=== PATIENT | female | born 1975 | race Caucasian/White ===

== ENCOUNTER 2016-05-02 14:44 | Emergency (ER) | payer MEDICAID ==
[~2016-05-02] VITALS: Ht 180.3 cm; Wt 108.9 kg
[~2016-05-02 14:44] MED LIST: AUGMENTIN 875-1 EACH PO; BUPRENORPHINE H1 TA2 SL; CITALOPRAM HYDR40 MG PO; CLONAZEPAM0.5 M1 PO; DIFLUCAN100 M1 PO; FLEXERIL10 MG PO; GABAPENTIN800 MG PO; GRALISE300 MG PO; HYDROCODONE1 TABLET PO; LORTAB 10/3251 TAB PO; LORTAB 5/500 501 TAB PO; MONISTAT 744 GM VG; NAPROSYN500 M1 PO; NEURONTIN600 MG PO; NEURONTIN800 MG PO; NIFEDIPINE ER30 M1 PO; NIFEDIPINE ER30 MG PO; NIFEDIPINE XL 330 MG PO; NOMEDS; PHENERGAN 25MG.25 M1 PO; PHENERGAN12.5 M3 PO; PRILOSEC40 MG PO; SUBOXONE 8 MG-21 FIL SL; TESSALON PERLE100 M1 PO; ZITHROMAX Z PA250 MG PO; ZOFRAN ODT4 MG PO
--- NOTE | 2016-05-02 15:12 | Emergency Room Report ---
History of Present Illness Time Seen by 151Armando Presenting Problem in Triage Pt arrived:Walked Presenting Problem:PT ADVISES THAT SHE HAS BEEN WITHOUT HER SEIZURE MEDS FOR 1.5 WEEKS D/T BEING WITHOUT A FAMILY DOCTOR AT THIS TIME. PT REPORTS HAVING A SEIZURE YESTERDAY AND TODAY. PT NOW C/O LANGLEY AND NAUSEA FOLLOWING HER SEIZURE TODAY, WHICH SHE STATES IS NOT UNCOMMON FOR HER TO HAVE. 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 N Clinical Suspician of Infection? N Mental Status: 1 - Regular (Normal Baseline) Sepsis Risk:Low Sepsis Risk Have you (or family members/close friends) recently traveled outside the [place]? N If Yes, where/when: Have you had exposure to infectious disease within the past month? N TB? Other? Specify: Comment The patient says that she has a seizure disorder. She has been out of her seizure medication, Neurontin, for 1-1/2 weeks. She had a seizure yesterday and today. She says today when she had her seizure her boyfriend told her that she fell back and hit the back of her head. She complains of a headache on the top of her head. She denies neck pain or injury. She says she is between doctors. She needs a new prescription for Neurontin. She will be seeing neurology at [facility] June 02. ALLERGIES Coded Allergies: sulfamethoxazole (From BACTRIM) (01/30/16) trimethoprim (From BACTRIM) (01/30/16) Home Medications Active Scripts Benzonatate (Tessalon Perle) 100 MG PO TID #15 SGL Prov: 02/10/16 Ondansetron (Zofran 4MG Odt) 4 MG PO Q8HP PRN NAUSEA AND VOMITING #10 ODT Prov: 02/10/16 Gabapentin (Neurontin) 600 MG PO TID #60 TAB Prov: 04/08/16 Reported Medications BUPRENORPHINE HCL/NALOXONE HCL (Suboxone 8 MG-2 MG Sl Film) 1 SL DAILY History Medical History General CAD? No Angina: Yes [place]: No Hypertension? No Hyperlipidemia? No CHF? No DVT? No PE? No COPD? No Asthma? No Anemia? No GERD? No Gastric ulcers? No GI Bleed? No Hernia? No Thyroid Problems? No Hypothyroidism? No CVA? No Seizures? Yes Diabetes? No Insulin Dependent: No Insulin Pump: No Home FSBS? No Renal Insuffiency? No End Stage Renal Disease? No UTI? No Stones? No BPH? No GB Disease: Yes Nephritic Syndrome? No Asplenia? No Hepatitis? No Sickle Cell Disease? No Arthritis? No Migraines? No Cataracts? No Glaucoma? No MRSA? Yes HIV? No TB? No Anxiety? Yes Depression? Yes Cancer? No More? 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/A Social History Smoking Hx Smoker: Current Every Day Smoker Tobacco: Yes Type Cigarettes Packs/day < 1 Pack Alcohol Alcohol: No Review of Systems All Other Systems Reviewed and Negative Constitutional denies fever Psychiatric/Neurological headache, seizure Comment No incontinence of bowel or bladder Physical Exam Vital Signs Vital Signs Date Time Temp Pulse Resp B/P Pulse O2 O2 Flow FiO2 Ox Delivery Rate 05/02 1506 97.9 89 16 141/96 98 05/02 1447 97.9 89 16 141/96 98 General Appearance normal appearance, WD/WN Eye Exam - bilateral eye normal exam, bilateral eye PERRL, bilateral eye EOMI Ear, Nose, Throat hearing grossly normal, normal ENT inspection, No tongue bites , no signs of cranial trauma except for tenderness on top of head Neck normal inspection, non-tender, supple, full range of motion Respiratory Status Yes: trachea midline, chest symmetrical, non tender chest. No: respiratory distress. Lung Sounds bilateral: normal breath sounds, lungs clear. 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 No Michael was queried for this patient? Yes Reference #: [id number] Comment pending - "manual process" Results/Orders Current Medication Orders Sig/Zara Start time Last Medication Dose Route Stop Time Status Admin Gabapentin 0 .STK-MED ONE 05/02 1549 DC .ROUTE Ibuprofen 0 .STK-MED ONE 05/02 1549 DC PO Gabapentin 800 MG ONCE ONE 05/02 1545 DC 05/02 PO 05/02 1546 1552 Ibuprofen 800 MG ONCE ONE 05/02 1545 DC 05/02 PO 05/02 1546 1552 Orders Procedure Date/time Status DIET-NOTHING BY MOUTH 05/[address] HEAD W/O CONTRAST 05/[address] SCAN REQ 05/[address] HEAD REQ 05/02 1504 Complete XRAY/CT/US XRAY/CT/US CT head, C-spine Comment CT scan interpreted by radiologist: Head: Negative Cervical spine: Muscle spasm, no fracture Departure Departure Disposition DC Home or Self Care(routine) Clinical Impression Primary Impression: Seizure disorder Secondary Impressions: Scalp contusion Qualifiers: Encounter type: initial encounter Qualified Code: S00.03XA - Contusion of scalp, initial encounter Condition STABLE Patient Instructions DI for Seizure Disorder -- Adult Additional Instructions Additional instructions for SEIZURE: NO DRIVING, BIKE RIDING, SWIMMING, TUB BATHING, LADDERS UNTIL CLEARED BY DOCTOR. RETURN IF SEIZURE RECURS. NO ALCOHOL OR STREET DRUGS. See your physician as soon as possible for follow-up. Return to the emergency department if seizure recurs. Prescriptions Current Visit Scripts Gabapentin (Neurontin) 800 MG PO TID #90 TAB ED Critical Care Critical Care No at 1601
--- NOTE | 2016-05-02 15:12 | Emergency Room Report ---
History of Present Illness Time Seen by 151Armando Presenting Problem in Triage Pt arrived:Walked Presenting Problem:PT ADVISES THAT SHE HAS BEEN WITHOUT HER SEIZURE MEDS FOR 1.5 WEEKS D/T BEING WITHOUT A FAMILY DOCTOR AT THIS TIME. PT REPORTS HAVING A SEIZURE YESTERDAY AND TODAY. PT NOW C/O LANGLEY AND NAUSEA FOLLOWING HER SEIZURE TODAY, WHICH SHE STATES IS NOT UNCOMMON FOR HER TO HAVE. 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 N Clinical Suspician of Infection? N Mental Status: 1 - Regular (Normal Baseline) Sepsis Risk:Low Sepsis Risk Have you (or family members/close friends) recently traveled outside the [place]? N If Yes, where/when: Have you had exposure to infectious disease within the past month? N TB? Other? Specify: Comment The patient says that she has a seizure disorder. She has been out of her seizure medication, Neurontin, for 1-1/2 weeks. She had a seizure yesterday and today. She says today when she had her seizure her boyfriend told her that she fell back and hit the back of her head. She complains of a headache on the top of her head. She denies neck pain or injury. She says she is between doctors. She needs a new prescription for Neurontin. She will be seeing neurology at [facility] June 02. ALLERGIES Coded Allergies: sulfamethoxazole (From BACTRIM) (01/30/16) trimethoprim (From BACTRIM) (01/30/16) Home Medications Active Scripts Benzonatate (Tessalon Perle) 100 MG PO TID #15 SGL Prov: 02/10/16 Ondansetron (Zofran 4MG Odt) 4 MG PO Q8HP PRN NAUSEA AND VOMITING #10 ODT Prov: 02/10/16 Gabapentin (Neurontin) 600 MG PO TID #60 TAB Prov: 04/08/16 Reported Medications BUPRENORPHINE HCL/NALOXONE HCL (Suboxone 8 MG-2 MG Sl Film) 1 SL DAILY History Medical History General CAD? No Angina: Yes [place]: No Hypertension? No Hyperlipidemia? No CHF? No DVT? No PE? No COPD? No Asthma? No Anemia? No GERD? No Gastric ulcers? No GI Bleed? No Hernia? No Thyroid Problems? No Hypothyroidism? No CVA? No Seizures? Yes Diabetes? No Insulin Dependent: No Insulin Pump: No Home FSBS? No Renal Insuffiency? No End Stage Renal Disease? No UTI? No Stones? No BPH? No GB Disease: Yes Nephritic Syndrome? No Asplenia? No Hepatitis? No Sickle Cell Disease? No Arthritis? No Migraines? No Cataracts? No Glaucoma? No MRSA? Yes HIV? No TB? No Anxiety? Yes Depression? Yes Cancer? No More? 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 Social History Smoking Hx Smoker: Current Every Day Smoker Tobacco: Yes Type Cigarettes Packs/day < 1 Pack Alcohol Alcohol: No Review of Systems All Other Systems Reviewed and Negative Constitutional denies fever Psychiatric/Neurological headache, seizure Comment No incontinence of bowel or bladder Physical Exam Vital Signs Vital Signs Date Time Temp Pulse Resp B/P Pulse O2 O2 Flow FiO2 Ox Delivery Rate 05/02 1506 97.9 89 16 141/96 98 05/02 1447 97.9 89 16 141/96 98 General Appearance normal appearance, WD/WN Eye Exam - bilateral eye normal exam, bilateral eye PERRL, bilateral eye EOMI Ear, Nose, Throat hearing grossly normal, normal ENT inspection, No tongue bites , no signs of cranial trauma except for tenderness on top of head Neck normal inspection, non-tender, supple, full range of motion Respiratory Status Yes: trachea midline, chest symmetrical, non tender chest. No: respiratory distress. Lung Sounds bilateral: normal breath sounds, lungs clear. 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 No Michael was queried for this patient? Yes Reference #: [id number] Comment pending - "manual process" Results/Orders Current Medication Orders Sig/Zara Start time Last Medication Dose Route Stop Time Status Admin Gabapentin 0 .STK-MED ONE 05/02 1549 DC .ROUTE Ibuprofen 0 .STK-MED ONE 05/02 1549 DC PO Gabapentin 800 MG ONCE ONE 05/02 1545 DC 05/02 PO 05/02 1546 1552 Ibuprofen 800 MG ONCE ONE 05/02 1545 DC 05/02 PO 05/02 1546 1552 Orders Procedure Date/time Status DIET-NOTHING BY MOUTH 05/[address] HEAD W/O CONTRAST 05/[address] SCAN REQ 05/[address] HEAD REQ 05/02 1504 Complete XRAY/CT/US XRAY/CT/US CT head, C-spine Comment CT scan interpreted by radiologist: Head: Negative Cervical spine: Muscle spasm, no fracture Departure Departure Disposition DC Home or Self Care(routine) Clinical Impression Primary Impression: Seizure disorder Secondary Impressions: Scalp contusion Qualifiers: Encounter type: initial encounter Qualified Code: S00.03XA - Contusion of scalp, initial encounter Condition STABLE Patient Instructions DI for Seizure Disorder -- Adult Additional Instructions Additional instructions for SEIZURE: NO DRIVING, BIKE RIDING, SWIMMING, TUB BATHING, LADDERS UNTIL CLEARED BY DOCTOR. RETURN IF SEIZURE RECURS. NO ALCOHOL OR STREET DRUGS. See your physician as soon as possible for follow-up. Return to the emergency department if seizure recurs. Prescriptions Current Visit Scripts Gabapentin (Neurontin) 800 MG PO TID #90 TAB ED Critical Care Critical Care No at 1601
[2016-05-02] MEDS ORDERED: NEURONTIN800 MG PO (15:41)
--- NOTE | 2016-05-02 15:44 | RADIOLOGY REPORT PS360 ---
CT CERVICAL SPINE W/O CONT COMPARISON: None HISTORY: Neck pain after a fall during seizure TECHNIQUE: Multiple axial scans of cervical spine were obtained. Sagittal coronal reformatted images were evaluated as well. FINDINGS: There is straightening of the normal curvature of the cervical spine. All cervical vertebrae appear intact. There is minor disc space narrowing at the C5-6 level with minimal anterior osteophytic spurring noted. The prevertebral soft tissues are normal and the odontoid is normal. IMPRESSION: Is a mild muscle spasm along with minor degenerative disc disease C5-6, no fracture seen.
[2016-05-02 16:10] VITALS: BP 137/95
--- NOTE | 2016-05-04 14:43 | RADIOLOGY REPORT PS360 ---
CT HEAD W/O CONTRAST ORDERING PHYSICIAN : Francois Judge MD PATIENT AGE: 41 years GENDER: Female HISTORY: FELL AND HIT HEAD DURING SEIZURE PROCEDURE: Routine axial images head with brain & bone windows COMPARISON: FINDINGS: . No acute intracranial findings. No hemorrhage. No mass. No subdural nor extra-axial collection. The ventricles and basal cisterns appear satisfactory. Richter and white matter patterns satisfactory. The posterior fossa appear satisfactory and unremarkable. CT Bone Windows: The skull is intact. The visualized portions of the paranasal sinuses are clear. Mastoid air cells and middle ear & IACs are unremarkable. IMPRESSION: No acute intracranial findings.
== END 2016-05-02 16:10 | disposition home or self-care (01) ==
LOC: ER 14:44 → UTC 14:55 → ER 14:55
DX: R56.9 Unspecified convulsions (principal); S00.03XA Contusion of scalp, initial encounter; W18.39XA Other fall on same level, initial encounter; Y92.009 Unspecified place in unspecified non-institutional (private) residence as the place of occurrence of the external cause

== ENCOUNTER 2016-06-02 16:10 | Emergency (ER) | payer MEDICAID ==
[~2016-06-02] VITALS: Ht 180.3 cm; Wt 111.1 kg
[2016-06-02] MEDS ORDERED: NEURONTIN800 MG PO (16:46)
--- NOTE | 2016-06-02 16:47 | Emergency Room Report ---
History of Present Illness Time Seen by MD Rojo Presenting Problem in Triage Pt arrived:Walked Presenting Problem:PT ADVISES SHE HAD A SEIZURE APPROX. 30 MINS AGO. 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 N Clinical Suspician of Infection? N Mental Status: 1 - Regular (Normal Baseline) Sepsis Risk:Low Sepsis Risk Have you (or family members/close friends) recently traveled outside the [place]? N If Yes, where/when: Have you had exposure to infectious disease within the past month? N TB? Other? Specify: Comment The patient has a known seizure disorder and complains of seizures. She is on Neurontin 800 mg 3 times a day for her seizures but does not have a physician in this area. She says that she had a seizure yesterday and one today and now has a headache on the top of her head, which is typical after her seizures. She took ibuprofen for that. I saw her in the use of emergency Department on May 02 for this same complaint and prescribed her on a one-month supply of Neurontin. She says she finished it on Tuesday 3 days ago. She has not yet found a primary care physician. She had been given a list of primary care physicians on her last visit, but says that she lost it. She says that she tried calling the other physicians, however, and none of the one she called took her insurance, which is [employer]. She denies alcohol or drug use. She is not on any other medications. She does not drive or work. ALLERGIES Coded Allergies: sulfamethoxazole (From BACTRIM) (01/30/16) trimethoprim (From BACTRIM) (01/30/16) History Medical History General CAD? No Angina: Yes [place]: No Hypertension? No Hyperlipidemia? No CHF? No DVT? No PE? No COPD? No Asthma? No Anemia? No GERD? No Gastric ulcers? No GI Bleed? No Hernia? No Thyroid Problems? No Hypothyroidism? No CVA? No Seizures? Yes Diabetes? No Insulin Dependent: No Insulin Pump: No Home FSBS? No Renal Insuffiency? No End Stage Renal Disease? No UTI? No Stones? No BPH? No GB Disease: Yes Nephritic Syndrome? No Asplenia? No Hepatitis? No Sickle Cell Disease? No Arthritis? No Migraines? No Cataracts? No Glaucoma? No MRSA? Yes HIV? No TB? No Anxiety? Yes Depression? Yes Cancer? No More? 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 Social History Smoking Hx Smoker: Current Every Day Smoker Tobacco: Yes Type Cigarettes Packs/day < 1 Pack Alcohol Alcohol: No Review of Systems All Other Systems Reviewed and Negative Constitutional denies fever Eyes denies blindness, denies blurred vision Psychiatric/Neurological headache, denies numbness, seizure, denies weakness Physical Exam Vital Signs Vital Signs Date Time Temp Pulse Resp B/P Pulse O2 O2 Flow FiO2 Ox Delivery Rate 06/02 1640 92 16 148/91 100 06/02 1626 98.6 71 16 148/81 98 General Appearance normal appearance, WD/WN Eye Exam - bilateral eye normal exam, bilateral eye PERRL, bilateral eye EOMI Ear, Nose, Throat hearing grossly normal, normal ENT inspection Neck normal inspection, non-tender, supple, full range of motion Respiratory Status Yes: trachea midline, chest symmetrical, non tender chest. No: respiratory distress. Lung Sounds bilateral: normal breath sounds, lungs clear. 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 No Results/Orders Current Medication Orders Sig/Zara Start time Last Medication Dose Route Stop Time Status Admin Acetaminophen 650 MG ONCE ONE 06/02 1645 DC PO 06/02 164 Gabapentin 800 MG ONCE ONE 06/02 1645 DC PO 06/02 164 Departure Departure Disposition DC Home or Self Care(routine) Clinical Impression Primary Impression: Seizure disorder Condition STABLE Patient Instructions DI for Seizure Disorder -- Adult Additional Instructions You are being provided with a list of physicians available for follow-up of your condition. Please call a physician on this list to arrange a follow-up appointment as soon as possible. Additional instructions for SEIZURE: NO DRIVING, BIKE RIDING, SWIMMING, TUB BATHING, LADDERS UNTIL CLEARED BY DOCTOR. RETURN IF SEIZURE RECURS. NO ALCOHOL OR STREET DRUGS. See your physician as soon as possible for follow-up. Return to the emergency department if seizure recurs. Prescriptions Current Visit Scripts Gabapentin (Neurontin) 800 MG PO TID #90 TAB ED Critical Care Critical Care No at 6128
[2016-06-02 16:55] VITALS: BP 148/91
== END 2016-06-02 16:55 | disposition home or self-care (01) ==
LOC: ER 16:10
DX: G40.909 Epilepsy, unspecified, not intractable, without status epilepticus (principal)

== ENCOUNTER 2016-12-09 11:49 | Emergency (ER) | payer MEDICAID ==
[~2016-12-09] VITALS: Ht 180.3 cm; Wt 113.4 kg
[~2016-12-09 11:49] MED LIST changes: +HYDROXYZINE 25M25 MG PO; +IMODIUM A-D2 M3 PO; +PAROXETINE HCL10 MG PO; +PHENERGAN25 M3 PO; +ZANTAC 150150 MG PO
--- NOTE | 2016-12-09 11:55 | Emergency Room Report ---
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 N Clinical Suspician of Infection? N Mental Status: 1 - Regular (Normal Baseline) Sepsis Risk:Low Sepsis Risk Have you (or family members/close friends) recently traveled outside the [place]? N If Yes, where/when: Have you had exposure to infectious disease within the past month? N TB? Other? Specify: Patient reports feeling hot, has a cough with productive sputum for two days, feels like she has pneumonia. Hurts when she coughs. Chest and neck and abdomen hurt with cough. She has nausea but no chest pain; has no diarrhea. Recently seen by a rural carrier associate in [place] for lymph nodes and mass in left upper lungs, and was then referred to another rural carrier associate for further evaluation. She has no hemoptysis. Most recent CXR was in August of 2016 and had stable CXR at that time and was having chest pain. No acute SOB, no calf pain or edema. ALLERGIES Coded Allergies: sulfamethoxazole (From BACTRIM) (08/30/16) trimethoprim (From BACTRIM) (08/30/16) Home Medications Active Scripts PROMETHAZINE HCL (Phenergan 25MG Tab (Geq)) 25 MG PO Q6HP PRN N/V #14 TAB Ref 1 Prov: 09/06/16 Amoxicillin/Potassium Clav (Augmentin 875-125 Tablet) 1 EACH PO BID #20 TAB Prov: 09/13/16 Ondansetron (Zofran 4MG Odt) 4 MG PO Q6HP PRN NAUSEA AND VOMITING #20 ODT Prov: 09/13/16 PROMETHAZINE HCL (Phenergan 25MG Tab (Geq)) 25 MG PO Q6HP PRN N/V #28 TAB Prov: 09/13/16 Reported Medications PAROXETINE HCL (Paroxetine Hcl) 10 MG PO BID #30 BUPRENORPHINE HCL/NALOXONE HCL (Buprenorphin-Naloxon 8-2 MG Sl) 1 TAB SL BID #14 Hydroxyzine Pamoate (Hydroxyzine) 25 MG PO BID Ranitidine Hcl (Zantac) 150 MG PO DAILY History Medical History General CAD? No Angina: Yes MD: No Hypertension? No Hyperlipidemia? No CHF? No DVT? No PE? No COPD? No Asthma? No Anemia? No GERD? No Gastric ulcers? No GI Bleed? No Hernia? No Thyroid Problems? No Hypothyroidism? No CVA? No Seizures? Yes Diabetes? No Insulin Dependent: No Insulin Pump: No Home FSBS? No Renal Insuffiency? No End Stage Renal Disease? No UTI? No Stones? No BPH? No GB Disease: Yes Nephritic Syndrome? No Asplenia? No Hepatitis? No Sickle Cell Disease? No Arthritis? No Migraines? No Cataracts? No Glaucoma? No MRSA? Yes HIV? No TB? No Anxiety? Yes Depression? Yes Cancer? No More? 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 Social History Smoking Hx Smoker: Current Every Day Smoker Tobacco: Yes Type Cigarettes Packs/day < 1 Pack Alcohol Alcohol: No Review of Systems All Other Systems Reviewed and Negative Respiratory see HPI, cough Gastrointestinal see HPI Musculoskeletal see HPI Physical Exam Vital Signs Vital Signs Date Time Temp Pulse Resp B/P Pulse O2 O2 Flow FiO2 Ox Delivery Rate 12/09 1150 98.4 89 18 152/94 99 General Appearance normal appearance, WD/WN, no apparent distress Eye Exam - bilateral eye normal exam, bilateral eye PERRL, bilateral eye EOMI Ear, Nose, Throat hearing grossly normal, normal ENT inspection, normal pharynx Neck normal inspection, non-tender, supple, full range of motion (no meningismus ) Respiratory Status Yes: trachea midline, chest symmetrical, non tender chest, productive cough. No : respiratory distress, tender on palpation, use of accessory muscles, pain on inspiration, pain on expiration, non productive cough. Lung Sounds bilateral: normal breath sounds, lungs clear. Cardiovascular normal exam, regular rate/rhythm, no peripheral edema, no gallop, no JVD, no murmur, no rub, normal peripheral pulses Gastrointestinal normal bowel sounds, normal exam, non tender, soft, no organomegaly, no pulsatile mass, no guarding, no rebound Extremities non-tender, normal range of motion, normal inspection, normal capillary refill, no calf tenderness, no pedal edema Strength 5 Upper Ext (L), 5 Upper Ext (R), 5 Lower Ext (L), 5 Lower Ext (R) Neurologic alert, normal exam, no motor/sensory deficits, oriented x 3 Glascow Coma Scale Glascow Coma Scale Response Value EYE response: 4 Spontaneously 4 MOTOR response: 6 OBEYS 6 VERBAL response: 5 Oriented & Converses 5 Total 15 Skin intact, normal color, warm/dry Lymphatic no adenopathy Medical Decision Making LABS/Meds/Orders Pt receiving controlled substance in ED? No Results/Orders Laboratory Tests 12/09/16 1300: Urine Color YELLOW, Urine Appearance SL CLOUDY, Urine pH 6.0, Ur Specific [place] 1.010, Urine Protein NEGATIVE, Urine Ketones NEGATIVE, Urine Blood NEGATIVE, Urine Nitrate NEGATIVE, Urine Bilirubin NEGATIVE, Urine Urobilinogen 0.2, Ur Leukocyte Esterase NEGATIVE, Urine RBC 3-5, Urine WBC 3-5, Ur Squamous Epith Cells 10-20, Urine Bacteria 3+, Urine Glucose NEGATIVE 12/09/16 1241: Lactic Acid 0.7 12/09/16 1155: Sodium 136, Potassium 3.8, Chloride 103, Carbon Dioxide 28, BUN 9, Creatinine 0.8, Estimated Creat Clear 168, Estimated GFR (MDRD) 80, Glucose 123 H, Calcium 9.9, Total Bilirubin 0.4, AST 30, ALT 34, Alkaline Phosphatase 177 H, Creatine Kinase 60, CK-MB (CK-2) Rel Index 0.8, CK and CKMB Interp < 0.5, Troponin I < 0.02, Total Protein 8.1, Albumin 3.8, Globulin 4.3 H, Albumin/Globulin Ratio 0.9 L, WBC 8.8, RBC 5.28, Hgb 15.3, Hct 47.1 H, MCV 89.2, RDW 13.2, Plt Count 287, MPV 6.8 L, Gran % 60.6, Gran # 5.3, Lymphocytes % 31.7, Monocytes % 4.2, Eosinophils % 3.0, Basophils % 0.5, Lymphocytes # 2.8, Monocytes # 0.4, Eosinophils # 0.3, Basophils # 0.0, PUBS MCHC 32.5, MCH 29.0 Current Medication Orders Sig/Zara Start time Last Medication Dose Route Stop Time Status Admin Acetaminophen 650 MG ONCE ONE 12/09 1230 DC 12/09 PO 12/09 1231 1228 Ondansetron HCl 4 MG ONCE ONE 12/09 1230 DC 12/09 PO 12/09 1231 1228 Ondansetron HCl 0 .STK-MED ONE 12/09 1227 DC .ROUTE Acetaminophen 0 .STK-MED ONE 12/09 1226 DC PO Sodium Chloride 10 ML PRN PRN 12/09 1200 AC IV 12/10 1153 Orders Procedure Date/time Status CULTURE, URINE 12/09 1300 Active CULTURE, BLOOD 12/09 1202 Active URINALYSIS/COMPLETE 12/09 1202 Complete LACTIC ACID 12/09 1202 Complete 12 LEAD EKG-BESSON (INITIAL) 12/09 1155 Active ELECTROCARDIOGRAM REQUEST 12/09 1154 Active IV SALINE LOCK 12/09 1154 Active NETWORK TECHNOLOGY INSTRUCTOR 12/09 1154 Active CBC WITH AUTO DIFF 12/09 1154 Complete CARDIAC ENZYMES 12/09 1154 Complete CHEM 12 PROFILE 12/09 1154 Complete CM/EKG CM/EKG EKG rate, NSR, rhythm, no evid. of ischemic chgs, no ectopy, normal QRS, normal [place], normal EKG XRAY/CT/US XRAY/CT/US XRAY chest XR interpretation by reviewed by me (report reviewed) Xray Results abnormal, prominent right hilum Departure Departure Time of Disposition 1326 Disposition DC Home or Self Care(routine) Clinical Impression Primary Impression: Productive cough Condition STABLE Referrals NO REFERRAL (PCP) Patient Instructions Cough Additional Instructions See family doctor of choice next week, see list; see your rural carrier associate as already referred by your other rural carrier associate. Rx Zithromax and Zofran Discharge Counseling Counseled pt/family regarding diagnosis, test results, medications/RX, home care, follow up needs Prescriptions Current Visit Scripts Ondansetron (Zofran 4MG Odt) 4 MG PO Q6HP PRN NAUSEA AND VOMITING #10 ODT Azithromycin (Avpak Azithromycin) 250 MG PO DAILY #6 TAB one Zpack over five days as directed ED Critical Care Critical Care No at 1330
--- NOTE | 2016-12-09 11:55 | Emergency Room Report ---
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 N Clinical Suspician of Infection? N Mental Status: 1 - Regular (Normal Baseline) Sepsis Risk:Low Sepsis Risk Have you (or family members/close friends) recently traveled outside the [place]? N If Yes, where/when: Have you had exposure to infectious disease within the past month? N TB? Other? Specify: Patient reports feeling hot, has a cough with productive sputum for two days, feels like she has pneumonia. Hurts when she coughs. Chest and neck and abdomen hurt with cough. She has nausea but no chest pain; has no diarrhea. Recently seen by a associate product integrity engineer in [place] for lymph nodes and mass in left upper lungs, and was then referred to another associate product integrity engineer for further evaluation. She has no hemoptysis. Most recent CXR was in August of 2016 and had stable CXR at that time and was having chest pain. No acute SOB, no calf pain or edema. ALLERGIES Coded Allergies: sulfamethoxazole (From BACTRIM) (08/30/16) trimethoprim (From BACTRIM) (08/30/16) Home Medications Active Scripts PROMETHAZINE HCL (Phenergan 25MG Tab (Geq)) 25 MG PO Q6HP PRN N/V #14 TAB Ref 1 Prov: 09/06/16 Amoxicillin/Potassium Clav (Augmentin 875-125 Tablet) 1 EACH PO BID #20 TAB Prov: 09/13/16 Ondansetron (Zofran 4MG Odt) 4 MG PO Q6HP PRN NAUSEA AND VOMITING #20 ODT Prov: 09/13/16 PROMETHAZINE HCL (Phenergan 25MG Tab (Geq)) 25 MG PO Q6HP PRN N/V #28 TAB Prov: 09/13/16 Reported Medications PAROXETINE HCL (Paroxetine Hcl) 10 MG PO BID #30 BUPRENORPHINE HCL/NALOXONE HCL (Buprenorphin-Naloxon 8-2 MG Sl) 1 TAB SL BID #14 Hydroxyzine Pamoate (Hydroxyzine) 25 MG PO BID Ranitidine Hcl (Zantac) 150 MG PO DAILY History Medical History General CAD? No Angina: Yes [place]: No Hypertension? No Hyperlipidemia? No CHF? No DVT? No PE? No COPD? No Asthma? No Anemia? No GERD? No Gastric ulcers? No GI Bleed? No Hernia? No Thyroid Problems? No Hypothyroidism? No CVA? No Seizures? Yes Diabetes? No Insulin Dependent: No Insulin Pump: No Home FSBS? No Renal Insuffiency? No End Stage Renal Disease? No UTI? No Stones? No BPH? No GB Disease: Yes Nephritic Syndrome? No Asplenia? No Hepatitis? No Sickle Cell Disease? No Arthritis? No Migraines? No Cataracts? No Glaucoma? No MRSA? Yes HIV? No TB? No Anxiety? Yes Depression? Yes Cancer? No More? 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 Social History Smoking Hx Smoker: Current Every Day Smoker Tobacco: Yes Type Cigarettes Packs/day < 1 Pack Alcohol Alcohol: No Review of Systems All Other Systems Reviewed and Negative Respiratory see HPI, cough Gastrointestinal see HPI Musculoskeletal see HPI Physical Exam Vital Signs Vital Signs Date Time Temp Pulse Resp B/P Pulse O2 O2 Flow FiO2 Ox Delivery Rate 12/09 1150 98.4 89 18 152/94 99 General Appearance normal appearance, WD/WN, no apparent distress Eye Exam - bilateral eye normal exam, bilateral eye PERRL, bilateral eye EOMI Ear, Nose, Throat hearing grossly normal, normal ENT inspection, normal pharynx Neck normal inspection, non-tender, supple, full range of motion (no meningismus ) Respiratory Status Yes: trachea midline, chest symmetrical, non tender chest, productive cough. No : respiratory distress, tender on palpation, use of accessory muscles, pain on inspiration, pain on expiration, non productive cough. Lung Sounds bilateral: normal breath sounds, lungs clear. Cardiovascular normal exam, regular rate/rhythm, no peripheral edema, no gallop, no JVD, no murmur, no rub, normal peripheral pulses Gastrointestinal normal bowel sounds, normal exam, non tender, soft, no organomegaly, no pulsatile mass, no guarding, no rebound Extremities non-tender, normal range of motion, normal inspection, normal capillary refill, no calf tenderness, no pedal edema Strength 5 Upper Ext (L), 5 Upper Ext (R), 5 Lower Ext (L), 5 Lower Ext (R) Neurologic alert, normal exam, no motor/sensory deficits, oriented x 3 Glascow Coma Scale Glascow Coma Scale Response Value EYE response: 4 Spontaneously 4 MOTOR response: 6 OBEYS 6 VERBAL response: 5 Oriented & Converses 5 Total 15 Skin intact, normal color, warm/dry Lymphatic no adenopathy Medical Decision Making LABS/Meds/Orders Pt receiving controlled substance in ED? No Results/Orders Laboratory Tests 12/09/16 1300: Urine Color YELLOW, Urine Appearance SL CLOUDY, Urine pH 6.0, Ur Specific [place] 1.010, Urine Protein NEGATIVE, Urine Ketones NEGATIVE, Urine Blood NEGATIVE, Urine Nitrate NEGATIVE, Urine Bilirubin NEGATIVE, Urine Urobilinogen 0.2, Ur Leukocyte Esterase NEGATIVE, Urine RBC 3-5, Urine WBC 3-5, Ur Squamous Epith Cells 10-20, Urine Bacteria 3+, Urine Glucose NEGATIVE 12/09/16 1241: Lactic Acid 0.7 12/09/16 1155: Sodium 136, Potassium 3.8, Chloride 103, Carbon Dioxide 28, BUN 9, Creatinine 0.8, Estimated Creat Clear 168, Estimated GFR (MDRD) 80, Glucose 123 H, Calcium 9.9, Total Bilirubin 0.4, AST 30, ALT 34, Alkaline Phosphatase 177 H, Creatine Kinase 60, CK-MB (CK-2) Rel Index 0.8, CK and CKMB Interp < 0.5, Troponin I < 0.02, Total Protein 8.1, Albumin 3.8, Globulin 4.3 H, Albumin/Globulin Ratio 0.9 L, WBC 8.8, RBC 5.28, Hgb 15.3, Hct 47.1 H, MCV 89.2, RDW 13.2, Plt Count 287, MPV 6.8 L, Gran % 60.6, Gran # 5.3, Lymphocytes % 31.7, Monocytes % 4.2, Eosinophils % 3.0, Basophils % 0.5, Lymphocytes # 2.8, Monocytes # 0.4, Eosinophils # 0.3, Basophils # 0.0, PUBS MCHC 32.5, MCH 29.0 Current Medication Orders Sig/Zara Start time Last Medication Dose Route Stop Time Status Admin Acetaminophen 650 MG ONCE ONE 12/09 1230 DC 12/09 PO 12/09 1231 1228 Ondansetron HCl 4 MG ONCE ONE 12/09 1230 DC 12/09 PO 12/09 1231 1228 Ondansetron HCl 0 .STK-MED ONE 12/09 1227 DC .ROUTE Acetaminophen 0 .STK-MED ONE 12/09 1226 DC PO Sodium Chloride 10 ML PRN PRN 12/09 1200 AC IV 12/10 1153 Orders Procedure Date/time Status CULTURE, URINE 12/09 1300 Active CULTURE, BLOOD 12/09 1202 Active URINALYSIS/COMPLETE 12/09 1202 Complete LACTIC ACID 12/09 1202 Complete 12 LEAD EKG-BESSON (INITIAL) 12/09 1155 Active ELECTROCARDIOGRAM REQUEST 12/09 1154 Active IV SALINE LOCK 12/09 1154 Active PATTERN DUPLICATOR 12/09 1154 Active CBC WITH AUTO DIFF 12/09 1154 Complete CARDIAC ENZYMES 12/09 1154 Complete CHEM 12 PROFILE 12/09 1154 Complete CM/EKG CM/EKG EKG rate, NSR, rhythm, no evid. of ischemic chgs, no ectopy, normal QRS, normal [place], normal EKG XRAY/CT/US XRAY/CT/US XRAY chest XR interpretation by reviewed by me (report reviewed) Xray Results abnormal, prominent right hilum Departure Departure Time of Disposition 1326 Disposition DC Home or Self Care(routine) Clinical Impression Primary Impression: Productive cough Condition STABLE Referrals NO REFERRAL (PCP) Patient Instructions Cough Additional Instructions See family doctor of choice next week, see list; see your associate product integrity engineer as already referred by your other associate product integrity engineer. Rx Zithromax and Zofran Discharge Counseling Counseled pt/family regarding diagnosis, test results, medications/RX, home care, follow up needs Prescriptions Current Visit Scripts Ondansetron (Zofran 4MG Odt) 4 MG PO Q6HP PRN NAUSEA AND VOMITING #10 ODT Azithromycin (Avpak Azithromycin) 250 MG PO DAILY #6 TAB one Zpack over five days as directed ED Critical Care Critical Care No at 1330
[2016-12-09 12:02] LABS: HEMOGLOBIN 15.3 g/dL (12.2-16.2); LYMPH # 2.8 K/mm3 (0.7-4.5); LYMPH % 31.7 % (10-50.0)
--- OUTSIDE RECORDS SUMMARY | 2016-12-09 12:18 | External Medical Summary Rpt | CCD ---
Author Author , FABRIZIO DINH Address Unknown Phone Care Team Providers Care Paediatric Surgeon Name Role Phone Rosalino DIMAS, Unavailable Unavailable Rosalino DIMAS, JOSÉ MIGUEL Unavailable Unavailable LOBO LLANES, MARIO ALBERTO Unavailable Unavailable ALEX MELINDA, ALEX Unavailable Unavailable MELINDA LAWRENCE, ALEX Unavailable Unavailable MELINDA REYNOLDS, REYNOLDS Unavailable Unavailable REYNOLDS ALL, REYNOLDS ALL Unavailable Unavailable [facility] Unavailable Unavailable DEPARTMENT, [facility] Unavailable Unavailable HOSPITAL, [facility] PH[facility]IAN Unavailable Unavailable PRACTICE L, [facility] WILKINS, WILKINS Unavailable Unavailable WILKINS JAM, WILKINS JAM Unavailable Unavailable LIZAMA, LIZAMA Unavailable Unavailable HARIKA, SEAN, HARIKA, Unavailable Unavailable SEAN CELLAROSI - YORBA Unavailable Unavailable PAT, CELLAROSI - YORBA PAT CELLAROSI - YORBA Unavailable Unavailable PAT, CELLAROSI - YORBA PAT CHANDEL, CHANDEL Unavailable Unavailable CHESTNUT, CHESTNUT Unavailable Unavailable [facility] Un[facility] Un[facility] [place], Unavailable Unavailable [facility] GODINEZ SUKHDEEP, GODINEZ Unavailable Unavailable SUKHDEEP JOANNA, JOANNA Unavailable Unavailable FADIA, FADIA Unavailable Unavailable FADIA LAKISHA, Unavailable Unavailable FADIA LAKISHA FADIA LAKISHA, Unavailable Unavailable FADIA LAKISHA [id number], Unavailable Unavailable [id number], Unavailable Unavailable [id number] JOEY II THO, JOEY II Unavailable Unavailable THO JOEY II THO, JOEY II Unavailable Unavailable THO JOEY, T, JOEY, T Unavailable Unavailable DEPA, DEPA Unavailable [facility]available [facility] Unavailable [facility] Unavailable Unavailable EDDIE, EDDIE Unavailable Unavailable EDDIE SHADE, EDDIE Unavailable Unavailable SHADE FARZANEH, TOUFIC A, Unavailable Unavailable FARZANEH, TOUFIC A [facility] Unavailable Unavailable GROUP P, [facility] HERNÁNDEZ, HERNÁNDEZ Unavailable Unavailable HERNÁNDEZ, HERNÁNDEZ Unavailable Unavailable JR PRAVEEN VALDIVIA, Unavailable Unavailable JR PRAVEEN VALDIVIA ARTURO, ARTURO Unavailable Unavailable ARTURO ASHER, ARTURO Unavailable Unavailable ASHER ARTURO ASHER, ARTURO Unavailable Unavailable ASHER FERNANDO, GISELLE C, Unavailable Unavailable FERNANDO, GISELLE C GIANFERRARI, IMAN, Unavailable Unavailable GIANFERRARI, IMAN FRANCISCA DOMINGUEZ W, Unavailable Unavailable FRANCISCA DOMINGUEZ ANGELA, ANGELA Unavailable Unavailable ANGELA RHO, ANGELA Unavailable Unavailable RHO FARLEY, MAGDA F, Unavailable Unavailable FARLEY, MAGDA F JIMENEZ, JIMENEZ Unavailable Unavailable MARGO JIMENEZ, Unavailable Unavailable MARGO JIMENEZ [facility] Unavailable Unavailable [facility] Unavailable Unavailable [facility], [facility] Unavailable Unavailable HOSPITAL P, [facility] HARTKER III, Unavailable Unavailable ALHAJI W, HARTROXANE III, ALHAJI W JIM ANDREA, JUAN PABLO Unavailable Unavailable D, JIM ANDREA, JUAN PABLO D HIGH MASTER, MONIQUE, Unavailable Unavailable HIGH MASTER, MONIQUE IJEOMA STEPHENS, Unavailable Unavailable IJEOMA STEPHENS, JORI Unavailable Unavailable NAN [facility] Unavailable Unavailable GROUP PS, [facility] Unavailable Unavailable [facility], [facility] LINK TERRY, Unavailable Unavailable TERRYLINK SOLIS KOSTELIC, KOSTELIC Unavailable Unavailable KOSTELIC MO, Unavailable Unavailable KOSTELIC MO DONNY C S, DONNY, C S Unavailable Unavailable [facility] Un[facility] Unavailable [facility], [facility] Unavailable Unavailable [facility]INGS, [facility] Unavailable Unavailable [facility], [facility] Unavailable Unavailable [facility], [facility] DARIO HICKS, Unavailable Unavailable DARIO HICKS JR, ISIDRO JR Unavailable Unavailable SANJANA WATSON, Unavailable Unavailable SANJANA WATSON MIRIAM B, Unavailable Unavailable MEERA MYERS KENNETH T, Unavailable Unavailable DOMINIQUE JOHNSON JENNY COU, JENNY Unavailable Unavailable COU MATIAS LU MD, Unavailable Unavailable MATIAS LU MD [facility] Unavailable Unavailable URGENT TREAT, [facility] [place], N[facility] Unavailable Unavailable [facility], Unavailable Unavailable [facility], Unavailable Unavailable PLL[facility], [facility] EMILY, DOMINIQUE A, Unavailable Unavailable EMILY, DOMINIQUE [facility] Unavailable Unavailable [facility], [facility] FREDDY, FREDDY Unavailable Unavailable PUND, PUND Unavailable Unavailable [facility], Unavailable Unavailable [facility], Unavailable Unavailable [facility] ALVARADO, ALVARADO Unavailable Unavailable ALVARADO MUH, ALVARADO Unavailable Unavailable MUH RADMANESH, RADMANESH Unavailable Unavailable RADMANESH SHA, Unavailable Unavailable RADMANESH SHA RENUSCH, RENUSCH Unavailable Unavailable GAYLE, GAYLE Unavailable Unavailable [id number], Unavailable Unavailable [id number], Unavailable Unavailable [id number] ROSS BETO, ROSS BETO Unavailable Unavailable SCALF, SCALF Unavailable Unavailable SCALF SHARON, SCALF SHARON Unavailable Unavailable SOKAN BAB, SOKAN BAB Unavailable Unavailable SOTINGEANU, Unavailable Unavailable SOTINGEANU SOTINGEANU AMELIA, Unavailable Unavailable SOTINGEANU AMELIA [facility] Unavailable Un[facility], [facility], Unavailable Unavailable [facility], Unavailable Unavailable [facility] STAROMANA CRYSTAL, Unavailable Unavailable STAROMANA CRYSTAL W SWINEY, SWINEY Unavailable Unavailable SWINEY PAT, SWINEY Unavailable Unavailable PAT [facility], Unavailable Unavailable [facility], Unavailable Unavailable [facility] Unavailable Unavailable [place] [facility], [facility] Unavailable Unavailable WEHRMAN III HIREN, Unavailable Unavailable WEHRMAN III HIREN WEHRMAN III HIREN, Unavailable Unavailable WEHRMAN III HIREN NILDA, MUNGUIA Unavailable Unavailable AYALA ANGLIN WEST, Unavailable Unavailable AYALA Lutz Unavailable Unavailable III Andres GARCIA III Diamond العراقي MD, Unavailable Unavailable Diamond TAN MD, W E, Unavailable Unavailable Anna HEARD Purpose Continuity of Care Document - 10-03-2007 through 2016 Problems Code Diagnosis DOS Provider Status R0602 SHORTNESS 10-30-2016 [facility] [place] OF BREATH RADIOLOGY R079 CHEST PAIN 10-30-2016 [facility] [place] UNSPECIFIED RADIOLOGY R1310 DYSPHAGIA 10-30-2016 [facility] UNSPECIFIED N EMERGENCY PHYS E669 OBESITY 10-27-2016 [place] U[facility]PECIFIED ANESTHESIA GROUP PS K210 GASTRO-ESOP 10-27-2016 [facility] DISEASE W/ ESOPHAGITIS K259 GASTR ULCR 10-27-2016 [place] U[facility] AC ANESTHESIA OR CHRON GROUP PS W/O HEMORR OR PERF R109 UNSPECIFIED 10-27-2016 [facility] R112 NAUSEA WITH 10-27-2016 [facility] R51 HEADACHE 10-25-2016 [facility] N EMERGENCY PHYS R05 COUGH 10-22-2016 [facility] P R0789 OTHER CHEST 10-22-2016 [facility] PAIN [facility] GROUP P K140 GLOSSITIS 10-08-2016 [facility] N EMERGENC[facility] PHYS K146 GLOSSODYNIA 10-08-2016 [facility] R1011 RIGHT UPPER 10-08-2016 [facility] QUADRANT [facility] PAIN HOLDINGS R102 PELVIC AND 10-06-2016 [facility] PERINEAL N EMERGENCY PAIN PHYS R1033 PERIUMBILIC 10-06-2016 [facility] AL PAIN N EMERGENCY PHYS A86217 OTHER 10-01-2016 [facility] [place] [facility]IAN [facility] CYST LEFT SIDE K029 DENTAL 09-13-2016 [facility], UNSPECIFIED PLL R072 PRECORDIAL 09-13-2016 [facility]IN [facility] R222 LOCALIZED 09-13-2016 [facility] P LUMP TRUNK K5909 OTHER 09-08-2016 [facility] [place] CONSTIPATIO RADIOLOGY N R1031 RIGHT LOWER 09-08-2016 [facility] PAIN Z720 TOBACCO USE 09-06-2016 [facility] R197 DIARRHEA 08-30-2016 [facility] UNSPECIFIED PHYSICIANS, PLLC V656I7L ADVERSE 08-24-2016 [facility] EFFECT OTH N EMERGENCY ANTIPROTOZO PHYS AL RX INITIAL ENC G894 CHRONIC 08-20-2016 [facility] PAIN N EMERGENCY SYNDROME PHYS R0782 INTERCOSTAL 08-20-2016 [facility] PAIN N EMERGENCY PHYS K529 NONINFECTIV 08-15-2016 [facility] E N EMERGENCY GASTROENTER PHYS ITIS & COLITIS UNS E876 HYPOKALEMIA 08-09-2016 [facility] HOLD[facility] E0032RN OTHER SPEC 06-20-2016 [facility] [place] INJURIES LT RADIOLOGY LOWER LEG INITIAL ENC G4700 INSOMNIA 06-09-2016 [facility] UNSPECIFIED PHYSICIAN PRACTICE L R590 LOCALIZED 06-09-2016 [facility] ENLARGED PHYSICIAN LYMPH NODES PRACTICE L R61 GENERALIZED 06-09-2016 [facility] PHYSICIAN HYPERHIDROS PRACTICE L IS R938 ABNORMAL 06-09-2016 [facility] FIND ON DX PHYSICIAN IMAGING OTH PRACTICE L SPEC BODY STRCT M222X2 PATELLOFEMO 06-08-2016 [facility] LEFT KNEE R918 OTHER 06-08-2016 [facility] [place] NONSPECIFIC RADIOLOGY ABNORMAL FINDING OF LUNG FIELD X17584 PAIN IN 06-04-2016 [facility] [place] LEFT KNEE RADIOLOGY Z31135 EPILEPSY 06-02-2016 [facility] UNS NOT PHYSICIANS, INTRACT W/O PLLC STATUS EPILEPTICUS U47385 MIGRAINE 05-27-2016 [facility] UNS NOT N EMERGENCY INTRACT W/O PHYS STATUS MIGRAINOSUS M546 PAIN IN 05-27-2016 [facility] THORACIC N EMERGENCY SPINE PHYS R768 OTH SPEC 05-18-2016 [facility] ABNORMAL OLEGARIO IMMUNOLOGIC HOLDINGS AL FIND IN SERUM D81043 OTHER 05-02-2016 [place] [facility] IMAGING ASS DEGENERATIO N AT C5-C6 LEVEL M542 CERVICALGIA 05-02-2016 [facility] R569 UNSPECIFIED 05-02-2016 [place] [facility] CONVULSIONS IMAGING ASS S6736SX CONTUSION 05-02-2016 [facility] OF SCALP PHYSICIANS, INITIAL PLLC ENCOUNTER A4763MP UNSPECIFIED 05-02-2016 [place] INJURY OF MEDICAL HEAD IMAGING ASS INITIAL ENCOUNTER W339XWI UNSPECIFIED 05-02-2016 [place] INJURY OF MEDICAL NECK IMAGING ASS INITIAL ENCOUNTER G8929 OTHER 04-08-2016 [facility] CHRONIC [facility], PAIN PLLC J209 ACUTE 02-10-2016 [facility] BRONCHITIS PHYSICIANS, UNSPECIFIED PLLC B349 VIRAL 01-30-2016 [facility] INFECTION [facility], UNSPECIFIED PLLC B373 CANDIDIASIS 01-30-2016 [facility] J029 ACUTE 01-30-2016 [facility] PHARYNGITIS [facility]ICIANS, PLLC UNSPECIFIED A598 TRICHOMONIA 01-18-2016 [facility] SIS OF N EMERGENCY OTHER SITES PHYS M545 LOW BACK 01-18-2016 [facility] PAIN N EMERGENCY PHYS L239 ALLERGIC 12-14-2015 [facility] CONTACT N EMERGENCY DERMATITIS PHYS UNSPECIFIED CAUSE I7300 RAYNAUDS 11-28-2015 [facility] SYNDROME [facility]ITY WITHOUT [facility]PITAL GANGRENE R001 BRADYCARDIA 11-28-2015 [facility] N EMERGENCY UNSPECIFIED PHYS R1010 UPPER 11-28-2015 [facility] ABDOMINAL N EMERGENCY PAIN PHYS UNSPECIFIED R42 DIZZINESS 11-28-2015 [facility] AND N EMERGENCY GIDDINESS PHYS J01713 OTHER LONG 11-28-2015 [facility] CURRENT HOSP[facility] DRUG THERAPY Z881 ALLERGY 11-28-2015 [facility] STATUS TO COMMUNITY OTHER HOSPITAL ANTIBIOTIC AGENTS STATUS R000 TACHYCARDIA 11-25-2015 [facility] N EMERGENCY UNSPECIFIED PHYS K224 DYSKINESIA 11-07-2015 [facility] OF N EMERGENCY ESOPHAGUS PHYSI 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 10-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 [facility] C MITRAL PHYSICIANS, VALVE PLLC PROLAPSE R1084 GENERALIZED 09-29-2015 [facility] ABDOMINAL PHYSICIANS, PAIN PLLC N390 URINARY 09-01-2015 [facility] TRACT N EMERGENCY INFECTION PHYSI SITE NOT SPECIFIED R7989 OTHER SPEC 09-01-2015 [facility] ABNORMAL N EMERGENCY FINDINGS PHYSI BLOOD CHEMISTRY M5134 OT 08-18-2015 [facility] DEGEN THORACIC REGION M5136 OT 08-18-2015 [facility] DEGEN LUMBAR REGION K047 PERIAPICAL 04-08-2015 [facility] WITHOUT CARE BILL SINUS M549 DORSALGIA 04-08-2015 [facility] UNSPECIFIED EXPRESS CARE BILL N399 DISORDER OF 04-08-2015 [facility] UNSPECIFIED R05547 PAIN IN 02-24-2015 [place] LEFT ANKLE MEDICAL IMAGING ASS B60778P OTH FX 02-24-2015 [facility] UPPER & PHYSICIANS, LOWER LT PLLC FIBULA INIT ENC CLOS FX Q48943B UNSPECIFIED 02-24-2015 [place] INJURY MEDICAL LEFT ANKLE IMAGING ASS INITIAL ENCOUNTER A599 TRICHOMONIA 02-21-2015 [facility] SIS N EMERGENCY UNSPECIFIED PHYS M5137 OTH 12-10-2014 [facility] INTERVERTEB N EMERGENCY RAL DISC PHYS DEGEN LUMBOSACRAL REGION 7881 DYSURIA 10-22-2014 [facility] V642 SURG/OTH 10-22-2014 [facility] PROC NOT MEM HOS[facility] CARRIED OUT INC BECAUSE PTS DECN 95457 GENERALIZED 09-18-2014 [facility] DISORDER URGENT TREAT 67744 OTHER 09-18-2014 [facility] CONVULSIONS [facility] URGENT TREAT 460 ACUTE 07-02-2014 [facility] NASOPHARYNG N EMERGENCY ITIS PHYS 48945 FEVER 07-02-2014 [facility] U[facility] EMERGENCY PHYS 5990 URINARY 05-05-2014 [facility] TRACT N EMERGENCY INFECTION PHYS SITE NOT SPECIFIED 99255 OTHER 05-05-2014 [facility] MALAISE AND N EMERGENCY FATIGUE PHYS 4430 RAYNAUDS 03-11-2014 [facility] SYNDROME [facility] 51838 NAUSEA 03-03-2014 [facility] ALONE N EMERGENCY PHYS 18853 HEAD 03-03-2014 [facility] [place] INJURY, RADIOLOGY UNSPECIFIED 53009 INJURY OF 03-03-2014 [facility] [place] FACE AND RADIOLOGY NECK OTHER AND UNSPECIFIED 02276 ABDOMINAL 02-02-2014 [facility] PAIN, N EMERGENCY UNSPECIFIED PHYS SITE 5589 OTH&UNSPEC 01-30-2014 [facility] NONINFECTIO N EMERGENCY US PHYS GASTROENTER ITIS&COLITI S 5601 PARALYTIC 01-30-2014 [facility] ILEUS N EMERGENCY PHYS 82748 UNSPECIFIED 01-30-2014 [facility] N EMERGENCY CONSTIPATIO PHYS N 81028 ABDOMINAL 01-30-2014 [facility] PAIN RIGHT N EMERGENCY UPPER PHYS QUADRANT 81234 MIGRAINE 11-27-2013 [facility] UNSP W/O N EMERGENCY INTRACT W/O PHYS STATUS MIGRAINOSUS 55691 UNS 10-05-2013 [facility] GASTRITIS&G ASTRODUODIT IS W/O MENTION HEMORR 97095 VOMITING 10-05-2013 [facility] ALONE 278.02 OVERWEIGHT 09-08-2013 Resolved 59656 OVERWEIGHT 09-08-2013 [facility] 19396 OTHER 09-08-2013 [facility] PAIN 74120 GEN CONVUL 09-08-2013 [facility] W/O MENTION INTRACT EPILEPSY 787.01 NAUSEA WITH 09-08-2013 Resolved VOMITING V5869 LONG-TERM 09-08-2013 [facility] USE OF OTHER MEDICATIONS V77.91 SCREENING 09-08-2013 Resolved FOR LIPOID DISORDERS 42388 NAUSEA WITH 08-31-2013 ISAI LAWRENCE VOMITING 5362 PERSISTENT 08-16-2013 [facility] VOMITING N EMERGENCY PHYS 0340 STREPTOCOCC 08-09-2013 JOE[facility] II THO AL SORE THROAT 462 ACUTE 08-09-2013 [facility] PHARYNGITIS 56670 DIARRHEA 05-21-2013 CE[facility]OSI - YORBA PAT 7242 LUMBAGO 05-05-2013 ISAI LAWRENCE 305.1 305.1 04-12-2013 [facility] TOBACCO USE [facility] DISORDER Hospital 780.39 780.39 04-12-2013 [facility] OTHER [facility] CONVULSIONS Hospital 824.8 824.8 FX 04-12-2013 [facility] ANKLE [facility] NOS-CLOSED Hospital 8242 CLOSED 04-12-2013 [facility] FRACTURE OF [place] LATERAL MALLEOLUS 48048 UNSPECIFIED 04-12-2013 WEHRMAN III SITE OF HIREN ANKLE SPRAIN AND STRAIN E849.8 E849.8 04-12-2013 [facility] ACCIDENT IN [facility] Hospital E880.9 E880.9 FALL 04-12-2013 [facility] ON [facility] STAIR/STEP Hospital [facility] E8859 FALL FROM 04-12-2013 WEHRMAN III OTHER [facility] SLIPPING TRIPPING OR STUMBLING E8889 UNSPECIFIED 04-12-2013 F[facility]IA FALL L[place] 724.2 724.2 07-16-2012 [facility] 719.47 PAIN IN 06-28-2012 Resolved JOINT INVOLVING ANKLE AND FOOT 789.01 ABDOMINAL 04-12-2012 Resolved PAIN RIGHT UPPER QUADRANT 599.0 URINARY 08-20-2011 Resolved TRACT INFECTION SITE NOT SPECIFIED 110.5 DERMATOPHYT 06-21-2011 Resolved OSIS OF THE BODY V25.09 FAMILY 05-12-2011 Resolved PLANNING ADVICE V76.10 BREAST 05-12-2011 Resolved SCREENING UNSPECIFIED V76.2 SCREENING 05-12-2011 Resolved FOR MALIGNANT NEOPLASMS OF THE CERVIX 131.01 TRICHOMONAL 04-29-2011 Resolved VULVOVAGINI TIS V65.40 OTHER 04-29-2011 Resolved SPECIFIED COUNSELING 7245 UNSPECIFIED 01-05-2009 [facility] BACKACHE N EMERGENCY PHYS INC 7295 PAIN IN 01-05-2009 [facility] TISSUES OF LIMB 91020 CHILLS 01-03-2009 [facility] WITHOUT N EMERGENCY FEVER PHYS INC V154 PERS HX 11-21-2008 [facility] AL TRAUMA PRS [facility] 7213 LUMBOSACRAL 09-11-2008 [facility] SPONDYLOSIS PSC WITHOUT MYELOPATHY 68130 DEGEN 09-11-2008 [facility] LUMBAR/LUMB SERVICES OSACRAL PSC INTERVERTEB RAL DISC 7802 SYNCOPE AND 09-11-2008 [facility] COLLAPSE SERVICES PSC 7840 HEADACHE 09-11-2008 [facility] PSC 8472 LUMBAR 08-19-2008 [facility] SPRAIN AND SERVICES STRAIN PSC 7820 DISTURBANCE 08-06-2008 [facility] CENTER 01186 OTH FORM 07-30-2008 [facility] EPILEPSY & AMERIC RECUR HOLDING SEIZUR NO INTRACT EPIL 23960 INFECTIONS 07-09-2008 [facility] HOSPITAL COND/COMPL 73214 PAIN IN 07-09-2008 [facility] JOINT, N EMERGENCY SHOULDER PHYS INC REGION 7746 UNSPECIFIED 07-09-2008 [facility] PEDIA JAUNDICE 7795 DRUG 07-09-2008 [facility] WITHDRAWAL [facility] SYNDROME IN PEDIA 23576 CHEST PAIN 07-09-2008 [facility] [place] UNSPECIFIED RADIOLOGY 34929 ABDOMINAL 07-09-2008 [facility] [place] PAIN OTHER RADIOLOGY SPECIFIED SITE 7919 OTHER 07-09-2008 [facility] EXAMINATION OF URINE V3000 SINGLE 07-09-2008 [facility] PEDIA W/O 7706 TRANSITORY 07-07-2008 [facility] TACHYPNEA SERV OF FOUNDATIO 43082 THREATENED 07-05-2008 [facility] PREMATURE SERV LABOR [facility] ANTEPARTUM 07144 SHOULDER 07-05-2008 [facility] DYSTOCIA SERV DURING FOUNDATIO LABOR&DELIV ER DELIVERED V2389 SUPERVISION 07-05-2008 [facility] OF OTHER SERV HIGH-RISK FOUNDATIO V252 STERILIZATI 07-05-2008 [facility] ON SERV [facility]ATIO 65223 EDEMA OR 07-04-2008 [facility] EXCESSIVE [facility] ANTEPARTUM 18709 MATERNAL 07-04-2008 [facility] ANTEPARTUM V726 LABORATORY 06-25-2008 [facility] EXAMINATION [facility] 43183 OTHER 06-24-2008 [facility] VISUAL FIELD DEFECT 7910 PROTEINURIA 06-24-2008 [facility] V221 SUPERVISION 06-24-2008 [facility] OF OTHER [facility] 17267 MATERNAL 06-03-2008 [facility] DIABETES SERV MELLITUS F[facility] ANTEPARTUM 68333 OTH CURRENT 06-03-2008 [facility] CLASSIFIABL E ELSW ANTPRTM 25024 OBES COMP 06-03-2008 [facility] PG SERV /THE FOUNDATIO PP ANTEPARTUM COND/COMP 12701 POOR 06-03-2008 [facility] GROWTH MGMT SERV MOTH FOUNDATIO ANTPRTM COND/COMP 61981 SWELLING OF 06-03-2008 [facility] 79934 GEN CONVUL 05-29-2008 [facility] EPILEPSY SERV W/INTRACTAB FOUNDATIO LE EPILEPSY 65472 04-11-2008 [facility] COMP RECUR [facility] CLINIC ANTPRTM COND/COMP V237 INSUFFICIEN 04-11-2008 [facility] T [facility] V762 SCREENING 04-11-2008 [facility] MALIGNANT NEOPLASM OF THE CERVIX 9708 POISONING 04-04-2008 [facility] OTHER SPEC SERV CENTRAL FOUNDATIO NERV SYS STIMULANTS E9804 POISONING 04-04-2008 [facility] BY OTH DRUG SERV & FOUNDATIO MEDICINE-UN DETERM CAUSE 84060 MATERNAL 04-03-2008 [facility] DRUG SERV DEPENDENCE FOUNDATIO ANTEPARTUM 4019 UNSPECIFIED 04-01-2008 [facility] 5180 PULMONARY 04-01-2008 [facility] COLLAPSE SERV FOUNDAT[facility] 84417 OTH CURRENT 04-01-2008 [facility] MATERNAL SERV CCE-COMPL FOUNDATIO PG CB/PP-UNS EOC 74507 EPILEPSY 04-01-2008 [facility] /PP ANTEPARTUM COND/COMP 18961 ALTERED 04-01-2008 [facility] MENTAL SERV STATUS FOUNDATIO 7850 UNSPECIFIED 04-01-2008 [facility] SERV TACHYCARDIA FOUNDATIO 7867 ABNORMAL 04-01-2008 [facility] CHEST SERV SOUNDS FOUNDATIO 30829 POISONING 04-01-2008 [facility] BY OPIATES SERV AND RELATED FOUNDATIO NARCOTICS OTHER 9670 POISONING 04-01-2008 [facility] BARBITURATE S 9690 POISONING 04-01-2008 [facility] ANTIDEPRESS ANTS 9694 POISONING 04-01-2008 [facility] BENZODIAZEP INE-BASED TRANQUILIZE RS 9696 POISONING 04-01-2008 [facility] PSYCHODYSLE PTICS 9779 POISONING 04-01-2008 [facility] UNSPECIFIED N EMERGENCY PHYS INC DRUG/MEDICI NAL SUBSTANCE E8502 ACCIDENTAL 04-01-2008 [facility] POISN OTH SERV OPIATES&REL FOUNDATIO ATED NARCOTICS E9805 POISONING 04-01-2008 [facility] BY UNS DRUG N EMERGENCY OR PHYS INC MEDICINE-UN DETERM CAUSE V222 04-01-2008 [facility] STATE, N EMERGENCY INCIDENTAL PHYS INC 77372 UNSPECIFIED 03-23-2008 [facility] VOMITING N EMERGENCY OF PHYS INC ANTEPARTUM [id number] ENCOUNTER 02-21-2008 [facility]ATOMIC [facility]IO SURVEY 6235 LEUKORRHEA 01-16-2008 [facility] [place] NOT RADIOLOGY SPECIFIED INFECTIVE [id number] OTHER 01-16-2008 [facility] [place] SPECIFED RADIOLOGY COMPLICATIO N ANTEPARTUM 6826 CELLULITIS 12-13-2007 [facility] EXCEPT FOOT 2662 OTHER 12-12-2007 [facility] B-COMPLEX HEALTH DEFICIENCIE CENTRAL S BANK ACCT V7242 12-12-2007 [facility] EXAMINATION HEALTH OR TEST CENTRAL POSITIVE BANK ACCT RESULT 9190 ABRASION/FR 11-14-2007 [facility] BURN [facility] OTH MX&[facility] SITE W/O INF 9222 CONTUSION 11-14-2007 [facility] ABDOM[facility]AL HOSPITAL WALL [id number] CHRONIC 10-09-2007 [place] CHOLECYSTIT [facility] IS HOSPITAL 5758 OTHER 10-09-2007 [place] SPECIFIED [facility] DISORDER OF HOSPITAL GALLBLADDER 7226 DEGENERATIO 10-09-2007 [facility] RAL DISC SITE UNSPEC R07.9 Chest pain, unspecified R10.31 Right lower quadrant pain R51 Headache R53.1 Weakness Allergies, Adverse Reactions, Alerts Type Drug Allergy Adverse Reaction to Substance Substance Reaction Severity No Known Allergies - Unknown Intermediate Nka NO KNOWN DRUG Unknown Unknown ALLERGIES No Known Allergies Clinical Alert Notifications Alert Member has >/= 10 ED visits within the past 365 days Medications Na ND Rx Da Fi Fi Am Da Di Ph RX Ph St me C No te ll ll ou ys ag ar # ys at rm s nt no ma ic us Or Da si cy ia de te s n re d NM 65 09 10 10 2 00 KE Ac OM 16 -1 -1 .0 00 NT ti ET 20 1- 3- 00 01 UC ve VARELA 74 20 20 05 [place] ZI 51 17 17 79 NE 0 84 CV S 12 PH .5 AR MA MG CY TA LL BL C, ET DB A CV S PH AR MA CY #3 01 6 [place] 51 09 10 [address] 67 -1 -1 .0 00 NT ti AT 24 1- 3- 00 01 UC ve IN 11 20 20 05 [place] 70 17 17 80 10 9 28 CV 0, S 00 PH 0 AR UN MA IT CY /M L LL BLAKE C, SP DB A CV S PH AR MA CY #3 01 6 ON 65 09 10 12 3 00 KE Ac DA 86 -0 -0 .0 00 NT ti NS 20 5- 6- 00 01 UC ve ET 39 20 20 05 [place] RO 01 17 17 66 N 0 56 CV OD S T PH 4 AR MG MA CY TA BL LL ET C, DB A CV S PH AR MA CY #3 01 6 PO 51 09 10 52 30 00 KE Ac LY 99 -0 -0 7. 00 NT ti ET 10 6- 6- 00 01 UC ve HY 45 20 20 0 05 [place] LE 75 17 17 71 NE 7 68 CV S GL PH YC AR OL MA CY 33 50 LL C, PO WD DB A CV S PH AR MA CY #3 01 6 CV 50 09 10 30 15 00 KE Ac S 42 -0 -0 .0 00 NT ti BI 81 6- 6- 00 01 UC ve SA 66 20 20 05 [place] CO 36 17 17 71 DY 3 70 CV L S EC PH 5 AR MA MG CY TA LL BL C, ET DB A CV S PH AR MA CY #3 01 6 ON 08 09 12 3 00 KE Ac DA 46 -3 -2 .0 00 NT ti NS 20 0- 9- 00 01 UC ve ET 10 20 20 03 [place] RO 53 17 17 01 N 0 08 CV HC S L PH 4 AR MG MA CY TA BL LL ET C, DB A CV S PH AR MA CY #3 01 6 BU 00 08 09 30 15 00 KE Ac NM 05 -3 -2 .0 00 NT ti EN 40 0- 9- 00 01 UC ve OR 18 20 20 05 [place] PH 91 17 17 46 IN 3 67 CV -N S AL PH OX AR ON MA CY 8- 2 LL MG C, SL DB A CV S PH AR MA CY #3 01 6 TR 50 08 09 30 30 00 KE Ac AZ 11 -2 -2 .0 00 NT ti OD 10 0- 2- 00 01 UC ve ON 43 20 20 03 [place] E 30 17 17 01 50 1 09 CV S MG PH AR TA MA BL CY ET LL C, DB A CV S PH AR MA CY #3 01 6 LI 50 08 09 10 3 00 KE Ac DO 38 -1 -2 0. 00 NT ti CA 30 8- 2- 00 01 UC ve IN 77 20 20 0 05 [place] E 50 17 17 22 2% 4 84 CV S PH SC AR OU MA S CY SO LN LL C, DB A CV S PH AR MA CY #3 01 6 ON 68 08 09 20 5 00 KE Ac DA 46 -2 -2 .0 00 NT ti NS 20 0- 2- 00 01 UC ve ET 10 20 20 05 [place] RO 53 17 17 17 N 0 31 CV HC S L PH 4 AR MG MA CY TA BL LL ET C, DB A CV S PH AR MA CY #3 01 6 CI 65 08 09 20 10 00 KE Ac NM 86 -2 -2 .0 00 NT ti OF 20 2- 2- 00 01 UC ve LO 07 20 20 05 [place] XA 70 17 17 33 CI 1 03 CV N S HC PH L AR 50 MA 0 CY MG LL TA C, B DB A CV S PH AR MA CY #3 01 6 NM 65 08 09 20 10 00 KE Ac OM 16 -2 -2 .0 00 NT ti ET 20 2- 2- 00 01 UC ve VARELA 52 20 20 05 [place] ZI 11 17 17 33 NE 0 04 CV S 25 PH AR MG MA CY TA BL LL ET C, DB A CV S PH AR MA CY #3 01 6 HY 68 08 09 [address] 46 -1 -1 0. 00 NT ti OX 20 5- 5- 00 01 UC ve YZ 35 20 20 0 05 [place] IN 40 17 17 10 E 1 84 CV HC S L PH 50 AR MA MG CY TA LL BL C, ET DB A CV S PH AR MA CY #3 01 6 PA 13 08 09 30 30 00 KE Ac RO 10 -1 -1 .0 00 NT ti XE 70 5- 5- 00 01 UC ve TI 15 20 20 05 [place] NE 59 17 17 10 0 85 CV HC S L PH 20 AR MA MG CY TA LL BL C, ET DB A CV S PH AR MA CY #3 01 6 BU 00 08 09 28 14 00 KE Ac NM 05 -1 -1 .0 00 NT ti EN 40 6- 5- 00 01 UC ve OR 18 20 20 05 [place] PH 91 17 17 10 IN 3 83 CV -N S AL PH OX AR ON MA CY 8- 2 LL MG C, SL DB A CV S PH AR MA CY #3 01 6 BU 00 08 09 28 14 00 KE Ac NM 05 -0 -0 .0 00 NT ti EN 40 3- 8- 00 01 UC ve OR 18 20 20 04 [place] PH 91 17 17 79 IN 3 99 CV -N S AL PH OX AR ON MA CY 8- 2 LL MG C, SL DB A CV S PH AR MA CY #3 01 6 TR 50 07 08 30 30 00 KE Ac AZ 11 -2 -2 .0 00 NT ti OD 10 4- 5- 00 01 UC ve ON 43 20 20 03 [place] E 30 17 17 01 50 1 09 CV S MG PH AR TA MA BL CY ET LL C, DB A CV S PH AR MA CY #3 01 6 AM 00 07 08 20 10 00 KE Ac OX 78 -2 -2 .0 00 NT ti -C 11 5- 5- 01 UC ve LA 85 20 20 04 KY V 22 17 17 55 87 0 74 CV 5- S 12 PH 5 AR MG MA CY TA BL LL ET C, DB A CV S PH AR MA CY #3 01 6 NM 65 07 08 28 7 00 KE Ac OM 16 -2 -2 .0 00 NT ti ET 20 4- 5- 01 UC ve VARELA 52 20 20 04 KY ZI 11 17 17 55 NE 0 86 CV S 25 PH AR MG MA CY TA BL LL ET C, DB A CV S PH AR MA CY #3 01 6 BU 00 07 08 28 14 00 KE Ac NM 05 -1 -1 .0 00 NT ti EN 40 9- 8- 00 01 UC ve OR 18 20 20 04 [place] PH 91 17 17 43 IN 3 27 CV -N S AL PH OX AR ON MA CY 8- 2 LL MG C, SL DB A CV S PH AR MA CY #3 01 6 PA 13 07 08 30 30 00 KE Ac RO 10 -1 -1 .0 00 NT ti XE 70 9- 8- 00 01 UC ve TI 15 20 20 04 [place] NE 59 17 17 43 0 29 CV HC S L PH 20 AR MA MG CY TA LL BL C, ET DB A CV S PH AR MA CY #3 01 6 NM 65 07 08 60 30 00 KE Ac OM 16 -1 -1 .0 00 NT ti ET 20 9- 8- 00 01 UC ve VARELA 74 20 20 04 [place] ZI 51 17 17 43 NE 0 30 CV S 12 PH .5 AR MA MG CY TA LL BL C, ET DB A CV S PH AR MA CY #3 01 6 NM 65 07 08 28 7 00 KE Ac OM 16 -0 -1 .0 00 NT ti ET 20 7- 1- 00 01 UC ve VARELA 74 20 20 04 [place] ZI 51 17 17 18 NE 0 93 CV S 12 PH .5 AR MA MG CY TA LL BL C, ET DB A CV S PH AR MA CY #3 01 6 BU 00 07 08 28 14 00 KE Ac NM 05 -0 -1 .0 00 NT ti EN 40 6- 1- 00 01 UC ve OR 18 20 20 04 [place] PH 91 17 17 16 IN 3 77 CV -N S AL PH OX AR ON MA CY 8- 2 LL MG C, SL DB A CV S PH AR KAYLYNN CY #3 01 6 CL 63 07 08 21 7 00 KE Ac IN 30 -0 -0 .0 00 NT ti DA 40 5- 4- 00 01 UC ve MY 69 20 20 04 [place] CI 30 17 17 10 N 1 48 CV HC S L PH 30 AR 0 MA MG CY CA LL PS C, UL E DB A CV S PH AR KAYLYNN CY #3 01 6 NM 65 07 08 14 2 00 KE Ac OM 16 -0 -0 .0 00 NT ti ET 20 5- 4- 00 01 UC ve VARELA 74 20 20 04 [place] ZI 51 17 17 10 NE 0 47 CV S 12 PH .5 AR MA MG CY TA LL BL C, ET DB A CV S PH AR KAYLYNN CY #3 01 6 BU 00 06 08 14 7 00 KE Ac NM 05 -2 -0 .0 00 NT ti EN 40 9- 4- 00 01 UC ve OR 18 20 20 04 [place] PH 91 17 17 00 IN 3 86 CV -N S AL PH OX AR ON MA CY 8- 2 LL MG C, SL DB A CV S PH AR KAYLYNN CY #3 01 6 TR 50 06 07 30 30 00 KE Ac AZ 11 -2 -2 .0 00 NT ti OD 10 2- 8- 00 01 UC ve ON 43 20 20 03 [place] E 30 17 17 01 50 1 09 CV S MG PH AR TA MA BL CY ET LL C, DB A CV S PH AR KAYLYNN CY #3 01 6 ON 68 06 07 30 30 00 KE Ac DA 46 -2 -2 .0 00 NT ti NS 20 2- 8- 00 01 UC ve ET 10 20 20 03 [place] RO 53 17 17 01 N 0 08 CV HC S L PH 4 AR MG MA CY TA BL LL ET C, DB A CV S PH AR KAYLYNN CY #3 01 6 BU 00 06 07 14 7 00 KE Ac NM 05 -2 -2 .0 00 NT ti EN 40 2- 8- 00 01 UC ve OR 18 20 20 03 KY PH 91 17 17 83 IN 3 42 CV -N S AL PH OX AR ON MA CY 8- 2 LL MG C, SL DB A CV S PH AR MA CY #3 01 6 PA 13 06 07 30 30 00 KE Ac RO 10 -2 -2 .0 00 NT ti XE 70 2- 8- 01 UC ve TI 15 20 20 03 [place] NE 49 17 17 83 0 43 CV HC S L PH 10 AR MA MG CY TA LL BL C, ET DB A CV S PH AR MA CY #3 01 6 NM 45 06 07 12 3 00 KE Ac OM 80 -2 -2 .0 00 NT ti ET 20 8- 01 UC ve VARELA 75 20 20 03 [place] ZI 93 17 17 90 NE 0 56 CV S 25 PH AR MG MA CY BLAKE PP LL OS C, IT OR DB Y A CV S PH AR MA CY #3 01 6 CI 65 06 07 14 7 00 KE Ac NM 86 -2 -2 .0 00 NT ti OF 20 8 01 UC ve LO 07 20 20 03 [place] XA 70 17 17 90 CI 1 57 CV N S HC PH L AR 50 MA 0 CY MG LL TA C, B DB A CV S PH AR MA CY #3 01 6 RA 64 06 07 30 15 00 KE Ac NI 38 -2 -2 .0 00 NT ti TI 00 01 UC ve DI 80 20 20 03 [place] NE 30 17 17 90 7 59 CV 15 S 0 PH MG AR MA TA CY BL ET LL C, DB A CV S PH AR MA CY #3 01 6 GA 69 06 07 30 10 00 KE Ac BA 09 -2 -2 .0 00 NT ti PE 70 8- 01 UC ve NT 81 20 20 03 [place] IN 41 17 17 90 2 61 CV 30 S 0 PH MG AR MA CA CY PS UL LL E C, DB A CV S PH AR MA CY #3 01 6 BU 00 06 07 14 7 00 KE Ac NM 05 -1 -2 .0 00 NT ti EN 40 5- 1- 00 01 UC ve OR 18 20 20 03 KY PH 91 17 17 68 IN 3 11 CV -N S AL PH OX AR ON MA CY 8- 2 LL MG C, SL DB A CV S PH AR MA CY #3 01 6 HY 68 06 07 12 [address] 46 -1 -2 0. 00 NT ti OX 20 5- 1- 00 01 UC ve YZ 35 20 20 0 03 [place] IN 30 17 17 68 E 1 13 CV HC S L PH 25 AR MA MG CY TA LL BL C, ET DB A CV S PH AR MA CY #3 01 6 BU 00 06 07 14 7 00 KE Ac NM 05 -0 -1 .0 00 NT ti EN 40 8- 4- 00 01 UC ve OR 18 20 20 03 KY PH 91 17 17 52 IN 3 46 CV -N S AL PH OX AR ON MA CY 8- 2 LL MG C, SL DB A CV S PH AR MA CY #3 01 6 BU 00 06 07 10 5 00 KE Ac NM 05 -0 -0 .0 00 NT ti EN 40 2- 7- 00 01 UC ve OR 18 20 20 03 [place] PH 91 17 17 30 IN 3 46 CV -N S AL PH OX AR ON MA CY 8- 2 LL MG C, SL DB A CV S PH AR MA CY #3 01 6 DI 00 05 06 30 8 00 KE Ac CY 37 -2 -3 .0 00 NT ti CL 81 6- 0- 00 01 UC ve OM 62 20 20 03 [place] IN 00 17 17 19 E 1 56 CV 20 S PH MG AR MA TA CY BL ET LL C, DB A CV S PH AR KAYLYNN CY #3 01 6 NM 65 05 06 20 5 00 KE Ac OM 16 -2 -3 .0 00 NT ti ET 20 6- 0- 00 01 UC ve VARELA 52 20 20 03 [place] ZI 11 17 17 19 NE 0 55 CV S 25 PH AR MG MA CY TA BL LL ET C, DB A CV S PH AR MA CY #3 01 6 TR 50 05 06 30 30 00 KE Ac AZ 11 -1 -2 .0 00 NT ti OD 10 8- 3- 00 01 UC ve ON 43 20 20 03 [place] E 30 17 17 01 50 1 09 CV S MG PH AR TA MA BL CY ET LL C, DB A CV S PH AR MA CY #3 01 6 ON 68 05 06 30 30 00 KE Ac DA 46 -1 -2 .0 00 NT ti NS 20 8- 3- 00 01 UC ve ET 10 20 20 03 [place] RO 53 17 17 01 N 0 08 CV HC S L PH 4 AR MG MA CY TA BL LL ET C, DB A CV S PH AR MA CY #3 01 6 OM 55 05 06 30 30 00 KE Ac EP 11 -1 -0 .0 00 NT ti RA 10 0- 9- 00 01 UC ve ZO 15 20 20 02 KY LE 81 17 [address] S PH 20 AR MA MG CY CA LL PS C, UL E DB A CV S PH AR MA CY #3 01 6 ON 04 05 30 4 00 KE Ac DA 46 -2 -2 .0 00 NT ti NS 20 4- 6- 01 UC ve ET 10 20 20 02 [place] RO 53 17 17 37 N 0 77 CV HC S L PH 4 AR MG MA CY TA BL LL ET C, DB A CV S PH AR MA CY #3 01 6 ME 00 04 05 60 15 00 KE Ac TH 60 -2 -2 .0 00 NT ti OC 34 4- 6- 00 01 UC ve AR 48 20 20 02 [place] BA 52 17 17 37 MO 1 76 CV L S 50 PH 0 AR MG MA CY TA BL LL ET C, DB A CV S PH AR MA CY #3 01 6 NA 65 04 05 28 14 00 KE Ac NM 16 -1 -1 .0 00 NT ti OX 20 4 9- 01 UC ve EN 19 20 20 02 [place] 05 17 17 13 50 0 45 CV 0 S MG PH AR TA MA BL CY ET LL C, DB A CV S PH AR MA CY #3 01 6 TR 50 04 05 30 30 00 KE Ac AZ 11 -1 -1 .0 00 NT ti OD 10 9- 9- 00 01 UC ve ON 43 20 20 02 KY E 30 17 17 24 50 1 43 CV S MG PH AR TA MA BL CY ET LL C, DB A CV S PH AR MA CY #3 01 6 ON 04 05 20 10 00 KE Ac DA 46 -1 -1 .0 00 NT ti NS 20 9 9- 01 UC ve ET 10 20 20 02 [place] RO 63 17 17 24 N 0 44 CV HC S L PH 8 AR MG MA CY TA BL LL ET C, DB A CV S PH AR MA CY #3 01 6 HY 68 04 05 30 [address] 46 -1 -1 .0 00 NT ti OX 20 9- 9- 00 01 UC ve YZ 35 20 20 02 [place] IN 30 17 17 26 E 1 44 CV HC S L PH 25 AR MA MG CY TA LL BL C, ET DB A CV S PH AR MA CY #3 01 6 GA 65 04 05 90 30 00 KE Ac BA 86 -1 -1 .0 00 NT ti PE 20 2- 9- 00 01 UC ve NT 52 20 20 02 [place] IN 40 17 17 08 5 71 CV 80 S 0 PH MG AR MA TA CY BL ET LL C, DB A CV S PH AR MA CY #3 01 6 NM 65 04 05 60 30 00 KE Ac OM 16 -0 -1 .0 00 NT ti ET 20 6- 2- 00 01 UC ve VARELA 52 20 20 01 [place] ZI 11 17 17 92 NE 0 18 CV S 25 PH AR MG MA CY TA BL LL ET C, DB A CV S PH AR MA CY #3 01 6 GA 69 04 05 14 7 00 KE Ac BA 09 -1 -1 .0 00 NT ti PE 70 0- 2- 00 01 UC ve NT 81 20 20 01 [place] IN 41 17 17 67 2 82 CV 30 S 0 PH MG AR MA CA CY PS UL LL E C, DB A CV S PH AR MA CY #3 01 6 ON 68 03 05 30 10 00 KE Ac DA 46 -3 -0 .0 00 NT ti NS 20 1- 5- 00 01 UC ve ET 10 20 20 01 [place] RO 63 17 17 79 N 0 24 CV HC S L PH 8 AR MG MA CY TA BL LL ET C, DB A CV S PH AR MA CY #3 01 6 ME 00 03 04 21 6 00 KE Ac TH 60 -2 -2 .0 00 NT ti YL 34 3- 8- 00 01 UC ve NM 59 20 20 01 [place] ED 31 17 17 56 NI 5 44 CV SO S LO PH NE AR 4 MA CY MG LL DO C, SE PK DB A CV S PH AR MA CY #3 01 6 TI 00 03 04 20 7 00 KE Ac ZA 37 -2 -2 .0 00 NT ti NI 80 3- 8- 00 01 UC ve DI 72 20 20 01 [place] NE 41 17 17 56 9 46 CV HC S L PH 4 AR MG MA CY TA BL LL ET C, DB A CV S PH AR MA CY #3 01 6 HY 68 03 04 30 [address] 46 -2 -2 .0 00 NT ti OX 20 8- 8- 00 01 UC ve YZ 35 20 20 01 [place] IN 30 17 17 67 E 1 81 CV HC S L PH 25 AR MA MG CY TA LL BL C, ET DB A CV S PH AR MA CY #3 01 6 GA 65 03 04 90 30 00 KE Ac BA 86 -1 -1 .0 00 NT ti PE 20 2- 4- 00 01 UC ve NT 52 20 20 01 [place] IN 40 17 17 20 5 06 CV 80 S 0 PH MG AR MA TA CY BL ET LL C, DB A CV S PH AR MA CY #3 01 6 GA 65 08 04 90 30 00 KE Ac BA 86 -1 -0 .0 00 NT ti PE 20 4- 7- 00 00 UC ve NT 52 20 20 84 [place] IN 40 15 17 70 5 07 CV 80 S 0 PH MG AR MA TA CY BL ET LL C, DB A CV S PH AR MA CY #3 01 6 GA 65 02 03 60 20 00 KE Ac BA 86 -1 -2 .0 00 NT ti PE 20 7- 4- 00 01 UC ve NT 52 20 20 00 [place] IN 30 17 17 56 5 16 CV 60 S 0 PH MG AR MA TA CY BL ET LL C, DB A CV S PH AR MA CY #3 01 6 BU 00 02 03 42 28 00 KE Ac NM 05 -2 -2 .0 00 NT ti EN 40 2- 4- 00 01 UC ve OR 18 20 20 00 [place] PH 91 17 17 70 IN 3 45 CV -N S AL PH OX AR ON MA CY 8- 2 LL MG C, SL DB A CV S PH AR MA CY #3 01 6 GA 65 01 02 90 30 00 KE Ac BA 86 -1 -1 .0 00 NT ti PE 20 1- 0- 00 00 UC ve NT 52 20 20 99 [place] IN 30 17 17 39 5 12 CV 60 S 0 PH MG AR MA TA CY BL ET LL C, DB A CV S PH AR KAYLYNN CY #3 01 6 NA 65 12 01 14 7 00 KE Ac NM 16 -2 -2 .0 00 NT ti OX 20 0- 0- 00 00 UC ve EN 19 20 20 98 [place] 05 16 17 95 50 0 09 CV 0 S MG PH AR TA MA BL CY ET LL C, DB A CV S PH AR MA CY #3 01 6 AZ 59 12 01 6. 5 00 KE Ac IT 76 -2 -2 00 00 NT ti HR 23 0- 0- 0 00 UC ve OM 06 20 20 98 [place] YC 00 16 17 95 IN 1 10 CV S 25 PH 0 AR MG MA CY TA BL LL ET C, DB A CV S PH AR MA CY #3 01 6 BE 67 12 01 15 5 00 KE Ac NZ 87 -2 -2 .0 00 NT ti ON 70 0- 0- 00 00 UC ve AT 10 20 20 98 [place] AT 50 16 17 95 E 5 11 CV 10 S 0 PH MG AR MA CA CY PS UL LL E C, DB A CV S PH AR MA CY #3 01 6 ON 65 12 01 10 3 00 KE Ac DA 86 -2 -2 .0 00 NT ti NS 20 0- 0- 00 00 UC ve ET 39 20 20 98 [place] RO 01 16 17 95 N 0 15 CV OD S T PH 4 AR MG MA CY TA BL LL ET C, DB A CV S PH AR MA CY #3 01 6 FL 00 12 01 7. 7 00 KE Ac UC 17 -1 -2 00 00 NT ti ON 25 5- 0- 0 00 UC ve AZ 41 20 20 98 [place] OL 14 16 17 64 E 6 21 CV 10 S 0 PH MG AR MA TA CY BL ET LL C, DB A CV S PH AR MA CY #3 01 6 BU 00 12 01 24 16 00 KE Ac NM 05 -1 -1 .0 00 NT ti EN 40 4- 3- 00 00 UC ve OR 18 20 20 98 [place] PH 91 16 17 77 IN 3 07 CV -N S AL PH OX AR ON MA CY 8- 2 LL MG C, SL DB A CV S PH AR MA CY #3 01 6 GA 65 12 01 90 30 00 KE Ac BA 86 -1 -1 .0 00 NT ti PE 20 1- 3- 00 00 UC ve NT 52 20 20 97 [place] IN 30 16 17 66 5 37 CV 60 S 0 PH MG AR MA TA CY BL ET LL C, DB A CV S PH AR MA CY #3 01 6 BU 00 12 01 11 7 00 KE Ac NM 05 -0 -0 .0 00 NT ti EN 40 7- 9- 00 00 UC ve OR 18 20 20 98 [place] PH 91 16 17 55 IN 3 85 CV -N S AL PH OX AR ON MA CY 8- 2 LL MG C, SL DB A CV S PH AR MA CY #3 01 6 fa 10 07 07 CL Ac mo 40 -1 -1 EM ti ti 95 9- 9- , ve di 20 20 LO ne 14 14 RI : pr 99 07 07 CL Ac om 24 -1 -1 EM ti et 47 9- 9- , ve varela 20 20 LO zi 14 14 RI ne : ga 11 07 07 CL Ac ba 15 -1 -1 EM ti pe 01 9- 9- , ve nt 3 20 20 LO in 14 14 RI : pa 31 07 07 CL Ac ro 41 -1 -1 EM ti xe 99 9- 9- , ve ti 20 20 LO ne 14 14 RI ni 15 07 07 CL Ac fe 26 -1 -1 EM ti di 01 9- 9- , ve pi 20 20 LO ne 14 14 RI : Ib 62 02 0 No up 58 -2 ro 40 0- Lo fe 74 20 ng n 60 14 er 40 1 0M Ac G ti Ta ve bl et AP 00 06 0 No AP 40 -0 /H 60 9- Lo YD 36 20 ng RO 56 13 er CO 2 DO Ac NE ti ve 32 5 MG -5 MG KE 00 05 0 No TO 40 -2 RO 93 6- Lo LA 79 20 ng C 60 13 er 60 1 Ac MG ti /2 ve ML AL CY 51 05 0 No CL 07 -2 OB 90 6- Lo EN 64 20 ng ZA 42 13 er NM 0 IN Ac E ti 10 ve MG TA BL ET TR 00 05 0 No AM 09 -0 AD 30 9- Lo OL 05 20 ng 80 13 er 50 1H MG Ac ti TA ve BL ET TA KE HO ME HY [address] 07 -1 OC 90 4- Lo OD 78 20 ng ON 09 13 er E/ 9H AP Ac AP ti ve 5/ 50 0M G TA KE 00 11 12 00 15 2 RI 38 WO Ac 40 -1 -0 .0 TE 19 OS ti 60 5- 3- 00 94 TE ve 35 20 20 AI R 80 09 09 D WI 1 PH LL AR IA M M #3 E 91 4 ON 55 11 12 00 12 30 CV 53 CA Ac DA 11 -2 -0 .0 S 49 TR ti NS 10 0- 3- 00 PH 12 ON ve ET 15 20 20 AR RO 33 09 09 MA RE N 0 CY BA HC L L #3 4 01 MG 6 TA BL ET ME 00 11 12 00 90 30 CV 53 CA Ac TH 14 -2 -0 .0 S 49 TR ti OC 31 0- 3- 00 PH 11 ON ve AR 29 20 20 AR BA 00 09 09 MA RE MO 1 CY BA L L 50 #3 0 01 MG 6 TA BL ET GA 59 11 12 00 90 30 RI 38 BL Ac BA 76 -1 -0 .0 TE 21 AI ti PE 25 7- 3- 00 90 R ve NT 02 20 20 AI AD IN 70 09 09 D RI 1 PH EN 30 AR NE 0 M MG #3 91 CA 4 PS UL E OX 00 11 11 00 10 3 CV 53 DA Ac YC 59 -0 -1 .0 S 23 LE ti OD 10 1- 9- 00 PH 06 ve ON 93 20 20 AR II -A 30 09 09 MA CE 1 CY TH TA OM NE #3 NO 01 PH 6 EN 7. 5- 32 5 65 11 11 00 6. 2 RI 38 HU Ac 16 -1 -1 00 TE 18 BE ti 20 3- 9- 0 46 R ve 52 20 20 AI JU 01 09 09 D LI 0 PH A AR M M #3 91 4 00 11 11 00 10 1 RI 38 HU Ac 18 -1 -1 .0 TE 18 BE ti 50 3- 9- 00 47 R ve 61 20 20 AI JU 30 09 09 D LI 1 PH A AR M M #3 91 4 BLAKE 53 11 11 00 10 5 RI 38 HU Ac LF 74 -1 -1 .0 TE 18 BE ti AM 60 3- 9- 00 45 R ve ET 27 20 20 AI JU HO 20 09 09 D LI XA 5 PH A ZO AR M LE M -T #3 MP 91 4 DS TA BL ET GA 59 06 11 03 90 30 RI 36 HE Ac BA 76 -0 -0 .0 TE 66 ND ti PE 25 1- 5- 00 08 RI ve NT 02 20 20 AI CK IN 09 D SO 1 PH N 30 AR AM 0 M EL MG #3 IA 91 E CA 4 PS UL E CY 00 06 10 03 30 10 RI 36 FA Ac CL 37 -1 -2 .0 TE 63 LL ti OB 80 6- 2- 00 35 S ve EN 75 20 20 AI CA ZA 11 09 09 D ND NM 0 PH IC IN AR E E M D 10 #3 91 MG 4 TA BL ET GA 59 06 10 02 90 30 RI 36 HE Ac BA 76 -0 -0 .0 TE 66 ND ti PE 25 1- 8- 00 08 RI ve NT 02 20 20 AI CK IN 09 D SO 1 PH N 30 AR AM 0 M EL MG #3 IA 91 E CA 4 PS UL E GA 59 06 08 01 90 30 RI 36 HE Ac BA 76 -0 -1 .0 TE 66 ND ti PE 25 1- 3- 00 08 RI ve NT 02 20 20 AI CK IN 09 D SO 1 PH N 30 AR AM 0 M EL MG #3 IA 91 E CA 4 PS UL E CY 00 06 07 01 30 10 RI 36 FA Ac CL 37 -1 -3 .0 TE 63 LL ti OB 80 6- 0- 00 35 S ve EN 75 20 20 AI CA ZA 11 09 09 D ND NM 0 PH IC IN AR E E M D 10 #3 91 MG 4 TA BL ET ZA 10 06 07 00 90 30 RI 36 GI Ac NA 14 -2 -1 .0 TE 75 LB ti FL 40 9- 6- 00 32 ER ve EX 60 20 20 AI T 6 61 09 09 D DALTON 5 PH HN MG AR W M CA #3 PS 91 UL 4 E LI 63 06 07 00 90 30 RI 36 GI Ac DO 48 -2 -1 .0 TE 75 LB ti DE 10 9- 6- 00 20 ER ve RM 68 20 20 AI T 70 09 09 D DALTON 5% 6 PH HN AR W PA M TC #3 H 91 4 GA 59 06 07 00 90 30 RI 36 WI Ac BA 76 -0 -1 .0 TE 66 LS ti PE 25 1- 6- 00 08 ON ve NT 02 20 20 AI IN 70 09 09 D KA 1 PH Y 30 AR G 0 M MG #3 91 CA 4 PS UL E CY 00 06 07 00 90 30 RI 36 FA Ac CL 37 -1 -0 .0 TE 63 LL ti OB 80 6- 2- 00 35 S ve EN 75 20 20 AI CA ZA 11 09 09 D ND NM 0 PH IC IN AR E E M D 10 #3 91 MG 4 TA BL ET TO 00 06 07 00 60 30 RI 36 FA Ac PI 09 -1 -0 .0 TE 63 LL ti RA 37 6- 2- 00 34 S ve MA 54 20 20 AI CA TE 00 09 09 D ND 6 PH IC 50 AR E M D MG #3 91 TA 4 BL ET TO 00 06 06 00 60 30 RI 36 FA Ac PI 09 -0 -1 .0 TE 56 LL ti RA 30 9- 8- 00 94 S ve MA 15 20 20 AI CA TE 50 09 09 D ND 6 PH IC 25 AR E M D MG #3 91 TA 4 BL ET 00 06 06 00 30 30 RI 36 WI Ac 09 -0 -1 .0 TE 49 LS ti 34 1- 8- 00 19 ON ve 35 20 20 AI 60 09 09 D KA 1 PH Y AR G M #3 91 4 00 06 06 00 30 30 RI 36 WI Ac 09 -0 -1 .0 TE 49 LS ti 35 1- 8- 00 20 ON ve 27 20 20 AI 20 09 09 D KA 1 PH Y AR G M #3 91 4 GA 59 04 06 04 90 30 CV 50 FA Ac BA 76 -0 -1 .0 S 87 KH ti PE 25 9- 8- 00 PH 69 OU ve NT 02 20 20 AR RY IN 70 09 09 MA 1 CY TO 30 UF 0 #3 IC MG 01 A 6 CA PS UL E GA 59 04 06 03 90 30 CV 50 FA Ac BA 76 -0 -0 .0 S 87 KH ti PE 25 9- 4- 00 PH 69 OU ve NT 02 20 20 AR RY IN 70 09 09 MA 1 CY TO 30 UF 0 #3 IC MG 01 A 6 CA PS UL E CI 00 05 06 00 20 10 RI 36 DA Ac NM 17 -1 -0 .0 TE 36 LE ti OF 25 9- 4- 00 67 ve LO 31 20 20 AI II XA 26 09 09 D CI 0 PH TH N AR OM HC M L #3 50 91 0 4 MG TA B DO 00 05 06 00 60 30 CV 52 WE Ac CU 53 -1 -0 .0 S 95 LL ti SA 63 5- 4- 00 PH 93 S ve TE 75 20 20 AR KA 70 09 09 MA RA SO 1 CY O DI UM #6 94 25 1 0 MG CA PS UL E OX 00 05 06 00 40 6 CV 52 WE Ac YC 40 -1 -0 .0 S 95 LL ti OD 60 5- 4- 00 PH 92 S ve ON 51 20 20 AR KA E- 20 09 09 MA RA AC 5 CY O ET AM #6 IN 94 OP 1 HE N 5- 32 5 49 05 06 00 60 15 RI 36 WE Ac 88 -1 -0 .0 TE 36 LL ti 40 5- 4- 00 69 S ve 77 20 20 AI KA 80 09 09 D RA 5 PH O AR M #3 91 4 00 04 05 02 90 30 CV 50 FA Ac 09 -0 -2 .0 S 87 KH ti 31 9- 1- 00 PH 69 OU ve 03 20 20 AR RY 90 09 09 MA 5 CY TO UF #3 IC 01 A 6 00 04 05 01 90 30 CV 50 FA Ac 09 -0 -0 .0 S 87 KH ti 31 9- 7- 00 PH 69 OU ve 03 20 20 AR RY 90 09 09 MA 5 CY TO UF #3 IC 01 A 6 FA 00 02 05 01 60 30 CV 50 No Ac MO 17 -1 -0 .0 S 53 t ti TI 25 2- 7- 00 PH 80 Av ve DI 72 20 20 AR ai NE 86 09 09 MA la 0 CY bl 20 e #3 MG 01 6 TA BL ET NM 00 04 05 00 20 7 CV 52 No Ac OM 78 -2 -0 .0 S 73 t ti ET 11 7- 7- 00 PH 35 Av ve VARELA 83 20 20 AR ai ZI 00 09 09 MA la NE 1 CY bl e 25 #6 94 MG 1 TA BL ET NM 00 04 04 01 20 7 CV 50 No Ac OM 78 -1 -2 .0 S 91 t ti ET 11 3- 3- 00 PH 94 Av ve VARELA 83 20 20 AR ai ZI 00 09 09 MA la NE 1 CY bl e 25 #3 01 MG 6 TA BL ET FE 00 04 04 00 30 30 CV 50 MU Ac RR 53 -1 -2 .0 S 93 SE ti OU 65 4- 3- 00 PH 19 ve S 89 20 20 AR JR BLAKE 00 09 09 MA LF 1 CY KE AT NN E #3 ET 32 01 H 5 6 N MG TA BL ET 00 04 04 00 90 30 CV 50 FA Ac 09 -0 -2 .0 S 87 KH ti 31 9- 3- 00 PH 69 OU ve 03 20 20 AR RY 90 09 09 MA 5 CY TO UF #3 IC 01 A 6 NM 00 03 04 00 30 4 RI 66 No Ac OM 78 -2 -0 .0 TE 98 t ti ET 11 7- 9- 00 26 Av ve VARELA 83 20 20 AI ai ZI 00 09 09 D la NE 1 PH bl AR e 25 M #3 MG 34 7 TA BL ET ME 00 03 04 00 30 10 RI 66 No Ac TO 09 -2 -0 .0 TE 98 t ti CL 32 7- 9- 00 23 Av ve OP 20 20 20 AI ai RA 30 09 09 D la NE 5 PH bl DE AR e M 10 #3 34 MG 7 TA BL ET GA 59 03 04 00 90 30 RI 66 No Ac BA 76 -2 -0 .0 TE 98 t ti PE 25 7- 9- 00 22 Av ve NT 02 20 20 AI ai IN 70 09 09 D la 1 PH bl 30 AR e 0 M MG #3 34 CA 7 PS UL E GA 60 02 03 01 90 30 CV 50 No Ac BA 50 -1 -2 .0 S 26 t ti PE 50 9- 6- 00 PH 52 Av ve NT 11 20 20 AR ai IN 30 09 09 MA la 1 CY bl 30 e 0 #3 MG 01 6 CA PS UL E FA 00 02 03 00 60 30 CV 50 No Ac MO 17 -1 -2 .0 S 53 t ti TI 25 2- 6- 00 PH 80 Av ve DI 72 20 20 AR ai NE 86 09 09 MA la 0 CY bl 20 e #3 MG 01 6 TA BL ET GA 60 02 02 00 90 30 CV 50 No Ac BA 50 -1 -2 .0 S 26 t ti PE 50 9- 6- 00 PH 52 Av ve NT 11 20 20 AR ai IN 30 09 09 MA la 1 CY bl 30 e 0 #3 MG 01 6 CA PS UL E NM 00 01 02 00 20 5 CV 50 DA Ac OM 78 -3 -1 .0 S 03 LE ti ET 11 1- 2- 00 PH 60 ve VARELA 83 20 20 AR II ZI 00 09 09 MA NE 1 CY TH OM 25 #3 01 MG 6 TA BL ET GA 60 09 01 05 18 30 TH 65 RA Ac BA 50 -1 -3 0. E 31 AB ti PE 50 9- 0- 00 ME 56 ve NT 11 20 20 0 DI 0 RE IN 30 08 09 CI GI 1 NE NA 30 0 SH MG OP PE CA PS UL E GA 60 09 01 04 18 30 TH 65 RA Ac BA 50 -1 -0 0. E 31 AB ti PE 50 9- 1- 00 ME 56 ve NT 11 20 20 0 DI 0 RE IN 30 08 09 CI GI 1 NE NA 30 0 SH MG OP PE CA PS UL E NM 00 12 01 01 44 11 TH 65 MU Ac OM 78 -0 -0 .0 E 37 SE ti ET 11 8- 1- 00 ME 11 ve VARELA 83 20 20 DI 7 JR ZI 01 08 09 CI NE 0 NE KE NN 25 SH ET OP H MG PE N TA BL ET 00 12 01 00 15 3 CV 49 BE Ac 40 -1 -0 .0 S 56 NT ti 60 8- 1- 00 PH 16 ON ve 35 20 20 AR 70 08 09 MA NA [address] OS #3 01 6 AM 00 12 01 00 28 7 CV 49 BE Ac OX 09 -1 -0 .0 S 56 NT ti IC 33 8- 1- 00 PH 15 ON ve IL 10 20 20 AR LI 70 08 09 MA NA N [address] 25 OS 0 #3 MG 01 6 CA PS UL E NM 00 12 12 00 44 11 TH 65 MU Ac OM 78 -0 -1 .0 E 37 SE ti ET 11 8- 8- 00 ME 11 ve VARELA 83 20 20 DI 7 JR ZI 01 08 08 CI NE 0 NE KE NN 25 SH ET OP H MG PE N TA BL ET GA 60 09 12 03 18 30 TH 65 RA Ac BA 50 -1 -1 0. E 31 AB ti PE 50 9- 8- 00 ME 56 ve NT 11 20 20 0 DI 0 RE IN 30 08 08 CI GI 1 NE NA 30 0 SH MG OP PE CA PS UL E NM 00 11 12 00 15 4 TH 65 CH Ac OM 78 -2 -0 .0 E 36 ES ti ET 11 5- 4- 00 ME 28 TN ve VARELA 83 20 20 DI 2 UT ZI 01 08 08 CI NE 0 NE NE CH 25 SH AE OP L MG PE TA BL ET GA 60 09 11 02 18 30 TH 65 RA Ac BA 50 -1 -2 0. E 31 AB ti PE 50 9- 0- 00 ME 56 ve NT 11 20 20 0 DI 0 RE IN 30 08 08 CI GI 1 NE NA 30 0 SH MG OP PE CA PS UL E CE 00 10 11 00 20 10 CV 48 WI Ac FD 09 -2 -0 .0 S 90 LS ti IN 33 3- 7- 00 PH 17 ON ve IR 16 20 20 AR 00 08 08 MA RO 30 6 CY BE 0 RT MG #3 C 01 CA 6 PS UL E NM 00 10 11 00 20 5 CV 48 WI Ac OM 78 -2 -0 .0 S 90 LS ti ET 11 3- 7- 00 PH 18 ON ve VARELA 83 20 20 AR ZI 00 08 08 MA RO NE 1 CY BE RT 25 #3 C 01 MG 6 TA BL ET BLAKE 53 10 11 00 20 10 TH 65 DA Ac LF 74 -1 -0 .0 E 33 ti AM 60 3- 7- 00 ME 80 S ve ET 27 20 20 DI 5 KE HO 20 08 08 CI NT XA 5 NE L ZO LE SH -T OP MP PE DS TA BL ET GA 60 09 10 01 18 30 TH 65 RA Ac BA 50 -1 -2 0. E 31 AB ti PE 50 9- 3- 00 ME 56 ve NT 11 20 20 0 DI 0 RE IN 30 08 08 CI GI 1 NE NA 30 0 SH MG OP PE CA PS UL E NM 00 10 10 00 20 7 TH 65 TA Ac OM 78 -0 -2 .0 E 32 MA ti ET 11 7- 3- 00 ME 84 RE ve VARELA 83 20 20 DI 4 N ZI 01 08 08 CI JA NE 0 NE NE T 25 SH OP MG PE TA BL ET GA 60 09 09 00 18 30 TH 65 RA Ac BA 50 -1 -2 0. E 31 AB ti PE 50 9- 6- 00 ME 56 ve NT 11 20 20 0 DI 0 RE IN 30 08 08 CI GI 1 NE NA 30 0 SH MG OP PE CA PS UL E Vital Signs 04-12-2013 22:03 Name Value Interpretat Reference Comment ion Range BP 78 mm[Hg] Diastolic BP Systolic 138 mm[Hg] Heart 70 /min Rate/Pulse O2% 98 % Respiratory 18 /min Rate 04-12-2013 21:25 Name Value Interpretat Reference Comment ion Range BP 70 mm[Hg] Diastolic BP Systolic 116 mm[Hg] Heart 78 /min Rate/Pulse O2% 98 % Respiratory 20 /min Rate 07-30-2012 18:35 Name Value Interpretat Reference Comment ion Range BP 90 mm[Hg] Diastolic BP Systolic 155 mm[Hg] Heart 90 /min Rate/Pulse O2% 97 % Respiratory 20 /min Rate 07-30-2012 17:04 Name Value Interpretat Reference Comment ion Range BP 73 mm[Hg] Diastolic BP Systolic 123 mm[Hg] Heart 94 /min Rate/Pulse O2% 97 % Respiratory 20 /min Rate 07-16-2012 01:32 Name Value Interpretat Reference Comment ion Range BP 84 mm[Hg] Diastolic BP Systolic 132 mm[Hg] Heart 72 /min Rate/Pulse O2% 96 % Respiratory 20 /min Rate 07-16-2012 00:03 Name Value Interpretat Reference Comment ion Range BP 79 mm[Hg] Diastolic BP Systolic 127 mm[Hg] Heart 74 /min Rate/Pulse O2% 97 % Respiratory 20 /min Rate 06-29-2012 20:36 Name Value Interpretat Reference Comment ion Range BP 98 mm[Hg] Diastolic BP Systolic 143 mm[Hg] Heart 87 /min Rate/Pulse O2% 97 % Respiratory 18 /min Rate 06-04-2012 18:02 Name Value Interpretat Reference Comment ion Range Body 98.1 [degF] Temperature BP 78 mm[Hg] Diastolic BP Systolic 121 mm[Hg] Heart 69 /min Rate/Pulse O2% 96 % Respiratory 18 /min Rate 06-04-2012 17:27 Name Value Interpretat Reference Comment ion Range Body 98.2 [degF] Temperature 06-04-2012 16:40 Name Value Interpretat Reference Comment ion Range BP 79 mm[Hg] Diastolic BP Systolic 130 mm[Hg] Heart 75 /min Rate/Pulse O2% 99 % Respiratory 20 /min Rate Results Labs Lab Lab Date Result Refere Interp Status Commen Order Detail nces retati t Range on Lipase SerPl-cCnc (11-18-2016 16:38) Lipase 31 U/L 19-63 complet SerPl-c 017 ed Cnc 16:38 Urinalysis dipstick W Reflex Microscopic panel in Urine (09-06-2016 11:37) Bacteri 2+ O complet a 017 ed [Presen 11:37 ce] in Urine sedimen t by Light microsc opy Epithel 10-20 0#/hp complet ial 017 f - ed cells.s 11:37 5#/hp quamous f [Presen ce] in Urine sedimen t by Microsc opy high power field Leukocy 5-10 O complet liam 017 wbc/hpf ed [#/volu 11:37 me] in Urine Urinalysis dipstick W Reflex Microscopic panel in Urine (09-06-2016 11:37) Appeara SL CLEAR complet nce of 017 CLOUDY ed Urine 11:37 Bilirub NEGATIV NEG complet in 017 E ed [Presen 11:37 ce] in Urine by Test strip Erythro NEGATIV NEG complet cytes 017 E ed [Presen 11:37 ce] in Urine Color DK YELLOW complet of 017 YELLOW ed Urine 11:37 Ketones TRACE NEG Abnorma complet 017 l ed [Presen 11:37 ce] in Urine by Automat ed test strip Mucus TRACE NEG Abnorma complet [Presen 017 l ed ce] in 11:37 Urine sedimen t by Light microsc opy Nitrite NEGATIV NEG complet 017 E ed [Presen 11:37 ce] in Urine by Test strip Urobili 0.2 NEG complet nogen 017 ed [Presen 11:37 ce] in Urine by Test strip Urinalysis dipstick W Reflex Microscopic panel in Urine (08-30-2016 18:50) Bacteri 4+ O complet a 017 ed [Presen 18:50 ce] in Urine sedimen t by Light microsc opy Erythro -10-2 NONE 0 complet cytes 017 ed [Presen 18:50 ce] in Urine sedimen t by Light microsc opy Epithel -10-2 10-20 0#/hp complet ial 017 f - ed cells.s 18:50 5#/hp quamous f [Presen ce] in Urine sedimen t by Microsc opy high power field Urinalysis dipstick W Reflex Microscopic panel in Urine (08-30-2016 18:50) Appeara CLEAR CLEAR complet nce of 017 ed Urine 18:50 Bilirub 08-30-2 NEGATIV NEG complet in 017 E ed [Presen 18:50 ce] in Urine by Test strip Erythro 08-30-2 NEGATIV NEG complet cytes 017 E ed [Presen 18:50 ce] in Urine Color YELLOW YELLOW complet of 017 ed Urine 18:50 Ketones 08-30-2 NEGATIV NEG complet 017 E ed [Presen 18:50 ce] in Urine by Automat ed test strip Mucus 08-30-2 NEGATIV NEG complet [Presen 017 E ed ce] in 18:50 Urine sedimen t by Light microsc opy Nitrite --2 NEGATIV NEG complet 017 E ed [Presen 18:50 ce] in Urine by Test strip Urobili -10-2 0.2 NEG complet nogen 017 ed [Presen 18:50 ce] in Urine by Test strip Hemoglobin.gastrointestinal [Presence] in Stool (08-30-2016 18:50) Hemoglo 08-30-2 NEGATIV NEG complet bin.gas 017 E ed trointe 18:50 stinal [Presen ce] in Stool --1st specime n URINALYSIS/COMPLETE (07-15-2012 23:25) URINE 07-15-2 YELLOW YELLOW complet COLOR 013 ed 23:25 URINE 07-15-2 CLEAR CLEAR complet APPEARA 013 ed NCE 23:25 URINE 07-15-2 NEGATIV NEG complet GLUCOSE 013 E ed - 23:25 DIPSTIC K URINE 07-15-2 NEGATIV NEG complet BILIRUB 013 E ed IN - 23:25 DIPSTIC K URINE 0525-2 NEGATIV NEG complet KETONE 013 E mg/dL ed 23:25 URINE 05-25-2 Greater 1.005-1 complet SPECIFI 013 than .030 ed C 23:25 or GRAVITY equal to 1.030 URINE 05-25-2 TRACE-L NEG complet BLOOD 013 YSED ed 23:25 URINE 05-25-2 6.0 UNK 5.0-8.5 complet PH 013 ed 23:25 URINE 0525-2 NEGATIV NEG complet PROTEIN 013 E mg/dL ed - 23:25 DIPSTIC K URINE 05-25-2 0.2 NEG complet UROBILI 013 E.U./dL ed NOGEN - 23:25 DIPSTIC K URINE 0525-2 NEGATIV NEG complet NITRATE 013 E ed - 23:25 DIPSTIC K URINE 0525-2 NEGATIV NEG complet LEUK 013 E ed ESTERAS 23:25 E URINE 05-25-2 OCC 0 complet RBC 013 rbc/hpf ed 23:25 URINE 0525-2 3-5 O complet WBC 013 wbc/hpf ed 23:25 URINE 0525-2 10-20 0-5 complet SQUAMOU 013 #/hpf ed S CELLS 23:25 URINE 25-2 1+ NONE complet YEAST 013 ed 23:25 CHLAMYDIA AND GONORRHEA TESTING (04-29-2011 11:06) COLLECT NATALIA complet OR 012 ed 11:06 ETHNICI HISPANI complet TY 012 C WHITE ed 11:06 KIT N/A complet EXPIRAT 012 ed ION 11:06 DATE SYMPTOM NO complet S 012 ed 11:06 REASON VOLUNTE complet FOR 012 ER/MEDI ed REQUEST 11:06 EDWIN PROBLEM SPECIME URINE complet N 012 ed SOURCE 11:06 PREGNAN NO complet T 012 ed 11:06 CHART 00740 complet NUMBER 012 ed 11:06 Chlamyd Pending complet ia 012 ed trachom 11:06 atis rRNA [Presen ce] in Unspeci fied specime n by Probe & target amplifi cation method Neisser Pending complet ia 012 ed gonorrh 11:06 oeae rRNA [Presen ce] in Unspeci fied specime n by Probe & target amplifi cation method Procedures Procedure DOS Code Location Performer Comment RADIOLOGI 46795 [facility] [place] SCALF C EXAM 7 RADIOLOGY CHEST 2 VIEWS FRONTAL&L ATERAL ANES 65436 [place] DEPA UPPER GI 7 ANESTHESI ENDOSCOPY A GROUP PROXIMAL PS TO DUODENUM EGD 82789 REFUGIO HUFF TRANSORAL 7 DIGESTIVE DIGESTIVE BIOPSY CARE CARE SINGLE/MU CENTER CENTER LTIPLE COLONOSCO 77539 REFUGIO GAYLE PY FLX DX 7 DIGESTIVE W/COLLJ [place] [address] [facility] [place] KOSTELIC HEAD/BRAI 7 RADIOLOGY N W/O CONTRAST MATERIAL RADIOLOGI 77732 FOUNDATIO HERNÁNDEZ C 7 N EXAMINATI RADIOLOGY ON CHEST GROUP P SINGLE VIEW FRONTAL RADIOLOGI 73564 [facility] [place] JIMENEZ C EXAM 7 RADIOLOGY CHEST 2 VIEWS FRONTAL&[place] [address] LAB RAUL LAB RAUL LIPASE 7 OLEGARIO OLEGARIO HOLDINGS HOLDINGS SUSCEPTIB 66164 LAB RAUL LAB RAUL LTY STDY 7 OLEGARIO OLEGARIO ANTIMICRB HOLDINGS HOLDINGS IAL MICRO/AGA R DILUTJ BLOOD 23224 LAB ARUL LAB RAUL COUNT 7 OLEGARIO OLEGARIO COMPLETE HOLDINGS HOLDINGS AUTO&AUTO DIFRNTL WBC CUL BACT 52524 LAB RAUL LAB RAUL AEROBIC 7 OLEGARIO OLEGARIO ADDL HOLDINGS HOLDINGS METHS DEFINITIV E EA ISOL CULTURE 93350 LAB RAUL LAB RAUL BACTERIAL 7 OLEGARIO OLEGARIO HOLDINGS HOLDINGS QUANTTATI VE COLONY COUNT URINE CULTURE 21058 LAB RAUL LAB RAUL BCT 7 OLEGARIO OLEGARIO ISOL&PRSM HOLDINGS HOLDINGS PTV ID ISOLATE EA URINE COMPREHEN 41383 LAB RAUL LAB RAUL SIVE 7 OLEGARIO OLEGARIO [place] [address] [facility] [place] ABDOMEN & 7 RADIOLOGY PELVIS W/CONTRAS T MATERIAL RADIOLOGI 56751 [place] REYNOLDS C EXAM 7 MEDICAL CHEST 2 IMAGING VIEWS ASS FRONTAL&L ATERAL ECG 73387 OSMANY FELIX JR ROUTINE 7 [facility] W/LEAST P 12 LDS I&R ONLY RADIOLOGI 59079 [facility] [place] LIZAMA C 7 RADIOLOGY EXAMINATI ON CHEST [place]ING[place]IEW FRONTAL BLOOD [address] COMPLETE AUTO&AUTO DIFRNTL WBC URNLS DIP [address] STICK/TAB LET RGNT AUTO W/[place] [address] [facility] [place] [facility] HEAD/BRAI 7 RADIOLOGY [place] [address] QUANTITAT [place] GONADOTRO [address] CHORIONIC QUALITATI [place]ER [address] [facility] PROPH/DX [address] [place] [address] NJX IV PUSH SINGLE/1S T SBST/[place] [address] [facility] [place] [facility] ABDOMEN & 7 RADIOLOGY PELVIS W/O CONTRAST MATERIAL GONADOTRO [address] CHORIONIC QUANTITAT [place] ECG [address] ECG W/LEAST 12 LDS TRCG ONLY W/O I&R COLLECTIO 58745 [facility] VENOUS [address] [place] [address] BLOOD VENIPUNCT URE INJECTION J2405 [address] ONDANSETR ON HCL PER 1 MG CULTURE [address] QUANTTATI VE COLONY COUNT URINE BASIC [address] PANEL CALCIUM TOTAL ECG 87254 [facility] ROUTINE 7 JIL ECG EMERGENCY W/LEAST PHYS 12 LDS [place] [address] HYDRATION EACH ADDITIONA L HOUR CULTURE 40378 OSMANY CERON BACTERIAL 7 [facility] INC INC [place]ANTT[place] [address] OSMANY CERON AMYLASE 7 [facility] INC INC COMPREHEN 21225 OSMANY CERON SIVE 7 [facility] METABOLIC INC INC PANEL SEDIMENTA 19698 OSMANY CERON TIALEX RATE 7 [facility] RBC [place] [address] OSMANY CERON LIPASE 7 [facility] INC INC THERAPEUT 80160 OSMANY CERON IC 7 [facility] PROPHYLAC INC INC TIC/DX INJECTION SUBQ/IM URNLS DIP 38608 OSMANY CERON 7 [facility] STICK/TAB INC INC LET REAGENT AUTO MICROSCOP Y BLOOD 65116 OSMANY CERON COUNT 7 [facility] COMPLETE INC INC AUTO&AUTO DIFRNTL WBC BLOOD 01356 OSMANY CERON COUNT 7 [facility] COMPLETE INC INC AUTO&[place] [address] OSMANY CERON INFUSION 7 [facility] THERAPY/P INC INC ROPHYLAXI S /DX 1ST TO 1 HR THERAPEUT 94139 OSMANY CERON IC 7 [facility] INJECTION INC INC IV PUSH EACH NEW DRUG URNLS DIP 87134 OSMANY CERON 7 [facility] STICK/TAB INC INC LET REAGENT AUTO MICROSCOP Y BLOOD 33987 OSMANY CERON OCCULT 7 MEM [facility] PEROXIDAS INC INC E ACTV QUAL FECES 1-3 [place] [address] OSMANY CERON LIPASE 7 [place] [address] OSMANY CERON AMYLASE 7 [facility] INC INC CULTURE 92755 OSMANY CERON BACTERIAL 7 [facility]OS[facility]OS[facility] INC INC QUANTTATI VE COLONY COUNT URINE COMPREHEN 70077 OSMANY CERON SIVE 7 [facility]OS[facility]OS[facility] METABOLIC INC INC PANEL IADNA-DNA 55104 OSMANY CERON /RNA GI 7 [facility] HOS[facility] PTHGN INC INC MULTIPLEX PROBE TQ - RADIOLOGI 38893 [place] SCALF C 7 RADIOLOGY EXAMINATI ON CHEST SING[place]IEW FRONTAL RADIOLOGI 36851 [place] SCALF C 7 RADIOLOGY EXAMINATI ON CHEST SINGLE VIEW FRONTAL RADIOLOGI 11085 [facility] HARPERFADIA C 7 MEDICAL EXAMINATI IMAGING ON CHEST ASS SING[place]IEW FRONTAL BASIC 72403 LAB RAUL LAB RAUL METABOLIC 7 OLEGARIO OLEGARIO PANEL HOLDINGS HOLDINGS CALCIUM TOTAL RADEX 25228 [facility] SCALF ABDOMEN 7 RADIOLOGY COMPL W/DCBTS&/ ERC VIEWS RADIOLOGI 78111 [facility] ANGELA C 7 RADIOLOGY EXAMINATI ON TIBIA & FIBULA 2 [place] [address] SLIM SMALLS TROPONIN 7 [facility] [place] BLOOD 08345 SLIM SMALLS COUNT 7 [facility] AUTO&AUTO DIFRNTL WBC COMPREHEN [address] [facility] PANEL COLLECTIO 60553 SLIM SMALLS N VENOUS 7 [facility] V[address] U[address] [facility] THORAX 14056 [facility] 7 [facility] W[facility] T MATERIAL LOCM Q9967 [facility] SMALLS [phone] 7 [facility] MG/ML HOSPITAL HOSPITAL IODINE CONCENTRA TION PER ML RADIOLOGI 09061 [facility] SMALLS C 7 [facility] ON KNEE 3 VIEWS RADIOLOGI 63951 [facility] SMALLS C EXAM [address] HOSPITAL VIEWS FRONTAL&L ATERAL RADIOLOGI 59354 [place] RADMANESH C EXAM 7 RADIOLOGY CHEST 2 VIEWS FRONTAL&[place] [address] [place] HEAD/BRAI 7 RADIOLOGY N W/[place] [address] [facility] THORACIC 7 RADIOLOGY SPINE W/O CONTRAST MATERIAL IADNA 32469 LAB RAUL LAB RAUL HEPATITIS 7 OLEGARIO OLEGARIO C QUANT HOLDINGS HOLDINGS & REVERSE TRANSCRIP TION CT THORAX 33474 [facility] [place] SCALF W/O [address] [place] [address] OSMANY OSMANY HEAD/BRAI 7 [facility]OS[facility] N W/[place] [address] OSMANY OSMANY CERVICAL 7 [facility] HOSP SPINE W/O INC INC CONTRAST MATERIAL FINAL RPT G9557 [facility] CT/MRI 7 MEDICAL CHEST/NCK IMAGING /U/S NO ASS THR NOD<1.0 CM FINAL G9638 ISABEL LOAIZA REPORTS 7 MEDICAL W/O DOC IMAGING 1/MORE ASS DOSE REDUCTION TECH RADIOLOGI 31096 ISABEL LOAIZA C EXAM 7 MEDICAL CHEST 2 IMAGING VIEWS ASS FRONTAL&L ATERAL RADIOLOGI 96882 [facility] KENNEDI SCALF C 7 RADIOLOGY EXAMINATI ON CHEST SINGLE VIEW FRONTAL RADIOLOGI 44628 ISABEL LLANES C EXAM 6 MEDICAL CHEST 2 IMAGING VIEWS ASS FRONTAL&L ATERAL THER 45761 OSMANY CERON PROPH/DX 6 [facility] HOSP NJX IV INC INC PUSH SINGLE/1S T SBST/DRUG URNLS DIP 27019 OSMANY CERON 6 [facility] HOSP STICK/TAB INC [place] [address] OSMANY CERON ABDOMEN & 6 [facility] HOSP PELVIS INC INC W/O CONTRAST MATERIAL BLOOD 90704 OSMANY CERON COUNT 6 [facility] COMPLETE INC INC AUTO&AUTO DIFRNTL WBC CULTURE 64503 OSMANY CERON BACTERIAL 6 [facility] INC INC QUANTTATI VE COLONY COUNT URINE COMPREHEN 40780 OSMANY CERON SIVE 6 [facility] METABOLIC INC INC PANEL SMR PRIM 00448 OSMANY CERON SRC WET 6 [facility] HOSP MOUNT INC INC NFCT AGT BASIC 98030 SLIM SMALLS METABOLIC [address] [place] [address] [place] [address] SLIM SMALLS THYROXINE [address] [place] [address] HOSPITAL INJECTION J1885 SLIM WAYNEON [address] [place] [address] KETOROLAC [facility] TROMETHAM INE PER 15 MG BLOOD 58676 SLIM WAYNEON COUNT [address] [place] [address] AUTO&AUTO DIFRNTL WBC RADIOLOGI 06892 SLIM SMALLS C [address] [place] [address] [facility] ON CHEST [place] FRONTAL ECG 50821 SLIM SMALLS ROUTINE [address] [place] [address] HOSPITAL W/LEAST 12 LDS TRCG ONLY W/O I&R THYROID 00195 [place] HORM 6 [facility] HOSPITAL [place] [address] SLIM WAYNEON TROPONIN 6 [facility] [place] [address] [place] RADMANESH ABDOMEN & 6 RADIOLOGY SHA PELVIS W/CONTRAS T MATERIAL RADIOLOGI 58341 [facility] [place] SCALF SHARON C EXAM 6 RADIOLOGY CHEST 2 VIEWS FRONTAL&[place] [address] [place] JAM ABDOMEN & 6 RADIOLOGY PELVIS W/O CONTRAST MATERIAL FIBRIN 73258 SLIM WAY[place] DGRADJ 6 [facility] D-DIMER QUANTITAT [place] LIPID 53253 SLIM WAYNEON PANEL [address] [place] [address] COLLECTIO 52543 SLIM SMALLS N VENOUS 6 [facility] HOSPITAL VENIPUNCT URE RADIOLOGI 78986 [place] REYNOLDS ALL C EXAM 6 MEDICAL CHEST 2 IMAGING VIEWS ASS FRONTAL&[place] [address] [place] [facility] ABDOMEN & 6 MEDICAL PELVIS IMAGING W/O ASS CONTRAST MATERIAL RADEX 25337 SLIM WAY[place] SPINE [address] [place] [address] HOSPITAL 2 VIEWS SEDIMENTA 27315 SLIM WAY[place] TION RATE [address] [place] [address] HOSPITAL NON-AUTOM ATED URNLS DIP 27314 SLIM WAY[place] [address] [place] [address]/TAB HOSPITAL HOSPITAL LET REAGENT AUTO MICROSCOP Y BLOOD 05971 SLIM GAYTANURBON COUNT [address] [place] [address] AUTO&AUTO DIFRNTL WBC RADEX 39263 [facility] SPINE 6 [facility] AL 2/3 VIEWS COLLECTIO 82151 SLIM WAYNEON N VENOUS [address] [place] [address] VENIPUNCT URE COMPREHEN 58412 SLIM SMALLS SIVE [address] [place] [address] [place] [address] SLIM SMALLS THYROID [address] [place] [address] NG HORMONE TSH CULTURE 27173 SLIM SMALLS BACTERIAL [address] [place] [address] QUANTTATI VE COLONY COUNT URINE C-REACTIV 34154 [place] E PROTEIN 6 [facility] CULTURE 01393 [facility] BACTERIAL 6 DIAGNOSTI DIAGNOSTI CS CS QUANTTATI VE COLONY COUNT URINE CULTURE 69813 [facility] BCT 6 DIAGNOSTI DIAGNOSTI ISOL&PRSM CS CS PTV ID ISOLATE EA URINE URNLS DIP 86736 PHYSICIAN JENNY 6 S [facility] STICK/TAB CARE LET RGNT BILL AUTO W/O MICROSCOP Y INJECTION J0696 PHYSICIAN JENNY 6 S EXPRESS COU CEFTRIAXO CARE NE SODIUM BILL PER 250 MG THERAPEUT 07750 PHYSICIAN JENNY IC 6 S EXPRESS COU PROPHYLAC CARE TIC/DX BILL INJECTION SUBQ/IM RADIOLOGI 88327 [place] REYNOLDS ALL C 6 MEDICAL EXAMINATI IMAGING ON ANKLE ASS 2 VIEWS URNLS DIP 75905 OSMANY CERON 5 [facility] STICK/TAB INC INC LET REAGENT AUTO MICROSCOP Y CULTURE 37278 OSMANY CERON BACTERIAL 5 [facility]OS[facility] INC INC QUANTT[place] [address] OSMANY CERON THYROID 5 [facility] H[facility] MEM HOSP STIMULATI INC INC NG HORMONE TSH ANTIBODY 61060 OSMANY CERON HELICOBAC 5 MEM [facility] MEM HOSP TER INC INC PYLORI COMPREHEN 73199 OSMANY CERON SIVE 5 MEM H[facility] MEM HOSP METABOLIC INC INC PANEL 1 25 46034 OSMANY CREON DIHYDROXY 5 MEM HOS[facility] HOSP INCLUDES [place] [address] OSMANY CERON LIPASE 5 MEM HOS[facility] MEM HOS[facility] INC INC BLOOD 44759 OSMANY CERON COUNT 5 [facility] COMPLETE INC INC AUTO&[place] [address] OSMANY CERON AMYLASE 5 [place] [address] [place] KOST[place] HEAD/BRAI 5 RADIOLOGY MO N W/[place] [address] [facility] KOST[place] MAXILLOFA 5 RADIOLOGY [place] CIAL W/[place] [address] [facility] ANGELA ABDOMEN & 4 RADIOLOGY RHO PELVIS W/CONTRAS T MATERIAL LIPID 49997 [facility] PANEL 4 DIAGNOSTI DIAGNOSTI CS GENERAL 89190 [facility] HEALTH 4 DIAGNOSTI DIAGNOSTI PANEL CS CS CRTCHS E0114 [employer] UNDARM 4 OTH THAN WOOD PAIR PAD TIP&HNDGR IP ANKLE L4350 [employer] CONTROL 4 ORTHOSIS STIRRUP STYL RIGID PREFAB RADEX 81364 FADIA FADIA ANKLE 4 LAKISHA LAKISHA COMPLETE MINIMUM 3 VIEWS MRI BRAIN 14724 PHYSICIAN BARBARA BRAIN 9 S MARGO STEM W/O SERVICES CONTRAST PSC MATERIAL MRI 69925 PHYSICIAN BARBARA, SPINAL 9 S [facility] CANAL SERVICES LUMBAR PSC W/O CONTRAST MATERIAL PSYCHOLOG 17317 PHYSICIAN BRANDIE DOMINGUEZ 9 S FRANCISCA W TESTING SERVICES ADMN BY PSC TECH NM HR COMPREHEN 06660 LAB RAUL LAB RAUL SIVE 9 [employer] PANEL COMPREHEN [address] [place] [address]IVE [address] [facility] PANEL COLLECTIO 25424 [place] N VENOUS 9 [facility] VENIPUNCT URE CT PELVIS 40582 CN[facility] KENNEDI DIMAS, W/O 9 RADIOLOGY J CONTRAST MATERIAL CULTURE 32723 [place] BACTERIAL 9 [facility] QUANTTATI VE COLONY COUNT URINE RADIOLOGI 38938 CN[facility] KENNEDI DIMAS C EXAM 9 RADIOLOGY J CHEST 2 VIEWS FRONTAL&L [facility] 28589 [facility] DISCHARGE 9 Y OF DAY [place] MANAGEMEN PEDIA T 30 MIN/< URNLS DIP 79203 [place] 9 [facility]/TAB [facility] [place] [address] CN[facility] KENNEDI DIMAS, ABDOMEN 9 RADIOLOGY J W/O CONTRAST MATERIAL BLOOD 13770 [place] COUNT 9 [facility] AUTO&AUTO DIFRNTL WBC SUBQ 51128 [facility] 9 Y OF CARE PER [place] DAY E/M PEDIA NORMAL SUBQ [address] [facility] 9 Y OF SUKHDEEP CARE PER [place] E/M PEDIA NORMAL RADIOLOGI 44271 [place] EMILY C 9 MEDICAL DOMINIQUE A EXAMINATI SERV ON CHEST FOUNDATIO SING[place] FRONTAL SUBQ [address] [facility] 9 Y OF SUKHDEEP CARE PER [place] E/[place] [address] [place] ZAKIA SURG 9 MEDICAL MAXIMINO, E PATHOLOGY SERV FOUNDATIO GROSS&ASHER ROSCOPIC EXAM 1ST 98509 [facility] HOSP/MEG 9 Y OF SUKHDEEP NIRAJ [facility] PEDIA CARE PER DAY NML NB ANES IPER 61517 [place] ALEX, LWR ABD 9 MEDICAL DOMINIQUE T W/LAPS SERV TUBAL FOUNDATIO LIGATION/ TRANSECT VAGINAL 02486 [place] FERNAND[place], DELIVERY 9 MEDICAL GISELLE C ONLY SERV W/POSTPAR FOUNDATIO SUSSY CARE URNLS DIP 71152 [facility] LUCIA, 9 JARET-RAMONA MEERA B STICK/TAB ON CLINIC LET RGNT NON-AUTO W/O MICRSCP URNLS DIP 04338 [facility] MUSE 9 JARET-RAMONA GARVIN, TH STICK/TAB ON CLINIC LET RGNT NON-AUTO W/O MICRSCP BLOOD 98588 [facility] UNIVERS COUNT 9 Y Y COMPLETE [facility] AUTOMATED CREATININ 61579 [facility] E BLOOD 9 Y Y [facility] POTASSIUM 77773 [facility] SERUM 9 Y Y PLASMA/[facility] OLE BLOOD GLUCOSE 75445 [facility] QUANTITAT 9 Y Y [place] BLOOD [facility] XCPT REAGENT STRIP LACTATE 56706 [facility] DEHYDROGE 9 Y Y NASE [facility] CREATININ 98406 [facility] UNIVERS E 9 Y Y CLEARANCE [facility] PROTEIN 47673 [facility] TOTAL 9 Y Y XCPT [facility] [place] [address] [facility] BLOOD/URI 9 Y Y C [facility] TRANSFERA 05999 [facility] SE 9 Y Y ASPARTATE [facility] AMINO AST SGOT TRANSFERA 93992 [facility] 9 Y Y ALANINE [facility] [place] [address] [facility] UREA 9 Y Y NITROGEN [facility] QUANTITAT [place] URNLS DIP 11293 [facility] MUSE 9 JARET-RAMONA GARVIN, TH STICK/TAB ON CLINIC LET RGNT NON-AUTO W/O MICRSCP URNLS DIP 28107 [facility] MUSE 9 JARET-DALT KENNE, TH STICK/TAB ON CLINIC LET RGNT NON-AUTO W/O MICRSCP URNLS DIP 41728 [facility] MUSE 9 JARET-DALJohn GARVIN, TH STICK/TAB ON CLINIC LET RGNT NON-AUTO W/O MICRSCP BLOOD 40313 [facility] COUNT 9 Y Y COMPLETE [facility] AUTOMATED US PREG 54949 [facility] UTERUS 9 Y Y REAL TIME [facility] F/U TRNSABDL PER FETUS 58153 [place], NONSTRESS 9 MEDICAL GISELLE C TEST SERV FOUNDATIO IADNA 23468 [facility] STREPTOCO 9 Y Y CCUS [facility] [place] [address] [facility] MONITORIN 9 Y Y G LABOR [facility] PHYS WRITTEN REPORT COLLECTIO 34521 [facility] MUSE N VENOUS 9 JARET-RAMONA GARVIN, TH BLOOD ON CLINIC VENIPUNCT URE DUP-SCAN 61350 [facility] XTR VEINS 9 Y Y [facility] BILATERAL STUDY ANTIBODY 22904 [facility] SCREEN 9 Y Y [facility] SERUM TECHNIQUE SYPHILIS 88574 [facility] TEST 9 Y Y NON-[facility] NEMAL ANTIBODY QUAL URNLS DIP 89874 [facility] MUSE 9 JARET-RAMONA GARVIN, TH STICK/TAB ON CLINIC LET RGNT NON-AUTO W/O MICRSCP URNLS DIP 43786 [facility] LUCIA, 9 JARET-DALT MEERA B STICK/TAB ON CLINIC LET RGNT NON-AUTO W/O MICRSCP SCR [id number] [facility] CYTOPATH 9 Y Y CERV/[facility] H[facility]PITAL SCR AUTO&MNL RSCR PHYS BLOOD 67787 [facility] COUNT 9 Y Y COMPLETE [facility] AUTOMATED IADNA 81834 [facility] NEISSERIA 9 Y Y HOSPITAL HOSPITAL GONORRHOE AE AMPLIFIED PROBE TQ GLUCOSE 32361 [facility] POST 9 Y Y GLUCOSE [facility] DOSE IADNA 07892 [facility] CHLAMYDIA 9 Y Y [facility] TRACHOMAT IS AMPLIFIED PROBE TQ HOSPITAL 75450 KENN[facility]I FABIOLA, DISCHARGE 9 MEDICAL DARIO DAY SERV Y MANAGEMEN FOUNDATIO T 30 MIN/< DOPPLER 22468 [facility] JAIMEFER ECHO 9 MEDICAL RI, IMAN SERV SPECTRAL FOUNDATIO DISPLAY COMPLETE 44616 [facility]ENN[facility] SANDOVALFER NONSTRESS 9 MEDICAL RI, IMAN TEST SERV FOUNDATIO US PREG 59041 [facility]ENN[facility] SAGASTUME UTERUS 9 MEDICAL RI, IMAN REAL TIME SERV F/U FOUNDATIO TRNSABDL PER FETUS 48201 KENNEDI FERNANDO, NONSTRESS 9 MEDICAL GISELLE C TEST SERV FOUNDATIO GROUND A0425 [facility] MILEAGE 9 RBON CO RBON CO PER EMS EMS STATUTE MILE ECG 79027 [facility], ROUTINE 9 JIL Farah ECG EMERGENCY W/LEAST PHYS INC 12 LDS I&R ONLY RADIOLOGI 32420 Rosendo DORMAN 9 MEDICAL ROMANA W EXAMINATI SERV ON [place] [address] [facility] HEAD/BRAI 9 Y OF III, N W/O [facility] W MATERIAL CRITICAL 67153 [facility], CARE 9 JIL Farah ILL/INJUR EMERGENCY ED PHYS INC PATIENT INIT 30-74 MIN US PREG 23699 [facility] UTERUS 8 Y Y AFTER 1ST [facility] TRIMEST GESTATION [place] PREG 48382 [facility] UTERUS 8 [facility] HOSPITAL TRIMEST / GESTATION COMPREHEN 26030 [facility] PANEL COLLECTIO 14772 [facility] N VENOUS 8 [facility] [address] [facility] [place] JIMENEZ, 8 RADIOLOGY MARGO UTERUS LIMITED 1/> FETUSES BLOOD 88944 [facility] COUNT 8 [facility] AUTO&AUTO DIFRNTL WBC THER 69061 [facility] SMALLS PROPH/DX 8 [facility] IV [facility] PUSH 1ST SBST/[place] [address] [facility] LIPASE [address] [place] [address] HOSPITAL URNLS DIP [address] [facility] HOSPITAL LET REAGENT AUTO MICROSCOP Y GENERAL [address] HOSPITAL COLLECTIO 71383 [facility] N VENOUS 8 [facility]OSP[facility] VENIPUNCT URE COLLECTIO 25728 [facility] N VENOUS [address] [place] [address] HOSPITAL VENIPUNCT URE COMPREHEN [address] HOSPITAL PANEL CULTURE 15971 [facility] BACTERIAL [address] [place] [address] QUANTTATI VE COLONY COUNT URINE IV NFUS 07534 [facility] HYDRATION 8 [facility] URINE 85839 [facility] SMALLS 8 [facility] VISUAL COLOR CMPRSN METHS URNLS DIP 97251 70 [address] [facility] [place] [address] [facility] LIPASE [address] [place] [address] HOSPITAL THER 34888 [facility] SMALLS PROPH/DX 8 [facility] PUSH 1ST SBST/[place] [address] [facility] SMALLS AMYLASE [address] [place] [address] BLOOD 30708 SLIM SMALLS COUNT 8 [facility] AUTO&AUTO DIFRNTL WBC LAPAROSCO 5123 SLIM SMALLS PIC 8 [facility] ECTOMY BLOOD 70780 SLIM SMALLS COUNT 8 [facility] MCRSCP W/MNL DIFRNTL WBC COUNT COLLECTIO 23282 SLIM SMALLS N VENOUS 8 [facility] [place] [address] SLIM SMALLS INFUSION 8 [facility] INITIAL 31 MIN-1 HR THER 22008 SLIM SMALLS PROPH/DX 8 [facility] SEQL IV PUSH SBST/DRUG BLOOD 01477 SLIM SMALLS COUNT 8 [place] [address] SLIM SMALLS ABDOMINAL 8 [facility] TIME W/IMAGE LIMITED THER 56166 SLIM SMALLS PROPH/DX 8 [facility] HOSPITAL PUSH 1ST SBST/DRUG APPLICATI 93.54 Andres ON OF Buck Lutz III, MD Encounters Encounter Start End Date Code Location Performer Type Date EMERGENCY 01924 [facility] 7 7 JIL DEPARTMEN EMERGENCY T VISIT PHYS HIGH/URGE NT SEVERITY EMERGENCY 79885 [facility] DEPT 7 7 JIL VISIT EMERGENCY HIGH PHYS SEVERITY& THREAT FUNCJ EMERGENCY 76201 [facility] FREDDY DEPT 7 7 JIL VISIT EMERGENCY HIGH PHYS SEVERITY& THREAT FUNCJ EMERGENCY 63254 [facility] PUND 7 7 JIL DEPARTMEN EMERGENCY T VISIT PHYS MODERATE SEVERITY OFFICE 21061 [facility] 7 7 PHYSICIAN T VISIT PRACTICE 25 L MINUTES EMERGENCY 37619 [facility] ALVAR[facility] 7 7 JIL DEPARTMEN EMERGENCY T VISIT PHYS HIGH/URGE NT SEVERITY EMERGENCY 75248 [facility] OSM[facility] DEPT 7 7 JIL VISIT EMERGENCY HIGH PHYS SEVERITY& THREAT FUNCJ EMERGENCY 68007 [facility] 7 7 [facility] T VISIT MODERATE SEVERITY EMERGENCY 29946 [facility] JEFFERS DEPT 7 7 PHYSICIAN U VISIT S, PLLC HIGH SEVERITY& THREAT [facility] OSMANY - 7 7 [facility] [address] [facility] EMERGENCY 25174 SLIM 7 7 [facility] T VISIT LIMITED/M INOR PROB EMERGENCY [address] T VISIT HIGH/URGE NT SEVERITY EMERGENCY 11177 OSMANY 7 7 [facility] T VISIT MODERATE SEVERITY EMERGENCY 88639 OSITO BOUDREAUX 7 7 PHYSICIAN DEPARTMEN S, [facility] T VISIT HIGH/URGE NT SEVERITY HOSPITAL OSMANY - 7 7 [facility] EMERGENCY 96788 OSMANY 7 7 [facility] T VISIT HIGH/URGE NT SEVERITY [facility]OSPITAL O[facility] - 7 7 [facility] EMERGENCY 97905 [facility] 7 7 [facility] EMERGENCY T VISIT PHYS HIGH/URGE NT SEVERITY EMERGENCY 62201 [facility] ED[facility] 7 7 [facility] T VISIT PHYS HIGH/URGE NT SEVERITY EMERGENCY 16284 [facility] DEPT 7 7 JIL VISIT EMERGENCY HIGH PHYS SEVERITY& THREAT FUN EMERGENCY 04039 [facility] DEPT 7 7 JIL VISIT EMERGENCY HIGH PHYS SEVERITY& THREAT FUNJ EMERGENCY 83780 OSITO NEGRON DEPT 7 7 PHYSICIAN VISIT S, PLLC HIGH SEVERITY& THREAT FUNCJ EMERGENCY 30213 [facility] EDDIE 7 7 JIL DEPARTMEN EMERGENCY T VISIT PHYS HIGH/URGE NT SEVERITY [facility] [address] [facility] T OFFICE 68917 [facility] 7 7 PHYSICIAN T VISIT PRACTICE 25 L MINUTES [facility] ROSANAON - 7 7 [facility] ROS[facility] - [address] [facility] T OFFICE 08202 [facility] 7 7 PHYSICIAN T VISIT PRACTICE 25 L MINUTES EMERGENCY 24629 O[facility] 7 7 [facility] T VISIT LOW/MODER SEVERITY EMERGENCY 14155 OSIT[facility] NEGRON 7 7 PHYSICIAN DEPARTMEN S, PLLC T VISIT MODERATE SEVERITY HOSPITAL O[facility] - 7 7 [facility] T EMERGENC[facility] 91682 [facility] DEPT 7 7 JIL VISIT EMERGENCY HIGH PHYS SEVERITY& THREAT FUNCJ EMERGENCY 63965 [facility] DEPT 7 7 JIL VISIT EMERGENCY HIGH PHYS SEVERITY& THREAT FUNCJ EMERGENCY 67831 OS[facility] ELAINE DEPT 7 7 PHYSICIAN VISIT S, PLLC HIGH SEVERITY& THREAT FUNCJ EMERGENCY 36470 [facility] 7 7 [facility] T VISIT LOW/MODER SEVERITY [facility]OSPITAL O[facility] - 7 7 [facility] OUTPATIEN INC T EMERGENCY 06059 [facility] JEFFERS DEPT 7 7 PHYSICIAN U VISIT S, PLLC HIGH SEVERITY& THREAT FUNCJ EMERGENCY 18023 OSIT[facility] NEGRON DEPT 6 6 PHYSICIAN VISIT S, PLLC HIGH SEVERITY& THREAT FUNCJ EMERGENCY 79013 OSITO NEGRON 6 6 PHYSICIAN DEPARTMEN S, PLLC T VISIT MODERATE SEVERITY [facility]OSPITAL [facility] - 6 6 [facility] OUTPATIEN INC T EMERGENCY 28715 OSMANY 6 6 [facility] INC T VISIT LOW/MODER SEVERITY EMERGENCY 62116 [facility] JOEY II 6 6 JIL THO [facility] EM[facility]GENC[facility] T VISIT PHYS HIGH/URGE NT SEVERITY EMERGENCY 24169 [facility] SWINEY 6 6 JIL PAT [facility] EMERGENCY T VISIT PHYS MODERATE SEVERITY EMERGENCY 99520 [facility] 6 6 [facility] T VISIT HIGH/URGE NT SEVERITY [facility] [address] [facility] T EMERGENCY 38282 [facility] 6 JIL LOBO VISIT EMERGENCY HIGH PHYS SEVERITY& THREAT FUN EMERGENCY 82398 [facility] EDDIE DEPT 6 6 JIL SHADE VISIT EMERGENCY HIGH PHYS SEVERITY& THREAT FUN EMERGENCY 14183 [facility] ALEX DEPT 6 6 JIL MELINDA VISIT EMERGENCY HIGH PHYSI SEVERITY& THREAT [facility] [place] - [address] [facility] T EMERGENCY 50732 OSITO VALDIVIA, 6 6 PHYSICIAN JR M[facility]ON [facility] S, [facility] T VISIT HIGH/URGE NT SEVERITY EMERGENCY 42541 OSITO BOUDREAUX 6 6 PHYSICIAN ASHER [facility] S, [facility] T VISIT HIGH/URGE NT SEVERITY EMERGENCY 42335 [facility] JENNY 6 6 JIL [facility] EMERGENCY T VISIT PHYS HIGH/URGE NT SEVERITY EMERGENCY [address] [facility] DE[facility] 6 6 IJL LOBO VISIT EMERGENCY HIGH PHYSI SEVERITY& THREAT FUN EMERGENCY 46321 [facility] SWINE[facility] 6 6 JIL PAT [facility] EMERGENCY T VISIT PHYSI HIGH/URGE NT SEVERITY [facility]OSP[facility] [place] - [address] [facility] T OFFICE 47791 PHYSICIAN JENNY LIM 6 6 S EXPRESS COU T NEW 45 CARE MINUTES BILL EMERGENCY 78256 OSITO JEFFERS 6 6 PHYSICIAN U AMELIA DEPARTMEN S, PLLC T VISIT HIGH/URGE NT SEVERITY EMERGENCY 47660 [facility] JOEY II 6 6 JIL THO DEPARTMEN EMERGENCY T VISIT PHYS HIGH/URGE NT SEVERITY EMERGENCY 97553 [facility] JOEY II 5 5 JIL THO DEPARTMEN EMERGENCY T VISIT PHYS MODERATE SEVERITY EMERGENCY 74601 [facility] NWAUC[facility] 5 5 JIL UGW DEPARTMEN EMERGENCY T VISIT PHYS HIGH/URGE NT SEVERITY EMERGENCY 34016 [facility] 5 5 [facility] DEPARTMEN INC T VISIT MODERATE SEVERITY [facility]OSPITAL [facility] - 5 5 [facility] OUTPATIEN INC T OFFICE 40216 [facility] OUTPATIEN 5 5 [facility] NEW 30 URGENT MINUTES TREAT EMERGENCY 96373 [facility] SOKAN BAB 5 5 JIL DEPARTMEN EMERGENCY T VISIT PHYS HIGH/URGE NT SEVERITY EMERGENCY 37336 [facility] 5 JIL PAT DEPARTMEN EMERGENCY T VISIT PHYS HIGH/URGE NT SEVERITY Outpatien AMB MIKA AUGUSTA t 5 12:05 5 12:05 HOSPITAL [facility] - 5 5 [facility] OUTPATIEN INC T EMERGENCY 78192 [facility] JOEY II 5 5 JIL THO DEPARTMEN EMERGENCY T VISIT PHYS HIGH/URGE NT SEVERITY EMERGENCY 57816 [facility] SOKAN BAB 4 4 JIL DEPARTMEN EMERGENCY T VISIT PHYS MODERATE SEVERITY EMERGENCY 47268 [facility] 4 JIL VISIT EMERGENCY HIGH PHYS SEVERITY& THREAT FUNJ EMERGENCY 09811 [facility] JOEY II 4 4 JIL THO DEPARTMEN EMERGENCY T VISIT PHYS MODERATE SEVERITY EMERGENCY 43399 [facility] SOKAN BAB 4 4 JIL DEPARTMEN EMERGENCY T VISIT PHYS MODERATE SEVERITY EMERGENCY 07263 [facility] 4 4 JIL THO DEPARTMEN EMERGENCY T VISIT PHYS MODERATE SEVERITY EMERGENCY 02555 ARTURO BOUDREAUX 4 4 ASHER ASHER DEPARTMEN T VISIT HIGH/URGE NT SEVERITY EMERGENCY 48964 ISAI ALEX 4 4 MELINDA MELINDA DEPARTMEN T VISIT MODERATE SEVERITY EMERGENCY 14314 [facility] 4 4 JIL UGW DEPARTMEN EMERGENCY T VISIT PHYS HIGH/URGE NT SEVERITY EMERGENCY 59001 JOEY II JOEY II 4 4 THO THO DEPARTMEN T VISIT HIGH/URGE NT SEVERITY EMERGENCY 33438 SOK[facility] BAB SOKAN BAB 4 4 DEPARTMEN T VISIT MODERATE SEVERITY EMERGENCY 02771 [facility] CELLAR[facility] DEPT 4 4 - YORBA - YORBA VISIT PAT PAT HIGH SEVERITY& THREAT FUNCJ EMERGENCY 98957 ISAI ALEX 4 4 MELINDA [facility] DEPARTMEN T VISIT MODERATE SEVERITY Emergency CATARINA Lutz (ER) 4 20:55 4 22:04 [facility] Andres E. EMERGENCY 66056 HELLEN LUTZ 4 4 III HIREN III HIREN DEPARTMEN T VISIT MODERATE SEVERITY EMERGENCY 91606 SOK[facility] BAB SOKAN BAB DEPT 4 4 VISIT HIGH SEVERITY& THREAT FUNCJ EMERGENCY 96014 JOEY II JOEY II 4 4 O THO DEPARTMEN T VISIT MODERATE SEVERITY Emergency CATARINA Dinh MD (ER) 3 16:28 3 18:35 [facility] Emergency CATARINA Lutz (ER) 3 23:43 3 01:33 [facility] Andres E. Emergency CATARINA Boudreaux MD (ER) 3 19:33 3 20:37 [facility] Emergency CATARINA Lutz (ER) 3 16:01 3 18:10 [facility] Andres E. OFFICE 23730 [facility] 9 9 [facility] T VISIT E CENTER 15 MINUTES EMERGENCY 53393 [facility], 9 9 JIL Castillo [facility] T VISIT PHYS INC MODERATE SEVERITY HOSPITAL [facility] - 9 9 [facility]ER[facility] 72387 [facility] 9 9 [facility] T VISIT LOW/MODER SEVERITY EMERGENCY 77699 [facility], 9 9 JIL Farah [facility] EMERGENCY T VISIT PHYS INC HIGH/URGE NT SEVERITY EMERGENCY 92946 [facility], 9 9 JIL [facility] EMERGENCY T VISIT PHYS INC MODERATE SEVERITY OFFICE 47495 PHYSICIAN RAPHAEL DOMINGUEZ 9 9 Alie Lopez NEW 30 SERVICES MINUTES PSC OFFICE 02016 [facility] [place], T VISIT E CENTER JUAN PABLO D 15 MINUTES [facility] [place] [facility] [facility] [address] [facility] T EMERGENCY 57463 [facility] 9 9 [facility] T VISIT LOW/MODER SEVERITY EMERGENCY 69600 [facility], 9 9 [facility] EMERGENCY T VISIT PHYS INC HIGH/URGE NT SEVERITY OFFICE 57407 [facility], OUT[facility]IEN 9 9 JARET[facility]DALT MEERA B T VISIT ON CLINIC 15 MINUTES OFFICE 86335 [facility] HIGH OUTPATIEN 9 9 JARET-DALT MASTER, T VISIT 5 ON CLINIC MONIQUE MINUTES OFFICE 76859 [facility]USE OUTPATIEN 9 9 JARET-DALT BHARATHI TH T VISIT ON CLINIC MD 15 MINUTES HOSPITAL [facility] - 9 9 [facility] T OFFICE 98686 [facility] OUTPATIEN 9 9 JIMENA GARVIN, T VISIT ON CLINIC MD 15 MINUTES OFFICE 14754 [facility] OUTPATIEN 9 9 JIMENA GARVIN, TH T VISIT ON CLINIC MD 15 MINUTES HOSPITAL [facility] - 9 9 Y [facility] T OFFICE 05289 [facility] OUTPATIEN 9 9 JIMENA GARVIN, TH T VISIT ON CLINIC MD 15 MINUTES OFFICE 16327 STEPHANIE BARCENAS 9 9 [facility] A ION SERV NEW/ESTAB FOUNDATIO PATIENT 40 MIN OFFICE 24099 [facility], OUTPATIEN 9 9 AYALA Samayoa T NEW 30 MINUTES OFFICE 20637 [facility] MUSE OUTPATIEN 9 9 JIMENA GARVIN, T VISIT ON CLINIC MD 15 MINUTES OFFICE 98927 [facility] LUCIA, OUTPATIEN 9 9 JARET-RAMONA MEERA B T VISIT ON CLINIC 15 MINUTES HOSPITAL [facility] - 9 9 [facility] UN[facility] - 9 9 Y INPATIENT HOSPITAL EMERGENCY 96392 KENNEDI TERRY, DEPT 9 9 MEDICAL LINK L VISIT SERV HIGH FOUNDATIO SEVERITY& THREAT [facility] EMERGENCY 75162 [facility] 9 9 [facility] EMERGENCY T VISIT PHYS INC HIGH/URGE NT SEVERITY HOSPITAL [facility] - 8 8 [facility]PITAL [place] [facility] [address] [facility] T EMERGENCY [address] T VISIT LOW/MODER SEVERITY HOSPITAL [facility] [address] [facility] T EMERGENCY 38202 [place] [facility] 8 8 [facility] T [facility]ISIT LIMITED/M [facility] [place] [facility] [address] [facility] T OFFICE 60843 DHS/CO [facility] 8 8 HEALTH [facility] T VISIT CENTRAL 15 BANK ACCT [facility] MINUTES T [facility]PITAL [place] [facility] [address] [facility] T EMERGENCY 32171 [place] [facility] 8 8 [facility] T VISIT MODERATE SEVERITY EMERGENCY 30519 [facility] 8 8 [facility] T [facility]ISIT LIMITED/M INOR [facility] [place] - 8 8 [facility]PITAL [place] - 8 8 [facility] INPATIENT HOSPITAL EMERGENCY 69368 [place] 8 8 [facility] T VISIT MODERATE SEVERITY [facility]OSPITAL [place] - [address] [facility] T
--- OUTSIDE RECORDS SUMMARY | 2016-12-09 12:18 | External Medical Summary Rpt | CCD ---
Author Author , FABRIZIO DINH Address Unknown Phone Care Team Providers Care Die Grinder Name Role Phone Rosalino DIMAS, Unavailable Unavailable Rosalino DIMAS, JOSÉ MIGUEL Unavailable Unavailable LOOB LLANES, MARIO ALBERTO Unavailable Unavailable ALEX MELINDA, ALEX Unavailable Unavailable MELINDA LAWRENCE, ALEX Unavailable Unavailable MELINDA REYNOLDS, REYNOLDS Unavailable Unavailable REYNOLDS ALL, REYNOLDS ALL Unavailable Unavailable [facility] Unavailable Unavailable DEPARTMENT, [facility] Unavailable Unavailable HOSPITAL, [facility] Unavailable Unavailable PRACTICE L, [facility] WILKINS, WILKINS Unavailable Unavailable WILKINS JAM, WILKINS JAM Unavailable Unavailable LIZAMA, LIZAMA Unavailable Unavailable HARIKA, SEAN, HARIKA, Unavailable Unavailable SEAN CELLAROSI - YORBA Unavailable Unavailable PAT, CELLAROSI - YORBA PAT CELLAROSI - YORBA Unavailable Unavailable PAT, CELLAROSI - YORBA PAT CHANDEL, CHANDEL Unavailable Unavailable CHESTNUT, CHESTNUT Unavailable Unavailable [facility] Unavailable Un[facility] [place], Unavailable Unavailable [facility] GODINEZ SUKHDEEP, GODINEZ Unavailable Unavailable SUKHDEEP JOANNA, JOANNA Unavailable Unavailable FADIA, FADIA Unavailable Unavailable FADIA LAKISHA, Unavailable Unavailable FADIA LAKISHA FADIA LAKISHA, Unavailable Unavailable FADIA LAKISHA [id number], Unavailable Unavailable [id number], Unavailable Unavailable [id number] JOEY II THO, JOEY II Unavailable Unavailable THO JOEY II THO, JOEY II Unavailable Unavailable THO JOEY, T, JOEY, T Unavailable Unavailable DEPA, DEPA Unavailable [facility]available [facility], Unavailable [facility]available [facility] Unavailable Unavailable EDDIE, EDDIE Unavailable Unavailable EDDIE SHADE, EDDIE Unavailable Unavailable SHADE FARZANEH, TOUFIC A, Unavailable Unavailable FARZANEH, TOUFIC A [facility] Unavailable Unavailable GROUP P, [facility] HERNÁNDEZ, HERNÁNDEZ Unavailable Unavailable [...] Unavailable [facility] Unavailable Unavailable [facility], [facility] Unavailable Unavailable HOSPITAL P, [facility] HARTKER III, Unavailable Unavailable ALHAJI W, HARTROXANE III, ALHAJI W JIM ANDREA, JUAN PABLO Unavailable Unavailable D, JIM ANDREA, JUAN PABLO D HIGH MASTER, MONIQUE, Unavailable Unavailable HIGH MASTER, MONIQUE IJEOMA STEPHENS, Unavailable Unavailable IJEOMA STEPHENS, JORI Unavailable Unavailable NAN [facility] Unavailable Unavailable GROUP PS, [facility] Un[facility] Unavailable [facility], [facility] LNIK TERRY, Unavailable Unavailable [facility] SOLIS KOSTELIC, KOSTELIC [...] LU MD, Unavailable Unavailable MATIAS LU MD [facility] Unavailable Unavailable [facility], [facility] [place] [facility], [facility] Unavailable Unavailable [facility], Unavailable Unavailable [facility], Unavailable Unavailable PLLC, [...] SOTINGEANU [facility] Un[facility] Un[facility], [facility] Unavailable Unavailable [facility]GENCY PHYSI, [facility], Unavailable Unavailable [facility], Unavailable Unavailable [facility] STAROMANA CRYSTAL, Unavailable Unavailable STAROMANA CRYSTAL W SWINEY, SWINEY Unavailable Unavailable SWINEY PAT, SWINEY Unavailable Unavailable PAT [facility], Unavailable Unavailable [facility], Unavailable Unavailable [facility] Unavailable [facility]available [place] ANGELITA, [facility] ROBBIE YEH Unavailable Unavailable WEHRMAN III HIREN, [...] UNSPECIFIED ANESTHESIA GROUP PS K210 GASTRO-ESOP 10-27-2016 [facility] DISEASE W/ ESOPHAGITIS K259 GASTR ULCR 10-27-2016 [place] [facility] ANESTHESIA OR CHRON GROUP PS W/O HEMORR OR PERF R109 UNSPECIFIED 10-27-2016 [facility] R112 NAUSEA WITH 10-27-2016 [facility] R51 HEADACHE [...] 10-06-2016 [facility] PAIN N EMERGENCY PHYS F16196 OTHER 10-01-2016 [facility] [place] [facility] CYST LEFT SIDE K029 DENTAL 09-13-2016 [facility] CARIES [facility], UNSPECIFIED PLL R072 PRECORDIAL 09-13-2016 [facility] PAIN PHYSICIANS, PLLC R222 LOCALIZED 09-13-2016 [facility] P LUMP TRUNK K5909 OTHER 09-08-2016 [facility] [place] CONSTIPATIO RADIOLOGY N R1031 RIGHT LOWER 09-08-2016 [facility] PAIN Z720 TOBACCO USE 09-06-2016 [facility] R197 DIARRHEA 08-30-2016 [facility] UNSPECIFIED PHYSICIANS, PLLC Z445U4C ADVERSE 08-24-2016 [facility] EFFECT OTH N EMERGENCY ANTIPROTOZO PHYS AL RX INITIAL ENC G894 CHRONIC 08-20-2016 [facility] PAIN N EMERGENCY SYNDROME PHYS R0782 INTERCOSTAL 08-20-2016 [facility] PAIN N EMERGENCY PHYS K529 NONINFECTIV 08-15-2016 [facility] E N EMERGENCY GASTROENTER PHYS ITIS & COLITIS UNS E876 HYPOKALEMIA 08-09-2016 [facility] OLEGARIO HOLDINGS W9790ME OTHER SPEC 06-20-2016 [facility] [place] INJURIES LT RADIOLOGY LOWER LEG INITIAL ENC G4700 INSOMNIA 06-09-2016 [facility] UNSPECIFIED PHYSICIAN PRACTICE L R590 LOCALIZED 06-09-2016 [facility] ENLARGED PHYSICIAN LYMPH NODES PRACTICE L R61 GENERALIZED 06-09-2016 [facility] PHYSICIAN HYPERHIDROS PRACTICE L IS R938 ABNORMAL 06-09-2016 [facility] FIND ON DX PHYSICIAN IMAGING OTH PRACTICE L SPEC BODY STRCT M222X2 PATELLOFEMO 06-08-2016 [facility] LEFT KNEE R918 OTHER 06-08-2016 [facility] [place] NONSPECIFIC RADIOLOGY ABNORMAL FINDING OF LUNG FIELD L68885 PAIN IN 06-04-2016 [facility] [place] LEFT KNEE RADIOLOGY R12096 EPILEPSY 06-02-2016 [facility] UNS NOT PHYSICIANS, INTRACT W/O PLLC STATUS EPILEPTICUS F29795 MIGRAINE 05-27-2016 [facility] UNS NOT N EMERGENCY INTRACT W/O PHYS STATUS MIGRAINOSUS M546 PAIN IN 05-27-2016 [facility] THORACIC N EMERGENCY SPINE PHYS R768 OTH SPEC 05-18-2016 [facility] ABNORMAL OLE[facility]ARIO IMMUNOLOGIC HOLDINGS AL FIND IN SERUM I58283 OTHER 05-02-2016 [place] CERVICAL MEDICAL DISC IMAGING ASS DEGENERATIO N AT C5-C6 LEVEL M542 CERVICALGIA 05-02-2016 [facility] R569 UNSPECIFIED 05-02-2016 [place] [facility] CONVULSIONS IMAGING ASS Z0129BG CONTUSION 05-02-2016 [facility] OF [facility]ALP PHYSICIANS, INITIAL PLLC ENCOUNTER D9434VD UNSPECIFIED 05-02-2016 [place] INJURY OF MEDICAL HEAD IMAGING ASS INITIAL ENCOUNTER O872EAS UNSPECIFIED 05-02-2016 [place] INJURY OF MEDICAL NECK IMAGING ASS INITIAL ENCOUNTER G8929 OTHER 04-08-2016 [facility] CHRONIC [facility]YS[facility]ANS, PAIN PLLC J209 ACUTE 02-10-2016 [facility] BRONCHITIS PHYSICIANS, UNSPECIFIED PLLC B349 VIRAL 01-30-2016 [facility] INFECTION PHYSICIANS, UNSPECIFIED PLLC B373 CANDIDIASIS 01-30-2016 [facility] J029 ACUTE 01-30-2016 [facility] PHARYNGITIS PHYSICIANS, PLLC UNSPECIFIED A598 TRICHOMONIA 01-18-2016 [facility] SIS OF N EMERGENCY OTHER SITES PHYS M545 LOW BACK 01-18-2016 [facility] PAIN N EMERGENCY PHYS L239 ALLERGIC 12-14-2015 [facility] CONTACT N EMERGENCY DERMATITIS PHYS UNSPECIFIED CAUSE I7300 RAYNAUDS 11-28-2015 [facility] SY[facility]OME [facility]PITAL GANGRENE R001 BRADYCARDIA 11-28-2015 [facility] N EMERGENCY UNSPECIFIED PHYS R1010 UPPER 11-28-2015 [facility] ABDOMINAL N EMERGENCY PAIN PHYS UNSPECIFIED R42 DIZZINESS 11-28-2015 [facility] AND N EMERGENCY GIDDINESS PHYS O11723 OTHER LONG 11-28-2015 [facility] TERM [facility] CURRENT HOSPITAL DRUG THERAPY Z881 ALLERGY 11-28-2015 [facility] STATUS TO COMMUNITY OTHER HOSPITAL ANTIBIOTIC AGENTS STATUS R000 TACHYCARDIA 11-25-2015 [facility] N EMERGENCY UNSPECIFIED PHYS K224 DYSKINESIA 11-07-2015 [facility] OF N EMERGENCY ESOPHAGUS PHYSI 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 10-18-2015 [facility] C MITRAL PHYSICIANS, VALVE PLLC PROLAPSE R1084 GENERALIZED 09-29-2015 [facility] ABDOMINAL PHYSICIANS, PAIN PLLC N390 URINARY 09-01-2015 [facility] TRACT N EMERGENCY INFECTION PHYSI SITE NOT SPECIFIED R7989 OTHER SPEC 09-01-2015 [facility] ABNORMAL N EMERGENCY FINDINGS PHYSI BLOOD CHEMISTRY M5134 OT 08-18-2015 [facility] DEGEN THORACIC REGION M5136 OT 08-18-2015 [facility] DEGEN LUMBAR REGION K047 PERIAPICAL 04-08-2015 [facility] ABSCESS EXPRESS WITHOUT CARE BILL SINUS M549 DORSALGIA 04-08-2015 [facility] UNSPECIFIED EXPRESS CARE BILL N399 DISORDER OF 04-08-2015 [facility] SYSTEM UNSPECIFIED B94508 PAIN IN 02-24-2015 [place] LEFT ANKLE MEDICAL IMAGING ASS D33210C OTH FX 02-24-2015 [facility] UPPER & PHYSICIANS, LOWER LT PLLC FIBULA INIT ENC CLOS FX O56066H UNSPECIFIED 02-24-2015 [place] INJURY MEDICAL LEFT ANKLE IMAGING ASS INITIAL ENCOUNTER A599 TRICHOMONIA 02-21-2015 [facility] SIS N EMERGENCY UNSPECIFIED PHYS M5137 OTH 12-10-2014 [facility] INTERVERTEB N EMERGENCY RAL DISC PHYS DEGEN LUMBOSACRAL REGION 7881 DYSURIA 10-22-2014 [facility] V642 SURG/OTH 10-22-2014 [facility] PROC NOT MEM HOSP CARRIED OUT INC BECAUSE PTS DECN 21682 GENERALIZED 09-18-2014 [facility] 67936 OTHER 09-18-2014 [facility] CONVULSIONS [facility] URGENT TREAT 460 ACUTE 07-02-2014 [facility] NASOPHARYNG N EMERGENCY ITIS PHYS 83011 FEVER 07-02-2014 [facility] PHYS 5990 URINARY 05-05-2014 [facility] TRACT N EMERGENCY INFECTION PHYS SITE NOT SPECIFIED 05340 OTHER 05-05-2014 [facility] EMERGENCY FATIGUE PHYS 4430 RAYNAUDS 03-11-2014 [facility] SYNDROME [facility] 56672 NAUSEA 03-03-2014 [facility] ALONE [facility]ERG[facility] PH[facility] 40105 HEAD 03-03-2014 [facility] [place] INJURY, RADIOLOGY UNSPECIFIED 11704 INJURY OF 03-03-2014 [facility] [place] FACE AND RADIOLOGY NECK OTHER AND UNSPECIFIED 73670 ABDOMINAL 02-02-2014 [facility] PAIN, N EMERGENCY UNSPECIFIED PHYS SITE 5589 OTH&UNSPEC 01-30-2014 [facility] NONINFECTIO N EMERGENCY US PHYS GASTROENTER ITIS&COLITI S 5601 PARALYTIC 01-30-2014 [facility] ILEUS N EMERGENCY PHYS 37632 UNSPECIFIED 01-30-2014 [facility] N EMERGENCY CONSTIPATIO PHYS N 13446 ABDOMINAL 01-30-2014 [facility] PAIN RIGHT N EMERGENCY UPPER PHYS QUADRANT 57895 MIGRAINE 11-27-2013 [facility] UNSP W/O N EMERGENCY INTRACT W/O PHYS STATUS MIGRAINOSUS 45995 UNS 10-05-2013 [facility] GASTRITIS&G ASTRODUODIT IS W/O MENTION HEMORR 68180 VOMITING 10-05-2013 [facility] ALONE 278.02 OVERWEIGHT 09-08-2013 [facility] 10782 OVERWEIGHT 09-08-2013 [facility] 05113 OTHER 09-08-2013 [facility] PAIN 11640 GEN CONVUL 09-08-2013 [facility] EPILEPSY DIAGNOSTICS W/O MENTION INTRACT EPILEPSY 787.01 NAUSEA WITH 09-08-2013 [facility] VOMITING V5869 LONG-TERM 09-08-2013 [facility] (CURRENT) [facility] USE OF OTHER MEDICATIONS V77.91 SCREENING 09-08-2013 Res[facility] FOR LIPOID DISORDERS 70755 NAUSEA WITH 08-31-2013 ISAI LAWRENCE VOMITING 5362 PERSISTENT 08-16-2013 [facility] VOMITING N EMERGENCY PHYS 0340 STREPTOCOCC 08-09-2013 JOE[facility] II THO AL SORE THROAT 462 ACUTE 08-09-2013 [facility] PHARYNGITIS 43352 DIARRHEA 05-21-2013 CELLAROSI - YORBA PAT 7242 LUMBAGO 05-05-2013 ISAI LAWRENCE 305.1 305.1 04-12-2013 [facility] TOBACCO USE [facility] 780.39 780.39 04-12-2013 [facility] OTHER [facility] CONVULSIONS Hospital 824.8 824.8 FX 04-12-2013 [facility] ANKLE [facility] NOS-CLOSED Hospital 8242 CLOSED 04-12-2013 [facility] FRACTURE OF [place] LATERAL MALLEOLUS 65009 UNSPECIFIED 04-12-2013 [facility] III SITE OF HIREN ANKLE SPRAIN AND STRAIN E849.8 E849.8 04-12-2013 [facility] ACCIDENT IN [facility] PL[facility] E880.9 E880.9 FALL 04-12-2013 [facility] ON [facility] STAIR/STEP Hospital [facility] E8859 FALL FROM 04-12-2013 WEHR[facility] III OTHER [facility] SLIPPING TRIPPING OR STUMBLING E8889 UNSPECIFIED 04-12-2013 [facility] FALL [place] 724.2 724.2 07-16-2012 [facility] 719.47 PAIN IN 06-28-2012 Resolved JOINT [...] EMERGENCY PHYS INC 7295 PAIN IN 01-05-2009 [facility] TISSUES OF LIMB 94982 CHILLS 01-03-2009 [facility] WITHOUT N EMERGENCY FEVER PHYS INC V154 PERS HX 11-21-2008 [facility] AL TRAUMA PRS [facility] 7213 LUMBOSACRAL 09-11-2008 [facility] SPONDYLOSIS PSC WITHOUT MYELOPATHY 43651 DEGEN 09-11-2008 [facility] LUMBAR/LUMB SERVICES OSACRAL PSC INTERVERTEB RAL DISC 7802 SYNCOPE AND 09-11-2008 [facility] COLLAPSE SERVICES PSC 7840 HEADACHE 09-11-2008 [facility] PSC 8472 LUMBAR 08-19-2008 [facility] SPRAIN AND SERVICES STRAIN PSC 7820 DISTURBANCE 08-06-2008 [facility] 39147 OTH FORM 07-30-2008 [facility] EPILEPSY & AMERIC RECUR HOLDING SEIZUR NO INTRACT EPIL 80872 INFECTIONS 07-09-2008 [facility] COND/COMPL 87772 PAIN IN 07-09-2008 [facility] JOINT, N EMERGENCY SHOULDER PHYS INC REGION 7746 UNSPECIFIED 07-09-2008 [facility] PEDIA JAUNDICE 7795 DRUG 07-09-2008 [place] WITHDRAWAL [facility] SYN[facility] IN PEDIA 15121 CHEST PAIN 07-09-2008 [facility] [place] UNSPECIFIED RADIOLOGY 30982 ABDOMINAL 07-09-2008 [facility] [place] PAIN OTHER RADIOLOGY SPECIFIED SITE 7919 OTHER 07-09-2008 [facility] EXAMINATION OF URINE V3000 SINGLE 07-09-2008 [facility] PEDIA W/O 7706 TRANSITORY 07-07-2008 [facility] TACHYPNEA SERV OF FOUNDATIO 15738 THREATENED 07-05-2008 [facility] PREMATURE SERV LABOR [facility] ANTEPARTUM 75012 SHOULDER 07-05-2008 [facility] DYSTOCIA SERV DURING FOUNDATIO LABOR&DELIV ER DELIVERED V2389 SUPERVISION 07-05-2008 [facility] OF OTHER SERV HIGH-RISK FOUNDATIO V252 STERILIZATI 07-05-2008 [facility] ON SERV FOUND[facility] 05143 EDEMA OR 07-04-2008 [facility] EXCESSIVE [facility] ANTEPARTUM 68164 MATERNAL 07-04-2008 [facility] ANTEPARTUM V726 LABORATORY 06-25-2008 [facility] EXAMINATION [facility] 49193 OTHER 06-24-2008 [facility] VISUAL FIELD DEFECT 7910 PROTEINURIA 06-24-2008 [facility] V221 SUPERVISION 06-24-2008 [facility] OF OTHER [facility] 31864 MATERNAL 06-03-2008 [facility] DIABETES SERV MELLITUS FOUNDATIO ANTEPARTUM 69026 OTH CURRENT 06-03-2008 [facility] CLASSIFIABL E ELSW ANTPRTM 15812 OBES COMP 06-03-2008 [facility] PG SERV /THE FOUNDATIO PP ANTEPARTUM COND/COMP 75150 POOR 06-03-2008 [facility] GROWTH MGMT SERV MOTH FOUNDATIO ANTPRTM COND/COMP 67301 SWELLING OF 06-03-2008 [facility] 34523 GEN CONVUL 05-29-2008 [facility] EPILEPSY SERV W/INTRACTAB FOUNDATIO LE EPILEPSY 34618 04-11-2008 [facility] COMP RECUR [facility] PREG LOSS CLINIC ANTPRTM COND/COMP V237 INSUFFICIEN 04-11-[address] [facility] [address] [facility] V762 SCREENING 04-11-2008 [facility] MALIGNANT NEOPLASM OF THE CERVIX 9708 POISONING 04-04-2008 [facility] OTHER SPEC SERV CENTRAL FOUNDATIO NERV SYS STIMULANTS E9804 POISONING 04-04-2008 [facility] BY OTH DRUG SERV & FOUNDATIO MEDICINE-UN DETERM CAUSE 00679 MATERNAL 04-03-2008 [facility] DRUG SERV DEPENDENCE FOUNDATIO ANTEPARTUM 4019 UNSPECIFIED 04-01-2008 [facility] 5180 PULMONARY 04-01-2008 [facility] COLLAPSE SERV FOUNDAT[facility] 91954 OTH CURRENT 04-01-2008 [facility] MATERNAL SERV CCE-COMPL FOUNDATIO PG CB/PP-UNS EOC 75705 EPILEPSY 04-01-2008 [facility] /PP ANTEPARTUM COND/COMP 03965 ALTERED 04-01-2008 [facility] MENTAL SERV STATUS FOUNDATIO 7850 UNSPECIFIED 04-01-2008 [facility] SERV TACHYCARDIA FOUNDATIO 7867 ABNORMAL 04-01-2008 [facility] CHEST SERV SOUNDS FOUNDAT[facility] 81974 POISONING 04-01-2008 [facility] BY OPIATES SERV AND RELATED FOUNDATIO NARCOTICS OTHER 9670 POISONING 04-01-2008 [place] [facility] BARBITURATE S 9690 POISONING 04-01-2008 [place] [facility] ANTIDEPRESS ANTS 9694 POISONING 04-01-2008 [place] [facility] BENZODIAZEP INE-BASED TRANQUILIZE RS 9696 POISONING 04-01-2008 [place] [facility] PSYCHODYSLE PTICS 9779 POISONING 04-01-2008 [facility] UNSPECIFIED N EMERGENCY PHYS INC DRUG/MEDICI NAL SUBSTANCE E8502 ACCIDENTAL 04-01-2008 [facility] POISN OTH SERV OPIATES&REL FOUNDATIO ATED NARCOTICS E9805 POISONING 04-01-2008 [facility] BY UNS DRUG N EMERGENCY OR PHYS INC MEDICINE-UN DETERM CAUSE V222 04-01-2008 [facility] STATE, N EMERGENCY INCIDENTAL PHYS INC 73926 UNSPECIFIED 03-23-2008 [facility] VOMITING N EMERGENCY OF PHYS INC ANTEPARTUM V2881 ENCOUNTER 02-21-2008 [facility] FOR SERV ANATOMIC FOUNDATIO SURVEY 6235 LEUKORRHEA 01-16-2008 [facility] [place] NOT RADIOLOGY SPECIFIED INFECTIVE 22514 OTHER 01-16-2008 [facility] [place] SPECIFED RADIOLOGY COMPLICATIO N ANTEPARTUM 6826 CELLULITIS 12-13-2007 [facility] EXCEPT FOOT 2662 OTHER 12-12-2007 [facility] B-COMPLEX HEALTH DEFICIENCIE CENTRAL S BANK ACCT V7242 12-12-2007 [facility] EXAMINATION HEALTH OR TEST CENTRAL POSITIVE BANK ACCT RESULT 9190 ABRASION/FR 11-14-2007 [facility] BURN [facility] OTH MX&UNS HOSPITAL SITE W/O INF 9222 CONTUSION 11-14-2007 [facility] ABDOMINAL HOSPITAL WALL 05611 CHRONIC 10-09-2007 [place] CHOLECYSTIT [facility] IS HOSPITAL 5758 OTHER 10-09-2007 [place] SPECIFIED [facility] DISORDER OF HOSPITAL GALLBLADDER 7226 DEGENERATIO 10-09-2007 [facility] INTERVERTEB HOSPITAL RAL DISC SITE UNSPEC R07.9 [...] ia de te s n re d MN 65 09 10 10 2 00 KE [...] 08 09 30 15 00 KE Ac MN 05 -3 -2 .0 00 NT ti [...] 08 09 20 10 00 KE Ac MN 86 -2 -2 .0 00 NT ti OF 20 2- 2- 00 01 UC ve LO 07 20 20 05 [place] XA 70 17 17 33 CI 1 03 CV N S HC PH L AR 50 MA 0 CY MG LL TA C, B DB A CV S PH AR MA CY #3 01 6 MN 65 08 09 20 10 00 KE [...] 08 09 28 14 00 KE Ac MN 05 -1 -1 .0 00 NT ti [...] 08 09 28 14 00 KE Ac MN 05 -0 -0 .0 00 NT ti [...] PH AR MA CY #3 01 6 MN 65 07 08 28 7 00 KE [...] 07 08 28 14 00 KE Ac MN 05 -1 -1 .0 00 NT ti [...] PH AR MA CY #3 01 6 MN 65 07 08 60 30 00 KE Ac OM 16 -1 -1 .0 00 NT ti ET 20 9- 8- 00 01 UC ve VARELA 74 20 20 04 [place] ZI 51 17 17 43 NE 0 30 CV S 12 PH .5 AR MA MG CY TA LL BL C, ET DB A CV S PH AR MA CY #3 01 6 MN 65 07 08 28 7 00 KE [...] 07 08 28 14 00 KE Ac MN 05 -0 -1 .0 00 NT ti [...] PH AR KAYLYNN CY #3 01 6 MN 65 07 08 14 2 00 KE [...] 06 08 14 7 00 KE Ac MN 05 -2 -0 .0 00 NT ti [...] 06 07 14 7 00 KE Ac MN 05 -2 -2 .0 00 NT ti [...] PH AR MA CY #3 01 6 MN 45 06 07 12 3 00 KE [...] 06 07 14 7 00 KE Ac MN 86 -2 -2 .0 00 NT ti [...] 06 07 14 7 00 KE Ac MN 05 -1 -2 .0 00 NT ti [...] 06 07 14 7 00 KE Ac MN 05 -0 -1 .0 00 NT ti [...] 06 07 10 5 00 KE Ac MN 05 -0 -0 .0 00 NT ti [...] PH AR KAYLYNN CY #3 01 6 MN 65 05 06 20 5 00 KE [...] 04 05 28 14 00 KE Ac MN 16 -1 -1 .0 00 NT ti [...] PH AR MA CY #3 01 6 MN 65 04 05 60 30 00 KE [...] 34 3- 8- 00 01 UC ve MN 59 20 20 01 [place] ED 31 [...] 02 03 42 28 00 KE Ac MN 05 -2 -2 .0 00 NT ti [...] 12 01 14 7 00 KE Ac MN 16 -2 -2 .0 00 NT ti [...] 12 01 24 16 00 KE Ac MN 05 -1 -1 .0 00 NT ti [...] 12 01 11 7 00 KE Ac MN 05 -0 -0 .0 00 NT ti [...] 64 20 ng ZA 42 13 er MN 0 IN Ac E ti 10 ve [...] MA CE 1 CY TH TA OM CT #3 NO 01 PH 6 EN 7. [...] CA ZA 11 09 09 D ND MN 0 PH IC IN AR E E [...] CA ZA 11 09 09 D ND MN 0 PH IC IN AR E E [...] CA ZA 11 09 09 D ND MN 0 PH IC IN AR E E [...] 00 20 10 RI 36 DA Ac MN 17 -1 -0 .0 TE 36 LE [...] #3 MG 01 6 TA BL ET MN 00 04 05 00 20 7 CV 52 No Ac OM 78 -2 -0 .0 S 73 t ti ET 11 7- 7- 00 PH 35 Av ve VARELA 83 20 20 AR ai ZI 00 09 09 MA la NE 1 CY bl e 25 #6 94 MG 1 TA BL ET MN 00 04 04 01 20 7 CV [...] TO UF #3 IC 01 A 6 MN 00 03 04 00 30 4 RI [...] ai RA 30 [address] 5 PH bl DE AR e M [...] MG 01 6 CA PS UL E MN 00 01 02 00 20 5 CV [...] MG OP PE CA PS UL E MN 00 12 01 01 44 11 TH [...] MG 01 6 CA PS UL E MN 00 12 12 00 44 11 TH [...] MG OP PE CA PS UL E MN 00 11 12 00 15 4 TH 65 CH Ac OM 78 -2 -0 .0 E 36 ES ti ET 11 5- 4- 00 ME 28 TN ve VARELA 83 20 20 DI 2 UT ZI 01 08 08 CI NE [address] CH 25 SH AE OP L MG [...] C 01 CA 6 PS UL E MN 00 10 11 00 20 5 CV [...] MG OP PE CA PS UL E MN 00 10 10 00 20 7 TH [...] NO complet T 012 ed 11:06 CHART 69302 complet NUMBER 012 ed 11:06 Chlamyd Pending complet ia 012 ed trachom 11:06 atis rRNA [Presen ce] in Unspeci fied specime n by Probe & target amplifi cation method Neisser Pending complet ia 012 ed gonorrh 11:06 oeae rRNA [Presen ce] in Unspeci fied specime n by Probe & target amplifi cation method Procedures Procedure DOS Code Location Performer Comment RADIOLOGI 47795 [facility] [place] SCALF C EXAM 7 RADIOLOGY CHEST 2 VIEWS FRONTAL&L ATERAL ANES 65927 [place] DEPA UPPER GI 7 ANESTHESI ENDOSCOPY A GROUP PROXIMAL PS TO DUODENUM EGD 40347 REFUGIO HUFF TRANSORAL 7 DIGESTIVE DIGESTIVE BIOPSY CARE CARE SINGLE/MU CENTER CENTER LTIPLE COLONOSCO 03521 REFUGIO GAYLE PY FLX DX 7 DIGESTIVE W/COLLJ [place] [address] [facility] [place] KOSTELIC HEAD/BRAI 7 RADIOLOGY N W/O CONTRAST MATERIAL RADIOLOGI 02855 FOUNDATIO HERNÁNDEZ C 7 N EXAMINATI RADIOLOGY ON CHEST GROUP P SING[place]IEW FRONTAL RADIOLOGI 93350 [facility] [place] JIMENEZ C EXAM 7 RADIOLOGY CHEST 2 VIEWS FRONTAL&[place] [address] [facility] LIPASE 7 OLEGARIO [facility] SUSCEPTIB 59035 [facility] LTY STDY 7 OLEGARIO OLEGARIO ANTIMICRB [facility] HOLDINGS IAL MICRO/AGA R DILUTJ BLOOD 67612 [facility] COUNT 7 OLEGARIO OLEGARIO COMPLETE [facility] HOLD[facility] AUTO&AUTO DIFRNTL WBC CUL BACT 27529 [facility] AEROBIC 7 OLEGARIO OLEGARIO ADDL [facility] METHS DEFINITIV E EA ISOL CULTURE 12987 [facility] BACTERIAL 7 OLEGARIO OLEGARIO [facility] HOLDINGS QUANTTATI VE COLONY COUNT URINE CULTURE 40632 [facility] BCT 7 OLEGARIO OLEGARIO ISOL&PRSM [facility] HOLDINGS PTV ID ISOLATE EA URINE COMPREHEN 49401 [facility] SIVE 7 OLEGARIO OLEGARIO [place] [address] [facility] [place] ABDOMEN & 7 RADIOLOGY PELVIS W/CONTRAS T MATERIAL RADIOLOGI 46460 [place] REYNOLDS C EXAM 7 MEDICAL CHEST 2 IMAGING VIEWS ASS FRONTAL&L ATERAL ECG 76003 OSMANY FELIX JR ROUTINE 7 [facility] W/LEAST P 12 LDS I&R ONLY RADIOLOGI 27259 [facility] [place] LIZAMA C 7 RADIOLOGY EXAMINATI ON CHEST SINGLE VIEW FRONTAL BLOOD [address] COMPLETE AUTO&AUTO DIFRNTL WBC URNLS DIP [address] STICK/TAB LET RGNT AUTO W/[place] [address] [facility] [place] [facility] HEAD/BRAI 7 RADIOLOGY [place] [address] QUANTITAT [place] GONADOTRO [address] CHORIONIC QUALITATI VE THER [address] [facility] PROPH/DX [address] [place] [address] NJX IV PUSH SINGLE/1S T SBST/[place] [address] [facility] [place] [facility] [place]BDOMEN & 7 RADIOLOGY PELVIS W/O CONTRAST MATERIAL GONADOTRO [address] CHORIONIC QU[employer] [place] ECG [address] ECG W/LEAST 12 LDS TRCG ONLY W/O I&R COLLECTIO 15886 [facility] VENOUS [address] [place] [address] BLOOD VENIPUNCT URE INJECTION J2405 [address] ONDANSETR ON HCL PER 1 MG CULTURE [address] QUANTTATI VE COLONY COUNT URINE BASIC [address] PANEL CALCIUM TOTAL ECG 307[address] [facility] ROUTINE 7 JIL ECG EMERGENCY W/LEAST PHYS 12 LDS I&[place] [address] HYDRATION EACH ADDITIONA L HOUR CULTURE 42069 [facility] BACTERIAL 7 [facility] [place] [address] [facility] AMYLASE 7 [facility] COMPREHEN 38380 [facility] SIVE 7 [facility] [facility] METABOLIC INC INC PANEL SEDIMENTA 38174 OSMANY CERON TIALEX RATE 7 [facility] [place] [address] OSMANY CERON LIPASE 7 [facility] INC INC THERAPEUT 42444 OSMANY CERON IC 7 [facility] PROPHYLAC INC INC TIC/DX INJECTION SUBQ/IM URNLS DIP 89251 OSMANY CERON 7 [facility] STICK/TAB INC INC LET REAGENT AUTO MICROSCOP Y BLOOD 38469 OSMANY CERON COUNT 7 [facility] COMPLETE INC INC AUTO&AUTO DIFRNTL WBC BLOOD 71574 OSMANY CERON COUNT 7 [facility] COMPLETE INC INC AUTO&[place] [address] OSMANY CERON INFUSION 7 [facility] THERAPY/P INC INC ROPHYLAXI S /DX 1ST TO 1 HR THERAPEUT 63220 OSMANY CERON IC 7 [facility] INJECTION INC INC IV PUSH EACH NEW DRUG URNLS DIP 87422 OSMANY CERON 7 [facility] STICK/TAB INC INC LET REAGENT AUTO MICROSCOP Y BLOOD 72437 OSMANY CERON OCCULT 7 MEM [facility] PEROXIDAS INC INC E ACTV QUAL FECES 1-3 [place] [address] OSMANY CERON LIPASE 7 [place] [address] OSMANY CERON AMYLASE 7 MEM [facility]OS[facility] INC INC CULTURE 05910 OSAMNY CERON BACTERIAL 7 MEM [facility] INC INC QUANTTATI VE COLONY COUNT URINE COMPREHEN 48074 OSMANY CERON SIVE 7 MEM HOS[facility]OSP METABOLIC INC INC PANEL IADNA-DNA 69894 OSMANY CERON /RNA GI 7 MEM HOS[facility] MEM HOSP PTHGN INC INC MULTIPLEX PROBE TQ - RADIOLOGI 07328 [place] SCALF C 7 RADIOLOGY EXAMINATI ON CHEST SINGLE VIEW FRONTAL RADIOLOGI 15652 [place] SCALF C 7 RADIOLOGY EXAMINATI ON CHEST SINGLE VIEW FRONTAL RADIOLOGI 14500 [facility] HARPERFADIA C 7 MEDICAL EXAMINATI IMAGING ON CHEST ASS SINGLE VIEW FRONTAL BASIC 07442 LAB RAUL LAB RAUL METABOLIC 7 OLEGARIO OLEGARIO PANEL HOLDINGS HOLDINGS CALCIUM TOTAL RADEX 21313 [place] SCALF ABDOMEN 7 RADIOLOGY COMPL W/DCBTS&/ ERC VIEWS RADIOLOGI 52583 [place] ANGELA C 7 RADIOLOGY EXAMINATI ON TIBIA & FIBULA 2 [place] [address] SLIM SMALLS TROPONIN 7 [facility] [place] BLOOD 86999 SLIM SMALLS COUNT 7 [facility] AUTO&AUTO DIFRNTL WBC COMPREHEN 57809 SLIM SMALLS SIVE 7 [facility] PANEL COLLECTIO 09184 SLIM SMALLS N VENOUS [address] [facility] VENIPUNCT URE CT THORAX 14290 [facility] 7 [facility] W/[facility] T MATERIAL LOCM Q9967 [facility] SMALLS [phone] [facility] MG/ML HOSPITAL HOSPITAL IODINE CONCENTRA TION PER ML RADIOLOGI 46321 [facility] SMALLS C 7 [facility] ON KNEE 3 VIEWS RADIOLOGI 32126 [facility] SMALLS C EXAM [address] HOSPITAL VIEWS FRONTAL&L ATERAL RADIOLOGI 07666 [place] RADMANESH C EXAM 7 RADIOLOGY CHEST 2 VIEWS FRONTAL&[place] [address] [place] HEAD/BRAI 7 RADIOLOGY N W/[place] [address] [place] THORACIC 7 RADIOLOGY SPINE W/O CONTRAST MATERIAL IADNA 46507 LAB RAUL LAB RAUL HEPATITIS 7 OLEGARIO OLEGARIO C QUANT [employer] HOLD[employer] & REVERSE TRANSCRIP TION CT THORAX 52730 [place] SCALF W/O [address] [place] [address] OSMANY OSMANY HEAD/BRAI 7 [facility] MEM HOSP N W/[place] [address] OSMANY OSMANY CERVICAL 7 [facility] SPINE W/O INC INC CONTRAST MATERIAL FINAL RPT G9557 [facility] CT/MRI 7 MEDICAL CHEST/NCK IMAGING /U/S NO ASS THR NOD<1.0 CM FINAL G9638 ISABEL LOAIZA REPORTS 7 MEDICAL W/O DOC IMAGING 1/MORE ASS DOSE REDUCTION TECH RADIOLOGI 34417 ISABEL LOAIZA C EXAM 7 MEDICAL CHEST 2 IMAGING VIEWS ASS FRONTAL&L ATERAL RADIOLOGI 06306 CNTRL KENNEDI SCALF C 7 RADIOLOGY EXAMINATI ON CHEST SINGLE VIEW FRONTAL RADIOLOGI 58390 ISABEL LLANES C EXAM 6 MEDICAL CHEST 2 IMAGING VIEWS ASS FRONTAL&L ATERAL THER 97505 OSMANY CERON PROPH/DX 6 [facility] NJX IV INC INC PUSH SINGLE/1S T SBST/DRUG URNLS DIP 75015 OSMANY CERON 6 [facility] STICK/TAB INC [place] [address] OSMANY CERON ABDOMEN & 6 [facility] PELVIS INC INC W/O CONTRAST MATERIAL BLOOD 08878 OSMANY CERON COUNT 6 MEM [facility] COMPLETE INC INC AUTO&AUTO DIFRNTL WBC CULTURE 84367 OSMANY CERON BACTERIAL 6 [facility] INC INC QUANTTATI VE COLONY COUNT URINE COMPREHEN 87131 OSMANY CERON SIVE 6 [facility] METABOLIC INC INC PANEL SMR PRIM 46899 OSMANY CERON SRC WET 6 [facility] MOUNT INC INC NFCT AGT BASIC 88351 SLIM SMALLS METABOLIC [address] [place] [address] [place] [address] SLIM SMALLS THYROXINE [address] [place] [address] HOSPITAL INJECTION J1885 SLIM WAYNEON [address] [place] [address] KETOROLAC [facility] TROMETHAM INE PER 15 MG BLOOD 76327 SLIM WAYNEON COUNT [address] [place] [address] AUTO&AUTO DIFRNTL WBC RADIOLOGI 31095 SLIM SMALLS C [address] [place] [address] [facility] ON CHEST SINGLE VIEW FRONTAL ECG 59717 SLIM SMALLS ROUTINE [address] [place] [address] HOSPITAL W/LEAST 12 LDS TRCG ONLY W/O I&R THYROID 25665 [place] HORM 6 [facility] UPTK/THYR HOSPITAL HOSPITAL [place] [address] SLIM WAY[place]ON TROPONIN 6 [facility] [place] [address] [place] RADMANESH ABDOMEN & 6 RADIOLOGY SHA PELVIS W/CONTRAS T MATERIAL RADIOLOGI 82840 [facility] [place] SCALF SHARON C EXAM 6 RADIOLOGY CHEST 2 VIEWS FRONTAL&[place] [address] [place] JAM ABDOMEN & 6 RADIOLOGY PELVIS W/O CONTRAST MATERIAL FIBRIN 01211 SLIM [place] DGRADJ 6 [facility] D-DIMER QUANTITAT [place] LIPID 08410 SLIM WAY[place] PANEL [address] [place] [address] COLLECTIO 40745 SLIM SMALLS N VENOUS 6 [facility] HOSPITAL VENIPUNCT URE RADIOLOGI 52781 [place] REYNOLDS ALL C EXAM 6 MEDICAL CHEST 2 IMAGING VIEWS ASS FRONTAL&[place] [address] [place] [facility] ABDOMEN & 6 MEDICAL PELVIS IMAGING W/O ASS CONTRAST MATERIAL RADEX 33095 SLIM WAYNEON SPINE [address] [place] [address] HOSPITAL 2 VIEWS SEDIMENTA 49618 SLIM WAYNEON TION RATE [address] [place] [address] HOSPITAL NON-AUTOM ATED URNLS DIP 27771 SLIM WAY[place] [address] [place] [address]/TAB HOSPITAL HOSPITAL LET REAGENT AUTO MICROSCOP Y BLOOD 98238 SLIM GAYTANURBON COUNT [address] [place] [address] AUTO&AUTO DIFRNTL WBC RADEX 00798 [facility] SPINE 6 [facility] AL 2/3 VIEWS COLLECTIO 39673 SLIM WAYNEON N VENOUS [address] [place] [address] VENIPUNCT URE COMPREHEN 19002 SLIM SMALLS SIVE [address] [place] [address] [place] [address] SLIM SMALLS THYROID [address] [place] [address] NG HORMONE TSH CULTURE 03557 SLIM SMALLS BACTERIAL [address] [place] [address] QUANTTATI VE COLONY COUNT URINE C-REACTIV 17977 [place] E PROTEIN 6 [facility] CULTURE 30003 [facility] BACTERIAL 6 DIAGNOSTI DIAGNOSTI CS CS QUANTTATI VE COLONY COUNT URINE CULTURE 32733 [facility] BCT 6 DIAGNOSTI DIAGNOSTI ISOL&PRSM CS CS PTV ID ISOLATE EA URINE URNLS DIP 22274 PHYSICIAN JENNY 6 S EXPRESS COU STICK/TAB CARE LET RGNT BILL AUTO W/O MICROSCOP Y INJECTION J0696 PHYSICIAN JENNY 6 S EXPRESS COU CEFTRIAXO CARE NE SODIUM BILL PER 250 MG THERAPEUT 52035 PHYSICIAN JENNY IC 6 S EXPRESS COU PROPHYLAC CARE TIC/DX BILL INJECTION SUBQ/IM RADIOLOGI 27807 [place] REYNOLDS ALL C 6 MEDICAL EXAMINATI IMAGING ON ANKLE ASS 2 VIEWS URNLS DIP 43602 OSMANY CERON 5 [facility] STICK/TAB INC INC LET REAGENT AUTO MICROSCOP Y CULTURE 35139 OSMANY CERON BACTERIAL 5 [facility]OS[facility] INC INC QUANTTAT[place] [address] OSMANY CERON THYROID 5 MEM HOS[facility] MEM HOSP STIMULATI INC INC NG HORMONE TSH ANTIBODY 00094 OSMANY CERON HELICOBAC 5 MEM HOSP MEM HOSP TER INC INC PYLORI COMPREHEN 24240 OSMANY CERON SIVE 5 MEM HOS[facility] MEM HOSP METABOLIC INC INC PANEL 1 25 29645 OSMANY CERON DIHYDROXY 5 MEM H[facility] MEM HOSP INCLUDES [place] [address] OSMANY CERON LIPASE 5 MEM HOS[facility] MEM HOSP INC INC BLOOD 78222 OSMANY CERON COUNT 5 MEM [facility]OSP COMPLETE INC INC AUTO&[place] [address] OSMANY CERON AMYLASE 5 [place] [address] [place] KOSTELIC HEAD/BRAI 5 RADIOLOGY MO N W/[place] [address] [place] KOST[place] MAXILLOFA 5 RADIOLOGY MO CIAL W/[place] [address] [place] ANGELA ABDOMEN & 4 RADIOLOGY RHO PELVIS W/CONTRAS T MATERIAL LIPID 63310 [employer] PANEL 4 DIAGNOSTI DIAGNOSTI CS GENERAL 15666 [employer] HEALTH 4 DIAGNOSTI DIAGNOSTI PANEL CS CS CRTCHS E0114 [employer]ail[employer] UNDARM 4 OTH THAN WOOD PAIR PAD TIP&HNDGR IP ANKLE L4350 [employer] CONTROL 4 ORTHOSIS STIRRUP STYL RIGID PREFAB RADEX 72640 FADIA FADIA ANKLE 4 LAKISHA LAKISHA COMPLETE MINIMUM 3 VIEWS MRI BRAIN 79433 PHYSICIAN BARBARA BRAIN 9 S MARGO STEM W/O SERVICES CONTRAST PSC MATERIAL MRI 64349 PHYSICIAN BARBARA, SPINAL 9 S MARGO CANAL SERVICES LUMBAR PSC W/O CONTRAST MATERIAL PSYCHOLOG 48405 PHYSICIAN BRANDIE DOMINGUEZ 9 S FRANCISCA W TESTING SERVICES ADMN BY PSC TECH MN HR COMPREHEN 16943 LAB RAUL LAB RAUL SIVE 9 [employer] PANEL COMPREHEN 39194 [place] SIVE 9 [facility] PANEL COLLECTIO 94192 [place] N VENOUS [address] [facility] VENIPUNCT URE CT PELVIS 68264 CNTRL KENNEDI DIMAS, W/O 9 RADIOLOGY J CONTRAST MATERIAL CULTURE 47479 [place] BACTERIAL 9 [facility] QUANTTATI VE COLONY COUNT URINE RADIOLOGI 11970 CNTR[facility] KENNEDI DIMAS C EXAM 9 RADIOLOGY J CHEST 2 VIEWS FRONTAL&L [facility] 92454 [facility] DISCHARGE 9 Y OF DAY [place] MANAGEMEN PEDIA T 30 MIN/< URNLS DIP 46048 [place] 9 [facility]/TAB [facility] [place] [address] CNTRL KENNEDI DIMAS, ABDOMEN 9 RADIOLOGY J W/O CONTRAST MATERIAL BLOOD 32896 [place] COUNT 9 [facility] AUTO&AUTO DIFRNTL WBC SUBQ 53338 [facility] 9 Y OF CARE PER [place] DAY E/M PEDIA NORMAL SUBQ 71977 [facility] 9 Y OF SUKHDEEP CARE PER [place] E/M PEDIA NORMAL RADIOLOGI 81594 [place] EMILY C 9 MEDICAL DOMINIQUE A EXAMINATI SERV ON CHEST FOUNDATIO [place] FRONTAL SUBQ 92947 [facility] 9 Y OF SUKHDEEP CARE PER [place] [address] [place] ZAKIA SURG 9 MEDICAL MAXIMINO, E PATHOLOGY SERV FOUNDATIO GROSS&ASHER ROSCOPIC EXAM 1ST [address] [facility] HOSP/MEG 9 Y OF SUKHDEEP NIRAJ [facility] PEDIA CARE PER DAY NML NB ANES IPER 48073 [place] ALEX, LWR ABD 9 MEDICAL DOMINIQUE T W/LAPS SERV TUBAL FOUNDATIO LIGATION/ TRANSECT VAGINAL 69790 [place] FERNANDO, DELIVERY 9 MEDICAL GISELLE C ONLY SERV W/POSTPAR FOUNDATIO SUSSY CARE URNLS DIP 53217 [facility] LUCIA, 9 JARET-RAMONA MEERA B STICK/TAB ON CLINIC LET RGNT NON-AUTO W/O MICRSCP URNLS DIP 25464 [facility] MUSE 9 JARET-RAMONA GARVIN, TH STICK/TAB ON CLINIC LET RGNT NON-AUTO W/O MICRSCP BLOOD 46291 [facility] UNIVERS COUNT 9 Y Y COMPLETE [facility] AUTOMATED CREATININ 93970 [facility] E BLOOD 9 Y Y [facility] POTASSIUM 58059 [facility] SERUM 9 Y Y PLASMA/[facility] OLE BLOOD GLUCOSE 10392 [facility] QUANTITAT 9 Y Y [place] BLOOD [facility] XCPT REAGENT STRIP LACTATE 15652 [facility] DEHYDROGE 9 Y Y NASE [facility] CREATININ 46467 [facility] UNIVERS E 9 Y Y CLEARANCE [facility] PROTEIN 10306 [facility] TOTAL 9 Y Y XCPT [facility] [place] [address] [facility] BLOOD/URI 9 Y Y C [facility]OSPITAL TRANSFERA 43057 [facility] SE 9 Y Y ASPARTATE [facility] AMINO AST SGOT TRANSFERA 29564 [facility] SE 9 Y Y ALANINE [facility] [place] [address] [facility] UREA 9 Y Y NITROGEN [facility] QUANTITAT [place] URNLS DIP 56647 [facility] MUSE 9 JARET-RAMONA GARVIN, TH STICK/TAB ON CLINIC LET RGNT NON-AUTO W/O MICRSCP URNLS DIP 18839 [facility] MUSE 9 JARET-DALT KENNE, TH STICK/TAB ON CLINIC LET RGNT NON-AUTO W/O MICRSCP URNLS DIP 88483 [facility] MUSE 9 JARET-DALJohn GARVIN, TH STICK/TAB ON CLINIC LET RGNT NON-AUTO W/O MICRSCP BLOOD 10736 [facility] COUNT 9 Y Y COMPLETE [facility] AUTOMATED [place] PREG 57348 [facility] UTERUS 9 Y Y REAL TIME [facility] F/U TRNSABDL PER FETUS 76973 [place] FER[place], NONSTRESS 9 MEDICAL GISELLE C TEST SERV FOUNDATIO IADNA 51548 [facility] STREPTOCO 9 Y Y CCUS [facility] [place] [address] [facility] MONITORIN 9 Y Y G LABOR [facility] PHYS WRITTEN REPORT COLLECTIO 23657 [facility] MUSE N VENOUS 9 JARET-RAMONA GARVIN, TH BLOOD ON CLINIC VENIPUNCT URE DUP-SCAN 54365 [facility] XTR VEINS 9 Y Y [facility] BILATERAL STUDY ANTIBODY 40048 [facility] SCREEN 9 Y Y RBC [facility] SERUM TECHNIQUE SYPHILIS 84707 [facility] TEST 9 Y Y NON-[facility] NEMAL ANTIBODY QUAL URNLS DIP 73177 [facility] MUSE 9 JARET-RAMONA GARVIN, TH STICK/TAB ON CLINIC LET RGNT NON-AUTO W/O MICRSCP URNLS DIP 54413 [facility] LUCIA, 9 JARET-DALT MEERA B STICK/TAB ON CLINIC LET RGNT NON-AUTO W/O MICRSCP SCR G0145 [facility] CYTOPATH 9 Y Y CERV/VAG HOSPITAL HOSPITAL SCR AUTO&MNL RSCR PHYS BLOOD 01227 [facility] COUNT 9 Y Y COMPLETE [facility] AUTOMATED IADNA 27631 [facility] NEISSERIA 9 Y Y HOSPITAL HOSPITAL GONORRHOE AE AMPLIFIED PROBE TQ GLUCOSE 42234 [facility] POST 9 Y Y GLUCOSE [facility] DOSE IADNA 00939 [facility] CHLAMYDIA 9 Y Y [facility] TRACHOMAT IS AMPLIFIED PROBE TQ HOSPITAL 47063 KENNEDI FABIOLA, DISCHARGE 9 MEDICAL DARIO DAY SERV Y MANAGEMEN FOUNDATIO T 30 MIN/< DOPPLER 28871 KENNEDI JAIMEFER ECHO 9 MEDICAL RI, IMAN SERV SPECTRAL FOUNDATIO DISPLAY COMPLETE 26199 KENNEDI SANDOVALFER NONSTRESS 9 MEDICAL RI, IMAN TEST SERV FOUNDATIO US PREG 97686 KENNEDI SAGASTUME UTERUS 9 MEDICAL RI, IMAN REAL TIME SERV F/U FOUNDATIO TRNSABDL PER FETUS 32237 KENNEDI FERNANDO, NONSTRESS 9 MEDICAL GISELLE C TEST SERV FOUNDATIO GROUND A0425 [facility] MILEAGE 9 RBON CO RBON CO PER EMS EMS STATUTE MILE ECG 52033 [facility], ROUTINE 9 JIL Farah ECG EMERGENCY W/LEAST PHYS INC 12 LDS I&R ONLY RADIOLOGI 28589 Rosendo DORMAN 9 MEDICAL ROMANA W EXAMINATI SERV ON CHE[place] [address] [facility] HEAD/BRAI 9 Y OF III, N W/O [facility] W MATERIAL CRITICAL 49739 [facility], CARE 9 JIL Farah ILL/INJUR EMERGENCY ED PHYS INC PATIENT INIT 30-74 MIN US PREG 41750 [facility] UTERUS 8 Y Y AFTER 1ST [facility] TRIMEST GESTATION US PREG 30941 [facility] UTERUS 8 [facility] HOSPITAL TRIMEST / GESTATION COMPREHEN 11047 [facility] 8 [facility] PANEL COLLECTIO 89899 [facility] N VENOUS 8 [facility] [address] [place] JIMENEZ, 8 RADIOLOGY MARGO UTERUS LIMITED 1/> FETUSES BLOOD 48888 [facility] SMALLS COUNT 8 [facility] AUTO&AUTO DIFRNTL WBC THER 03061 SLIM SMALLS PROPH/DX 8 [facility] IV [facility] HOSPITAL PUSH 1ST SBST/[place] [address] [facility] LIPASE [address] [place] [address] HOSPITAL URNLS DIP [address] STICK/TAB HOSPITAL HOSPITAL LET REAGENT AUTO MICROSCOP Y GENERAL [address] HOSPITAL COLLECTIO 16151 [facility] SMALLS N VENOUS 8 [facility] HOSPITAL VENIPUNCT URE COLLECTIO 77814 [facility] N VENOUS [address] [place] [address] HOSPITAL VENIPUNCT URE COMPREHEN [address] HOSPITAL PANEL CULTURE 01936 [facility] BACTERIAL [address] [place] [address] QUANTTATI VE COLONY COUNT URINE IV NFUS 55061 [facility] SMALLS HYDRATION 8 [facility] HOSPITAL URINE 15674 SLIM SMALLS 8 [facility] VISUAL COLOR CMPRSN METHS URNLS DIP [address] STICK/TAB HOSPITAL HOSPITAL [place] [address] [facility] LIPASE [address] [place] [address] HOSPITAL THER 87834 [facility] SMALLS PROPH/DX 8 [facility] HOSPITAL PUSH 1ST SBST/[place] [address] [facility] SMALLS AMYLASE [address] [place] [address] BLOOD 10526 SLIM SMALLS COUNT 8 [facility] AUTO&AUTO DIFRNTL WBC LAPAROSCO 5123 SLIM SMALLS PIC 8 [facility] ECTOMY BLOOD 07511 SLIM SMALLS COUNT 8 [facility] MCRSCP W/MNL DIFRNTL WBC COUNT COLLECTIO 62265 SLIM SMALLS N VENOUS 8 [facility] [place] [address] SLIM SMALLS INFUSION 8 [facility] INITIAL 31 MIN-1 HR THER 49837 SLIM SMALLS PROPH/DX 8 [facility] SEQL IV PUSH SBST/DRUG BLOOD 83221 SLIM SMALLS COUNT 8 [facility] [place] [address] SLIM SMALLS ABDOMINAL 8 [facility] TIME W/IMAGE LIMITED THER 92907 SLIM SMALLS PROPH/DX 8 [facility] HOSPITAL PUSH 1ST SBST/DRUG APPLICATI 93.54 Andres ON OF Buck Lutz III, MD Encounters Encounter Start End Date Code Location Performer Type Date EMERGENCY 14016 [facility] CHESTNUT 7 7 JIL DEPARTMEN EMERGENCY T VISIT PHYS HIGH/URGE NT SEVERITY EMERGENCY 66213 [facility] 7 7 JIL VISIT EMERGENCY HIGH PHYS SEVERITY& THREAT FUNCJ EMERGENCY 14276 [facility] FREDDY DEPT 7 7 JIL VISIT EMERGENCY HIGH PHYS SEVERITY& THREAT FUNCJ EMERGENCY 28113 [facility] PUND 7 7 JIL DEPARTMEN EMERGENCY T VISIT PHYS MODERATE SEVERITY OFFICE 62938 [facility] 7 7 PHYSICIAN T VISIT PRACTICE 25 L MINUTES EMERGENCY 20813 [facility] ALVARADO 7 7 JIL DEPARTMEN EMERGENCY T VISIT PHYS HIGH/URGE NT SEVERITY EMERGENCY 59821 [facility] OSMANY DEPT 7 7 JIL VISIT EMERGENCY HIGH PHYS SEVERITY& THREAT FUNCJ EMERGENCY 80502 [facility]ANY 7 [facility] VISIT MODERATE SEVERITY EMERGENCY 16766 OSITO JEFFERS DEPT 7 7 PHYSICIAN U VISIT S, PLLC HIGH SEVERITY& THREAT [facility] OSMANY - 7 7 [facility] [address] [facility] 62021 SLIM 7 7 [facility] T VISIT LIMITED/M INOR PROB EMERGENCY [address] T VISIT HIGH/URGE NT SEVERITY EMERGENCY 00362 OSMANY 7 7 [facility] T VISIT MODERATE SEVERITY EMERGENCY 35281 OSITO BOUDREAUX 7 7 PHYSICIAN DEPARTMEN S, [facility] T VISIT HIGH/URGE NT SEVERITY HOSPITAL OSMANY - 7 7 [facility] EMERGENCY 97762 OSMANY 7 7 [facility] T VISIT HIGH/URGE NT SEVERITY HOSPITAL OSMANY - 7 7 [facility] 65489 [facility] 7 7 [facility] EMERGENC[facility] T VISIT PHYS HIGH/URGE NT SEVERITY EMERGENCY 29310 [facility] EDGAR 7 7 [facility] T VISIT PHYS HIGH/URGE NT SEVERITY EMERGENCY 94368 [facility] DEPT 7 7 JIL VISIT EMERGENCY HIGH PHYS SEVERITY& THREAT FUN EMERGENCY 59564 [facility] EDGAR DEPT 7 7 JIL VISIT EMERGENCY HIGH PHYS SEVERITY& THREAT FUNJ EMERGENCY 86708 OSITO NEGRON DEPT 7 7 PHYSICIAN VISIT S, PLLC HIGH SEVERITY& THREAT FUNCJ EMERGENCY 25852 [facility] EDDIE 7 7 JIL DEPARTMEN EMERGENCY T VISIT PHYS HIGH/URGE NT SEVERITY HOSPITAL [facility] - 7 7 [facility] T OFFICE 00574 [facility] 7 7 PHYSICIAN T VISIT PRACTICE 25 L MINUTES [facility] ROSANAON - 7 7 [facility] ROSANAON - 7 7 [facility] T OFFICE 25978 [facility] 7 7 PHYSICIAN T VISIT PRACTICE 25 L MINUTES EMERGENCY 62333 [facility]SMANY 7 7 [facility] LOW/MODER SEVERITY EMERGENCY 21268 OSITO NEGRON 7 7 PHYSICIAN DEPARTMEN S, PLLC T VISIT MODERATE SEVERITY HOSPITAL OSMANY - 7 7 [facility] 93811 [facility] DEPT 7 7 JIL VISIT EMERGENCY HIGH PHYS SEVERITY& THREAT FUNCJ EMERGENCY 99365 [facility] DEPT 7 7 JIL VISIT EMERGENCY HIGH PHYS SEVERITY& THREAT FUNCJ EMERGENCY 68851 OSITO ELAINE DEPT 7 7 PHYSICIAN VISIT S, PLLC HIGH SEVERITY& THREAT FUNCJ EMERGENCY 17689 [facility]SMANY 7 7 [facility] LOW/MODER SEVERITY HOSPITAL OSMANY - 7 7 [facility] OUTPATIEN INC T EMERGENCY 03266 OSITO JEFFERS DEPT 7 7 PHYSICIAN U VISIT S, PLLC HIGH SEVERITY& THREAT FUNCJ EMERGENCY 58500 OSITO NEGRON DEPT 6 6 PHYSICIAN VISIT S, PLLC HIGH SEVERITY& THREAT FUNCJ EMERGENCY 55562 OSITO NEGRON 6 6 PHYSICIAN DEPARTMEN S, PLLC T VISIT MODERATE SEVERITY HOSPITAL OSMANY - 6 6 [facility] OUTPATIEN INC T EMERGENCY 30185 OSMANY [address] [facility] INC T VISIT LOW/MODER SEVERITY EMERGENCY 03883 [facility] JOEY II 6 6 JIL THO [facility] EMERGENCY T VISIT PHYS HIGH/URGE NT SEVERITY EMERGENCY 92731 [facility] SWINEY 6 6 JIL PAT [facility] EMERGENCY T VISIT PHYS MODERATE SEVERITY EMERGENCY 00051 [place] 6 6 [facility] T VISIT HIGH/URGE NT SEVERITY [facility] T EMERGENCY 70867 [facility] 6 JIL LOBO VISIT EMERGENCY HIGH PHYS SEVERITY& THREAT FUN EMERGENCY 28094 [facility] EDDIE DEPT 6 6 JIL SHADE VISIT EMERGENCY HIGH PHYS SEVERITY& THREAT FUN EMERGENCY 74216 [facility] ALEX DEPT 6 6 JIL MELINDA VISIT EMERGENCY HIGH PHYSI SEVERITY& THREAT [facility] [place] - 6 6 [facility] T EMERGENCY 22772 OSITO VALDIVIA, 6 6 PHYSICIAN JR [place] [facility] S, [facility] T VISIT HIGH/URGE NT SEVERITY EMERGENCY 95945 OSITO BOUDREAUX 6 6 PHYSICIAN [facility] S, [facility] T VISIT HIGH/URGE NT SEVERITY EMERGENCY 29513 [facility] JENNY 6 6 JIL [facility] EMERGENCY T VISIT PHYS HIGH/URGE NT SEVERITY EMERGENCY 13548 [facility] DEPT 6 6 JIL LOBO VISIT EMERGENCY HIGH PHYSI SEVERITY& THREAT FUN EMERGENCY 51382 [facility] SWINEY 6 6 JIL PAT [facility] EMERGENCY T VISIT PHYSI HIGH/URGE NT SEVERITY [facility] [place] - 6 6 [facility] T OFFICE 60040 PHYSICIAN JENNY LIM 6 6 S EXPRESS COU T NEW 45 CARE MINUTES BILL EMERGENCY 57013 OSITO JEFFERS 6 6 PHYSICIAN U AMELIA DEPARTMEN S, PLLC T VISIT HIGH/URGE NT SEVERITY EMERGENCY 63321 [facility] JOEY II 6 6 JIL THO DEPARTMEN EMERGENCY T VISIT PHYS HIGH/URGE NT SEVERITY EMERGENCY 41177 [facility] JOEY II 5 5 JIL THO DEPARTMEN EMERGENCY T VISIT PHYS MODERATE SEVERITY EMERGENCY 07203 [facility] NWAUCHE 5 5 JIL [facility] DEPARTMEN EMERGENCY T VISIT PHYS HIGH/URGE NT SEVERITY EMERGENCY 94095 [facility] 5 5 [facility] DEPARTMEN INC T VISIT MODERATE SEVERITY [facility]OSPITAL [facility] - 5 5 [facility] OUTPATIEN INC T OFFICE 56505 [facility] OUTPATIEN 5 5 [facility] NEW 30 URGENT MINUTES TREAT EMERGENCY 07947 [facility] SOKAN BAB 5 5 JIL DEPARTMEN EMERGENCY T VISIT PHYS HIGH/URGE NT SEVERITY [facility] PAT DEPARTMEN EMERGENCY T VISIT PHYS HIGH/URGE NT SEVERITY Outpatien AMB MIKA AUGUSTA t 5 12:05 5 12:05 [facility] - 5 5 [facility] OUTPATIEN INC T EMERGENCY 39082 [facility] JOEY II 5 5 JIL THO DEPARTMEN EMERGENCY T VISIT PHYS HIGH/URGE NT SEVERITY EMERGENCY 59366 [facility] SOKAN BAB 4 4 JIL DEPARTMEN EMERGENCY T VISIT PHYS MODERATE SEVERITY EMERGENCY 81956 [facility] B[facility] DE[facility] 4 4 JIL VISIT EMERGENCY HIGH PHYS SEVERITY& THREAT FUNJ EMERGENCY 92859 [facility] JOEY II 4 4 JIL THO DEPARTMEN EMERGENCY T VISIT PHYS MODERATE SEVERITY EMERGENCY 63298 [facility] SOKAN BAB 4 4 JIL DEPARTMEN EMERGENCY T VISIT PHYS MODERATE SEVERITY EMERGENCY 58528 [facility] 4 4 JIL THO DEPARTMEN EMERGENCY T VISIT PHYS MODERATE SEVERITY EMERGENCY 62322 ARTURO BOUDREAUX 4 4 ASHER ASHER DEPARTMEN T VISIT HIGH/URGE NT SEVERITY EMERGENCY 52586 ISAI ALEX 4 4 MELINDA MELINDA DEPARTMEN T VISIT MODERATE SEVERITY EMERGENCY 35717 [facility] [place] 4 4 JIL [facility] DEPARTMEN EMERGENCY T VISIT PHYS HIGH/URGE NT SEVERITY EMERGENCY 97242 JOEY II JOEY II 4 4 THO THO DEPARTMEN T VISIT HIGH/URGE NT SEVERITY EMERGENCY 92886 [facility] BAB SOKAN BAB 4 4 DEPARTMEN T VISIT MODERATE SEVERITY EMERGENCY 55767 [facility] CELLAROSI DEPT 4 4 - YORBA - YORBA VISIT PAT PAT HIGH SEVERITY& THREAT FUNCJ EMERGENCY 30526 ISAI ALEX 4 4 MELINDA [facility] DEPARTMEN T VISIT MODERATE SEVERITY Emergency CATARINA Lutz (ER) 4 20:55 4 22:04 [facility] Andres E. EMERGENCY 67893 HELLEN LUTZ 4 4 III HIREN III HIREN DEPARTMEN T VISIT MODERATE SEVERITY EMERGENCY 73362 SO[facility] BAB SOKAN BAB DEPT 4 4 VISIT HIGH SEVERITY& THREAT FUNCJ EMERGENCY 90213 JOEY II JOEY II 4 4 O THO DEPARTMEN T VISIT MODERATE SEVERITY Emergency CATARINA Dinh MD (ER) 3 16:28 3 18:35 [facility] Emergency CATARINA Lutz (ER) 3 23:43 3 01:33 [facility] Andres E. Emergency CATARINA Boudreaux MD (ER) 3 19:33 3 20:37 [facility] Emergency CATARINA Lutz (ER) 3 16:01 3 18:10 [facility] Andres E. OFFICE 69908 [facility] [place] 9 [facility] T VISIT E CENTER 15 MINUTES EMERGENCY 70553 [facility], 9 9 JIL Castillo [facility] T VISIT PHYS INC MODERATE SEVERITY HOSPITAL [facility] - 9 9 [facility] 58692 [facility] 9 9 [facility] LOW/MODER SEVERITY EMERGENCY 43937 [facility], 9 9 JIL Farah [facility] EMERGENCY T VISIT PHYS INC HIGH/URGE NT SEVERITY EMERGENCY 23294 [facility], 9 9 JIL [facility] EMERGENCY T VISIT PHYS INC MODERATE SEVERITY OFFICE 53941 PHYSICIAN RAPHAEL DOMINGUEZ 9 9 Alie Lopez NEW 30 SERVICES MINUTES PSC OFFICE 72936 [facility] [place] [place], T VISIT E CENTER JUAN PABLO D 15 MINUTES HOSPITAL [place] - 9 9 [facility] T EMERGENCY 41405 [place] 9 9 [facility] T VISIT LOW/MODER SEVERITY EMERGENCY 85853 [facility], 9 9 [facility] EMERGENCY T VISIT PHYS INC HIGH/URGE NT SEVERITY OFFICE 26163 [facility], OUT[facility]IEN 9 9 J[facility] MEERA B T VISIT ON CLINIC 15 MINUTES OFFICE 59640 [facility] HIGH OUTPATIEN 9 9 JARET-DALT MASTER, T VISIT 5 ON CLINIC MONIQUE MINUTES OFFICE 40955 [facility]USE OUTPATIEN 9 9 JARET-DALT BHARATHI TH T VISIT ON CLINIC MD 15 MINUTES [facility]PITAL [facility] - 9 9 [facility] T OFFICE 60382 [facility] OUTPATIEN 9 9 JIMENA GARVIN, T VISIT ON CLINIC MD 15 MINUTES OFFICE 33784 [facility] OUTPATIEN 9 9 JIMENA GARVIN, TH T VISIT ON CLINIC MD 15 MINUTES HOSPITAL [facility] - 9 9 Y [facility] T OFFICE 93410 [facility] OUTPATIEN 9 9 JIMENA GARVIN, TH T VISIT ON CLINIC MD 15 MINUTES OFFICE 63879 STEPHANIE BARCENAS 9 9 [facility] A ION SERV NEW/ESTAB FOUNDATIO PATIENT 40 MIN OFFICE 88310 [facility], OUTPATIEN 9 9 AYALA Samayoa T NEW 30 MINUTES OFFICE 26913 [facility] MUSE OUTPATIEN 9 9 JIMENA GARVIN, T VISIT ON CLINIC MD 15 MINUTES OFFICE 47231 [facility], OUTPATIEN 9 9 JARET-RAMONA MEERA B T VISIT ON CLINIC 15 MINUTES HOSPITAL [facility] - 9 9 [facility] - 9 9 Y INPATIENT HOSPITAL EMERGENCY 44678 KENNEDI TERRY, DEPT 9 9 MEDICAL LINK L VISIT SERV HIGH FOUNDATIO SEVERITY& THREAT [facility] EMERGENCY 21350 [facility] 9 9 [facility] EMERGENCY T VISIT PHYS INC HIGH/URGE NT SEVERITY [facility] - 8 8 [facility]OSPITAL [place] - 8 8 [facility] T EMERGENCY [address] T VISIT LOW/MODER SEVERITY HOSPITAL [facility] 8 8 [facility] T EMERGENCY 53811 [place] 8 8 [facility] T V[facility]IT LIMITED/[facility] [place] [facility] 8 8 [facility] T OFFICE 42438 [facility] 8 8 [facility] T VISIT CENTRAL 15 BANK ACCT [facility] MINUTES T HOSPITAL [place] - 8 8 [facility] T EMERGENCY 43831 [place] 8 8 [facility] T VISIT MODERATE SEVERITY EMERGENCY 78420 [place] 8 8 [facility] T VISIT LIMITED/M [facility] [place] - 8 8 [facility] [place] - 8 8 [facility] INPATIENT HOSPITAL EMERGENCY 11578 [place] 8 8 [facility] T VISIT MODERATE SEVERITY HOSPITAL [place] - 8 8 [facility] T
--- OUTSIDE RECORDS SUMMARY | 2016-12-09 12:29 | External Medical Summary Rpt | CCD ---
Author Author , FABRIZIO Organization [facility] Address Unknown Phone [email or web address] Care Team Providers Care Appliance Service Supervisor Name Role Phone Rosalino DIMAS, Unavailable Unavailable Rosalino DIMAS, JOSÉ MIGUEL Unavailable Unavailable LOBO LLANES, MARIO ALBERTO Unavailable Unavailable ALEX MELINDA, ALEX Unavailable Unavailable MELINDA ALEX MELINDA, ALEX Unavailable Unavailable MELINDA REYNOLDS, REYNOLDS Unavailable Unavailable REYNOLDS ALL, REYNOLDS ALL Unavailable Unavailable [facility] Unavailable Unavailable DEPARTMENT, [facility] Unavailable Unavailable [facility], [facility] Unavailable Unavailable PRACTICE L, [facility] WILKINS, WILKINS Unavailable Unavailable WILKINS JAM, WILKINS JAM Unavailable Unavailable LIZAMA, LIZAMA Unavailable Unavailable HARIKA, SEAN, HARIKA, Unavailable Unavailable SEAN CELLAROSI - YORBA Unavailable Unavailable PAT, CELLAROSI - YORBA PAT CELLAROSI - YORBA Unavailable Unavailable PAT, CELLAROSI - YORBA PAT CHANDEL, CHANDEL Unavailable Unavailable CHESTNUT, CHESTNUT Unavailable Unavailable [facility] Unavailable Unavailable [place], Unavailable Unavailable [facility] GODINEZ SUKHDEEP, GODINEZ Unavailable Unavailable SUKHDEEP JOANNA, JOANNA Unavailable Unavailable FADIA, FADIA Unavailable Unavailable FADIA LAKISHA, Unavailable Unavailable FADIA LAKISHA FADIA LAKISHA, Unavailable Unavailable FADIA LAKISHA [id number], Unavailable Unavailable [id number], Unavailable Unavailable [facility] JOEY II THO, JOYE II Unavailable Unavailable THO JOEY II THO, JOEY II Unavailable Unavailable THO JOEY, T, JOEY, T Unavailable Unavailable DEPA, DEPA Unavailable [facility]available [facility], Unavailable [facility]available [facility] Unavailable Unavailable EDDIE, EDDIE Unavailable Unavailable EDDIE SHADE, EDDIE Unavailable Unavailable SHADE FARZANEH, TOUFIC A, Unavailable Unavailable [facility] TOUFIC [facility] Unavailable Unavailable [facility] EDGAR HERNÁNDEZ Unavailable Unavailable HERNÁNDEZEDGAR GRIGGS Unavailable Unavailable VALDIVIA, JR, VALDIVIA, Unavailable Unavailable JR VALDIVIA, JR ELZ, Unavailable Unavailable VALDIVIA, JR ELZ ARTURO, ARTURO Unavailable Unavailable ARTURO ASHER, ARTURO Unavailable Unavailable ASHER ARTURO ASHER, ARTURO Unavailable Unavailable ASEHR FERNANDO, GISELLE C, Unavailable Unavailable FERNANDO, GISELLE C GIANFERRARI, IMAN, Unavailable Unavailable GIANFERRARI, IMAN GILBERT, FRANCISCA W, Unavailable Unavailable GILBERT, FRANCISCA W ANGELA, ANGELA Unavailable Unavailable ANGELA RHO, ANGELA Unavailable Unavailable RHO MAGDA FARLEY F, Unavailable Unavailable FARLEYMAGDA F JIMENEZ, JIMENEZ Unavailable Unavailable JIMENEZ, MARGO, Unavailable Unavailable JIMENEZ, MARGO OSMANY, OSMANY Unavailable Unavailable [facility] Unavailable Unavailable INC, [facility] Unavailable Unavailable [facility] HARTKER III, Unavailable Unavailable ALHAJI W, HARTKER III, ALHAJI W JIM FALLS, JUAN PABLO Unavailable Unavailable D, JIM ANDREA, JUAN PABLO D HIGH MASTEREVELIAYN, Unavailable Unavailable HIGH MASTER MONIQUE IJEOMA STEPHENS, Unavailable Unavailable IJEOMA STEPHENS, JORI Unavailable Unavailable NAN JANET III OPAL, Unavailable Unavailable JANET III [facility] Unavailable Unavailable GROUP PS, [facility] Unavailable Unavailable [facility], [facility] LINK TERRY, Unavailable Unavailable LINK TRERY KOSTELIC, KOSTELIC Unavailable Unavailable KOSTELIC MO, Unavailable Unavailable KOSTELIC MO Rosendo HINES S, DONNY, C S Unavailable Unavailable LAB [...] LU MD, Unavailable Unavailable MATIAS LU MD [facility] Unavailable Unavailable URGENT TREAT, [facility] [place] [facility], [facility] Unavailable Unavailable [facility], Unavailable Unavailable [facility], Unavailable Unavailable PLL[facility], [facility] DOMINIQUE DIAZ A, Unavailable Unavailable DOMINIQUE DIAZ [facility] Unavailable Unavailable CARE BILL, PHYSICIANS [...] SOTINGEANU AM[facility] Unavailable Unavailable [facility], [facility] Unavailable Unavailable EMERGENCY PHYSI, [facility], Unavailable Unavailable [facility], Unavailable Unavailable [facility] ROMANA FERGUSON, Unavailable Unavailable ROMANA FERGUSON SWINEY, SWINEY Unavailable Unavailable SWINEY PAT, SWINEY Unavailable Unavailable PAT [facility], Unavailable Unavailable [facility], Unavailable Unavailable [facility] Unavailable Unavailable [place] [facility], [facility] ROBBIE YEH Unavailable Unavailable WEHRMAN III HIREN, Unavailable Unavailable WEHRMAN III HIREN WEHRMAN III HIREN, Unavailable Unavailable WEHRMAN III HIREN MUNGUIA, MUNGUIA Unavailable Unavailable AYALA ANGLIN, LINNETTE, Unavailable Unavailable Diamond HELTON MD, Unavailable Unavailable Diamond TAN MD, W E, Unavailable Unavailable Anna HEARD Purpose Continuity of Care Document - 10-03-2007 through 2016 Problems Code Diagnosis DOS Provider Status R0602 SHORTNESS 10-30-2016 [facility] [place] OF BREATH RADI[facility] R079 CHEST PAIN 10-30-2016 [facility] [place] UNSPECIFIED RADIOLOGY R1310 DYSPHAGIA 10-30-2016 [facility] UNSPECIFIED N EMERGENCY PHYS E669 OBESITY 10-27-2016 [place] U[facility]PECIF[facility]HESIA GROUP PS K210 GASTRO-ESOP 10-27-2016 [facility] DISEASE W/ ESOPHAGITIS K259 GASTR ULCR 10-27-2016 [place] UNS AC ANESTHESIA OR CHRON GROUP PS W/O HEMORR OR PERF R109 UNSPECIFIED 10-27-2016 [facility] R112 NAUSEA WITH 10-27-2016 [facility] VOMITING [facility]IVE UNSPECIFIED CARE CENTER R51 HEADACHE [...] 10-06-2016 [facility] AL PAIN N EMERGENCY PHYS A20728 OTHER 10-01-2016 [facility] [place] OVARIAN [facility] CYST LEFT SIDE K029 DENTAL 09-13-2016 [facility], UNSPECIFIED PLL R072 PRECORDIAL 09-13-2016 [facility] PAIN PHYSICIANS, [facility] R222 LOCALIZED 09-13-2016 [facility] LUMP TRUNK K5909 OTHER 09-08-2016 [facility] [place] CONSTIPATIO RADIOLOGY N R1031 RIGHT LOWER 09-08-2016 [facility] PAIN Z720 TOBACCO USE 09-06-2016 [facility] INC R197 DIARRHEA 08-30-2016 [facility] UNSPECIFIED PHYSICIANS, PLLC R400N9Z ADVERSE 08-24-2016 [facility] EFFECT OTH N EMERGENCY ANTIPROTOZO PHYS AL RX INITIAL ENC G894 CHRONIC 08-20-2016 [facility] PAIN N EMERGENCY SYNDROME PHYS R0782 INTERCOSTAL 08-20-2016 [facility] PAIN N EMERGENCY PHYS K529 NONINFECTIV 08-15-2016 [facility] E N EMERGENCY GASTROENTER PHYS ITIS & COLITIS UNS E876 HYPOKALEMIA 08-09-2016 [facility] OLEGARIO HOLDINGS Y1260FW OTHER SPEC 06-20-2016 [facility] [place] INJURIES LT RADIOLOGY LOWER LEG INITIAL ENC G4700 INSOMNIA 06-09-2016 [facility] UNSPECIFIED PHYSICIAN PRACTICE L R590 LOCALIZED 06-09-2016 [facility] ENLARGED PHYSICIAN LYMPH NODES PRACTICE L R61 GENERALIZED 06-09-2016 [facility] PHYSICIAN HYPERHIDROS PRACTICE L IS R938 ABNORMAL 06-09-2016 [facility] FIND ON DX PHYSICIAN IMAGING OTH PRACTICE L SPEC BODY STRCT M222X2 PATELLOFEMO 06-08-2016 [facility] LEFT KNEE R918 OTHER 06-08-2016 [facility] [place] NONSPECIFIC RADIOLOGY ABNORMAL FINDING OF LUNG FIELD G91283 PAIN IN 06-04-2016 [facility] [place] LEFT KNEE RADIOLOGY R95729 EPILEPSY 06-02-2016 [facility] UNS NOT PHYSICIANS, INTRACT W/O PLLC STATUS EPILEPTICUS I59541 MIGRAINE 05-27-2016 [facility] UNS NOT N EMERGENCY INTRACT W/O PHYS STATUS MIGRAINOSUS M546 PAIN IN 05-27-2016 [facility] THORACIC N EMERGENCY SPINE PHYS R768 OTH SPEC 05-18-2016 [facility] ABNORMAL OLEGARIO IMMUNOLOGIC HOLDINGS AL FIND IN SERUM S21659 OTHER 05-02-2016 [place] [facility] IMAGING ASS DEGENERATIO N AT C5-C6 LEVEL M542 CERVICALGIA 05-02-2016 [facility] R569 UNSPECIFIED 05-02-2016 [place] [facility] CONVULSIONS IMAGING ASS I3984AJ CONTUSION 05-02-2016 [facility] OF SCALP PHYSICIANS, INITIAL PLLC ENCOUNTER T0716QL UNSPECIFIED 05-02-2016 [place] INJURY OF MEDICAL HEAD IMAGING ASS INITIAL ENCOUNTER O223OFK UNSPECIFIED 05-02-2016 [place] INJURY OF MEDICAL NECK IMAGING ASS INITIAL ENCOUNTER G8929 OTHER 04-08-2016 [facility] CHRONIC [facility]YS[facility]ANS, PAIN PLLC J209 ACUTE 02-10-2016 [facility] BRONCHITIS PHYSICIANS, UNSPECIFIED PLLC B349 VIRAL 01-30-2016 [facility] INFECTION PHYSICIANS, UNSPECIFIED PLLC B373 CANDIDIASIS 01-30-2016 [facility] J029 ACUTE 01-30-2016 [facility] PHARYNGITIS PHYSICIANS, PLLC UNSPECIFIED A598 TRICHOMONIA 01-18-2016 [facility] SIS OF N EMERGENCY OTHER SITES PHYS M545 LOW BACK 01-18-2016 [facility] PAIN N EMERGENCY PHYS L239 ALLERGIC 12-14-2015 [facility] CONTACT N EMERGENCY DERMATITIS PHYS UNSPECIFIED CAUSE I7300 RAYNAUDS 11-28-2015 [facility] SYNDROME [facility] GANGRENE R001 BRADYCARDIA 11-28-2015 [facility] N EMERGENCY UNSPECIFIED PHYS R1010 UPPER 11-28-2015 [facility] ABDOMINAL N EMERGENCY PAIN PHYS UNSPECIFIED R42 DIZZINESS 11-28-2015 [facility] AND N EMERGENCY GIDDINESS PHYS T52755 OTHER LONG 11-28-[address] [facility] CURRENT HOSPITAL DRUG THERAPY Z881 ALLERGY 11-28-2015 [facility] STATUS TO COMMUNITY OTHER HOSPITAL ANTIBIOTIC AGENTS STATUS R000 TACHYCARDIA 11-25-2015 [facility] N EMERGENCY UNSPECIFIED PHYS K224 DYSKINESIA 11-07-2015 [facility] OF N EMERGENCY ESOPHAGUS PHYSI 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 10-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 [facility] C MITRAL PHYSICIANS, VALVE PLLC PROLAPSE R1084 GENERALIZED 09-29-2015 [facility] ABDOMINAL PHYSICIANS, PAIN PLLC N390 URINARY 09-01-2015 [facility] TRACT N EMERGENCY INFECTION PHYSI SITE NOT SPECIFIED R7989 OTHER SPEC 09-01-2015 [facility] ABNORMAL N EMERGENCY FINDINGS PHYSI BLOOD CHEMISTRY M5134 OT 08-18-2015 [facility] DEGEN THORACIC REGION M5136 OT 08-18-2015 [facility] DEGEN LUMBAR REGION K047 PERIAPICAL 04-08-2015 [facility] ABSCESS EXPRESS WITHOUT CARE BILL SINUS M549 DORSALGIA 04-08-2015 [facility] UNSPECIFIED EXPRESS CARE BILL N399 DISORDER OF 04-08-2015 [facility] UNSPECIFIED S09184 PAIN IN 02-24-2015 [facility] LEFT [facility]KLE MEDICAL IMAGING ASS F82045N OTH FX 02-24-2015 [facility] UPPER & PHYSICIANS, LOWER LT PLLC FIBULA INIT ENC CLOS FX A94627B UNSPECIFIED 02-24-2015 [facility] INJURY MEDICAL LEFT ANKLE IMAGING ASS INITIAL ENCOUNTER A599 TRICHOMONIA 02-21-2015 [facility] SIS N EMERGENCY UNSPECIFIED PHYS M5137 OT 12-10-2014 [facility] RAL DISC PHYS DEGEN LUMBOSACRAL REGION 7881 DYSURIA 10-22-2014 [facility] V642 SURG/OTH 10-22-2014 [facility] PROC NOT MEM HOSP CARRIED OUT INC BECAUSE PTS DECN 95603 GENERALIZED 09-18-2014 [facility] 43422 OTHER 09-18-2014 [facility] CONVULSIONS [facility]RGENT T[facility]AT 460 ACUTE 07-02-2014 [facility] NASOPHARYNG N EMERGENCY ITIS PHYS 28617 FEVER 07-02-2014 [facility] UNSPECIFIED N EMERGENCY PHYS 5990 URINARY 05-05-2014 [facility] TRACT N EMERGENCY INFECTION PHYS SITE NOT SPECIFIED 41403 OTHER 05-05-2014 [facility] MALAISE AND N EMERGENCY FATIGUE PHYS 4430 RAYNAUDS 03-11-2014 [facility] SYNDROME [facility] INC 10520 NAUSEA 03-03-2014 [facility] ALONE N EMERGENCY PHYS 46516 HEAD 03-03-2014 [facility] [place] INJURY, RADIOLOGY UNSPECIFIED 43471 INJURY OF 03-03-2014 [facility] [place] FACE AND RADIOLOGY NECK OTHER AND UNSPECIFIED 02357 ABDOMINAL 02-02-2014 [facility] PAIN, N EMERGENCY UNSPECIFIED PHYS SITE 5589 OTH&UNSPEC 01-30-2014 [facility] NONINFECTIO N EMERGENCY US PHYS GASTROENTER ITIS&COLITI S 5601 PARALYTIC 01-30-2014 [facility] ILEUS N EMERGENCY PHYS 23934 UNSPECIFIED 01-30-2014 [facility] N EMERGENCY CONSTIPATIO PHYS N 30652 ABDOMINAL 01-30-2014 [facility] PAIN RIGHT N EMERGENCY UPPER PHYS QUADRANT 04560 MIGRAINE 11-27-2013 [facility] UNSP W/O N EMERGENCY INTRACT W/O PHYS STATUS MIGRAINOSUS 69643 UNS 10-05-2013 [facility] GASTRITIS&G ASTRODUODIT IS W/O MENTION HEMORR 94192 VOMITING 10-05-2013 [facility] A[facility] ALONE 19047 OVERWEIGHT 09-08-2013 [facility] 37779 OTHER 09-08-2013 [facility] CHRONIC [facility] PAIN 29727 GEN CONVUL 09-08-2013 [facility] EPILEPSY DIAGNOSTICS W/O MENTION INTRACT EPILEPSY V5869 LONG-TERM 09-08-2013 [facility] (CURRENT) [facility] USE OF OTHER MEDICATIONS 87587 NAUSEA WITH 08-31-2013 [facility] VOMITING 5362 PERSISTENT 08-16-2013 [facility] VOMITING N EMERGENCY PHYS 0340 STREPTOCOCC 08-09-2013 JOEY II THO AL SORE THROAT 462 ACUTE 08-09-2013 [facility] PHARYNGITIS 25348 DIARRHEA 05-21-2013 CELLAROSI - YORBA PAT 7242 LUMBAGO 05-05-2013 ISAI LAWRENCE 8242 CLOSED 04-12-2013 [facility] FRACTURE OF [place] LATERAL MALLEOLUS 72393 UNSPECIFIED 04-12-2013 WE[facility] III SITE OF HIREN ANKLE SPRAIN AND STRAIN E8859 FALL FROM 04-12-2013 [facility] III OTHER HIREN SLIPPING TRIPPING OR STUMBLING E8889 UNSPECIFIED 04-12-2013 [facility] FALL LAKISHA 7245 UNSPECIFIED 01-05-2009 [facility] BACKACHE N EMERGENCY PHYS INC 7295 PAIN IN 01-05-2009 [facility] TISSUES OF LIMB 45567 CHILLS 01-03-2009 [facility] WITHOUT N EMERGENCY FEVER PHYS INC V154 PERS HX 11-21-2008 [facility] PUBLIC HLTH AL TRAUMA PRS [facility] 7213 LUMBOSACRAL 09-11-2008 [facility] SPONDYLOSIS PSC WITHOUT MYELOPATHY 86292 DEGEN 09-11-2008 [facility] LUMBAR/LUMB SERVICES OSACRAL PSC INTERVERTEB RAL DISC 7802 SYNCOPE AND 09-11-2008 [facility] COLLAPSE SERVICES PSC 7840 HEADACHE 09-11-2008 [facility] PSC 8472 LUMBAR 08-19-2008 [facility] SPRAIN AND SERVICES STRAIN PSC 7820 DISTURBANCE 08-06-2008 [facility] 32430 [facility] FORM 07-30-2008 [facility] EPILEPSY & AMERIC RECUR HOLDING SEIZUR NO INTRACT EPIL 59385 INFECTIONS 07-09-2008 [facility] COND/COMPL 54090 PAIN IN 07-09-2008 [facility] JOINT, N EMERGENCY SHOULDER PHYS INC REGION 7746 UNSPECIFIED 07-09-2008 [facility] PEDIA JAUNDICE 7795 DRUG 07-09-2008 [facility] WITHDRAWAL OF [place] SYNDROME IN PEDIA 00094 CHEST PAIN 07-09-2008 [facility] [place] UNSPECIFIED RADIOLOGY 93135 ABDOMINAL 07-09-2008 [facility] [place] PAIN OTHER RADIOLOGY SPECIFIED SITE 7919 OTHER 07-09-2008 [facility] EXAMINATION OF URINE V3000 SINGLE 07-09-2008 [facility] PEDIA W/O 7706 TRANSITORY 07-07-2008 [facility] TACHYPNE[facility] SERV OF FOUNDATIO 60122 THREATENED 07-05-2008 [facility] PREMATURE SERV LABOR [facility] ANTEPARTUM 09488 SHOULDER 07-05-2008 [facility] DYSTOCIA SERV DURING FOUNDATIO LABOR&DELIV ER DELIVERED V2389 SUPERVISION 07-05-2008 [facility] OF OTHER SERV HIGH-RISK FOUNDATIO V252 STERILIZATI 07-05-2008 [facility] ON SERV F[facility]AT[facility] 95507 EDEMA OR 07-04-2008 [facility] EXCESSIVE [facility] ANTEPARTUM 70923 MATERNAL 07-04-2008 [facility] MENTAL [facility] ANTEPARTUM V726 LABORATORY 06-25-2008 [facility] EXAMINATION [facility] 17550 OTHER 06-24-2008 [facility] VISUAL FIELD DEFECT 7910 PROTEINURIA 06-24-2008 [facility] V221 SUPERVISION 06-24-2008 [facility] OF OTHER [facility] NORMAL CLINIC 74966 MATERNAL 06-03-2008 [facility] DIABETES SERV MELLITUS FOUNDATIO ANTEPARTUM 01285 OTH CURRENT 06-03-2008 [facility] CLASSIFIABL E ELSW ANTPRTM 08637 OBES COMP 06-03-2008 [facility] PG SERV /THE FOUNDATIO PP ANTEPARTUM COND/COMP 72806 POOR 06-03-2008 [facility] GROWTH MGMT SERV MOTH FOUNDATIO ANTPRTM COND/COMP 39317 SWELLING OF 06-03-2008 [facility] 90660 GEN CONVUL 05-29-2008 [facility] EPILEPSY SERV W/INTRACTAB FOUNDATIO LE EPILEPSY 73936 04-11-2008 [facility] COMP RECUR [facility] PREG LOSS CLINIC ANTPRTM COND/COMP V237 INSUFFICIEN 04-11-[address] [facility] [address] [facility] V762 SCREENING 04-11-2008 [facility] MALIGNANT NEOPLASM OF THE CERVIX 9708 POISONING 04-04-2008 [facility] OTHER SPEC SERV CENTRAL FOUNDATIO NERV SYS STIMULANTS E9804 POISONING 04-04-2008 [facility] BY OTH DRUG SERV & FOUNDATIO MEDICINE-UN DETERM CAUSE 82482 MATERNAL 04-03-2008 [facility] DEPENDENCE FOUNDATIO ANTEPARTUM 4019 UNSPECIFIED 04-01-2008 [facility] HYP[facility] [place] 5180 PULMONARY 04-01-2008 [facility] COLLAPSE SERV F[facility]AT[facility] 57401 OTH CURRENT 04-01-2008 [facility] MATERNAL SERV CCE-COMPL FOUNDATIO PG CB/PP-UNS EOC 40235 EPILEPSY 04-01-2008 [facility] /PP ANTEPARTUM COND/COMP 44656 ALTERED 04-01-2008 [facility] MENTAL SERV STATUS FOUNDATIO 7850 UNSPECIFIED 04-01-2008 [facility] SERV TACHYCARDIA FOUNDATIO 7867 ABNORMAL 04-01-2008 [facility] CHEST SERV SOUNDS F[facility]AT[facility] 30905 POISONING 04-01-2008 [facility] BY OPIATES SERV AND RELATED FOUNDATIO NARCOTICS OTHER 9670 POISONING 04-01-2008 [facility] BARBITURATE S 9690 POISONING 04-01-2008 [facility] ANTIDEPRESS ANTS 9694 POISONING 04-01-2008 [facility] BY [facility] INE-BASED TRANQUILIZE RS 9696 POISONING 04-01-[address] [facility] PSYCHODYSLE PTICS 9779 POISONING 04-01-2008 [facility] UNSPECIFIED N EMERGENCY PHYS INC DRUG/MEDICI NAL SUBSTANCE E8502 ACCIDENTAL 04-01-2008 [facility] POISN OTH SERV OPIATES&REL FOUNDATIO ATED NARCOTICS E9805 POISONING 04-01-2008 [facility] BY UNS DRUG N EMERGENCY OR PHYS INC MEDICINE-UN DETERM CAUSE V222 04-01-2008 [facility] STATE, N EMERGENCY INCIDENTAL PHYS INC 78346 UNSPECIFIED 03-23-2008 [facility] VOMITING N EMERGENCY OF PHYS INC ANTEPARTUM V2881 ENCOUNTER 02-21-2008 [facility] FOR SERV ANATOMIC FOUNDATIO SURVEY 6235 LEUKORRHEA 01-16-2008 [facility] [place] NOT RADIOLOGY SPECIFIED INFECTIVE 56959 OTHER 01-16-2008 [facility] [place] SPECIFED RADIOLOGY COMPLICATIO N ANTEPARTUM 6826 CELLULITIS 12-13-2007 [place] AND ABSCESS [facility] EXCEPT FOOT 2662 OTHER 12-12-2007 [facility] B-COMPLEX HEALTH DEFICIENCIE CENTRAL S BANK ACCT V7242 12-12-2007 [facility] EXAMINATION HEALTH OR TEST CENTRAL POSITIVE BANK ACCT RESULT 9190 ABRASION/FR 11-14-2007 [place] ICION [facility] OTH MX&UNS HOSPITAL SITE W/O INF 9222 CONTUSION 11-14-2007 [facility] ABDOMINAL HOSPITAL WALL 86504 CHRONIC 10-09-2007 [place] CHOLECYSTIT [facility]OSP[facility] 5758 OTHER 10-09-2007 [place] SPECIFIED [facility] DISORDER OF HOSPITAL GALLBLADDER 7226 DEGENERATIO 10-09-2007 [facility] INTERVERTEB HOSPITAL RAL DISC SITE UNSPEC Medications Na ND Rx Da Fi Fi Am Da Di Ph RX Ph St me C No te ll ll ou ys ag ar # ys at rm s nt no ma ic us Or Da si cy ia de te s n re d [place] 51 09 10 60 4 00 [...] PH AR MA CY #[address] 65 09 10 10 2 00 KE Ac OM 16 -1 -1 .0 00 NT ti ET 20 1- 3- 00 01 UC ve [place] 74 20 20 05 [place] ZI 51 [...] #3 01 6 ON 68 08 09 12 3 00 KE Ac [...] 08 09 [address] 05 -3 -2 .0 00 NT ti [...] 08 09 [address] 86 -2 -2 .0 00 NT ti OF 20 2- 2- 00 01 UC ve LO 07 20 20 05 [place] XA 70 17 17 33 CI 1 03 CV N S HC PH L AR 50 MA 0 CY MG LL TA C, B DB A CV S PH AR MA CY #[address] 65 08 09 20 10 00 KE Ac OM 16 -2 -2 .0 00 NT ti ET 20 2- 2- 00 01 UC ve [place] 52 20 20 05 [place] ZI 11 [...] 08 09 [address] 05 -1 -1 .0 00 NT ti [...] 08 09 [address] 05 -0 -0 .0 00 NT ti EN 40 3- 8- 00 01 UC ve OR 18 20 20 04 [place] PH 91 17 17 79 IN 3 99 CV -N S AL PH OX AR ON MA CY 8- 2 LL MG C, SL DB A CV S PH AR MA CY #[address] 65 07 08 28 7 00 KE Ac OM 16 -2 -2 .0 00 NT ti ET 20 4- 5- 00 01 UC ve [place] 52 20 20 04 [place] ZI 11 17 17 55 NE 0 86 CV S 25 PH AR MG MA CY TA BL LL ET C, DB A CV S PH AR MA CY #3 01 6 AM 00 07 08 20 10 00 KE Ac OX 78 -2 -2 .0 00 NT ti -C 11 5- 5- 00 01 UC ve LA 85 20 20 [...] 07 08 [address] 05 -1 -1 .0 00 NT ti [...] PH AR MA CY #[address] 65 07 08 60 30 00 KE Ac OM 16 -1 -1 .0 00 NT ti ET 20 9- 8- 00 01 UC ve [place] 74 20 20 04 [place] ZI 51 17 17 43 NE 0 30 CV S 12 PH .5 AR MA MG CY TA LL BL C, ET DB A CV S PH AR KAYLYNN CY #3 01 6 BU 00 07 08 [address] 05 -0 -1 .0 00 NT ti EN 40 6- 1- 00 01 UC ve OR 18 20 20 04 [place] PH 91 17 17 16 IN 3 77 CV -N S AL PH OX AR ON MA CY 8- 2 LL MG C, SL DB A CV S PH AR KAYLYNN CY #[address] 65 07 08 28 7 00 KE Ac OM 16 -0 -1 .0 00 NT ti ET 20 7- 1- 00 01 UC ve [place] 74 20 20 04 [place] ZI 51 17 17 18 NE 0 93 CV S 12 PH .5 AR MA MG CY TA LL BL C, ET DB A CV S PH AR KAYLYNN CY #[address] 65 07 08 14 2 00 KE Ac OM 16 -0 -0 .0 00 NT ti ET 20 5- 4- 00 01 UC ve [place] 74 20 20 04 [place] ZI 51 [...] 06 08 14 [address] 05 -2 -0 .0 00 NT ti [...] 06 07 14 [address] 05 -2 -2 .0 00 NT ti [...] PH AR MA CY #[address] 45 06 07 12 3 00 KE Ac OM 80 -2 -2 .0 00 NT ti ET 20 6- 8- 01 UC ve [place]ANG[place] 75 20 20 03 [place] ZI 93 17 17 90 NE 0 56 CV S 25 PH AR MG MA CY BLAKE PP LL OS C, IT OR DB Y A CV S PH AR MA CY #3 01 6 CI 65 06 07 14 [address] 86 -2 -2 .0 00 NT ti OF 20 01 UC ve LO 07 20 20 03 [place] XA 70 17 17 90 CI 1 57 CV N S HC PH L AR 50 MA 0 CY MG LL TA C, B DB A CV S PH AR MA CY #3 01 6 RA 64 06 07 30 15 00 KE Ac NI 38 -2 -2 .0 00 NT ti TI 00 8- 01 UC ve DI 80 20 20 [...] MA CY #3 01 6 TR 50 06 07 30 30 00 KE Ac AZ 11 -2 -2 .0 00 NT ti OD 10 8- 01 UC ve ON 43 20 20 03 KY E 30 17 17 01 50 1 09 CV S MG PH AR TA MA BL CY ET LL C, DB A CV S PH AR MA CY #3 01 6 BU 00 06 07 14 [address] 05 -1 -2 .0 00 NT ti [...] 06 07 14 [address] 05 -0 -1 .0 00 NT ti [...] 06 07 10 [address] 05 -0 -0 .0 00 NT ti EN 40 2- 7- 00 01 UC ve OR 18 20 20 03 KY PH 91 17 17 30 IN 3 46 CV -N S AL PH OX AR ON MA CY 8- 2 LL MG C, SL DB A CV S PH AR KAYLYNN CY #3 01 6 DI 00 05 [...] PH AR KAYLYNN CY #[address] 65 05 06 20 5 00 KE Ac OM 16 -2 -3 .0 00 NT ti ET 20 6- 0- 00 01 UC ve [place]ANGLEY 52 20 20 03 KY ZI 11 [...] 00 NT ti RA 10 0- 9- 01 UC ve ZO 15 20 20 02 KY LE 81 17 [address] S PH 20 AR MA MG CY CA LL PS C, UL E DB A CV S PH AR MA CY #3 01 6 ME 00 04 05 60 15 00 KE Ac TH 60 -2 -2 .0 00 NT ti OC 34 4- 6 01 UC ve AR 48 20 20 02 KY BA 52 17 17 37 MO 1 76 CV L S 50 PH 0 AR MG MA CY TA BL LL ET C, DB A CV S PH AR MA CY #3 01 6 ON 68 04 05 30 4 00 KE Ac DA 46 -2 -2 .0 00 NT ti NS 20 4 6 01 UC ve ET 10 20 20 02 KY RO 53 17 17 37 N 0 77 CV HC S L PH 4 AR MG MA CY TA BL LL ET C, DB A CV S PH AR MA CY #3 01 6 GA 65 04 05 90 30 00 KE Ac BA 86 -1 -1 .0 00 NT ti PE 20 2 01 UC ve NT 52 20 20 02 [place] IN 40 17 17 08 5 71 CV 80 S 0 PH MG AR MA TA CY BL ET LL C, DB A CV S PH AR MA CY #3 01 6 NA 65 04 05 28 [address] 16 -1 -1 .0 00 NT ti OX 20 4 01 UC ve EN 19 20 20 02 [place] 05 17 17 13 50 0 45 CV 0 S MG PH AR TA MA BL CY ET LL C, DB A CV S PH AR MA CY #3 01 6 TR 50 04 05 30 30 00 KE Ac AZ 11 -1 -1 .0 00 NT ti OD 10 9 01 UC ve ON 43 20 20 02 KY E 30 17 17 24 50 1 43 CV S MG PH AR TA MA BL CY ET LL C, DB A CV S PH AR MA CY #3 01 6 ON 68 04 05 20 10 00 KE Ac DA 46 -1 -1 .0 00 NT ti NS 20 9 01 UC ve ET 10 20 20 [...] PH AR MA CY #[address] 65 04 05 60 30 00 KE Ac OM 16 -0 -1 .0 00 NT ti ET 20 6- 2- 00 01 UC ve [place] 52 20 20 01 [place] ZI 11 [...] 34 3- 8- [address] 59 20 20 01 [place] ED 31 [...] 02 03 [address] 05 -2 -2 .0 00 NT ti [...] PH AR KAYLYNN CY #3 01 6 FL 00 12 [...] 12 01 [address] 16 -2 -2 .0 00 NT ti OX 20 0- 0- 00 00 UC ve EN 19 20 20 98 [place] 05 16 17 95 50 0 09 CV 0 S MG PH AR TA MA BL CY ET LL C, DB A CV S PH AR KAYLYNN CY #3 01 6 AZ 59 12 [...] PH AR KAYLYNN CY #3 01 6 GA 65 12 [...] KAYLYNN CY #3 01 6 BU 00 12 01 [address] 05 -1 -1 .0 00 NT ti [...] 12 01 [address] 05 -0 -0 .0 00 NT ti EN 40 7- 9- 00 00 UC ve OR 18 20 20 98 [place] PH 91 16 17 55 IN 3 85 CV -N S AL PH OX AR ON MA CY 8- 2 LL MG C, SL DB A CV S PH AR KAYLYNN CY #3 01 6 00 11 12 00 15 2 RI [...] MA CE 1 CY TH TA OM NJ #3 NO 01 PH 6 EN 7. 5- 32 5 00 11 11 00 10 1 RI 38 HU Ac 18 -1 -1 .0 TE 18 BE ti 50 3- 9- 00 47 R ve 61 20 20 AI JU 30 09 09 D LI 1 PH A AR M M #3 91 4 65 11 11 00 6. 2 RI [...] NT 02 20 20 AI CK IN 70 09 09 D SO 1 PH N 30 AR AM 0 M EL MG #3 IA 91 E CA 4 PS UL E CY 00 06 10 03 30 10 RI 36 FA Ac CL 37 -1 -2 .0 TE 63 LL ti OB 80 6- 2- 00 35 S ve EN 75 20 20 AI CA ZA 11 [address] 0 PH IC IN AR E E M D 10 #3 91 MG 4 TA BL ET GA 59 06 10 02 90 30 RI 36 HE Ac BA 76 -0 -0 .0 TE 66 ND ti PE 25 1- 8- 00 08 RI ve NT 02 20 20 AI CK IN 70 09 09 D SO 1 PH N 30 AR AM 0 M EL MG #3 IA 91 E CA 4 PS UL E GA 59 06 08 01 90 30 RI 36 HE Ac BA 76 -0 -1 .0 TE 66 ND ti PE 25 1- 3- 00 08 RI ve NT 02 20 20 AI CK IN 70 09 09 D SO 1 PH N 30 AR AM 0 M EL MG #3 IA 91 E CA 4 PS UL E CY 00 06 07 01 30 10 RI 36 FA Ac CL 37 -1 -3 .0 TE 63 LL ti OB 80 6- 0- 00 35 S ve EN 75 20 20 AI CA ZA 11 [address] 0 PH IC IN AR E E M D 10 #3 91 MG 4 TA BL ET LI 63 06 07 00 90 30 RI 36 GI Ac DO 48 -2 -1 .0 TE 75 LB ti DE 10 9- 6- 00 20 ER ve RM 68 20 20 AI T 70 09 09 D DAL[place] 5% 6 PH HN AR W PA M TC #3 H 91 4 ZA 10 06 07 00 90 30 RI 36 GI Ac NA 14 -2 -1 .0 TE 75 LB ti FL 40 9- 6- 00 32 ER ve EX 60 20 20 AI T 6 61 09 09 D [place] 5 PH HN MG AR W M CA #3 PS 91 UL 4 E GA 59 06 07 00 90 30 RI 36 WI Ac BA 76 -0 -1 .0 TE 66 LS ti PE 25 1- 6- 00 08 ON ve NT 02 20 20 AI IN 70 09 09 D KA 1 PH Y 30 AR G 0 M MG #3 91 CA 4 PS UL E TO 00 06 07 00 60 30 RI 36 FA Ac PI 09 -1 -0 .0 TE 63 LL ti RA 37 6- 2- 00 34 S ve MA 54 20 20 AI CA TE 00 09 09 D ND 6 PH IC 50 AR E M D MG #3 91 TA 4 BL ET CY 00 06 07 00 90 30 RI 36 FA Ac CL 37 -1 -0 .0 TE 63 LL ti OB 80 6- 2- 00 35 S ve EN 75 20 20 AI CA ZA [address] 0 PH IC IN AR E E M D 10 #3 91 MG 4 TA BL ET TO 00 06 06 00 60 30 RI 36 FA Ac PI 09 -0 -1 .0 TE 56 LL ti RA 30 9- 8- 00 94 S ve MA 15 20 20 AI CA TE 50 09 09 D ND 6 PH IC 25 AR E M D MG #3 91 TA 4 BL ET 00 06 00 30 30 RI 36 WI [...] 00 20 10 [address] 17 -1 -0 .0 TE 36 LE ti OF 25 9- 4- 00 67 ve LO 31 20 20 AI II XA 26 09 09 D CI 0 PH TH N AR OM HC M L #3 50 91 0 4 MG TA B GA 59 04 06 03 90 30 CV 50 FA Ac BA 76 -0 -0 .0 S 87 KH ti PE 25 9- 4- 00 PH 69 OU ve NT 02 20 20 AR RY IN 70 09 09 MA 1 CY TO 30 UF 0 #3 IC MG 01 A 6 CA PS UL E OX 00 05 [...] PH O AR M #3 91 4 DO 00 05 06 00 60 30 CV 52 WE Ac CU 53 -1 -0 .0 S 95 LL ti SA 63 5- 4- 00 PH 93 S ve TE 75 20 20 AR KA 70 09 09 MA RA SO 1 CY O DI UM #6 94 25 1 0 MG CA PS UL E 00 04 05 02 90 30 CV [...] #3 MG [address] 00 04 05 00 20 7 CV 52 No Ac OM 78 -2 -0 .0 S 73 t ti ET 11 7- 7- 00 PH 35 Av ve LANGLEY 83 20 20 AR ai ZI 00 09 09 MA la NE 1 CY bl e 25 #6 94 MG [address] 00 04 04 01 20 7 CV 50 No Ac OM 78 -1 -2 .0 S 91 t ti ET 11 3- 3- 00 PH 94 Av ve LANGLEY 83 20 20 AR ai ZI 00 09 09 MA la NE 1 CY bl e 25 #3 01 MG 6 TA BL ET 00 04 04 00 90 30 CV 50 FA Ac 09 -0 -2 .0 S 87 KH ti 31 9- 3- 00 PH 69 OU ve 03 20 20 AR RY 90 09 09 MA 5 CY TO UF #3 IC 01 A 6 FE 00 04 04 00 30 30 CV 50 MU Ac RR 53 -1 -2 .0 S 93 SE ti OU 65 4- 3- 00 PH 19 ve S 89 20 20 AR JR BLAKE 00 09 09 MA LF 1 CY KE AT NN E #3 ET 32 01 H 5 6 N MG TA BL ET GA 59 03 04 00 90 30 RI 66 No Ac BA 76 -2 -0 .0 TE 98 t ti PE 25 7- 9- 00 22 Av ve NT 02 20 20 AI ai IN 70 09 09 D la 1 PH bl 30 AR e 0 M MG #3 34 CA [address] 00 03 04 00 30 4 RI 66 No Ac OM 78 -2 -0 .0 TE 98 t ti ET 11 7- 9- 00 26 Av ve LANGLEY 83 20 20 AI ai ZI 00 [...] ai RA 30 09 09 D la NJ 5 PH bl DE AR e M 10 #3 34 MG 7 TA BL ET FA 00 02 03 00 60 30 CV 50 No Ac MO 17 -1 -2 .0 S 53 t ti TI 25 2- 6- 00 PH 80 Av ve DI 72 20 20 AR ai NE 86 09 09 MA la 0 CY bl 20 e #3 MG 01 6 TA BL ET GA 60 02 03 01 90 30 CV 50 No Ac BA 50 -1 -2 .0 S 26 t ti PE 50 9- 6- 00 PH 52 Av ve NT 11 20 20 AR ai IN 30 09 09 MA la 1 CY bl 30 e 0 #3 MG 01 6 CA PS UL E GA 60 02 02 00 90 30 CV 50 No Ac BA 50 -1 -2 .0 S 26 t ti PE 50 9- 6- 00 PH 52 Av ve NT 11 20 20 AR ai IN 30 09 09 MA la 1 CY bl 30 e 0 #3 MG 01 6 CA PS UL E CT 00 01 02 00 20 5 CV 50 DA Ac OM 78 -3 -1 .0 S 03 LE ti ET 11 1- 2- 00 PH 60 ve LANGLEY 83 20 20 AR II ZI 00 [...] MG OP PE CA PS UL E CT 00 12 01 01 44 11 TH 65 MU Ac OM 78 -0 -0 .0 E 37 SE ti ET 11 8- 1- 00 ME 11 ve LANGLEY 83 20 20 DI 7 JR ZI [...] MG 01 6 CA PS UL E CT 00 12 12 00 44 11 TH 65 MU Ac OM 78 -0 -1 .0 E 37 SE ti ET 11 8- 8- 00 ME 11 ve LANGLEY 83 20 20 DI 7 JR ZI 08 08 CI NE 0 NE KE [...] MG OP PE CA PS UL E CT 00 11 12 00 15 4 TH 65 CH Ac OM 78 -2 -0 .0 E 36 ES ti ET 11 5- 4- 00 ME 28 TN ve LANGLEY 83 20 20 DI 2 UT ZI 01 08 08 CI NE 0 NE NJ CH 25 SH AE OP L MG [...] MG OP PE CA PS UL E CT 00 10 11 00 20 5 CV 48 WI Ac OM 78 -2 -0 .0 S 90 LS ti ET 11 3- 7- 00 PH 18 ON ve LANGLEY 83 20 20 AR ZI 00 08 08 MA RO NE 1 CY BE RT 25 #3 C 01 MG 6 TA BL ET CE 00 10 11 00 20 10 CV 48 WI Ac FD 09 -2 -0 .0 S 90 LS ti IN 33 3- 7- 00 PH 17 ON ve IR 16 20 20 AR 00 08 08 MA RO 30 6 CY BE 0 RT MG #3 C 01 CA 6 PS UL E LBAKE 53 10 11 00 20 10 TH 65 DA Ac LF 74 -1 -0 .0 E 33 ti AM 60 3- 7- 00 ME 80 S ve ET 27 20 20 DI 5 KE HO 20 08 08 CI NT XA 5 NE L ZO LE SH -T OP MP PE DS TA BL ET CT 00 10 10 00 20 7 TH 65 TA Ac OM 78 -0 -2 .0 E 32 MA ti ET 11 7- 3- 00 ME 84 RE ve LANGLEY 83 20 20 DI 4 N ZI 01 08 08 CI JA NE 0 NE NE T 25 SH OP MG PE TA BL ET GA 60 09 10 01 18 30 TH 65 RA Ac BA 50 -1 -2 0. E 31 AB ti PE 50 9- 3- 00 ME 56 ve NT 11 20 20 0 DI 0 RE IN 30 08 08 CI GI 1 NE NA 30 0 SH MG OP PE CA PS UL E GA 60 09 09 00 18 30 TH 65 RA Ac BA 50 -1 -2 0. E 31 AB ti PE 50 9- 6- 00 ME 56 ve NT 11 20 20 0 DI 0 RE IN 30 08 08 CI GI 1 NE NA 30 0 SH MG OP PE CA PS UL E Procedures Procedure DOS Code Location Performer Comment RADIOLOGI 29306 [facility] [place] SCALF C EXAM 7 RADIOLOGY CHEST 2 VIEWS FRONTAL&L ATERAL EGD 41444 REFUGIO HUFF TRANSORAL 7 DIGESTIVE DIGESTIVE BIOPSY CARE CARE SINGLE/ CENTER CENTER LTIPL ANE 44164 [place] DEPA UPPER GI 7 ANESTHESI ENDOSCOPY A GROUP PROXIMAL PS TO DUODENUM COLONOSCO 89905 REFUGIO GAYLE PY FLX DX 7 DIGESTIVE W/COLLJ [place] [address] [facility] [place] KOSTELIC HEAD/BRAI 7 RADIOLOGY N W/O CONTRAST MATERIAL RADIOLOGI 03679 FOUNDATIO HERNÁNDEZ C 7 N EXAMINATI RADIOLOGY ON CHEST GROUP P SING[place]IEW FRONTAL RADIOLOGI 28170 [facility] [place] JIMENEZ C EXAM 7 RADIOLOGY CHEST 2 VIEWS FRONTAL&L ATERAL CUL BACT 70326 [facility] AEROBIC 7 OLEGARIO OLEGARIO ADDL [facility] HOLDINGS METHS DEFINITIV E EA ISOL SUSCEPTIB 19622 [facility] LTY STDY 7 OLEGARIO OLEGARIO ANTIMICRB [facility]INGS [facility]INGS IAL MICRO/AGA R DILUTJ CULTURE 20016 [facility] BACTERIAL 7 OLEGARIO OLEGARIO [facility]INGS QUANTTATI VE COLONY COUNT URINE CULTURE 67400 LAB [facility] BCT 7 OLEGARIO OLEGARIO ISOL&PRSM [facility]INGS HOLDINGS PTV ID ISOLATE EA URINE COMPREHEN 21445 LAB [facility] RA[facility] SIVE 7 OLEGARIO OLEGARIO METABOLIC [facility] PANEL BLOOD 90541 LAB [facility] LAB RAUL COUNT 7 OLEGARIO OLEGARIO COMPLETE [facility]INGS HOLDINGS AUTO&[place] [address] LAB RAUL LAB RAUL LIPASE 7 [place] [address] [facility] [place] ABDOMEN & 7 RADIOLOGY PELVIS W/CONTRAS T MATERIAL ECG 01452 OSMANY FELIX JR ROUTINE 7 [facility] W/LEAST P 12 LDS I&R ONLY RADIOLOGI 16332 [facility] EXAM 7 MEDICAL CHEST 2 IMAGING VIEWS ASS FRONTAL&L ATERAL THER 64744 [facility] PROPH/[address] NJX IV PUSH SINGLE/1S T SBST/DRUG INJECTION J24[address] [place] H[place] [address] HYDRATION EACH ADDITIONA L HOUR URNLS DIP [address] STICK/TAB LET RGNT AUTO W/O MICROSCOP Y ECG 02222 [facility] ROUTINE 7 JIL ECG EMERGENCY W/LEAST PHYS 12 LDS I&[place] [address] QUANTITAT [place] GONADOTRO [address] CHORIONIC QUALITATI VE GONADOTRO [address] CHORIONIC QUANTITAT [place] ECG [address] NESS ROUTINE 7 [facility] ECG W/LEAST 12 LDS TRCG ONLY W/O I&R BLOOD 99259 [facility] COUNT [address] [place] [address] COMPLETE AUTO&AUTO DIFRNTL WBC CULTURE 75170 [facility] BACTERIAL [address] [place] [address] QUANTTATI VE COLONY COUNT URINE COLLECTIO 51593 [facility] MUNGUIA N VENOUS [address] [place] [address] BLOOD VENIPUNCT URE RADIOLOGI 49102 [facility] [place] LIZAMA C 7 RADIOLOGY EXAMINATI [place] [address] [facility] [place] HEAD/BRAI 7 RADIOLOGY N W/O CONTRAST MATERIAL BASIC 47837 [facility] METABOLIC [address] [place] [address] [place] [address] [facility] [place] ABDOMEN & 7 RADIOLOGY PELVIS W/O CONTRAST MATERIAL SEDIMENTA 36513 OSMANY CERON TION RATE 7 [facility] RBC INC INC NON-AUTOM ATED CULTURE 70832 OSMANY CERON BACTERIAL 7 [facility] INC INC QUANTTATI VE COLONY COUNT URINE BLOOD 76508 OSMANY CERON COUNT 7 [facility] COMPLETE INC INC AUTO&AUTO DIFRNTL WBC THERAPEUT 46208 OSMANY CERON IC 7 [facility] PROPHYLAC INC INC TIC/DX INJECTION SUBQ/[place] [address] OSMANY CERON LIPASE 7 [facility] INC INC URNLS DIP 45900 OSMANY CERON 7 [facility] STICK/TAB INC INC [place] [address] OSMANY CERON AMYLASE 7 [facility] INC INC COMPREHEN 82395 OSMANY CERON SIVE 7 [facility] METABOLIC INC INC PANEL COMPREHEN 74428 OSMANY CERON SIVE 7 [facility] [place] [address] OSMANY CERON AMYLASE 7 [facility] INC INC URNLS DIP 41645 OSMANY CERON 7 [facility] STICK/TAB INC INC LET REAGENT AUTO MICROSCOP Y BLOOD 22505 OSMANY CERON OCCULT 7 [facility] PEROXIDAS INC INC E ACTV QUAL FECES 1-3 [place] [address] OSMANY CERON LIPASE 7 [facility] INC INC BLOOD 61748 OSMANY CERON COUNT 7 [facility] COMPLETE INC INC AUTO&[place] [address] OSMANY CERON INFUSION 7 [facility] THERAPY/P INC INC ROPHYLAXI S /DX 1ST TO 1 HR THERAPEUT 48525 OSMANY CERON IC 7 [facility] INJECTION INC INC IV PUSH EACH NEW DRUG CULTURE 93137 OSMANY CERON BACTERIAL 7 [facility] INC INC QUANTTATI VE COLONY COUNT URINE IADNA-DNA 67382 OSMANY OSMANY /RNA GI 7 [facility] PTHGN INC INC MULTIPLEX PROBE TQ 02-14 RADIOLOGI 33375 [facility] [place]AL[place] C 7 RADIOLOGY EXAMINATI ON CHEST SINGLE VIEW FRONTAL RADIOLOGI 10130 [facility] [place] SCAL[place] C 7 RADIOLOGY EXAMINATI ON CHEST SING[place]IEW FRONTAL RADIOLOGI 49099 [place] FADIA C 7 MEDICAL EXAMINATI IMAGING ON CHEST ASS SINGLE VIEW FRONTAL BASIC 62066 LAB [facility] LAB RAUL METABOLIC 7 OLEGARIO OLEGARIO PANEL [facility]INGS HOLDINGS CALCIUM TOTAL RADEX 29156 [facility] [place] SCAL[place] ABDOMEN 7 RADIOLOGY COMPL W/DCBTS&/ ERC VIEWS RADIOLOGI 03159 [facility] [place] ANGELA C 7 RADIOLOGY EXAMINATI ON TIBIA & FIBULA 2 VIEWS COLLECTIO 85356 SLIM SMALLS N VENOUS 7 [facility] VENIPUNCT URE COMPREHEN 84550 SLIM SMALSL SIVE 7 [facility] [place] [address] SLIM SMALLS TROPONIN 7 [facility] HOLLY BLOOD 70710 SLIM SMALLS COUNT 7 [facility] AUTO&AUTO DIFRNTL WBC CT THORAX 86675 [facility] [place] SCALF 7 RADIOLOGY W/CONTRAS T MATERIAL LOCM Q9967 SLIM SMALLS 300-[address] [facility] MG/ML HOSPITAL H[facility]PITAL IODINE CONCENTRA TION PER ML RADIOLOGI 90015 [facility] [place] SCAL[place] C 7 RADIOLOGY EXAMINATI ON KNEE 3 VIEWS RADIOLOGI 97178 [facility] [place] C EXAM 7 RADIOLOGY CHEST 2 VIEWS FRONTAL&L ATERAL RADIOLOGI 16223 [facility] [place] RADMANESH C EXAM 7 RADIOLOGY CHEST 2 VIEWS FRONTAL&[place] [address] [facility] [place] THORACIC 7 RADIOLOGY SPINE W/[place] [address] [facility] [place] HEAD/BRAI 7 RADIOLOGY N W/O CONTRAST MATERIAL IADNA 90895 LAB [facility] LAB RAUL HEPATITIS 7 OLEGARIO OLEGARIO C QUANT HOLDINGS HOLDINGS & REVERSE TRANSCRIP TION CT THORAX 68604 [facility] [place]AL[place] W/O [address] [place] [address] [facility] CERVICAL 7 MEDICAL SPINE W/[place] [address] [facility] HEAD/BRAI 7 MEDICAL N W/O IMAGING CONTRAST ASS MATERIAL FINAL RPT G9557 [facility] CT/MRI 7 MEDICAL CHEST/NCK IMAGING /U/S NO ASS THR NOD<1.0 CM FINAL G9638 [facility] REPORTS 7 MEDICAL W/O DOC IMAGING 1/MORE ASS DOSE REDUCTION TECH RADIOLOGI 45476 [facility] C EXAM 7 MEDICAL CHEST 2 IMAGING VIEWS ASS FRONTAL&L ATERAL RADIOLOGI 42390 [facility] [place] SCAL[place] C 7 RADIOLOGY EXAMINATI ON CHEST [place] FRONTAL RADIOLOGI 42092 [facility] C EXAM 6 MEDICAL CHEST 2 IMAGING VIEWS ASS FRONTAL&L ATERAL THER 36668 OSMANY ECRON PROPH/DX 6 [facility] NJX IV INC INC PUSH SINGLE/1S T SBST/DRUG COMPREHEN 25260 OSMANY CERON SIVE 6 [facility] METABOLIC INC INC PANEL URNLS DIP 25306 OSMANY CERON 6 [facility] STICK/TAB INC INC LET REAGENT AUTO MICROSCOP Y BLOOD 01909 OSMANY CERON COUNT 6 [facility] COMPLETE INC INC AUTO&AUTO DIFRNTL WBC CULTURE 27174 OSMANY CERON BACTERIAL 6 [facility] INC INC QUANTTATI VE COLONY COUNT URINE SMR PRIM 74325 OSMANY CERON SRC WET 6 [facility] [address] OSMANY CERON ABDOMEN & 6 [facility] PELVIS INC INC W/O CONTRAST MATERIAL RADIOLOGI 09912 [facility] [place] JANET C 6 RADIOLOGY III OPAL EXAMINATI ON CHEST SINGLE VIEW FRONTAL INJECTION J1885 SLIM SMALLS [address] [place] [address] KETOROLAC [facility] TROMETHAM INE PER 15 [place] [address] SLIM SMALLS THYROXINE [address] [place] [address] ECG 23573 SLIM SMALLS ROUTINE [address] [place] [address] W/LEAST 12 LDS TRCG ONLY W/O I&R THYROID 95995 SLIM [facility] [address] [place] [address] UPTK/THYR [facility] [place] [address] SLIM SMALLS TROPONIN [address] [place] [address] HOLLY BLOOD 78484 SLIM SMALLS COUNT [address] [place] [address] AUTO&AUTO DIFRNTL WBC BASIC 69003 SLIM SMALLS METABOLIC [address] [place] [address] [place] [address] [facility] [place] RADMANESH ABDOMEN & 6 RADIOLOGY SHA PELVIS W/[place] [address] [facility] [place] WIL[place] JAM ABDOMEN & 6 RADIOLOGY PELVIS W/O CONTRAST MATERIAL RADIOLOGI 80831 [facility] [place] SCALF SHARON C EXAM 6 RADIOLOGY CHEST 2 VIEWS FRONTAL&L ATERAL COLLECTIO 85442 SLIM SMALLS N VENOUS [address] [place] [address] VENIPUNCT URE LIPID 13215 SLIM SMALLS PANEL [address] [place] [address] FIBRIN 97057 SLIM SMALLS DGRADJ [address] [place] [address] D-DIMER QUANTITAT [place] RADIOLOGI 52842 [place] REYNOLDS ALL C EXAM 6 MEDICAL CHEST 2 IMAGING VIEWS ASS FRONTAL&[place] [address] [place] BEINEKE ABDOMEN & 6 MEDICAL PELVIS IMAGING W/O ASS CONTRAST MATERIAL SEDIMENTA 96519 SLIM SMALLS TION RATE 6 [facility] NON-AUTOM ATED CULTURE 80196 SLIM SMALLS BACTERIAL [address] [place] [address] QUANTTATI VE COLONY COUNT URINE RADEX 94151 [facility] [place] AN[place] SPINE 6 RADIOLOGY RHO LUMBOSACR AL 2/3 VIEWS C-REACTIV 16803 SLIM SMALLS E PROTEIN [address] [place] [address] RADEX 68276 [facility] [place] SPINE 6 RADIOLOGY RHO THORACIC 2 VIEWS COLLECTIO 56631 SLIM SMALLS N VENOUS [address] [place] [address] [place] [address] [facility] THYROID [address] [place] [address] NG HORMONE TSH COMPREHEN 61957 SLIM SMALLS SIVE [address] [place] [address] PANEL BLOOD 47277 SLIM SMALLS COUNT [address] [place] [address] AUTO&AUTO DIFRNTL WBC URNLS DIP 30796 [facility] [address] STICK/TAB [facility] LET REAGENT AUTO MICROSCOP Y INJECTION J0696 PHYSICIAN JENNY 6 S EXPRESS COU CEFTRIAXO CARE NE SODIUM BILL PER 250 MG THERAPEUT 30468 PHYSICIAN JENNY IC 6 S EXPRESS COU PROPHYLAC CARE TIC/DX BILL INJECTION SUBQ/IM URNLS DIP 08921 PHYSICIAN JENNY 6 S EXPRESS COU STICK/TAB CARE LET RGNT BILL AUTO W/O MICROSCOP Y CULTURE 38758 [facility] BCT 6 DIAGNOSTI DIAGNOSTI ISOL&PRSM CS CS PTV ID ISOLATE EA URINE CULTURE 07439 [facility] QUE[facility] BACTERIAL 6 DIAGNOSTI DIAGNOSTI CS CS QUANTTATI VE COLONY COUNT URINE RADIOLOGI 37494 [place] REYNOLDS ALL C 6 MEDICAL EXAMINATI IMAGING ON ANKLE ASS 2 VIEWS CULTURE 52274 OSMANY CERON BACTERIAL 5 [facility] INC INC QUANTTATI VE COLONY COUNT URINE URNLS DIP 83399 OSMANY CERON 5 [facility] STICK/TAB INC INC LET REAGENT AUTO MICROSCOP Y 1 25 53404 OSMANY CERON DIHYDROXY 5 [facility] INCLUDES [place] [address] OSMANY CERON LIPASE 5 [facility] INC INC BLOOD 92248 OSMANY CERON COUNT 5 [facility] COMPLETE INC INC AUTO&[place] [address] OSMANY CERON THYROID 5 [facility] STIMULATI [place] [address] OSMANY CERON AMYLASE 5 [facility] INC INC COMPREHEN 58593 OSMANY CERON SIVE 5 [facility] METABOLIC INC INC PANEL ANTIBODY 67530 OSMANY BURLESONOBAC [address] [place] [place] [address] [facility] [place] HEAD/BRAI 5 RADIOLOGY MO N W/[place] [address] [facility] [place] MAXILLOFA 5 RADIOLOGY MO CIAL W/[place] [address] [facility] [place] ABDOMEN & 4 RADIOLOGY RHO PELVIS W/CONTRAS T MATERIAL GENERAL 69504 [facility] 4 DIAGNOSTI DIAGNOSTI PANEL CS CS LIPID 59452 [employer] PANEL 4 DIAGNOSTI DIAGNOSTI CS CRTCHS E0114 [employer] UNDARM 4 OTH THAN WOOD PAIR PAD TIP&HNDGR IP RADEX 35505 FADIA FADIA ANKLE 4 LAKISHA LAKISHA COMPLETE MINIMUM 3 VIEWS ANKLE L4350 [employer] CONTROL 4 ORTHOSIS STIRRUP STYL RIGID PREFAB MRI BRAIN 35707 PHYSICIAN BARBARA BRAIN 9 S [facility] STEM W/O SERVICES CONTRAST PSC MATERIAL MRI 66576 PHYSICIAN BARBARA SPINAL 9 S [facility] CANAL SERVICES LUMBAR PSC W/O CONTRAST MATERIAL PSYCHOLOG 43136 PHYSICIAN BRANDIE DOMINGUEZ 9 S FRANCIS[facility] W TESTING SERVICES ADMN BY [facility] TECH CT HR COMPREHEN 41996 LAB RAUL LAB RAUL SIVE 9 [employer] PANEL COMPREHEN 37174 SLIM SMALLS SIVE 9 [facility] PANEL RADIOLOGI 25359 [facility] C EXAM 9 [facility] CHEST 2 [facility] VIEWS FRONTAL&L [facility] 73765 [facility] DISCHARGE 9 Y OF DAY [place] MANAGEMEN PEDIA T 30 MIN/< COLLECTIO 40208 SLIM SMALLS N VENOUS 9 [facility] BLOOD [facility] VENIPUNCT URE URNLS DIP 22282 [facility] 9 [facility] STICK/TAB HOSPITAL HOSPITAL LET REAGENT AUTO MICROSCOP Y BLOOD 41244 [place] [facility] COUNT 9 [facility] AUTO&AUTO DIFRNTL WBC CT PELVIS 91231 [facility] W/O 9 [facility] CONTRAST [facility] [place] [address] [facility] ABDOMEN [facility] W/O [facility]OSPITAL CONTRAST MATERIAL CULTURE 34568 [facility] BACTERIAL 9 [facility] QUANTTATI VE COLONY COUNT URINE SUBQ 33708 [facility] 9 Y OF CARE PER [place] E/M PEDIA NORMAL SUBQ 99756 [facility] 9 Y OF SUKHDEEP CARE PER [facility] E/M PEDIA NORMAL RADIOLOGI 27140 Rosendo SERRANO 9 MEDICAL DOMINIQUE A EXAMINATI SERV ON CHEST FOUNDATIO [place] FRONTAL SUBQ 44819 [facility] 9 Y OF SUKHDEEP CARE PER [place] DAY E/M PEDIA NORMAL 1ST 84535 [facility] HOSP/MEG 9 Y OF SUKHDEEP NIRAJ [facility] PEDIA CARE PER DAY NML NB ANES IPER 66610 HARJINDER ISLAS ABD 9 MEDICAL DOMINIQUE T W/LAPS SERV TUBAL FOUNDAT[place] [address] [place] ZAKIA SURG 9 MEDICAL MAXIMINO, E PATHOLOGY SERV FOUNDATIO GROSS&ASHER ROSCOPIC EXAM VAGINAL 32377 KENNEDI FERNANDO, DELIVERY 9 MEDICAL GISELLE C ONLY SERV W/POSTPAR FOUNDATIO SUSSY CARE URNLS DIP 79472 [facility] LUCIA, 9 JARET-RAMONA MEERA B STICK/TAB ON CLINIC LET RGNT NON-AUTO W/O MICRSCP URNLS DIP 55025 [facility] MUSE 9 JARETALLEN GARVIN, TH STICK/TAB ON CLINIC LET RGNT NON-AUTO W/O MICRSCP TRANSFERA 40533 [facility] SE 9 Y Y ASPARTATE [facility] AMINO AST SGOT TRANSFERA 56402 [facility] SE 9 Y Y ALANINE [facility] [place] [place] [address] [facility] UREA 9 Y Y NITROGEN [facility] QUANTITAT [place]LLY GLUCOSE 65641 [facility] QUANTITAT 9 Y Y HOLLY BLOOD [facility] XCPT REAGENT STRIP LACTATE 25218 [facility] DEHYDROGE 9 Y Y NASE LDH [facility] CREATININ 18210 [facility] E 9 Y Y CLEARANCE [facility] CREATININ 93119 [facility] E BLOOD [address] [facility] POTASSIUM 13263 [facility] SERUM 9 Y Y PLASMA/WH [facility] OLE BLOOD BLOOD 92458 [facility] COUNT 9 Y Y COMPLETE [facility] [place] [address] [facility] BLOOD/URI 9 Y Y C ACID [facility] PROTEIN 70415 [facility] TOTAL 9 Y Y XCPT [facility] REFRACTOM ETRY URINE URNLS DIP 29403 [facility] MUSE 9 JARETALLEN GARVIN, TH STICK/TAB ON CLINIC LET RGNT NON-AUTO W/O MICRSCP URNLS DIP 17587 [facility] MUSE 9 JIMENA GARVIN, TH STICK/TAB ON CLINIC LET RGNT NON-AUTO W/O MICRSCP URNLS DIP 65076 [facility] MUSE 9 JARETALLEN GARVIN, TH STICK/TAB ON CLINIC LET RGNT NON-AUTO W/O MICRSCP COLLECTIO 88128 [facility] MUSE N VENOUS 9 JARET-DALJohn GARVIN, TH BLOOD ON CLINIC VENIPUNCT URE BLOOD 03014 [facility] UNIVERS COUNT 9 Y Y COMPLETE [facility] AUTOMATED 83021 KENNEDI FERNANDO, NONSTRESS 9 MEDICAL GISELLE C TEST SERV F[facility] 79787 [facility] MONITORIN 9 Y Y G LABOR [facility] PHYS WRITTEN REPORT US PREG 94370 [facility] UTERUS 9 Y Y REAL TIME [facility] F/U TRNSABDL PER FETUS DUP-SCAN 13095 [facility] XTR VEINS 9 Y Y COMPLETE [facility] BILATERAL STUDY ANTIBODY 52813 [facility] SCREEN 9 Y Y RBC [facility] SERUM TECHNIQUE SYPHILIS 84211 [facility] TEST 9 Y Y NON-[facility] NEMAL ANTIBODY QUAL IADNA 49095 [facility] STREPTOCO 9 Y Y CCUS [facility] GROUP B AMPLIFIED PROBE TQ URNLS DIP 88712 [facility] MUSE 9 JARET-DALT BHARATHI, STICK/TAB ON CLINIC LET RGNT NON-AUTO W/O MICRSCP SCR [id number] [facility] CYTOPATH 9 Y Y CERV/VAG [facility] SCR AUTO&MNL RSCR PHYS URNLS DIP 57026 [facility] LUCIA, 9 JARET-[facility] MEERA B STICK/TAB ON CLINIC LET RGNT NON-AUTO W/O MICRSCP BLOOD 82767 [facility] UNIVERS COUNT 9 Y Y COMPLETE [facility] AUTOMATED IADNA 27148 [facility] NEISSERIA 9 Y Y [facility] GONORRHOE AE AMPLIFIED PROBE TQ IADNA 72388 [facility] CHLAMYDIA 9 Y Y [facility] TRACHOMAT IS AMPLIFIED PROBE TQ GLUCOSE 57777 [facility] POST 9 Y Y GLUCOSE [facility] 74583 KENNEDI FABIOLA, DISCHARGE 9 MEDICAL DARIO DAY SERV Y MANAGEMEN [facility]OUND[facility] T 30 MIN/< DOPPLER 82297 KENNEDI SAGASTUME ECHO 9 MEDICAL RI, IMAN SERV SPECTRAL FOUNDATIO DISPLAY COMPLETE 80432 [place] FERNANDO, NONSTRESS 9 MEDICAL GISELLE C TEST SERV FOUNDATIO [place] PREG 02778 KENNEDI GIANFERRA UTERUS 9 MEDICAL RI, IMAN REAL TIME SERV F/U FOUNDATIO TRNSABDL PER FETUS 17097 KENNEDI KING, NONSTRESS 9 MEDICAL GISELLE C TEST SERV FOUNDATIO ECG 46073 CARDIOLOG WALTER, ROUTINE 9 Y SANJANA ECG ASSOCIATE W/LEAST S OF 12 LDS PRINCETON I&R ONLY GROUND [id number] [facility] MILEAGE 9 RBON CO RBON CO PER EMS EMS STATUTE MILE CRITICAL 40041 [facility], [facility] 9 JIL IJEOMA M ILL/INJUR EMERGENCY ED PHYS INC PATIENT INIT 30-[place] [address] [facility] HEAD/BRAI 9 Y OF III, N W/O [facility] W MATERIAL RADIOLOGI 00691 Rosendo DORMAN 9 MEDICAL ROMANA W EXAMINATI SERV ON CHEST [place]AT[place] 55727 KENNEDI FARLEY, UTERUS 8 MEDICAL MAGDA F AFTER 1ST SERV TRIMEST FOUNDATIO GESTATION COMPREHEN 98407 [facility] SIVE 8 [facility] [place] P[place] [address] UTERUS [address] [facility] AFTER [address] [place] [address] HOSPITAL TRIMEST GESTATION COLLECTIO 51836 [facility] N VENOUS 8 [facility] [place] [address] CN[place] JIMENEZ, 8 RADIOLOGY MARGO UTERUS LIMITED 1/> FETUSES URNLS DIP 34737 SLIM GAYTANTANNERALEX 8 [facility] HOSPITAL LET REAGENT AUTO MICROSCOP Y BLOOD 43535 SLIM GAYTANTANNERALEX COUNT 8 [facility] AUTO&[place] [address] SLIM GAYTANTANNERALEX LIPASE 8 [facility] THER 57483 SLIM SMALLS PROPH/DX 8 [facility] NJX IV HOSPITAL HOSPITAL PUSH 1ST SBST/DRUG COLLECTIO 96334 SLIM WAYNEON N VENOUS 8 [facility] HOSPITAL VENIPUNCT URE GENERAL 46775 SLIM SMALLS HEALTH 8 [facility] PANEL HOSPITAL HOSPITAL IV NFUS 32490 SLIM SMALLS HYDRATION 8 [facility] URINE [address] [facility] TEST [facility] HOSPITAL VISUAL COLOR CMPRSN METHS CULTURE 47585 [facility] BACTERIAL 8 [facility] QUANTTATI VE COLONY COUNT URINE COLLECTIO 93018 SLIM SMALLS N VENOUS 8 [facility] [place] [address] [facility] AMYLASE 8 [facility] HOSPITAL COMPREHEN 42346 [facility] WAYNE SIVE [address] [place] [address] HOSPITAL PANEL THER 66597 SLIM SMALLS PROPH/DX 8 [facility] H[facility]PITAL HOSPITAL PUSH 1ST SBST/[place] [address] SLIM SMALLS LIPASE [address] [place] [address] HOSPITAL BLOOD 09477 SLIM SMALLS COUNT [address] [place] [address] HOSPITAL AUTO&AUTO DIFRNTL WBC URNLS DIP 99408 [facility] [address] STICK/TAB HOSPITAL HOSPITAL LET REAGENT AUTO MICROSCOP Y LAPAROSCO 5123 [facility] PIC 8 [facility] ECTOMY BLOOD 66893 SLIM SMALLS COUNT [address] [place] [address] HOSPITAL MCRSCP W/[place] [address] SLIM SMALLS ABDOMINAL [address] [place] [address] HOSPITAL TIME W/IMAGE LIMITED THER 48101 SLIM ROSANAON PROPH/DX 8 [facility] IV HOSPITAL HOSPITAL PUSH 1ST SBST/DRUG BLOOD 61941 SLIM SMALLS COUNT [address] [place] [address] [place] [address] SLIM SMALLS INFUSION 8 [facility] HOSPITAL INITIAL 31 MIN-1 HR THER 88538 [facility] ROS[facility] PROPH/DX 8 [facility] EA HOSPITAL HOSPITAL SEQL IV PUSH SBST/DRUG COLLECTIO 55747 SLIM SMALLS N VENOUS 8 [facility] VENIPUNCT URE Encounters Encounter Start End Date Code Location Performer Type Date EMERGENCY 25267 [facility] CHEST[facility]UT 7 7 JIL DEPARTMEN EMERGENCY T VISIT PHYS HIGH/URGE NT SEVERITY EMERGENCY 33426 [facility] SWINEY DEPT 7 7 JIL VISIT EMERGENCY HIGH PHYS SEVERITY& THREAT FUNCJ EMERGENCY 81760 [facility] FREDDY DEPT 7 7 JIL VISIT EMERGENCY HIGH PHYS SEVERITY& THREAT FUNCJ EMERGENCY 94004 [facility] PUND 7 7 JIL DEPARTMEN EMERGENCY T VISIT PHYS MODERATE SEVERITY OFFICE 35158 SLIM MONROE OUTPATI 7 7 PHYSICIAN T VISIT PRACTICE 25 L MINUTES EMERGENCY 31005 [facility] ALVARADO 7 7 JIL DEPARTMEN EMERGENCY T VISIT PHYS HIGH/URGE NT SEVERITY EMERGENCY 28841 [facility] OSMANY DEPT 7 7 JIL VISIT EMERGENCY HIGH PHYS SEVERITY& THREAT FUNCJ EMERGENCY 15915 [facility] JEFFERS DEPT 7 7 PHYSICIAN U VISIT S, PLLC HIGH SEVERITY& THREAT FUNCJ EMERGENCY 58993 OSMANY 7 7 [facility] DEPARTMEN INC T VISIT MODERATE SEVERITY HOSPITAL OSMANY - 7 7 [facility] OUTPATIEN INC T EMERGENCY [address] T VISIT HIGH/URGE NT SEVERITY HOSPITAL [address] OUTPATIEN T EMERGENCY [address] T VISIT LIMITED/M INOR PROB EMERGENCY 08856 OSMANY 7 7 [facility] DEPARTMEN INC T VISIT MODERATE SEVERITY HOSPITAL OSMANY - 7 7 [facility] OUTPATIEN INC T EMERGENCY 78055 OS[facility] MORRIS 7 7 PHYSICIAN DEPARTMEN S, PLLC T VISIT HIGH/URGE NT SEVERITY EMERGENCY 86991 [facility] VALDIVIA 7 7 PHYSICIAN JR DEPARTMEN S, PLLC T VISIT HIGH/URGE NT SEVERITY HOSPITAL OSMANY - 7 7 [facility] OUTPATIEN INC T EMERGENCY 90518 [facility] CHESTNUT 7 7 JIL DEPARTMEN EMERGENCY T VISIT PHYS HIGH/URGE NT SEVERITY EMERGENCY 52011 [facility] HERNÁNDEZ 7 7 JIL DEPARTMEN EMERGENCY T VISIT PHYS HIGH/URGE NT SEVERITY EMERGENCY 65163 [facility] DEPT 7 7 JIL VISIT EMERGENCY HIGH PHYS SEVERITY& THREAT FUNCJ EMERGENCY 13031 [facility] DE[facility] 7 7 JIL VISIT EMERGENCY HIGH PHYS SEVERITY& THREAT FUNJ EMERGENCY 29835 [facility] NEGRON DEPT 7 7 PHYSICIAN VISIT S, PLLC HIGH SEVERITY& THREAT FUNCJ EMERGENCY 88416 [facility] EDDIE 7 7 JIL DEPARTMEN EMERGENCY T VISIT PHYS HIGH/URGE NT SEVERITY HOSPITAL SLIM - 7 7 [facility] T OFFICE 53966 [facility] 7 7 PHYSICIAN T VISIT PRACTICE 25 L MINUTES HOSPITAL SLIM - 7 7 [facility] HOSPITAL SLIM - 7 7 [facility] T OFFICE 74854 [facility] 7 7 PHYSICIAN T VISIT PRACTICE 25 L MINUTES EMERGENCY 43242 OSMANY 7 7 [facility] DEPARTMEN INC T VISIT LOW/MODER SEVERITY EMERGENCY 79853 OS[facility] NEGRON 7 7 PHYSICIAN DEPARTMEN S, PLLC T VISIT MODERATE SEVERITY HOSPITAL OSMANY - 7 7 [facility] OUTPATIEN [facility] T EMERGENCY 26192 [facility] DEPT 7 7 JIL VISIT EMERGENCY HIGH PHYS SEVERITY& THREAT FUN EMERGENCY 81804 [facility] CHESTNUT DEPT 7 7 JIL VISIT EMERGENCY HIGH PHYS SEVERITY& THREAT [facility] HOSPITAL OSMANY - 7 7 [facility] OUTPATIEN INC T EMERGENCY 80166 [facility] 7 7 [facility] T VISIT LOW/MODER SEVERITY EMERGENCY 06780 [facility] RENUSC DEPT 7 7 PHYSICIAN VISIT S, PLLC HIGH SEVERITY& THREAT FUNJ EMERGENCY 09178 [facility] JEFFERS DEPT 7 7 PHYSICIAN U VISIT S, PLLC HIGH SEVERITY& THREAT FUN EMERGENCY 17456 [facility] ELAINE DEPT 6 6 PHYSICIAN VISIT S, PLLC HIGH SEVERITY& THREAT FUN EMERGENCY 23087 [facility] 6 6 [facility] T VISIT LOW/MODER SEVERITY HOSPITAL OSMANY - 6 6 [facility] T EMERGENCY 25903 [facility] 6 PHYSICIAN DEPARTMEN S, PLLC T VISIT MODERATE SEVERITY EMERGENCY 63646 [facility] JOEY II 6 6 [facility] T VISIT PHYS HIGH/URGE NT SEVERITY EMERGENCY 94292 [facility] SWINEY 6 6 JIL [facility] EMERGENCY T VISIT PHYS MODERATE SEVERITY [facility]OSP[facility] [place] - 6 6 [facility] 37334 [facility] 6 [facility] T VISIT HIGH/URGE NT SEVERITY EMERGENCY 73601 [facility] ARNOLD DEPT 6 6 JIL LOBO VISIT EMERGENCY HIGH PHYS SEVERITY& THREAT FUNJ EMERGENCY 09958 [facility] EDDIE DEPT 6 6 JIL SHADE VISIT EMERGENCY HIGH PHYS SEVERITY& THREAT FUNJ EMERGENCY 51153 [facility] ALEX DEPT 6 6 JIL MELINDA VISIT EMERGENCY HIGH PHYSI SEVERITY& THREAT [facility] HOSPITAL [place] - 6 6 [facility] T EMERGENCY 62547 OSITO VALDIVIA, 6 6 PHYSICIAN JR [facility] T VISIT HIGH/URGE NT SEVERITY EMERGENCY 63109 OSITO MORRIS [address] [facility] T VISIT HIGH/URGE NT SEVERITY EMERGENCY 39862 [facility] ALVARADO [address] [facility] EMERGENCY T VISIT PHYS HIGH/URGE NT SEVERITY EMERGENCY 44482 [facility] 6 6 JIL LOBO VISIT EMERGENCY HIGH PHYSI SEVERITY& THREAT [facility] EMERGENCY 49152 [facility] SWINE 6 6 JIL PAT [facility] EMERGENC[facility] T VISIT PHYSI HIGH/URGE NT SEVERITY [facility] [place] - 6 6 [facility] T OFFICE 94019 PHYSICIAN JENNY LIM 6 6 S EXPRESS COU T NEW 45 CARE MINUTES BILL EMERGENCY 68894 OSITO JEFFERS 6 [address] [facility] T VISIT HIGH/URGE NT SEVERITY EMERGENCY 56727 [facility] JOEY II 6 6 [facility] T VISIT PHYS HIGH/URGE NT SEVERITY EMERGENCY 79500 [facility] JOEY II 5 5 JIL O [facility] EMERGENC[facility] T VISIT PHYS MODERATE SEVERITY EMERGENCY 47447 [facility] NWAUCHE 5 5 JIL [facility] EMERGENC[facility] T VISIT PHYS HIGH/URGE NT SEVERITY EMERGENCY 90636 O[facility]ANY 5 5 [facility] DEPARTMEN INC T VISIT MODERATE SEVERITY HOSPITAL O[facility]ANY - [address] [facility] T OFFICE 84096 KAMILA GONZÁLESPATIEN 5 5 [facility] NAN T NEW 30 URGENT MINUTES TREAT EMERGENCY 36337 [facility] 5 5 JIL DEPARTMEN EMERGENCY T VISIT PHYS HIGH/URGE NT SEVERITY EMERGENCY 43754 [facility] SWINEY 5 5 JIL PAT DEPARTMEN EMERGENCY T VISIT PHYS HIGH/URGE NT SEVERITY HOSPITAL OSMANY - 5 5 [facility] T EMERGENCY 75745 [facility] JOEY II 5 5 JIL THO DEPARTMEN EMERGENCY T VISIT PHYS HIGH/URGE NT SEVERITY EMERGENCY 35058 [facility] SOKAN BAB 4 4 JIL DEPARTMEN EMERGENCY T VISIT PHYS MODERATE SEVERITY EMERGENCY 22532 [facility] 4 4 JIL VISIT EMERGENCY HIGH PHYS SEVERITY& THREAT FUNCJ EMERGENCY 01052 [facility] JOEY II 4 4 JIL THO DEPARTMEN EMERGENCY T VISIT PHYS MODERATE SEVERITY EMERGENCY 62624 [facility] SOKAN BAB 4 4 JIL DEPARTMEN EMERGENCY T VISIT PHYS MODERATE SEVERITY EMERGENCY 14634 [facility] JOEY II 4 4 JIL THO DEPARTMEN EMERGENCY T VISIT PHYS MODERATE SEVERITY EMERGENCY 94446 ARTURO MORRIS 4 4 ASHER ASHER DEPARTMEN T VISIT HIGH/URGE NT SEVERITY EMERGENCY 88559 ISAI ALEX 4 4 MELINDA MELINDA DEPARTMEN T VISIT MODERATE SEVERITY EMERGENCY 76723 [facility] 4 4 JIL [facility]GW DEPARTMEN EMERGENCY T VISIT PHYS HIGH/URGE NT SEVERITY EMERGENCY 77338 JOEY II JOEY II 4 4 THO THO DEPARTMEN T VISIT HIGH/URGE NT SEVERITY EMERGENCY 76451 [facility] 4 4 DEPARTMEN T VISIT MODERATE SEVERITY EMERGENCY 26440 CE[facility] CELLAROSI DEPT 4 4 - YORBA - YORBA VISIT PAT PAT HIGH SEVERITY& THREAT FUNCJ EMERGENCY 40923 ISAI ALEX 4 4 MELINDA MELINDA DEPARTMEN T VISIT MODERATE SEVERITY EMERGENCY 73574 [facility]LL[facility] MACEDO 4 4 III [facility]EN III [facility] VIS[facility] MODERATE SEVERITY EMERGENCY 37170 JAZNgozi COURTNEY JAZNgozi BAB DEPT 4 4 VISIT HIGH SEVERITY& THREAT FUNCJ EMERGENCY 75670 JOEY II JOEY II 4 4 THO THO [facility] T VISIT MODERATE SEVERITY OFFICE 37108 [facility] 9 9 [facility] T VISIT E CENTER 15 MINUTES HOSPITAL [facility] - [address] [facility] 14014 [facility] 9 9 [facility] T VISIT LOW/MODER SEVERITY EMERGENCY 88422 [facility], 9 9 JIL Anna Fields [facility] EMERGENCY T VISIT PHYS INC MODERATE SEVERITY EMERGENCY 40635 [facility] STEPH[facility], 9 9 JIL IJEOMA Farah [facility] EMERGENCY T VISIT PHYS INC HIGH/URGE NT SEVERITY EMERGENCY 18131 [facility] JOEY, T 9 9 JIL [facility] EMERGENCY T VISIT PHYS INC MODERATE SEVERITY OFFICE 66885 PHYSICIAN RAPHAEL DOMINGUEZ 9 9 S FRANCISCA Lopez NEW 30 SERVICES MINUTES PSC OFFICE 38424 [facility] 9 9 [facility] T VISIT E CENTER JUAN PABLO D 15 MINUTES EMERGENCY 72773 [facility] 9 9 [facility] T VISIT LOW/MODER SEVERITY [facility]OS[facility]ITAL [facility] 9 9 [facility] T EMERGENCY 29589 [facility] JOEY, T 9 9 JIL [facility] EMERGENCY T VISIT PHYS INC HIGH/URGE NT SEVERITY OFFICE 68785 [facility]UCIA OUTPATIEN 9 9 [facility]ARET-DALT MEERA B T VISIT ON CLINIC 15 MINUTES OFFICE 60997 [facility] HIGH OUTPATIEN 9 9 JARET-DALT MASTER, T VISIT 5 ON CLINIC MONIQUE MINUTES OFFICE 20130 [facility] MUSE OUTPATIEN 9 9 JARET-RAMONA DIAMONDNE, TH T VISIT ON CLINIC MD 15 MINUTES HOSPITAL [facility] - 9 9 Y [facility] T OFFICE 37189 [facility]USE OUT[facility]IEN 9 9 [facility] BH[facility], TH T VISIT ON CLINIC MD 15 MINUTES OFFICE 73221 [facility] MUSE OUTPATIEN 9 9 JARET-RAMONA DIAMONDNE, TH T VISIT ON CLINIC MD 15 MINUTES OFFICE 08824 [facility]USE OUTPATIEN 9 9 [facility] L[facility], T VISIT ON CLINIC MD 15 MINUTES HOSPITAL UNIVERSIT - 9 9 Y [facility] T OFFICE 52808 STEPHANIE BARCENAS 9 9 MEDICAL [place] A ION SERV NEW/ESTAB FOUNDATIO PATIENT 40 MIN OFFICE 29045 [facility], OUTPATIEN 9 9 AYALA CAI D T NEW 30 MINUTES OFFICE 08637 [facility] MUSE OUTPATIEN 9 9 JARETALLEN GARVIN, T VISIT ON CLINIC 15 MINUTES OFFICE 23822 [facility] LUCIA, OUTPATIEN 9 9 JARET-TRINO MEERA B T VISIT ON CLINIC 15 MINUTES HOSPITAL UNIVERSIT - 9 9 Y [facility] T EMERGENCY 02136 KENNEDI TERRY, DEPT 9 9 MEDICAL LINK L VISIT SERV HIGH FOUNDATIO SEVERITY& THREAT [facility] UNIVERSIT - 9 9 Y INPATIENT HOSPITAL EMERGENCY 15197 [facility] 9 9 [facility] T VISIT PHYS INC HIGH/URGE NT SEVERITY [facility] UNIVERSIT - 8 8 [facility] [place] - 8 8 [facility] T EMERGENCY 94250 [place] 8 8 [facility] T VISIT LOW/MODER SEVERITY [facility]OSPITAL [place] - 8 8 [facility] T EMERGENCY 64928 [place] 8 8 [facility] T VISIT LIMITED/M INOR [facility]PITAL [place] - 8 8 [facility] T OFFICE 00925 [facility] 8 8 [facility] T VISIT CENTRAL 15 BANK [facility] MINUTES T EMERGENCY 34204 [place] 8 8 [facility] T VISIT MODERATE SEVERITY [facility] [place] - 8 8 [facility] T EMERGENCY 67657 [place] 8 8 [facility] T VISIT LIMITED/M INOR [facility] [place] - 8 8 [facility] T HOSPITAL [place] - 8 8 [facility] IN[facility] HOSP[facility] [place] - 8 8 [facility] T EMERGENCY 10557 [place] 8 8 [facility] T VISIT MODERATE SEVERITY
--- OUTSIDE RECORDS SUMMARY | 2016-12-09 12:29 | External Medical Summary Rpt | CCD ---
Author Author , FABRIZIO Organization [facility] Address Unknown Phone [email or web address] Care Team Providers Care Head Of Academic Technology Name Role Phone Rosalino DIMAS, Unavailable Unavailable Rosalino DIMAS, JOSÉ MIGUEL Unavailable Unavailable LOBO LLANES, MARIO ALBERTO Unavailable Unavailable ALEX MELINDA, ALEX Unavailable Unavailable MELINDA ALEX MELINDA, ALEX Unavailable Unavailable MELINDA REYNOLDS, REYNOLDS Unavailable Unavailable REYNOLDS ALL, REYNOLDS ALL Unavailable Unavailable [facility] Unavailable Unavailable DEPARTMENT, [facility] DEPARTMENT [facility] Unavailable Unavailable HOSPITAL, [facility] PHYSICIAN Unavailable Unavailable PRACTICE L, [facility] WILKINS, WILKINS Unavailable Unavailable WILKINS JAM, WILKINS JAM Unavailable Unavailable LIZAMA, LIZMAA Unavailable Unavailable HARIKA, SEAN, HARIKA, Unavailable Unavailable SEAN CELLAROSI - YORBA Unavailable Unavailable PAT, CELLAROSI - YORBA PAT CELLAROSI - YORBA Unavailable Unavailable PAT, CELLAROSI - YORBA PAT CHANDEL, CHANDEL Unavailable Unavailable CHESTNUT, CHESTNUT Unavailable Unavailable [facility] Unavailable Unavailable [place] GODINEZ SUKHDEEP, GODINEZ Unavailable Unavailable SUKHDEEP JOANNA, JOANNA Unavailable Unavailable FADIA, FADIA Unavailable Unavailable FADIA LAKISHA, Unavailable Unavailable FADIA LAKISHA FADIA LAKISHA, Unavailable Unavailable FADIA LAKISHA [id number], Unavailable Unavailable [id number], Unavailable Unavailable [id number] JOEY II THO, JOEY [...] JR ELZ ARTURO, ARTURO Unavailable Unavailable ARTURO ASEHR, ARTURO Unavailable Unavailable ASHER ARTURO ASHER, ARTURO Unavailable Unavailable ASHER FERNANDO, GISELLE C, Unavailable Unavailable FERNANDO, GISELLE C GIANFERRARI, IMAN, Unavailable Unavailable GIANFERRARI, IMAN GILBERT, FRANCISCA W, Unavailable Unavailable GILBERT, FRANCISCA W ANGELA, ANGELA Unavailable Unavailable ANGELA RHO, ANGELA Unavailable Unavailable RHO MAGDA FARLEY F, Unavailable Unavailable FARLEYMAGDA F JIMENEZ, JIMENEZ Unavailable Unavailable JIMENEZ, MARGO, Unavailable Unavailable JIMENEZ, MARGO OSMANY, OSMANY Unavailable Unavailable [facility] Unavailable Unavailable INC, [facility] Unavailable Unavailable HOSPITAL P, [facility] P HARTKER III, Unavailable Unavailable ALHAJI W, HARTKER III, ALHAJI W JIM FALLS, JUAN PABLO Unavailable Unavailable D, JIM ANDREA, JUAN PABLO D HIGH MASTEREVELIAYN, Unavailable Unavailable HIGH MASTER MONIQUE IJEOMA STEPHENS, Unavailable Unavailable IJEOMA STEPHENS, JORI Unavailable Unavailable NAN JANET III OPAL, Unavailable Unavailable JANET III OP[facility] Un[facility] Unavailable GROUP PS, [facility] Unavailable Unavailable [facility], [facility] LINK TERRY, Unavailable Unavailable LINK TERRY KOSTELIC, KOSTELIC Unavailable Unavailable KOSTELIC [place], Unavailable [...] LU MD, Unavailable Unavailable MATIAS LU MD [facility] Unavailable Unavailable URGENT TREAT, [facility] [place] [facility], [facility] Unavailable Unavailable [facility], Unavailable Unavailable [facility], Unavailable Unavailable PLLC, [...] SOTINGEANU AMELIA [facility] Unavailable Unavailable [facility], [facility] Unavailable Unavailable [facility]GENCY [facility], [facility], Unavailable Unavailable [facility], Unavailable Unavailable [facility] ROMANA FERGUSON, Unavailable Unavailable ROMANA FERGUSON SWINEY, SWINEY Unavailable Unavailable SWINEY PAT, SWINEY Unavailable Unavailable PAT [facility], Unavailable Unavailable [facility], Unavailable Unavailable [facility] Unavailable Unavailable [facility] ROBBIE YEH Unavailable Unavailable WEHRMAN III HIREN, [...] UNSPECIFIED ANESTHESIA GROUP PS K210 GASTRO-ESOP 10-27-2016 [facility] DISEASE W/ [...] 10-06-2016 [facility] AL PAIN N EMERGENCY PHYS K60945 OTHER 10-01-2016 [facility] [place] [facility]IAN [facility] CYST LEFT SIDE K029 DENTAL 09-13-2016 [facility] CARIES PHYSICIANS, UNSPECIFIED PLL R072 PRECORDIAL 09-13-2016 [facility] PAIN PHYSICIANS, [facility] R222 LOCALIZED 09-13-2016 [facility] P LUMP TRUNK K5909 OTHER 09-08-2016 [facility] [place] CONSTIPATIO RADIOLOGY N R1031 RIGHT LOWER 09-08-2016 [facility] PAIN Z720 TOBACCO USE 09-06-2016 [facility] INC R197 DIARRHEA 08-30-2016 [facility] UNSPECIFIED PHYSICIANS, PLLC [id number] ADVERSE 08-24-2016 [facility] EFFECT OTH N EMERGENCY ANTIPROTOZO PHYS AL RX INITIAL ENC G894 CHRONIC 08-20-2016 [facility] PAIN N EMERGENCY SYNDROME PHYS R0782 INTERCOSTAL 08-20-2016 [facility] PAIN N EMERGENCY PHYS K529 NONINFECTIV 08-15-2016 [facility] E N EMERGENCY GASTROENTER PHYS ITIS & COLITIS UNS E876 HYPOKALEMIA 08-09-2016 [facility] OLEGARIO HOLDINGS [id number] OTHER SPEC 06-20-2016 [facility] [place] INJURIES LT RADIOLOGY LOWER LEG INITIAL ENC G4700 INSOMNIA 06-09-2016 [facility] UNSPECIFIED PHYSICIAN PRACTICE L R590 LOCALIZED 06-09-2016 [facility] ENLARGED PHYSICIAN LYMPH NODES PRACTICE L R61 GENERALIZED 06-09-2016 [facility] PHYSICIAN HYPERHIDROS PRACTICE L IS R938 ABNORMAL 06-09-2016 [facility] FIND ON DX PHYSICIAN IMAGING OTH PRACTICE L SPEC BODY STRCT M222X2 PATELLOFEMO 06-08-2016 [facility] LEFT KNEE R918 OTHER 06-08-2016 [facility] [place] NONSPECIFIC RADIOLOGY ABNORMAL FINDING OF LUNG FIELD W25314 PAIN IN 06-04-2016 [facility] [place] LEFT KNEE RADIOLOGY K17042 EPILEPSY 06-02-2016 [facility] UNS NOT PHYSICIANS, INTRACT W/O PLLC STATUS EPILEPTICUS L32086 MIGRAINE 05-27-2016 [facility] UNS NOT N EMERGENCY INTRACT W/O PHYS STATUS MIGRAINOSUS M546 PAIN IN 05-27-2016 [facility] THORACIC N EMERGENCY SPINE PHYS R768 OTH SPEC 05-18-2016 [facility] ABNORMAL OLEGARIO IMMUNOLOGIC HOLDINGS AL FIND IN SERUM V85920 OTHER 05-02-2016 [facility]ERV[facility] DIS[facility] IMAGING ASS DEGENERATIO N AT C5-C6 LEVEL M542 CERVICALGIA 05-02-2016 [facility] R569 UNSPECIFIED 05-02-2016 [facility] CONVULSIONS IMAGING ASS [id number] CONTUSION 05-02-2016 [facility] OF SCALP PHYSICIANS, INITIAL PLLC ENCOUNTER H5874OJ UNSPECIFIED 05-02-2016 [facility] INJURY OF MEDICAL HEAD IMAGING ASS INITIAL ENCOUNTER S434AFU UNSPECIFIED 05-02-2016 [facility] INJURY OF MEDICAL NECK IMAGING ASS INITIAL ENCOUNTER G8929 OTHER 04-08-2016 [facility] CHRONIC PHYSICIANS, PAIN PLLC J209 ACUTE 02-10-2016 [facility] BRONCHITIS PHYSICIANS, UNSPECIFIED PLLC B349 VIRAL 01-30-2016 [facility] INFECTION PHYSICIANS, UNSPECIFIED PLLC B373 CANDIDIASIS 01-30-2016 [facility] J029 ACUTE 01-30-2016 [facility] PHARYNGITIS PHYSICIANS, PLLC UNSPECIFIED A598 TRICHOMONIA 01-18-2016 [facility] SIS OF N EMERGENCY OTHER SITES PHYS M545 LOW BACK 01-18-2016 [facility] PAIN N EMERGENCY PHYS L239 ALLERGIC 12-14-2015 [facility] CONTACT N EMERGENCY DERMATITIS PHYS UNSPECIFIED CAUSE I7300 RAYNAUDS 11-28-2015 [facility] SYNDROME [facility] GANGRENE R001 BRADYCARDIA 11-28-2015 [facility] N EMERGENCY UNSPECIFIED PHYS R1010 UPPER 11-28-2015 [facility] ABDOMINAL N EMERGENCY PAIN PHYS UNSPECIFIED R42 DIZZINESS 11-28-2015 [facility] AND N EMERGENCY GIDDINESS PHYS G49102 OTHER LONG 11-28-2015 [facility] TERM COUNT INCLUDES THE [facility] CURRENT HOSPITAL DRUG THERAPY Z881 ALLERGY [...] SITE NOT SPECIFIED R7989 OTHER SPEC 09-01-2015 [facility] ABNORMAL N EMERGENCY FINDINGS PHYSI BLOOD CHEMISTRY M5134 OT 08-18-2015 [facility] DEGEN THORACIC REGION M5136 OT 08-18-2015 [facility] DEGEN LUMBAR REGION K047 PERIAPICAL 04-08-2015 [facility] ABSCESS EXPRESS WITHOUT CARE BILL SINUS M549 DORSALGIA 04-08-2015 [facility] UNSPECIFIED EXPRESS CARE BILL N399 DISORDER OF 04-08-2015 [facility] UNSPECIFIED A26874 PAIN IN 02-24-2015 [facility] LEFT ANKLE MEDICAL IMAGING ASS [id number] OTH FX 02-24-2015 [facility] UPPER & PHYSICIANS, LOWER LT PLLC FIBULA INIT ENC CLOS FX F43462O UNSPECIFIED 02-24-2015 [facility] IN[facility]UR[facility] MEDICAL LEFT ANKLE IMAGING ASS INITIAL ENCOUNTER A599 TRICHOMONIA 02-21-2015 [facility] SIS N EMERGENCY UNSPECIFIED PHYS M5137 OT 12-10-2014 [facility] RAL DISC PHYS DEGEN LUMBOSACRAL REGION 7881 DYSURIA 10-22-2014 [facility] V642 SURG/OTH 10-22-2014 [facility] PROC NOT MEM HOSP CARRIED OUT INC BECAUSE PTS DECN 17764 GENERALIZED 09-18-2014 [facility] ANXIETY COUNTY DISORDER URGENT TREAT 57948 OTHER 09-18-2014 [facility] CONVULSIONS COUNTY URGENT TREAT 460 ACUTE 07-02-2014 [facility] NASOPHARYNG N EMERGENCY ITIS PHYS 61415 FEVER 07-02-2014 [facility] UNSPECIFIED N EMERGENCY PHYS 5990 URINARY 05-05-2014 [facility] TRACT N EMERGENCY INFECTION PHYS SITE NOT SPECIFIED 19405 OTHER 05-05-2014 [facility] MALAISE AND N EMERGENCY FATIGUE PHYS 4430 RAYNAUDS 03-11-2014 [facility] SYNDROME [facility] 87529 NAUSEA 03-03-2014 [facility] ALONE N EMERGENCY PHYS 80200 HEAD 03-03-2014 [facility] [place] INJURY, RADIOLOGY UNSPECIFIED 25909 INJURY OF 03-03-2014 [facility] [place] FACE AND RADIOLOGY NECK OTHER AND UNSPECIFIED 68359 ABDOMINAL 02-02-2014 [facility] PAIN, N EMERGENCY UNSPECIFIED PHYS SITE 5589 OTH&UNSPEC 01-30-2014 [facility] NONINFECTIO N EMERGENCY US PHYS GASTROENTER ITIS&COLITI S 5601 PARALYTIC 01-30-2014 [facility] ILEUS N EMERGENCY PHYS 97712 UNSPECIFIED 01-30-2014 [facility] N EMERGENCY CONSTIPATIO PHYS N 90212 ABDOMINAL 01-30-2014 [facility] PAIN RIGHT N EMERGENCY UPPER PHYS QUADRANT 17234 MIGRAINE 11-27-2013 [facility] UNSP W/O N EMERGENCY INTRACT W/O PHYS STATUS MIGRAINOSUS 50886 UNS 10-05-2013 [facility]ER GASTRITIS&G ASTRODUODIT IS W/O MENTION HEMORR 43563 VOMITING 10-05-2013 [facility] ALONE 18531 OVERWEIGHT 09-08-2013 [facility] 24531 OTHER 09-08-2013 [facility] CHRONIC [facility] PAIN 00091 GEN CONVUL 09-08-2013 [facility] EPILEPSY DIAGNOSTICS W/O MENTION INTRACT EPILEPSY V5869 LONG-TERM 09-08-2013 [facility] (CURRENT) [facility] USE OF OTHER MEDICATIONS 02473 NAUSEA WITH 08-31-2013 [facility]WRENCE VOMITING 5362 PERSISTENT 08-16-2013 [facility] VOMITING N EMERGENCY PHYS 0340 STREPTOCOCC 08-09-2013 [facility] AL SORE THROAT 462 ACUTE 08-09-2013 [facility] PHARYNGITIS 78091 DIARRHEA 05-21-2013 CELLAROSI - YORBA PAT 7242 LUMBAGO 05-05-2013 ISAI LAWRENCE 8242 CLOSED 04-12-2013 [facility] FRACTURE OF LAKISHA LATERAL MALLEOLUS 16720 UNSPECIFIED 04-12-2013 [facility] III SITE OF HIREN ANKLE SPRAIN AND STRAIN E8859 FALL FROM 04-12-2013 [facility] III OTHER HIREN SLIPPING TRIPPING OR STUMBLING E8889 UNSPECIFIED 04-12-2013 [facility] FALL LAKISHA 7245 UNSPECIFIED 01-05-2009 [facility] BACKACHE N EMERGENCY PHYS INC 7295 PAIN IN 01-05-2009 [facility] TISSUES OF LIMB 47753 CHILLS 01-03-2009 [facility] WITHOUT N EMERGENCY FEVER PHYS INC V154 PERS HX 11-21-2008 [facility] AL TRAUMA PRS [facility] 7213 LUMBOSACRAL 09-11-2008 [facility] SPONDYLOSIS PSC WITHOUT MYELOPATHY 70132 DEGEN 09-11-2008 [facility] LUMBAR/LUMB SERVICES OSACRAL PSC INTERVERTEB RAL DISC 7802 SYNCOPE AND 09-11-2008 [facility] COLLAPSE SERVICES PSC 7840 HEADACHE 09-11-2008 [facility] PSC 8472 LUMBAR 08-19-2008 [facility] SPRAIN AND SERVICES STRAIN PSC 7820 DISTURBANCE 08-06-2008 [facility] 91011 [facility] FORM 07-30-2008 [facility] EPILEPSY & AMERIC RECUR HOLDING SEIZUR NO INTRACT EPIL 29464 INFECTIONS 07-09-2008 [facility] COND/COMPL 26384 PAIN IN 07-09-2008 [facility] JOINT, N EMERGENCY SHOULDER PHYS INC REGION 7746 UNSPECIFIED 07-09-2008 [facility] PEDIA JAUNDICE 7795 DRUG 07-09-2008 [facility] WITHDRAWAL OF [place] SYNDROME IN PEDIA 09844 CHEST PAIN 07-09-2008 [facility] [place] UNSPECIFIED RADIOLOGY 42258 ABDOMINAL 07-09-2008 [facility] [place] PAIN OTHER RADIOLOGY SPECIFIED SITE 7919 OTHER 07-09-2008 [facility] EXAMINATION OF URINE V3000 SINGLE 07-09-2008 [facility] PEDIA W/O 7706 TRANSITORY 07-07-2008 [facility] SERV OF FOUNDATIO 67715 THREATENED 07-05-2008 [facility] PREMATURE SERV LABOR FOUNDATIO ANTEPARTUM 39894 SHOULDER 07-05-2008 [facility] DYSTOCIA SERV DURING FOUNDATIO LABOR&DELIV ER DELIVERED V2389 SUPERVISION 07-05-2008 [facility] OF OTHER SERV HIGH-RISK FOUNDATIO V252 STERILIZATI 07-05-2008 [facility] ON SERV FOUNDATIO 87835 EDEMA OR 07-04-2008 [facility] EXCESSIVE [facility] ANTEPARTUM 07308 MATERNAL 07-04-2008 [facility] MENTAL [facility] ANTEPARTUM V726 LABORATORY 06-25-2008 [facility] EXAMINATION [facility] 48377 OTHER 06-24-2008 [facility] VISUAL FIELD DEFECT 7910 PROTEINURIA 06-24-2008 [facility] V221 SUPERVISION 06-24-2008 [facility] OF OTHER [facility] NORMAL CLINIC 14228 MATERNAL 06-03-2008 [facility] DIABETES SERV MELLITUS FOUNDATIO ANTEPARTUM 36763 OTH CURRENT 06-03-2008 [facility] CLASSIFIABL E ELSW ANTPRTM 90913 OBES COMP 06-03-2008 [facility] PG SERV /THE FOUNDATIO PP ANTEPARTUM COND/COMP 09763 POOR 06-03-2008 [facility] GROWTH MGMT SERV MOTH FOUNDATIO ANTPRTM COND/COMP 97484 SWELLING OF 06-03-2008 [facility] 47170 GEN CONVUL 05-29-2008 [facility] EPILEPSY SERV W/INTRACTAB FOUNDATIO LE EPILEPSY 98655 04-11-2008 [facility] COMP RECUR [facility] PREG LOSS CLINIC ANTPRTM COND/COMP V237 INSUFFICIEN 04-11-2008 [facility] T [facility] V762 SCREENING 04-11-2008 [facility] MALIGNANT NEOPLASM OF THE CERVIX 9708 POISONING 04-04-2008 [facility] OTHER SPEC SERV CENTRAL FOUNDATIO NERV SYS STIMULANTS E9804 POISONING 04-04-2008 [facility] BY OTH DRUG SERV & FOUNDATIO MEDICINE-UN DETERM CAUSE 14691 MATERNAL 04-03-2008 [facility] DEPENDENCE FOUNDATIO ANTEPARTUM 4019 UNSPECIFIED 04-01-2008 [facility] [place] 5180 PULMONARY 04-01-2008 [facility] COLLAPSE SERV FOUNDATIO 11188 OTH CURRENT 04-01-2008 [facility] MATERNAL SERV CCE-COMPL FOUNDATIO PG CB/PP-UNS EOC 71788 EPILEPSY 04-01-2008 [facility] /PP ANTEPARTUM COND/COMP 31761 ALTERED 04-01-2008 [facility] MENTAL SERV STATUS FOUNDATIO 7850 UNSPECIFIED 04-01-2008 [facility] SERV TACHYCARDIA FOUNDATIO 7867 ABNORMAL 04-01-2008 [facility] CHEST SERV SOUNDS FOUNDAT[facility] 19593 POISONING 04-01-2008 [facility] BY OPIATES SERV AND RELATED FOUNDATIO NARCOTICS OTHER 9670 POISONING 04-01-2008 [facility] BARBITURATE S 9690 POISONING 04-01-2008 [facility] ANTIDEPRESS ANTS 9694 POISONING 04-01-2008 [facility] BY [facility] INE-BASED TRANQUILIZE RS 9696 POISONING 04-01-2008 [facility] BY [facility] PSYCHODYSLE PTICS 9779 POISONING 04-01-2008 [facility] UNSPECIFIED N EMERGENCY PHYS INC DRUG/MEDICI NAL SUBSTANCE E8502 ACCIDENTAL 04-01-2008 [facility] POISN OTH SERV OPIATES&REL FOUNDATIO ATED NARCOTICS E9805 POISONING 04-01-2008 [facility] BY UNS DRUG N EMERGENCY OR PHYS INC MEDICINE-UN DETERM CAUSE V222 04-01-2008 [facility] STATE, N EMERGENCY INCIDENTAL PHYS INC 35404 UNSPECIFIED 03-23-2008 [facility] VOMITING N EMERGENCY OF PHYS INC ANTEPARTUM V2881 ENCOUNTER 02-21-2008 [facility] FOR SERV ANATOMIC FOUNDATIO SURVEY 6235 LEUKORRHEA 01-16-2008 [facility] [place] NOT RADIOLOGY SPECIFIED INFECTIVE 93953 OTHER 01-16-2008 [facility] [place] SPECIFED RADIOLOGY COMPLICATIO N ANTEPARTUM 6826 CELLULITIS 12-13-2007 [facility] AND ABSCESS [facility] HOSPITAL EXCEPT FOOT 2662 OTHER 12-12-2007 [facility] B-COMPLEX HEALTH DEFICIENCIE CENTRAL S BANK ACCT V7242 12-12-2007 [facility] EXAMINATION HEALTH OR TEST CENTRAL POSITIVE BANK ACCT RESULT 9190 ABRASION/FR 11-14-2007 [facility] ICION BURN COUNT INCLUDES THE [facility] OTH MX&UNS HOSPITAL SITE W/O INF 9222 CONTUSION 11-14-2007 [facility] WALL 91259 CHRONIC 10-09-2007 [facility] CHOLECYSTIT COUNT INCLUDES THE [facility] IS HOSPITAL 5758 OTHER 10-09-2007 [facility] SPECIFIED COUNT INCLUDES THE [facility] DISORDER OF HOSPITAL GALLBLADDER 7226 DEGENERATIO 10-09-2007 [facility] INTERVERTEB HOSPITAL RAL DISC SITE UNSPEC [...] PH AR MA CY #3 01 6 ID 65 09 10 10 2 00 KE [...] 08 09 30 15 00 KE Ac ID 05 -3 -2 .0 00 NT ti [...] 08 09 20 10 00 KE Ac ID 86 -2 -2 .0 00 NT ti OF 20 2- 2- 00 01 UC ve LO 07 20 20 05 [place] XA 70 17 17 33 CI 1 03 CV N S HC PH L AR 50 MA 0 CY MG LL TA C, B DB A CV S PH AR MA CY #3 01 6 ID 65 08 09 20 10 00 KE [...] 08 09 28 14 00 KE Ac ID 05 -1 -1 .0 00 NT ti [...] 08 09 28 14 00 KE Ac ID 05 -0 -0 .0 00 NT ti EN 40 3- 8- 00 01 UC ve OR 18 20 20 04 [place] PH 91 17 17 79 IN 3 99 CV -N S AL PH OX AR ON MA CY 8- 2 LL MG C, SL DB A CV S PH AR MA CY #3 01 6 ID 65 07 08 28 7 00 KE [...] 07 08 28 14 00 KE Ac ID 05 -1 -1 .0 00 NT ti [...] PH AR MA CY #3 01 6 ID 65 07 08 60 30 00 KE [...] 07 08 28 14 00 KE Ac ID 05 -0 -1 .0 00 NT ti EN 40 6- 1- 00 01 UC ve OR 18 20 20 04 [place] PH 91 17 17 16 IN 3 77 CV -N S AL PH OX AR ON MA CY 8- 2 LL MG C, SL DB A CV S PH AR KAYLYNN CY #3 01 6 ID 65 07 08 28 7 00 KE Ac OM 16 -0 -1 .0 00 NT ti ET 20 7- 1- 00 01 UC ve LANGLEY 74 20 20 04 [place] ZI 51 17 17 18 NE 0 93 CV S 12 PH .5 AR MA MG CY TA LL BL C, ET DB A CV S PH AR KAYLYNN CY #3 01 6 ID 65 07 08 14 2 00 KE [...] 06 08 14 7 00 KE Ac ID 05 -2 -0 .0 00 NT ti [...] 06 07 14 7 00 KE Ac ID 05 -2 -2 .0 00 NT ti [...] PH AR MA CY #3 01 6 ID 45 06 07 12 3 00 KE [...] 06 07 14 7 00 KE Ac ID 86 -2 -2 .0 00 NT ti [...] 06 07 14 7 00 KE Ac ID 05 -1 -2 .0 00 NT ti [...] 06 07 14 7 00 KE Ac ID 05 -0 -1 .0 00 NT ti [...] 06 07 10 5 00 KE Ac ID 05 -0 -0 .0 00 NT ti [...] PH AR KAYLYNN CY #3 01 6 ID 65 05 06 20 5 00 KE [...] 04 05 28 14 00 KE Ac ID 16 -1 -1 .0 00 NT ti [...] PH AR MA CY #3 01 6 ID 65 04 05 60 30 00 KE [...] 34 3- 8- 00 01 UC ve ID 59 20 20 01 [place] ED 31 [...] 02 03 42 28 00 KE Ac ID 05 -2 -2 .0 00 NT ti [...] 12 01 14 7 00 KE Ac ID 16 -2 -2 .0 00 NT ti [...] 12 01 24 16 00 KE Ac ID 05 -1 -1 .0 00 NT ti [...] 12 01 11 7 00 KE Ac ID 05 -0 -0 .0 00 NT ti [...] MA CE 1 CY TH TA OM LA #3 NO 01 PH 6 EN 7. [...] CA ZA 11 09 09 D ND ID 0 PH IC IN AR E E [...] CA ZA 11 09 09 D ND ID 0 PH IC IN AR E E [...] CA ZA 11 09 09 D ND ID 0 PH IC IN AR E E [...] 00 20 10 RI 36 DA Ac ID 17 -1 -0 .0 TE 36 LE [...] #3 MG 01 6 TA BL ET ID 00 04 05 00 20 7 CV 52 No Ac OM 78 -2 -0 .0 S 73 t ti ET 11 7- 7- 00 PH 35 Av ve LANGLEY 83 20 20 AR ai ZI 00 09 09 MA la NE 1 CY bl e 25 #6 94 MG 1 TA BL ET ID 00 04 04 01 20 7 CV [...] #3 34 CA 7 PS UL E ID 00 03 04 00 30 4 RI [...] ai RA 30 09 09 D la LA 5 PH bl DE AR e M [...] MG 01 6 CA PS UL E ID 00 01 02 00 20 5 CV [...] MG OP PE CA PS UL E ID 00 12 01 01 44 11 TH [...] MG 01 6 CA PS UL E ID 00 12 12 00 44 11 TH [...] MG OP PE CA PS UL E ID 00 11 12 00 15 4 TH 65 CH Ac OM 78 -2 -0 .0 E 36 ES ti ET 11 5- 4- 00 ME 28 TN ve LANGLEY 83 20 20 DI 2 UT ZI 01 08 08 CI NE 0 NE LA CH 25 SH AE OP L MG [...] MG OP PE CA PS UL E ID 00 10 11 00 20 5 CV [...] C 01 CA 6 PS UL E BLAKE 53 10 11 00 20 10 TH 65 DA Ac LF 74 -1 -0 .0 E 33 ti AM 60 3- 7- 00 ME 80 S ve ET 27 20 20 DI 5 KE HO 20 08 08 CI NT XA 5 NE L ZO LE SH -T OP MP PE DS TA BL ET ID 00 10 10 00 20 7 TH [...] Procedure DOS Code Location Performer Comment RADIOLOGI 35548 [facility] [place] SCALF C EXAM 7 RADIOLOGY CHEST 2 VIEWS FRONTAL&L ATERAL EGD 44945 REFUGIO HUFF TRANSORAL 7 DIGESTIVE DIGESTIVE BIOPSY CARE CARE SINGLE/ CENTER CENTER LTIPL ANE 85775 [facility] DEPA UPPER GI 7 ANESTHESI ENDOSCOPY A GROUP PROXIMAL PS TO DUODENUM COLONOSCO 83523 REFUGIO GAYLE PY FLX DX 7 DIGESTIVE W/COLLJ [place] [address] [facility] [place] KOSTELIC HEAD/BRAI 7 RADIOLOGY N W/O CONTRAST MATERIAL RADIOLOGI 88883 FOUNDATIO HERNÁNDEZ C 7 N EXAMINATI RADIOLOGY ON CHEST GROUP P [place] FRONTAL RADIOLOGI 78216 [facility] [place] JIMENEZ C EXAM 7 RADIOLOGY CHEST 2 VIEWS FRONTAL&L ATERAL CUL BACT 81691 [facility] AEROBIC 7 [facility] ADDL HOLDINGS HOLDINGS METHS DEFINITIV E EA ISOL SUSCEPTIB 42846 [facility] LTY STDY 7 [facility] O[facility] ANTIMICRB HOLDINGS HOLDINGS IAL MICRO/AGA R DILUTJ CULTURE 33753 [facility] BACTERIAL 7 OLEGARIO OLEGARIO HOLDINGS HOLDINGS QUANTTATI VE COLONY COUNT URINE CULTURE 06926 LAB RAUL LAB RAUL BCT 7 OLEGARIO OLEGARIO ISOL&PRSM [facility] PTV ID ISOLATE EA URINE COMPREHEN 57729 LAB RAUL LAB RAUL SIVE 7 [facility]ARIO [facility] METABOLIC [facility] PANEL BLOOD 49877 LAB RAUL LAB RAUL COUNT 7 OLEGARIO OLEGAR[facility] COMPLETE [facility] AUTO&[place] [address] LAB RAUL LAB RAUL LIPASE 7 [place] [address] [facility] [place] ABDOMEN & 7 RADIOLOGY PELVIS W/CONTRAS T MATERIAL ECG 18006 OSMANY FELIX JR ROUTINE 7 [facility] W/LEAST P 12 LDS I&R ONLY RADIOLOGI 55051 [facility] EXAM 7 MEDICAL CHEST 2 IMAGING VIEWS ASS FRONTAL&L ATERAL THER [address] [facility] PROPH/[address] NJX IV PUSH SINGLE/1S T SBST/DRUG INJECTION [id number] [address] O[place]ANSET[place] H[place] [address] HYDRATION EACH ADDITIONA L HOUR URNLS DIP [address] STICK/TAB LET RGNT AUTO W/O MICROSCOP Y ECG 83273 [facility] ROUTINE 7 JIL ECG EMERGENCY W/LEAST PHYS 12 LDS [place] [address] [place] GONADOTRO [address] CHORIONIC QUALITATI VE GONADOTRO [address] CHORIONIC QU[place]AT [place] [address] [facility] ROUTINE 7 [facility] ECG W/LEAST 12 LDS TRCG ONLY W/O I&R BLOOD 47039 [facility] COUNT [address] [place] [address] COMPLETE AUTO&AUTO DIFRNTL WBC CULTURE 88849 [facility] BACTERIAL [address] [place] [address] QUANTTATI VE COLONY COUNT URINE COLLECTIO 00713 [facility] MUNGUIA N VENOUS [address] [place] [address] BLOOD VENIPUNCT URE RADIOLOGI 23688 [facility] [place] C 7 RADIOLOGY EXAMINATI [place] [address] [facility] [place] HEAD/BRAI 7 RADIOLOGY N W/O CONTRAST MATERIAL BASIC 49804 [facility] METABOLIC [address] [place] [address] [place] [address] [facility] [place] ABDOMEN & 7 RADIOLOGY PELVIS W/O CONTRAST MATERIAL SEDIMENTA 89805 OSMANY CERON TION RATE 7 [facility] RBC INC INC NON-AUTOM ATED CULTURE 22241 O[facility] C[facility] BACTERIAL 7 [facility] INC INC QUANTTATI VE COLONY COUNT URINE BLOOD 99102 [facility] C[facility] COUNT 7 [facility] COMPLETE INC INC AUTO&AUTO DIFRNTL WBC THERAPEUT 09166 [facility] IC 7 [facility] PROPHYLAC INC INC TIC/DX INJECTION SUBQ/[place] [address] [facility] LIPASE 7 [facility] INC INC URNLS DIP 06697 [facility] C[facility]ON 7 [facility] STICK/TAB INC INC [place] [address] O[facility] AMYLASE 7 [facility] INC INC COMPREHEN 39290 O[facility] SIVE 7 [facility] METABOLIC INC INC PANEL COMPREHEN 88995 [facility] SIVE 7 [facility] [place] [address] [facility]ER[facility] AMYLASE 7 [facility] INC INC URNLS DIP 43921 [facility] STICK/TAB INC INC LET REAGENT AUTO MICROSCOP Y BLOOD 98140 O[facility]ANY CERON OCCULT 7 [facility] PEROXIDAS INC INC E ACTV QUAL FECES 1-3 [place] [address] OSMANY CERON LIPASE 7 [facility] INC INC BLOOD 63588 OSMANY CERON COUNT 7 [facility] COMPLETE INC INC AUTO&[place] [address] OSMANY CERON INFUSION 7 [facility] THERAPY/P INC INC ROPHYLAXI S /DX 1ST TO 1 HR THERAPEUT 00193 OSMANY CERON IC 7 [facility]OSP INJECTION INC INC IV PUSH EACH NEW DRUG CULTURE 23880 OSMANY ECRON BACTERIAL 7 [facility]OS[facility] INC INC QUANTTATI VE COLONY COUNT URINE IADNA-DNA 37502 OSMANY OSMANY /RNA GI 7 [facility] HOSP PTHGN INC INC MULTIPLEX PROBE TQ 02-14 RADIOLOGI 73733 [facility] [place] SCALF C 7 RADIOLOGY EXAMINATI ON CHEST SINGLE VIEW FRONTAL RADIOLOGI 58545 [facility] [place] SCALF C 7 RADIOLOGY EXAMINATI ON CHEST SINGLE VIEW FRONTAL RADIOLOGI 24462 [place] FADIA C 7 MEDICAL EXAMINATI IMAGING ON CHEST ASS SINGLE VIEW FRONTAL BASIC 54151 LAB RAUL LAB RAUL METABOLIC 7 OLEGARIO OLEGARIO PANEL HOLDINGS HOLDINGS CALCIUM TOTAL RADEX 21118 [facility] [place] SCALF ABDOMEN 7 RADIOLOGY COMPL W/DCBTS&/ ERC VIEWS RADIOLOGI 44650 [facility] [place] ANGELA C 7 RADIOLOGY EXAMINATI ON TIBIA & FIBULA 2 VIEWS COLLECTIO 80518 SLIM SMALLS N VENOUS 7 [facility] VENIPUNCT URE COMPREHEN 66573 SLIM SMALLS SIVE 7 [facility] [place] [address] SLIM SMALLS TROPONIN 7 [facility] [place] BLOOD 66841 SLIM SMALLS COUNT 7 [facility] AUTO&AUTO DIFRNTL WBC CT THORAX 85171 [facility] [place] SCALF 7 RADIOLOGY W/CONTRAS T MATERIAL LOCM Q9967 SLIM SMALLS 300-399 7 [facility] MG/ML HOSPITAL HOSPITAL IODINE CONCENTRA TION PER ML RADIOLOGI 01278 [facility] [place] SCALF C 7 RADIOLOGY EXAMINATI ON KNEE 3 VIEWS RADIOLOGI 68902 [facility] [place] SCALF C EXAM 7 RADIOLOGY CHEST 2 VIEWS FRONTAL&L ATERAL RADIOLOGI 05227 [facility] [place] RADMANESH C EXAM 7 RADIOLOGY CHEST 2 VIEWS FRONTAL&[place] [address] [facility] [place] THORACIC 7 RADIOLOGY SPINE W/[place] [address] [facility] [place] HEAD/BRAI 7 RADIOLOGY N W/O CONTRAST MATERIAL IADNA 58199 LAB RAUL LAB RAUL HEPATITIS 7 OLEGARIO OLEGARIO C QUANT HOLDINGS HOLDINGS & REVERSE TRANSCRIP TION CT THORAX 10220 [facility] [place]AL[place] W/O [place] [address] [facility] CERVICAL 7 MEDICAL SPINE W/[place] [address] [facility] HEAD/BRAI 7 MEDICAL N W/O IMAGING CONTRAST ASS MATERIAL FINAL RPT G9557 [facility] CT/MRI 7 MEDICAL CHEST/NCK IMAGING /U/S NO ASS THR NOD<1.0 CM FINAL G9638 [facility] REPORTS 7 MEDICAL W/O DOC IMAGING 1/MORE ASS DOSE REDUCTION TECH RADIOLOGI 50276 [facility] C EXAM 7 MEDICAL CHEST 2 IMAGING VIEWS ASS FRONTAL&L ATERAL RADIOLOGI 35779 [facility] [place] SCALF C 7 RADIOLOGY EXAMINATI ON CHEST SINGLE VIEW FRONTAL RADIOLOGI 00921 [facility] C EXAM 6 MEDICAL CHEST 2 IMAGING VIEWS ASS FRONTAL&L ATERAL THER 11376 OSMANY CERON PROPH/DX 6 [facility] NJX IV INC INC PUSH SINGLE/1S T SBST/DRUG COMPREHEN 45540 OSMANY CERON SIVE 6 [facility] METABOLIC INC INC PANEL URNLS DIP 17200 OSMANY CERON 6 [facility] STICK/TAB INC INC LET REAGENT AUTO MICROSCOP Y BLOOD 48936 OSMANY CERON COUNT 6 [facility] COMPLETE INC INC AUTO&AUTO DIFRNTL WBC CULTURE 48824 OSMANY CERON BACTERIAL 6 [facility] HOSP INC INC QUANTTATI VE COLONY COUNT URINE SMR PRIM 03898 OSMANY CERON SRC WET 6 [facility] [place] [address] OSMANY CERON ABDOMEN & 6 [facility] PELVIS INC INC W/O CONTRAST MATERIAL RADIOLOGI 93969 [place] JANET C 6 RADIOLOGY III OPAL EXAMINATI ON CHEST SINGLE VIEW FRONTAL INJECTION J1885 SLIM SMALLS [address] [place] [address] KETOROLAC [facility] TROMETHAM INE PER 15 [place] [address] SLIM SMALLS THYROXINE [address] [place] [address] ECG 89522 SLIM SMALLS ROUTINE [address] [place] [address] W/LEAST 12 LDS TRCG ONLY W/O I&R THYROID 85921 SLIM [facility] HORM [address] [place] [address] UPTK/THYR [facility] [place] [address] SLIM SMALLS TROPONIN [address] [place] [address] HOLLY BLOOD 98596 SLIM SMALLS COUNT [address] [place] [address] AUTO&AUTO DIFRNTL WBC BASIC 06046 SLIM SMALLS METABOLIC [address] [place] [address] [place] [address] [facility] [place] RADMANESH ABDOMEN & 6 RADIOLOGY SHA PELVIS W/[place] [address] [facility] [place] JAM ABDOMEN & 6 RADIOLOGY PELVIS W/O CONTRAST MATERIAL RADIOLOGI 34629 [facility] [place] SCALF SHARON C EXAM 6 RADIOLOGY CHEST 2 VIEWS FRONTAL&L ATERAL COLLECTIO 72276 SLIM SMALLS N VENOUS [address] [place] [address] VENIPUNCT URE LIPID 52073 SLIM SMALLS PANEL [address] [place] [address] FIBRIN 11244 SLIM SMALLS DGRADJ [address] [place] [address] D-DIMER QUANTITAT [place]LLY RADIOLOGI 90092 [place] REYNOLDS ALL C EXAM 6 MEDICAL CHEST 2 IMAGING VIEWS ASS FRONTAL&[place] [address] [place] BEINEKE ABDOMEN & 6 MEDICAL PELVIS IMAGING W/O ASS CONTRAST MATERIAL SEDIMENTA 47143 SLIM SMALLS TION RATE 6 [facility] NON-AUTOM ATED CULTURE 37956 SLIM SMALLS BACTERIAL [address] [place] [address] QUANTTATI VE COLONY COUNT URINE RADEX 22188 [place] [place] ANGEL[place] SPINE 6 RADIOLOGY RHO LUMBOSACR AL 2/3 VIEWS C-REACTIV 18761 SLIM SMALLS E PROTEIN [address] [place] [address] RADEX 90200 [facility] [place] AN[place]EL[place] SPINE 6 RADIOLOGY RHO THORACIC 2 VIEWS COLLECTIO 01034 SLIM SMALLS N VENOUS [address] [place] [address] [place] [address] [facility] THYROID [address] [place] [address] NG HORMONE TSH COMPREHEN 26321 SLIM SMALLS SIVE [address] [place] [address] PANEL BLOOD 70019 SLIM SMALLS COUNT [address] [place] [address] AUTO&AUTO DIFRNTL WBC URNLS DIP 67573 [facility] [address] STICK/TAB [facility]PITAL LET REAGENT AUTO MICROSCOP Y INJECTION J0696 PHYSICIAN JENNY 6 S EXPRESS COU CEFTRIAXO CARE NE SODIUM BILL PER 250 MG THERAPEUT 24285 PHYSICIAN JENNY IC 6 S EXPRESS COU PROPHYLAC CARE TIC/DX BILL INJECTION SUBQ/IM URNLS DIP 83371 PHYSICIAN JENNY 6 S EXPRESS COU STICK/TAB CARE LET RGNT BILL AUTO W/O MICROSCOP Y CULTURE 94254 [facility] BCT 6 DIAGNOSTI DIAGNOSTI ISOL&PRSM CS CS PTV ID ISOLATE EA URINE CULTURE 59913 [facility] BACTERIAL 6 DIAGNOSTI DIAGNOSTI CS CS QUANTTATI VE COLONY COUNT URINE RADIOLOGI 81214 [place] REYNOLDS ALL C 6 MEDICAL EXAMINATI IMAGING ON ANKLE ASS 2 VIEWS CULTURE 76008 OSMANY CERON BACTERIAL 5 [facility] INC INC QUANTTATI VE COLONY COUNT URINE URNLS DIP 43430 OSMANY CERON 5 [facility] STICK/TAB INC INC LET REAGENT AUTO MICROSCOP Y 1 25 29152 OSMANY CERON DIHYDROXY 5 [facility] INCLUDES [place] [address] OSMANY CERON LIPASE 5 [facility] INC INC BLOOD 74336 OSMANY CERON COUNT 5 [facility] COMPLETE INC INC AUTO&[place] [address] OSMANY CERON THYROID 5 MEM [facility] STIMULATI [place] [address] OSMANY CERON AMYLASE 5 [facility] INC INC COMPREHEN 40169 OSMANY CERON SIVE 5 [facility] METABOLIC INC INC PANEL ANTIBODY 47518 OSMANY BURLESONOBAC [address] [place] [address] [facility] [place] KOSTEL[place] HEAD/BRAI 5 RADIOLOGY MO N [place] [address] [facility] [place] KOST[place] MAXILLOFA 5 RADIOLOGY MO CIAL W/[place] [address] [facility] [place] ANGELA ABDOMEN & 4 RADIOLOGY RHO PELVIS W/CONTRAS T MATERIAL GENERAL 41881 [employer] HEALTH 4 DIAGNOSTI DIAGNOSTI PANEL CS CS LIPID 47488 [employer] PANEL 4 DIAGNOSTI DIAGNOSTI CS CRTCHS E0114 [employer] UNDARM 4 OTH THAN WOOD PAIR PAD TIP&HNDGR IP RADEX 61970 FADIA FADIA ANKLE 4 LAKISHA LAKISHA COMPLETE MINIMUM 3 VIEWS ANKLE L4350 [employer] CONTROL 4 ORTHOSIS STIRRUP STYL RIGID PREFAB MRI BRAIN 13837 PHYSICIAN BARBARA BRAIN 9 S MARGO STEM W/O SERVICES CONTRAST PSC MATERIAL MRI 15537 PHYSICIAN BARBARA SPINAL 9 S MARGO CANAL SERVICES LUMBAR PSC W/O CONTRAST MATERIAL PSYCHOLOG 40474 PHYSICIAN BRANDIE DOMINGUEZ 9 S FRANCISCA W TESTING SERVICES ADMN BY PSYCHIATRIC TECH ID HR COMPREHEN 26778 LAB RAUL LAB RAUL SIVE 9 [employer]ING PANEL COMPREHEN 44374 SLIM SMALLS SIVE 9 [facility] PANEL RADIOLOGI 84301 [facility] SMALLS C EXAM 9 [facility] CHEST 2 [facility] VIEWS FRONTAL&L [facility] 81856 [facility] DISCHARGE 9 Y OF DAY [place] MANAGEMEN PEDIA T 30 MIN/< COLLECTIO 84381 SLIM SMALLS N VENOUS 9 [facility] BLOOD [facility] VENIPUNCT URE URNLS DIP 62110 [facility] 9 [facility] STICK/TAB HOSPITAL HOSPITAL LET REAGENT AUTO MICROSCOP Y BLOOD 42646 [facility] COUNT 9 [facility] AUTO&AUTO DIFRNTL WBC CT PELVIS 92887 [facility] W/O 9 [facility] CONTRAST [facility] [place] [address] [facility] ABDOMEN 9 [facility] W/O [facility]OSPITAL CONTRAST MATERIAL CULTURE 15230 [facility] BACTERIAL 9 [facility] QUANTTATI VE COLONY COUNT URINE SUBQ 79376 [facility]ITAL 9 Y OF CARE PER [place] E/M PEDIA NORMAL SUBQ 84635 [facility] PLANO 9 Y OF SUKHDEEP CARE PER [facility] E/M PEDIA NORMAL RADIOLOGI 17466 Rosendo SERRANO 9 MEDICAL DOMINIQUE A EXAMINATI SERV ON CHEST FOUNDATIO [place] FRONTAL SUBQ 42350 [facility] PLANO 9 Y OF SUKHDEEP CARE PER [place] DAY E/M PEDIA NORMAL 1ST 16901 [facility] HOSP/MEG 9 Y OF SUKHDEEP NIRAJ PSYCHIATRIC PEDIA CARE PER DAY NML NB ANES IPER 16026 HARJINDER ISLAS ABD 9 MEDICAL DOMINIQUE T W/LAPS SERV TUBAL FOUNDATIO LIGATION/ [place] [address] [place] ZAKIA SURG 9 MEDICAL MAXIMINO, E PATHOLOGY SERV FOUNDATIO GROSS&ASHER ROSCOPIC EXAM VAGINAL 14782 KENNEDI FERNANDO, DELIVERY 9 MEDICAL GISELLE C ONLY SERV W/POSTPAR FOUNDATIO SUSSY CARE URNLS DIP 15193 [facility] LUCIA, 9 JARET-RAMONA MEERA B STICK/TAB ON CLINIC LET RGNT NON-AUTO W/O MICRSCP URNLS DIP 33925 [facility] MUSE 9 JARETALLEN GARVIN, TH STICK/TAB ON CLINIC LET RGNT NON-AUTO W/O MICRSCP TRANSFERA 14036 [facility] SE 9 Y Y ASPARTATE [facility] AMINO AST SGOT TRANSFERA 18749 [facility] SE 9 Y Y ALANINE [facility] [place] [address] [facility] UREA 9 Y Y NITROGEN [facility] QUANTITAT [place] GLUCOSE 14706 [facility] QUANTITAT 9 Y Y HOLLY BLOOD [facility] XCPT REAGENT STRIP LACTATE 45069 [facility] DEHYDROGE 9 Y Y NASE LDH [facility] CREATININ 45401 [facility] E 9 Y Y CLEARANCE [facility] CREATININ 56778 [facility] E BLOOD 9 Y Y [facility] POTASSIUM 62691 [facility] SERUM 9 Y Y PLASMA/WH [facility] OLE BLOOD BLOOD 34820 [facility] COUNT 9 Y Y COMPLETE [facility] [place] [place] [address] [facility] BLOOD/URI 9 Y Y C ACID [facility] PROTEIN 53007 [facility] TOTAL 9 Y Y XCPT [facility] REFRACTOM ETRY URINE URNLS DIP 51700 [facility] MUSE 9 JARETALLEN GARVIN, TH STICK/TAB ON CLINIC LET RGNT NON-AUTO W/O MICRSCP URNLS DIP 04853 [facility] MUSE 9 JIMENA GARVIN, TH STICK/TAB ON CLINIC LET RGNT NON-AUTO W/O MICRSCP URNLS DIP 00784 [facility] MUSE 9 JARETALLEN GARVIN, TH STICK/TAB ON CLINIC LET RGNT NON-AUTO W/O MICRSCP COLLECTIO 65754 [facility] MUSE N VENOUS 9 JARET-DALJohn GARVIN, TH BLOOD ON CLINIC VENIPUNCT URE BLOOD 62566 [facility] UNIVERS COUNT 9 Y Y COMPLETE [facility] AUTOMATED 74260 KENNEDI FERNANDO, NONSTRESS 9 MEDICAL GISELLE C TEST SERV FOUNDATIO 84696 [facility] MONITORIN 9 Y Y G LABOR [facility] PHYS WRITTEN REPORT US PREG 12416 [facility] UTERUS 9 Y Y REAL TIME [facility] F/U TRNSABDL PER FETUS DUP-SCAN 50813 [facility] XTR VEINS 9 Y Y COMPLETE [facility] BILATERAL STUDY ANTIBODY 01399 [facility] SCREEN 9 Y Y RBC [facility] SERUM TECHNIQUE SYPHILIS 35949 [facility] TEST 9 Y Y [facility] NEMAL ANTIBODY QUAL IADNA 36383 [facility] STREPTOCO 9 Y Y CCUS [facility] GROUP B AMPLIFIED PROBE TQ URNLS DIP 16424 [facility] MUSE 9 JARET-DALT BHARATHI, STICK/TAB ON CLINIC LET RGNT NON-AUTO W/O MICRSCP SCR G0145 [facility] CYTOPATH 9 Y Y CERV/VAG [facility] SCR AUTO&MNL RSCR PHYS URNLS DIP 59659 [facility] LUCIA, 9 [facility] B STICK/TAB ON CLINIC LET RGNT NON-AUTO W/O MICRSCP BLOOD 08351 [facility] UNIVERS COUNT 9 Y Y COMPLETE [facility] AUTOMATED IADNA 83917 [facility] NEISSERIA 9 Y Y [facility] GONORRHOE AE AMPLIFIED PROBE TQ IADNA 22183 [facility] CHLAMYDIA 9 Y Y [facility] TRACHOMAT IS AMPLIFIED PROBE TQ GLUCOSE 38180 [facility] POST 9 Y Y GLUCOSE [facility] 29341 KENNEDI FABIOLA, DISCHARGE 9 MEDICAL DARIO DAY SERV Y MANAGEMEN FOUNDATIO T 30 MIN/< DOPPLER 86432 KENNEDI SAGASTUME ECHO 9 MEDICAL RI, IMAN SERV SPECTRAL FOUNDATIO DISPLAY COMPLETE 81597 [place] FERNANDO, NONSTRESS 9 MEDICAL GISELLE C TEST SERV FOUNDATIO US PREG 19468 KENNEDI GIANFERRA UTERUS 9 MEDICAL RI, IMAN REAL TIME SERV F/U FOUNDATIO TRNSABDL PER FETUS 43716 KENNEDI KING, NONSTRESS 9 MEDICAL GISELLE C TEST SERV FOUNDATIO ECG 76613 CARDIOLOG WALTER, ROUTINE 9 Y SANJANA ECG ASSOCIATE W/LEAST S OF 12 LDS SHEVLIN I&R ONLY GROUND A0425 [facility] MILEAGE 9 RBON CO RBON CO PER EMS EMS STATUTE MILE CRITICAL 19515 [facility] [place], [facility] 9 JIL IJEOMA M ILL/INJUR EMERGENCY ED PHYS INC PATIENT INIT 30-[address] [place] [address] [facility] HEAD/BRAI 9 Y OF III, N W/O [facility] W MATERIAL RADIOLOGI 96836 Rosendo DORMAN 9 MEDICAL ROMANA W EXAMINATI SERV ON CHEST FOUNDATIO [place]AL [place] PREG 12505 KENNEDI FARLEY, UTERUS 8 MEDICAL MAGDA F AFTER 1ST SERV TRIMEST FOUNDATIO GESTATION COMPREHEN 23982 [facility] SMALLS SIVE 8 [facility] HOSPITAL PANEL [place] PREG 93533 SLIM SMALLS UTERUS 8 [facility] AFTER [address] [place] [address] HOSPITAL TRIMEST GESTATION COLLECTIO 82087 [facility] SMALLS N VENOUS 8 [facility] [place] [place] [address] [facility] JIMENEZ, 8 RADIOLOGY MARGO UTERUS LIMITED 1/> FETUSES URNLS DIP 20373 SLIM GAYTANTANNERALEX 8 CRITICAL ACCESS HOSPITAL/TAB HOSPITAL HOSPITAL LET REAGENT AUTO MICROSCOP Y BLOOD 05884 SLIM GAYTANTANNERALEX COUNT 8 [facility] AUTO&[place] [address] SLIM GAYTANTANNERALEX LIPASE 8 [facility] THER 07968 SLIM SMALLS PROPH/DX 8 [facility] NJX IV HOSPITAL HOSPITAL PUSH 1ST SBST/DRUG COLLECTIO 95970 SLIM WAYNEON N VENOUS 8 [facility] HOSPITAL VENIPUNCT URE GENERAL 60449 SLIM SMALLS HEALTH 8 [facility] PANEL HOSPITAL HOSPITAL IV NFUS 75081 SLIM SMALLS HYDRATION [facility] HOSPITAL URINE 25795 SLIM SMALLS 8 [facility] TEST [facility]PITAL VISUAL COLOR CMPRSN METHS CULTURE 26554 [facility] SMALLS BACTERIAL 8 [facility] QUANTTATI VE COLONY COUNT URINE COLLECTIO 21639 SLIM SMALLS N VENOUS 8 [facility] [place] [address] [facility] SMALLS AMYLASE 8 [facility] HOSPITAL COMPREHEN 55560 [facility] WAYNE SIVE [address] [place] [address] HOSPITAL PANEL THER 37019 SLIM SMALLS PROPH/DX 8 [facility] HOSPITAL HOSPITAL PUSH 1ST SBST/[place] [address] SLIM SMALLS LIPASE [address] [place] [address] HOSPITAL BLOOD 41988 SLIM SMALLS COUNT [address] [place] [address] HOSPITAL AUTO&AUTO DIFRNTL WBC URNLS DIP 58673 [facility] [address] STICK/TAB HOSPITAL HOSPITAL LET REAGENT AUTO MICROSCOP Y LAPAROSCO 5123 [facility] SMALLS PIC 8 [facility] HOSPITAL ECTOMY BLOOD 95023 SLIM SMALLS COUNT [address] [place] [address] HOSPITAL MCRSCP W/[place] [address] SLIM SAMLLS ABDOMINAL [address] [place] [address] HOSPITAL TIME W/IMAGE LIMITED THER 11713 SLIM ROSANAON PROPH/DX 8 [facility] IV HOSPITAL HOSPITAL PUSH 1ST SBST/DRUG BLOOD 10763 SLIM SMALLS COUNT [address] [place] [address] [place] [address] SLIM SMALLS INFUSION 8 [facility] HOSPITAL INITIAL 31 MIN-1 HR THER 72812 [facility] ROS[facility] PROPH/DX 8 [facility] EA HOSPITAL HOSPITAL SEQL IV PUSH SBST/DRUG COLLECTIO 36430 SLIM SMALLS N VENOUS 8 [facility] VENIPUNCT URE Encounters Encounter Start End Date Code Location Performer Type Date EMERGENCY 99660 [facility] CHESTNUT 7 7 JIL DEPARTMEN EMERGENCY T VISIT PHYS HIGH/URGE NT SEVERITY EMERGENCY 79014 [facility] SWINEY DEPT 7 7 JIL VISIT EMERGENCY HIGH PHYS SEVERITY& THREAT FUNCJ EMERGENCY 54111 [facility] FREDDY DEPT 7 7 JIL VISIT EMERGENCY HIGH PHYS SEVERITY& THREAT FUNCJ EMERGENCY 56642 [facility] PUND 7 7 JIL DEPARTMEN EMERGENCY T VISIT PHYS MODERATE SEVERITY OFFICE 62140 SLIM [facility] OUTPATI 7 7 PHYSICIAN T VISIT PRACTICE 25 L MINUTES EMERGENCY 92419 [facility] ALVARADO 7 7 JIL DEPARTMEN EMERGENCY T VISIT PHYS HIGH/URGE NT SEVERITY EMERGENCY 40365 [facility] OSMANY DEPT 7 7 JIL VISIT EMERGENCY HIGH PHYS SEVERITY& THREAT FUNCJ EMERGENCY 07943 [facility]FFERS DEPT 7 7 PHYSICIAN U VISIT S, PLLC HIGH SEVERITY& THREAT FUNCJ EMERGENCY 88111 OSMANY 7 7 [facility] DEPARTMEN INC T VISIT MODERATE SEVERITY HOSPITAL OSMANY - 7 7 [facility] OUTPATIEN INC T EMERGENCY [address] T VISIT HIGH/URGE NT SEVERITY HOSPITAL [address] OUTPATIEN T EMERGENCY [address] T VISIT LIMITED/M INOR PROB EMERGENCY 02898 OSMANY 7 7 [facility] DEPARTMEN INC T VISIT MODERATE SEVERITY HOSPITAL OSMANY - 7 7 [facility] OUTPATIEN INC T EMERGENCY 86118 [facility] MORRIS 7 7 PHYSICIAN DEPARTMEN S, PLLC T VISIT HIGH/URGE NT SEVERITY EMERGENCY 40036 [facility] VALDIVIA 7 7 PHYSICIAN JR DEPARTMEN S, PLLC T VISIT HIGH/URGE NT SEVERITY HOSPITAL OSMANY - 7 7 [facility] OUTPATIEN INC T EMERGENCY 51551 [facility] CHESTNUT 7 7 JIL DEPARTMEN EMERGENCY T VISIT PHYS HIGH/URGE NT SEVERITY EMERGENCY 24180 [facility] HERNÁNDEZ 7 7 JIL DEPARTMEN EMERGENCY T VISIT PHYS HIGH/URGE NT SEVERITY EMERGENCY 70552 [facility] DEPT 7 7 JIL VISIT EMERGENCY HIGH PHYS SEVERITY& THREAT FUNCJ EMERGENCY 37006 [facility] DEPT 7 7 JIL VISIT EMERGENCY HIGH PHYS SEVERITY& THREAT FUNJ EMERGENCY 92681 [facility] NEGRON DEPT 7 7 PHYSICIAN VISIT S, PLLC HIGH SEVERITY& THREAT FUNCJ EMERGENCY 43776 [facility] EDDIE 7 7 JIL DEPARTMEN EMERGENCY T VISIT PHYS HIGH/URGE NT SEVERITY HOSPITAL SLIM - 7 7 [facility] T OFFICE 59609 [facility] 7 7 PHYSICIAN T VISIT PRACTICE 25 L MINUTES HOSPITAL SLIM - 7 7 [facility] SLIM - 7 7 [facility] OFFICE 73830 [facility] 7 7 PHYSICIAN T VISIT PRACTICE 25 L MINUTES EMERGENCY 96605 OSMANY 7 7 [facility] DEPARTMEN INC T VISIT LOW/MODER SEVERITY EMERGENCY 12478 [facility] NEGRON 7 7 PHYSICIAN DEPARTMEN S, PLLC T VISIT MODERATE SEVERITY HOSPITAL OSMANY - 7 7 [facility]IEN [facility] T EMERGENCY 33392 [facility] DEPT 7 7 JIL VISIT EMERGENCY HIGH PHYS SEVERITY& THREAT FUN EMERGENCY 31704 [facility] CHESTNUT DEPT 7 7 JIL VISIT EMERGENCY HIGH PHYS SEVERITY& THREAT [facility] OSMANY - 7 7 [facility] OUTPATIEN INC T EMERGENCY 36171 [facility] 7 [facility] LOW/MODER SEVERITY EMERGENCY 57724 [facility] RENUSC DEPT 7 7 PHYSICIAN VISIT S, PLLC HIGH SEVERITY& THREAT FUNJ EMERGENCY 74248 [facility] JEFFERS DEPT 7 7 PHYSICIAN U VISIT S, PLLC HIGH SEVERITY& THREAT FUN EMERGENCY 35016 [facility] ELAINE DEPT 6 6 PHYSICIAN VISIT S, PLLC HIGH SEVERITY& THREAT FUN EMERGENCY 30132 [facility] 6 6 [facility] LOW/MODER SEVERITY HOSPITAL OSMANY - 6 6 [facility] T EMERGENCY 91242 [facility] 6 6 PHYSICIAN DEPARTMEN S, PLLC T VISIT MODERATE SEVERITY EMERGENCY 54947 [facility] JOEY II 6 6 JIL [facility] EMERGENCY T VISIT PHYS HIGH/URGE NT SEVERITY EMERGENCY 39103 [facility] SWINEY 6 6 [facility] EMERGENC[facility] T VISIT PHYS MODERATE SEVERITY [facility]OSPITAL [place] - 6 6 COUNT [facility]CLUDES [facility] 71443 [facility] 6 6 [facility] T VISIT HIGH/URGE NT SEVERITY EMERGENCY 78277 [facility] ARNOLD DEPT 6 6 JIL LOBO VISIT EMERGENCY HIGH PHYS SEVERITY& THREAT FUNJ EMERGENCY 21823 [facility] EDDIE DEPT 6 6 JIL SHADE VISIT EMERGENCY HIGH PHYS SEVERITY& THREAT FUNJ EMERGENCY 03244 [facility] ALEX DEPT 6 6 JIL MELINDA VISIT EMERGENCY HIGH PHYSI SEVERITY& THREAT [facility] [place] - 6 6 [facility] T EMERGENCY 33488 [facility] VALDIVIA, 6 6 PHYSICIAN [facility] T VISIT HIGH/URGE NT SEVERITY EMERGENCY 00308 [facility] MORRIS 6 6 PHYSICIAN [facility] T VISIT HIGH/URGE NT SEVERITY EMERGENCY 97160 [facility] ALVARADO 6 6 [facility] T VISIT PHYS HIGH/URGE NT SEVERITY EMERGENCY 14940 [facility] DEPT 6 6 JIL LOBO VISIT EMERGENCY HIGH PHYSI SEVERITY& THREAT [facility] EMERGENCY 50602 [facility] SWINE 6 6 [facility]IL [facility] EMERGENCY T VISIT PHYSI HIGH/URGE NT SEVERITY HOSPITAL [place] - 6 6 [facility] T OFFICE 04485 PHYSICIAN JENNY LIM 6 6 S EXPRESS COU T NEW 45 CARE MINUTES BILL EMERGENCY 39283 [facility] JEFFERS 6 6 [facility]ICIAN [facility] T VISIT HIGH/URGE NT SEVERITY EMERGENCY 00201 [facility] JOEY II 6 6 JIL [facility] EMERGENCY T VISIT PHYS HIGH/URGE NT SEVERITY EMERGENCY 44230 [facility] JOEY II 5 5 [facility] EMERGENCY T VISIT PHYS MODERATE SEVERITY EMERGENCY 11418 [facility] NWAUCHE 5 5 JIL [facility] EMERGENCY T VISIT PHYS HIGH/URGE NT SEVERITY EMERGENCY 99847 OSMANY 5 5 MEM [facility] DEPARTMEN INC T VISIT MODERATE SEVERITY [facility]OSP[facility] OSMANY - 5 5 [facility] OUTPATIEN [facility] T OFFICE 35370 KAMILA GONZÁLESPATIEN 5 5 [facility] T NEW 30 URGENT MINUTES TREAT EMERGENCY 39390 [facility] 5 5 JIL DEPARTMEN EMERGENCY T VISIT PHYS HIGH/URGE NT SEVERITY EMERGENCY 66981 [facility] SWINEY 5 5 JIL PAT DEPARTMEN EMERGENCY T VISIT PHYS HIGH/URGE NT SEVERITY HOSPITAL OSMANY - 5 5 [facility] T EMER[facility] 37514 [facility] JOEY II 5 5 JIL THO DEPARTMEN EMERGENCY T VISIT PHYS HIGH/URGE NT SEVERITY EMERGENCY 72260 [facility] SOKAN BAB 4 4 JIL DEPARTMEN EMERGENCY T VISIT PHYS MODERATE SEVERITY EMERGENCY 84445 [facility] 4 4 JIL VISIT EMERGENCY HIGH PHYS SEVERITY& THREAT FUNCJ EMERGENCY 45442 [facility] JOEY II 4 4 JIL THO DEPARTMEN EMERGENCY T VISIT PHYS MODERATE SEVERITY EMERGENCY 96386 [facility] SOKAN BAB 4 4 JIL DEPARTMEN EMERGENCY T VISIT PHYS MODERATE SEVERITY EMERGENCY 52308 [facility] JOEY II 4 4 JIL THO DEPARTMEN EMERGENCY T VISIT PHYS MODERATE SEVERITY EMERGENCY 91300 ARTURO MORRIS 4 4 ASHER ASHER DEPARTMEN T VISIT HIGH/URGE NT SEVERITY EMERGENCY 43668 ISAI ALEX 4 4 MELINDA MELINDA DEPARTMEN T VISIT MODERATE SEVERITY EMERGENCY 39446 [facility] NWAUCHE 4 4 JIL UGW DEPARTMEN EMERGENCY T VISIT PHYS HIGH/URGE NT SEVERITY EMERGENCY 03279 JOEY II JOEY II 4 4 THO THO DEPARTMEN T VISIT HIGH/URGE NT SEVERITY EMERGENCY 49980 [facility] SON BAB 4 4 DEPARTMEN T VISIT MODERATE SEVERITY EMERGENCY 24912 CELLAR[facility]I CELLAROSI DEPT 4 4 - YORBA - YORBA VISIT PAT PAT HIGH SEVERITY& THREAT FUNCJ EMERGENCY 87426 ISAI ALEX 4 4 MELINDA MELINDA DEPARTMEN T VISIT MODERATE SEVERITY EMERGENCY 43935 [facility]LL[facility] MACEDO 4 4 III [facility] MODERATE SEVERITY EMERGENCY 92998 JAZNgozi COURTNEY JAZNgozi BAB DEPT 4 4 VISIT HIGH SEVERITY& THREAT FUNCJ EMERGENCY 78020 JOEY II JOEY II [address] MODERATE SEVERITY OFFICE 00384 [facility] 9 9 [facility] T [facility]ISIT E CENTER 15 MINUTES HOSPITAL [facility] - 9 9 [facility] 02055 [facility] 9 9 [facility] T VISIT LOW/MODER SEVERITY EMERGENCY 05100 [facility], 9 9 JIL Anna Fields [facility] EMERGENCY T VISIT PHYS INC MODERATE SEVERITY EMERGENCY 69937 [facility], 9 9 JIL IJEOMA Farah [facility] EMERGENCY T VISIT PHYS INC HIGH/URGE NT SEVERITY EMERGENCY 53696 [facility] JOEY, T 9 9 JIL [facility] EMERGENCY T VISIT PHYS INC MODERATE SEVERITY OFFICE 84487 PHYSICIAN RAPHAEL DOMINGUEZ 9 9 S FRANCISCA Lopez NEW 30 SERVICES MINUTES PSC OFFICE 10035 [facility] [address] [facility], T VISIT E CENTER JUAN PABLO D 15 MINUTES EMERGENCY 15075 [facility] 9 9 [facility] T VISIT LOW/MODER SEVERITY [facility] - 9 9 [facility] T EMERGENCY 37340 [facility] JOEY, T 9 9 JIL [facility] EMERGENCY T VISIT PHYS INC HIGH/URGE NT SEVERITY OFFICE 12864 [facility] LUCIA OUTPATIEN 9 9 JARET-DALT EMERA B T VISIT ON CLINIC 15 MINUTES OFFICE 78818 [facility] HIGH OUTPATIEN 9 9 JARET-DALT MASTER, T VISIT 5 ON CLINIC MONIQUE MINUTES OFFICE 58400 [facility] MUSE OUTPATIEN 9 9 JARET-RAMONA DIAMONDNE, TH T VISIT ON CLINIC MD 15 MINUTES HOSPITAL [facility] - 9 9 [facility] T OFFICE 78515 [facility] 9 9 [facility] T VIS[facility] ON CLINIC MD 15 MINUTES OFFICE 31574 [facility] MUSE OUTPATIEN 9 9 JARET-RAMONA DIAMONDNE, TH T VISIT ON CLINIC MD 15 MINUTES OFFICE 28408 [facility] 9 9 [facility] T VISIT ON CLINIC MD 15 MINUTES HOSPITAL [facility] - 9 9 Y [facility] T OFFICE 46693 STEPHANIE BARCENAS 9 9 MEDICAL [place] A ION SERV NEW/ESTAB FOUNDATIO PATIENT 40 MIN OFFICE 35778 [facility], OUTPATIEN 9 9 AYALA CAI D T NEW 30 MINUTES OFFICE 35372 [facility] MUSE OUTPATIEN 9 9 JARETALLEN GARVIN, T VISIT ON CLINIC 15 MINUTES OFFICE 71660 [facility]UCIA, OUTPATIEN 9 9 JARET-TRINO MEERA B T VISIT ON CLINIC 15 MINUTES HOSPITAL UNIVERSIT - 9 9 Y [facility] T EMERGENCY 76410 KENNEDI TERRY, DEPT 9 9 MEDICAL LINK L VISIT SERV HIGH FOUNDATIO SEVERITY& THREAT [facility] UNIVERSIT - 9 9 Y INPATIENT HOSPITAL EMERGENCY 16695 [facility] 9 9 [facility] T VISIT PHYS INC HIGH/URGE NT SEVERITY [facility] - 8 8 [facility] [place] [facility] 8 8 [facility] T EMERGENC[facility] 65530 [place] 8 8 [facility] H[facility] T VISIT LOW/MODER SEVERITY HOSPITAL [place] - 8 8 [facility] T EMERGENC[facility] 43073 [place] 8 8 [facility] [place] [facility] 8 8 [facility] T OFFICE 52646 [facility] 8 8 [facility] T VISIT [facility]TR[facility] BANK [facility]ERGENC[facility] 16276 [place] 8 8 [facility] H[facility] T VISIT MODERATE SEVERITY HOSPITAL [place] - 8 8 [facility] T EMERGENCY 11776 [place] 8 8 [facility] [place] - 8 8 [facility] HOSPITAL [place] - 8 8 COUNT INCLUDES [facility]IENT HOS[facility] HOSPITAL [place] - 8 8 [facility] T EMERGENCY 98074 [place] 8 8 [facility] T VISIT MODERATE SEVERITY
[2016-12-09 12:30] LABS: BUN 9 mg/dL (7-18); GFR (ESTIMATED) 80 ML/MIN (59-)
--- OUTSIDE RECORDS SUMMARY | 2016-12-09 12:32 | External Medical Summary Rpt | CCD ---
Author Author , FABRIZIO DINH Address Unknown Phone [email or web address] Review Source Immunization Name Date Rout CVX Reac Dose Comm Prov Is Faci e tion ent ider Refu lity Give sed n Td 03-0 9 999 Hist H109 No H109 (rosa 5-19 oric lt), 97 al Info adso rmat rbed ion - Sour ce Unsp ecif ied
--- OUTSIDE RECORDS SUMMARY | 2016-12-09 12:32 | External Medical Summary Rpt | CCD ---
Author Author , FABRIZIO DINH Address Unknown Phone [email or web address] Immunization Name Date Rout CVX Reac Dose Comm Prov Is Faci e tion ent ider Refu lity Give sed n Td 03-0 9 999 Hist H109 No H109 (rosa 5-19 oric lt), 97 al Info adso rmat rbed ion - Sour ce Unsp ecif ied
--- OUTSIDE RECORDS SUMMARY | 2016-12-09 12:33 | External Medical Summary Rpt ---
Author Author [employer], [employer] Organization [employer] Address Unknown Phone Unavailable Results CBC W Auto Differential panel in Blood Observa Value Referen Units Interpr Notes Date tion ce etation Range Basophils 0 - 0.2 K/MM3 Normal No Sep 13 informati 2016 4:40 [#/volume on in PM ] in source Blood by data Automated count Basophils 0.1 - 2.0 % Normal No Sep 13 / informati 2016 4:40 leukocyte on in PM s in source Blood by data Automated count Eosinophi 0.0 - 0.4 K/mm3 Normal No Sep 13 ls informati 2016 4:40 [#/volume on in PM ] in source Blood by data Automated count Eosinophi 0.1 - % Normal No Sep 13 ls/100 12.0 informati 2016 4:40 leukocyte on in PM s in source Blood by data Automated count Granulocy 1.8 - 7.8 K/mm3 High No Sep 13 liam informati 2017 4:40 [#/volume on in PM ] in source Blood by data Automated count Granulocy 37.0 - % Normal No Sep 13 liam/100 80.0 informati 2016 4:40 leukocyte on in PM s in source Blood by data Automated count Hematocri 37.0 - % Normal No Sep 13 t [Volume 47.0 informati 2016 4:40 on in PM Fraction] source of Blood data Hemoglobi 12.2 - g/dL Normal No Sep 13 n 16.2 informati 2016 4:40 [Mass/vol on in PM ume] in source Blood data Lymphocyt 0.7 - 4.5 K/mm3 Normal No Sep 13 es informati 2016 4:40 [#/volume on in PM ] in source Unspecifi data ed specimen by Automated count Lymphocyt 10 - 50.0 % Normal No Sep 13 es informati 2016 4:40 [#/volume on in PM ] in source Unspecifi data ed specimen by Automated count Erythrocy 27 - 31.2 pg Normal No Sep 13 te mean informati 2016 4:40 corpuscul on in PM ar source hemoglobi data n [Entitic mass] Erythrocy 31.8 - g/dl Normal No Sep 13 te mean 35.4 informati 2016 4:40 corpuscul on in PM ar source hemoglobi data n concentra tion [Mass/vol ume] by Automated count Erythrocy 82.2 - fl Normal No Sep 13 te mean 97.8 informati 2016 4:40 corpuscul on in PM ar volume source [Entitic data volume] by Automated count Monocytes 0.1 - 1.0 K/mm3 Normal No Sep 13 informati 2016 4:40 [#/volume on in PM ] in source Blood by data Automated count Monocytes 1.7 - 9.3 % Normal No Sep 13 informati 2016 4:40 leukocyte on in PM s in source Blood by data Automated count Platelet 7.4 - fl Low No Sep 13 mean 10.4 informati 2016 4:40 volume on in PM [Entitic source volume] data in Blood by Automated count Platelets 142 - 424 K/mm3 Normal No Sep 13 informati 2016 4:40 [#/volume on in PM ] in source Blood data Erythrocy 4.2 - 5.4 M/mm3 Normal No Sep 13 liam informati 2016 4:40 [#/volume on in PM ] in source Amniotic data fluid Erythrocy 11.5 - % Normal No Sep 13 te 17.5 informati 2016 4:40 distribut on in PM ion width source [Entitic data volume] by Automated count Leukocyte 4.8 - K/MM3 High No Sep 13 s 10.8 informati 2016 4:40 [#/volume on in PM ] in source Blood data CBC W Auto Differential panel in Blood Observa Value Referen Units Interpr Notes Date tion ce etation Range Basophils 0 - 0.2 K/MM3 Normal No Sep 06ati 2016 [#/volume on in 11:43 AM ] in source Blood by data Automated count Basophils 0.1 - 2.0 % Normal No Sep 06 informati 2016 leukocyte on in 11:43 AM s in source Blood by data Automated count Eosinophi 0.0 - 0.4 K/mm3 Normal No Sep 06 ls informati 2016 [#/volume on in 11:43 AM ] in source Blood by data Automated count Eosinophi 0.1 - % Normal No Sep 06 ls/100 12.0 informati 2016 leukocyte on in 11:43 AM s in source Blood by data Automated count Granulocy 1.8 - 7.8 K/mm3 Normal No Sep 06 liam inform2016 [#/volume on in 11:43 AM ] in source Blood by data Automated count Granulocy 37.0 - % Normal No Sep 06 liam/100 80.0 inform2016 leukocyte on in 11:43 AM s in source Blood by data Automated count Hematocri 37.0 - % High No Sep 06 t [Volume 47.0 informati 2016 on in 11:43 AM Fraction] source of Blood data Hemoglobi 12.2 - g/dL Normal No Sep 06 n 16.2 informati 2016 [Mass/vol on in 11:43 AM ume] in source Blood data Lymphocyt 0.7 - 4.5 K/mm3 Normal No Sep 06 es inform2016 [#/volume on in 11:43 AM ] in source Unspecifi data ed specimen by Automated count Lymphocyt 10 - 50.0 % Normal No Sep 06 es 2016 [#/volume on in 11:43 AM ] in source Unspecifi data ed specimen by Automated count Erythrocy 27 - 31.2 pg Normal No Sep 06 te mean 2016 corpuscul on in 11:43 AM ar source hemoglobi data n [Entitic mass] Erythrocy 31.8 - g/dl Normal No Sep 06 te mean 35.4 2016 corpuscul on in 11:43 AM ar source hemoglobi data n concentra tion [Mass/vol ume] by Automated count Erythrocy 82.2 - fl Normal No Sep 06 te mean 97.8 2016 corpuscul on in 11:43 AM ar volume source [Entitic data volume] by Automated count Monocytes 0.1 - 1.0 K/mm3 Normal No Sep 062016 [#/volume on in 11:43 AM ] in source Blood by data Automated count Monocytes 1.7 - 9.3 % Normal No Sep 06 /100 inform2016 leukocyte on in 11:43 AM s in source Blood by data Automated count Platelet 7.4 - fl Low No Sep 06 mean 10.4 informati 2016 volume on in 11:43 AM [Entitic source volume] data in Blood by Automated count Platelets 142 - 424 K/mm3 Normal No Sep 06 inform2016 [#/volume on in 11:43 AM ] in source Blood data Erythrocy 4.2 - 5.4 M/mm3 Normal No Sep 06 liam inform2016 [#/volume on in 11:43 AM ] in source Amniotic data fluid Erythrocy 11.5 - % Normal No Sep 06 te 17.5 informati 2016 distribut on in 11:43 AM ion width source [Entitic data volume] by Automated count Leukocyte 4.8 - K/MM3 Normal No Sep 06 s 10.8 informati 2016 [#/volume on in 11:43 AM ] in source Blood data Erythrocyte sedimentation rate by Westergren method Observa Value Referen Units Interpr Notes Date tion ce etation Range Erythrocy 0 - 20 mm/hr High No Sep 06 te inform2016 sedimenta on in 11:43 AM tion rate source by data Westergre n method Amylase [Enzymatic activity/volume] in Serum or Plasma Observa Value Referen Units Interpr Notes Date tion ce etation Range Amylase 25 - 115 U/L High No Sep 06 [Enzymati informati 2017 c on in 11:43 AM activity/ source volume] data in Serum or Plasma Comprehensive metabolic 2000 panel in Serum or Plasma Observa Value Referen Units Interpr Notes Date tion ce etation Range Albumin/G 1.1 - 1.8 No Low No Sep 06 lobulin informati informati 2016 [Mass on in on in 11:43 AM ratio] in source source Serum or data data Plasma Albumin 3.4 - 5.0 gm/dL Normal No Sep 06 [Mass/vol informati 2016 ume] in on in 11:43 AM Serum or source Plasma data Alkaline 46 - 116 U/L High No Sep 06 phosphata informati 2016 se on in 11:43 AM [Enzymati source c data activity/ volume] in Serum or Plasma Bilirubin 0.2 - 1.0 mg/dL Normal No Sep 06 .total informati 2016 [Mass/vol on in 11:43 AM ume] in source Serum or data Plasma Urea 7 - 18 mg/dL Normal No Sep 06 nitrogen informati 2016 [Mass/vol on in 11:43 AM ume] in source Serum or data Plasma Calcium 8.5 - mg/dL Normal No Sep 06 [Mass/vol 10.1 informati 2016 ume] in on in 11:43 AM Serum or source Plasma data Chloride 98 - 107 mmoL/L Normal No Sep 06 [Moles/vo informati 2017 lume] in on in 11:43 AM Serum or source Plasma data Carbon 21.0 - mmoL/L Normal No Sep 06 dioxide, 32.0 informati 2016 total on in 11:43 AM [Moles/vo source lume] in data Serum or Plasma Creatinin 0.55 - mg/dL Normal No Sep 06 e 1.02 informati 2016 [Mass/vol on in 11:43 AM ume] in source Serum or data Plasma Creatinin 50 - 200 ML/MIN Normal No Sep 06 e renal informati 2017 clearance on in 11:43 AM source predicted data by Cockcroft -Gault formula Estimated 59- ML/MIN No REFERENCE Sep 06 informati RANGE: 2017 glomerula on in >60 11:43 AM r source ML/MIN/1. filtratio data 73 SQUARE n rate METERSIf (GF this patient is -A merican, then multiply theresult by 1.210. Globulin 1.3 - 3.2 gm/dL High No Sep 06 [Mass/vol informati 2016 ume] in on in 11:43 AM Serum source data Glucose 74 - 106 mg/dL High No Sep 06 [Mass/vol informati 2016 ume] in on in 11:43 AM Serum or source Plasma data Potassium 3.5 - 5.1 mmoL/L Normal No Sep 06 inform2016 [Moles/vo on in 11:43 AM lume] in source Serum or data Plasma Sodium 136 - 145 mmoL/L Normal No Sep 06 [Moles/vo informati 2017 lume] in on in 11:43 AM Serum or source Plasma data Aspartate 15 - 37 U/L Normal No Sep 06 inform2016 aminotran on in 11:43 AM sferase source [Enzymati data c activity/ volume] in Serum or Plasma Alanine 12 - 78 U/L Normal No Sep 06 aminotran informati 2016 sferase on in 11:43 AM [Enzymati source c data activity/ volume] in Serum or Plasma Protein 6.4 - 8.2 gm/dL High No Sep 06 [Mass/vol informati 2016 ume] in on in 11:43 AM Serum or source Plasma data Lipase [Enzymatic activity/volume] in Serum or Plasma Observa Value Referen Units Interpr Notes Date tion ce etation Range Lipase 73 - 393 U/L Normal No Sep 06 [Enzymati informati 2017 c on in 11:43 AM activity/ source volume] data in Serum or Plasma Urinalysis dipstick W Reflex Microscopic panel in Urine Observa Value Referen Units Interpr Notes Date tion ce etation Range Appeara SL CLEAR No No No Sep 06 nce of CLOUDY informa informa informa 2016 Urine tion in tion in tion in 11:37 source source source AM data data data Bacteri 2+ O No No No Sep 06 a informa informa informa 2016 [Presen tion in tion in tion in 11:37 ce] in source source source AM Urine data data data sedimen t by Light microsc opy Bilirub NEGATIV NEG No No No Sep 06 in E informa informa informa 2016 [Presen tion in tion in tion in 11:37 ce] in source source source AM Urine data data data by Test strip Erythro NEGATIV NEG No No No Sep 06 cytes E informa informa informa 2016 [Presen tion in tion in tion in 11:37 ce] in source source source AM Urine data data data Color DK YELLOW No No No Sep 06 of YELLOW informa informa informa 2016 Urine tion in tion in tion in 11:37 source source source AM data data data Glucose NEG No No No Sep 06 [Mass/vol informati informati informati 2016 ume] in on in on in on in 11:37 AM Urine by source source source Test data data data strip Ketones TRACE NEG mg/dL Abnorma No Sep 06 l informa 2016 [Presen tion in 11:37 ce] in source AM Urine data by Automat ed test strip Mucus TRACE NEG No Abnorma No Sep 06 [Presen informa l informa 2016 ce] in tion in tion in 11:37 Urine source source AM sedimen data data t by Light microsc opy Nitrite NEGATIV NEG No No No Sep 06 E informa informa informa 2016 [Presen tion in tion in tion in 11:37 ce] in source source source AM Urine data data data by Test strip pH of 5.0 - 8.5 No Normal No Sep 06 Urine informati informati 2016 on in on in 11:37 AM source source data data Protein NEG mg/dL No No Sep 06 [Mass/vol informati informati 2017 ume] in on in on in 11:37 AM Urine by source source Automated data data test strip Specific 1.005 - No Normal No Sep 06 gravity 1.030 informati informati 2016 of Urine on in on in 11:37 AM source source data data Epithel 10-20 0 - 5 #/hpf No No Sep 06 ial informa informa 2017 cells.s tion in tion in 11:37 quamous source source AM data data [Presen ce] in Urine sedimen t by Microsc opy high power field Urobili 0.2 NEG E.U./dL No No Sep 06 nogen informa informa 2016 [Presen tion in tion in 11:37 ce] in source source AM Urine data data by Test strip Leukocy [5 O wbc/hpf No No Sep 06 liam wbc/hpf informa informa 2016 [#/volu ; 10 tion in tion in 11:37 me] in wbc/hpf source source AM Urine ] data data Urinalysis dipstick W Reflex Microscopic panel in Urine Observa Value Referen Units Interpr Notes Date tion ce etation Range Appeara SL CLEAR No No No Sep 06 nce of CLOUDY informa informa informa 2016 Urine tion in tion in tion in 11:37 source source source AM data data data Bilirub NEGATIV NEG No No No Sep 06 in E informa informa informa 2016 [Presen tion in tion in tion in 11:37 ce] in source source source AM Urine data data data by Test strip Erythro NEGATIV NEG No No No Sep 06 cytes E informa informa informa 2016 [Presen tion in tion in tion in 11:37 ce] in source source source AM Urine data data data Color DK YELLOW No No No Sep 06 of YELLOW informa informa informa 2017 Urine tion in tion in tion in 11:37 source source source AM data data data Glucose NEG No No No Sep 06 [Mass/vol informati informati informati 2016 ume] in on in on in on in 11:37 AM Urine by source source source Test data data data strip Ketones TRACE NEG mg/dL Abnorma No Sep 06 l informa 2016 [Presen tion in 11:37 ce] in source AM Urine data by Automat ed test strip Mucus TRACE NEG No Abnorma No Sep 06 [Presen informa l informa 2017 ce] in tion in tion in 11:37 Urine source source AM sedimen data data t by Light microsc opy Nitrite NEGATIV NEG No No No Sep 06 E informa informa informa 2016 [Presen tion in tion in tion in 11:37 ce] in source source source AM Urine data data data by Test strip pH of 5.0 - 8.5 No Normal No Sep 06 Urine informati informati 2017 on in on in 11:37 AM source source data data Protein NEG mg/dL No No Sep 06 [Mass/vol informati informati 2017 ume] in on in on in 11:37 AM Urine by source source Automated data data test strip Specific 1.005 - No Normal No Sep 06 gravity 1.030 informati informati 2016 of Urine on in on in 11:37 AM source source data data Urobili 0.2 NEG E.U./dL No No Sep 06 nogen informa informa 2016 [Presen tion in tion in 11:37 ce] in source source AM Urine data data by Test strip DIARRHEA PANEL,PCR Observa Value Referen Units Interpr Notes Date tion ce etation Range Adenovi NOT NOT No No No Aug 30 amparo DETECTE DETECTE informa informa informa 2017 40+41 D tion in tion in tion in 6:50 PM Ag source source source [Presen data data data ce] in Stool Aeromon NOT NOT No No No Aug 30 as DETECTE DETECTE informa informa informa 2017 salmoni D tion in tion in tion in 6:50 PM trinity source source source [Presen data data data ce] in Unspeci fied specime n Astrovi NOT NOT No No No Aug 30 amparo DETECTE DETECTE informa informa informa 2016 [Presen D tion in tion in tion in 6:50 PM ce] in source source source Stool data data data by Electro n microsc opy Campylo NOT NOT No No No Aug 30 bacter DETECTE DETECTE informa informa informa 2017 sp Ab D tion in tion in tion in 6:50 PM [Presen source source source ce] in data data data Serum Clostri NOT NOT No No No Aug 30 dium DETECTE DETECTE informa informa informa 2017 diffici D tion in tion in tion in 6:50 PM le source source source toxin data data data A+B [Presen ce] in Stool Cryptos NOT NOT No No No Aug 30 poridiu DETECTE DETECTE informa informa informa 2017 m sp Ag D tion in tion in tion in 6:50 PM source source source [Presen data data data ce] in Unspeci fied specime n Cyclosp NOT NOT No No No Aug 30 ora DETECTE DETECTE informa informa informa 2017 cayetan D tion in tion in tion in 6:50 PM arvin source source source [Presen data data data ce] in Unspeci fied specime n Escheri NOT NOT No No No Aug 30 marie DETECTE DETECTE informa informa informa 2017 coli D tion in tion in tion in 6:50 PM [Presen source source source ce] in data data data Unspeci fied specime n by Culture FDA method Escheri NOT NOT No No No Aug 30 marie DETECTE DETECTE informa informa informa 2017 coli D tion in tion in tion in 6:50 PM [Presen source source source ce] in data data data Unspeci fied specime n by Culture FDA method Escheri NOT NOT No No No Aug 30 amrie DETECTE DETECTE informa informa informa 2017 coli D tion in tion in tion in 6:50 PM Shiga-l source source source freddy data data data toxin 1 assa Escheri NOT NOT No No No Aug 30 marie DETECTE DETECTE informa informa informa 2017 coli D tion in tion in tion in 6:50 PM [id number] source source source data data data [Presen ce] in Stool by Organis m specifi c culture Entamoe NOT NOT No No No Aug 30 ba DETECTE DETECTE informa informa informa 2017 histoly D tion in tion in tion in 6:50 PM alexander source source source [Presen data data data ce] in Stool by Trichro me stain Giardia NOT NOT No No No Aug 30 DETECTE DETECTE informa informa informa 2017 lamblia D tion in tion in tion in 6:50 PM Ag source source source [Presen data data data ce] in Stool Norovir NOT NOT No No No Aug 30 us Ag DETECTE DETECTE informa informa informa 2017 [Presen D tion in tion in tion in 6:50 PM ce] in source source source Stool data data data Stool NOT NOT No No No Aug 30 Plesiom DETECTE DETECTE informa informa informa 2017 onas D tion in tion in tion in 6:50 PM shigell source source source oides data data data DNA detec Rotavir NOT NOT No No No Aug 30 us RNA DETECTE DETECTE informa informa informa 2017 detecti D tion in tion in tion in 6:50 PM on by source source source probe data data data and tar Salmone NOT NOT No No No Aug 30 lla sp DETECTE DETECTE informa informa informa 2017 DNA D tion in tion in tion in 6:50 PM [Identi source source source fier] data data data in Unspeci fied specime n by Probe & target amplifi cation method Caliciv NOT NOT No No No Aug 30 irus DETECTE DETECTE informa informa informa 2016 [Identi D tion in tion in tion in 6:50 PM fier] source source source in data data data Stool by Electro n microsc opy Escheri NOT NOT No No No Aug 30 marie DETECTE DETECTE informa informa informa 2016 coli D tion in tion in tion in 6:50 PM [Presen source source source ce] in data data data Unspeci fied specime n by Culture FDA method Escheri NOT NOT No No No Aug 30 marie DETECTE DETECTE informa informa informa 2017 coli D tion in tion in tion in 6:50 PM SXT source source source gene+H7 data data data gene [Identi fier] in Unspeci fied specime n by Probe & target amplifi cation method Vibrio NOT NOT No No No Aug 30 cholera DETECTE DETECTE informa informa informa 2017 e DNA D tion in tion in tion in 6:50 PM [Presen source source source ce] in data data data Unspeci fied specime n by Probe & target amplifi cation method Vibrio NOT NOT No No No Aug 30 sp DNA DETECTE DETECTE informa informa informa 2017 [Identi D tion in tion in tion in 6:50 PM fier] source source source in data data data Unspeci fied specime n by Probe & target amplifi cation method Vibrio NOT NOT No No No Aug 30 sp DETECTE DETECTE informa informa informa 2017 identif D tion in tion in tion in 6:50 PM ied in source source source Stool data data data by Organis m specifi c culture Urinalysis dipstick W Reflex Microscopic panel in Urine Observa Value Referen Units Interpr Notes Date tion ce etation Range Appeara CLEAR CLEAR No No No Aug 30 nce of informa informa informa 2017 Urine tion in tion in tion in 6:50 PM source source source data data data Bacteri 4+ O No No No Aug 30 a informa informa informa 2016 [Presen tion in tion in tion in 6:50 PM ce] in source source source Urine data data data sedimen t by Light microsc opy Bilirub NEGATIV NEG No No No Aug 30 in E informa informa informa 2016 [Presen tion in tion in tion in 6:50 PM ce] in source source source Urine data data data by Test strip Erythro NEGATIV NEG No No No Aug 30 cytes E informa informa informa 2016 [Presen tion in tion in tion in 6:50 PM ce] in source source source Urine data data data Color YELLOW YELLOW No No No Aug 30 of informa informa informa 2016 Urine tion in tion in tion in 6:50 PM source source source data data data Glucose NEG No No No Aug 30 [Mass/vol informati informati informati 2016 6:50 ume] in on in on in on in PM Urine by source source source Test data data data strip Ketones NEGATIV NEG mg/dL No No Aug 30 E informa informa 2016 [Presen tion in tion in 6:50 PM ce] in source source Urine data data by Automat ed test strip Mucus NEGATIV NEG No No No Aug 30 [Presen E informa informa informa 2016 ce] in tion in tion in tion in 6:50 PM Urine source source source sedimen data data data t by Light microsc opy Nitrite NEGATIV NEG No No No Aug 30 E informa informa informa 2016 [Presen tion in tion in tion in 6:50 PM ce] in source source source Urine data data data by Test strip pH of 5.0 - 8.5 No Normal No Aug 30 Urine informati informati 2017 6:50 on in on in PM source source data data Protein NEG mg/dL No No Aug 30 [Mass/vol informati informati 2017 6:50 ume] in on in on in PM Urine by source source Automated data data test strip Erythro NONE 0 rbc/hpf No No Aug 30 cytes informa informa 2016 [Presen tion in tion in 6:50 PM ce] in source source Urine data data sedimen t by Light microsc opy Specific 1.005 - No Normal No Aug 30 gravity 1.030 informati informati 2016 6:50 of Urine on in on in PM source source data data Epithel 10-20 0 - 5 #/hpf No No Aug 30 ial informa informa 2017 cells.s tion in tion in 6:50 PM quamous source source data data [Presen ce] in Urine sedimen t by Microsc opy high power field Urobili 0.2 NEG E.U./dL No No Aug 30 nogen informa informa 2016 [Presen tion in tion in 6:50 PM ce] in source source Urine data data by Test strip Leukocyte O wbc/hpf No No Aug 30 s informati informati 2017 6:50 [#/volume on in on in PM ] in source source Urine data data Urinalysis dipstick W Reflex Microscopic panel in Urine Observa Value Referen Units Interpr Notes Date tion ce etation Range Appeara CLEAR CLEAR No No No Aug 30 nce of informa informa informa 2017 Urine tion in tion in tion in 6:50 PM source source source data data data Bilirub NEGATIV NEG No No No Aug 30 in E informa informa informa 2016 [Presen tion in tion in tion in 6:50 PM ce] in source source source Urine data data data by Test strip Erythro NEGATIV NEG No No No Aug 30 cytes E informa informa informa 2016 [Presen tion in tion in tion in 6:50 PM ce] in source source source Urine data data data Color YELLOW YELLOW No No No Aug 30 of informa informa informa 2017 Urine tion in tion in tion in 6:50 PM source source source data data data Glucose NEG No No No Aug 30 [Mass/vol informati informati informati 2016 6:50 ume] in on in on in on in PM Urine by source source source Test data data data strip Ketones NEGATIV NEG mg/dL No No Aug 30 E informa informa 2016 [Presen tion in tion in 6:50 PM ce] in source source Urine data data by Automat ed test strip Mucus NEGATIV NEG No No No Aug 30 [Presen E informa informa informa 2016 ce] in tion in tion in tion in 6:50 PM Urine source source source sedimen data data data t by Light microsc opy Nitrite NEGATIV NEG No No No Aug 30 E informa informa informa 2016 [Presen tion in tion in tion in 6:50 PM ce] in source source source Urine data data data by Test strip pH of 5.0 - 8.5 No Normal No Aug 30 Urine informati informati 2016 6:50 on in on in PM source source data data Protein NEG mg/dL No No Aug 30 [Mass/vol informati informati 2016 6:50 ume] in on in on in PM Urine by source source Automated data data test strip Specific 1.005 - No Normal No Aug 30 gravity 1.030 informati informati 2016 6:50 of Urine on in on in PM source source data data Urobili 0.2 NEG E.U./dL No No Aug 30 nogen informa informa 2016 [Presen tion in tion in 6:50 PM ce] in source source Urine data data by Test strip Hemoglobin.gastrointestinal [Presence] in Stool Observa Value Referen Units Interpr Notes Date tion ce etation Range Hemoglo NEGATIV NEG No No No Aug 30 bin.gas E informa informa informa 2016 trointe tion in tion in tion in 6:50 PM stinal source source source [Presen data data data ce] in Stool --1st specime n CBC W Auto Differential panel in Blood Observa Value Referen Units Interpr Notes Date tion ce etation Range Basophils 0 - 0.2 K/MM3 Normal No Aug 30 informati 2016 6:25 [#/volume on in PM ] in source Blood by data Automated count Basophils 0.1 - 2.0 % Normal No Aug 30 informati 2016 6:25 leukocyte on in PM s in source Blood by data Automated count Eosinophi 0.0 - 0.4 K/mm3 Normal No Aug 30 ls informati 2016 6:25 [#/volume on in PM ] in source Blood by data Automated count Eosinophi 0.1 - % Normal No Aug 30 ls/100 12.0 informati 2017 6:25 leukocyte on in PM s in source Blood by data Automated count Granulocy 1.8 - 7.8 K/mm3 High No Aug 30 liam informati 2016 6:25 [#/volume on in PM ] in source Blood by data Automated count Granulocy 37.0 - % Normal No Aug 30 liam/100 80.0 informati 2016 6:25 leukocyte on in PM s in source Blood by data Automated count Hematocri 37.0 - % Normal No Aug 30 t [Volume 47.0 informati 2016 6:25 on in PM Fraction] source of Blood data Hemoglobi 12.2 - g/dL Normal No Aug 30 n 16.2 informati 2016 6:25 [Mass/vol on in PM ume] in source Blood data Lymphocyt 0.7 - 4.5 K/mm3 Normal No Aug 30 es informati 2016 6:25 [#/volume on in PM ] in source Unspecifi data ed specimen by Automated count Lymphocyt 10 - 50.0 % Normal No Aug 30 es informati 2016 6:25 [#/volume on in PM ] in source Unspecifi data ed specimen by Automated count Erythrocy 27 - 31.2 pg Normal No Aug 30 te mean informati 2016 6:25 corpuscul on in PM ar source hemoglobi data n [Entitic mass] Erythrocy 31.8 - g/dl Normal No Aug 30 te mean 35.4 informati 2016 6:25 corpuscul on in PM ar source hemoglobi data n concentra tion [Mass/vol ume] by Automated count Erythrocy 82.2 - fl Normal No Aug 30 te mean 97.8 informati 2016 6:25 corpuscul on in PM ar volume source [Entitic data volume] by Automated count Monocytes 0.1 - 1.0 K/mm3 Normal No Aug 30 informati 2016 6:25 [#/volume on in PM ] in source Blood by data Automated count Monocytes 1.7 - 9.3 % Normal No Aug 30 informati 2016 6:25 leukocyte on in PM s in source Blood by data Automated count Platelet 7.4 - fl Low No Aug 30 mean 10.4 informati 2017 6:25 volume on in PM [Entitic source volume] data in Blood by Automated count Platelets 142 - 424 K/mm3 Normal No Aug 30 informati 2017 6:25 [#/volume on in PM ] in source Blood data Erythrocy 4.2 - 5.4 M/mm3 Normal No Aug 30 liam informati 2016 6:25 [#/volume on in PM ] in source Amniotic data fluid Erythrocy 11.5 - % Normal No Aug 30 te 17.5 informati 2017 6:25 distribut on in PM ion width source [Entitic data volume] by Automated count Leukocyte 4.8 - K/MM3 High No Aug 30 s 10.8 informati 2016 6:25 [#/volume on in PM ] in source Blood data Amylase [Enzymatic activity/volume] in Serum or Plasma Observa Value Referen Units Interpr Notes Date tion ce etation Range Amylase 25 - 115 U/L Normal No Aug 30 [Enzymati informati 2017 6:25 c on in PM activity/ source volume] data in Serum or Plasma Comprehensive metabolic 2000 panel in Serum or Plasma Observa Value Referen Units Interpr Notes Date tion ce etation Range Albumin/G 1.1 - 1.8 No Low No Aug 30 lobulin informati informati 2016 6:25 [Mass on in on in PM ratio] in source source Serum or data data Plasma Albumin 3.4 - 5.0 gm/dL Normal No Aug 30 [Mass/vol informati 2017 6:25 ume] in on in PM Serum or source Plasma data Alkaline 46 - 116 U/L High No Aug 30 phosphata informati 2017 6:25 se on in PM [Enzymati source c data activity/ volume] in Serum or Plasma Bilirubin 0.2 - 1.0 mg/dL Normal No Aug 30 .total informati 2017 6:25 [Mass/vol on in PM ume] in source Serum or data Plasma Urea 7 - 18 mg/dL Normal No Aug 30 nitrogen informati 2017 6:25 [Mass/vol on in PM ume] in source Serum or data Plasma Calcium 8.5 - mg/dL Normal No Aug 30 [Mass/vol 10.1 informati 2017 6:25 ume] in on in PM Serum or source Plasma data Chloride 98 - 107 mmoL/L Normal No Aug 30 [Moles/vo informati 2016 6:25 lume] in on in PM Serum or source Plasma data Carbon 21.0 - mmoL/L Normal No Aug 30 dioxide, 32.0 informati 2016 6:25 total on in PM [Moles/vo source lume] in data Serum or Plasma Creatinin 0.55 - mg/dL Normal No Aug 30 e 1.02 informati 2016 6:25 [Mass/vol on in PM ume] in source Serum or data Plasma Creatinin 50 - 200 ML/MIN Normal No Aug 30 e renal informati 2016 6:25 clearance on in PM source predicted data by Cockcroft -Gault formula Estimated 59- ML/MIN No REFERENCE Aug 30 informati RANGE: 2017 6:25 glomerula on in >60 PM r source ML/MIN/1. filtratio data 73 SQUARE n rate METERSIf (GF this patient is -A merican, then multiply theresult by 1.210. Globulin 1.3 - 3.2 gm/dL High No Aug 30 [Mass/vol informati 2016 6:25 ume] in on in PM Serum source data Glucose 74 - 106 mg/dL Normal No Aug 30 [Mass/vol informati 2016 6:25 ume] in on in PM Serum or source Plasma data Potassium 3.5 - 5.1 mmoL/L Normal No Aug 302016 6:25 [Moles/vo on in PM lume] in source Serum or data Plasma Sodium 136 - 145 mmoL/L Normal No Aug 30 [Moles/vo informati 2016 6:25 lume] in on in PM Serum or source Plasma data Aspartate 15 - 37 U/L High No Aug 30 informati 2016 6:25 aminotran on in PM sferase source [Enzymati data c activity/ volume] in Serum or Plasma Alanine 12 - 78 U/L Normal No Aug 30 aminotran informati 2016 6:25 sferase on in PM [Enzymati source c data activity/ volume] in Serum or Plasma Protein 6.4 - 8.2 gm/dL Normal No Aug 30 [Mass/vol informati 2016 6:25 ume] in on in PM Serum or source Plasma data Lipase [Enzymatic activity/volume] in Serum or Plasma Observa Value Referen Units Interpr Notes Date tion ce etation Range Lipase 73 - 393 U/L Normal No Aug 30 [Enzymati informati 2017 6:25 c on in PM activity/ source volume] data in Serum or Plasma CBC W Auto Differential panel in Blood Observa Value Referen Units Interpr Notes Date tion ce etation Range Basophils 0 - 0.2 K/MM3 Normal No Aug 13 inform2016 2:00 [#/volume on in PM ] in source Blood by data Automated count Basophils 0.1 - 2.0 % Normal No Aug 13 /100 inform2016 2:00 leukocyte on in PM s in source Blood by data Automated count Eosinophi 0.0 - 0.4 K/mm3 Normal No Aug 13 ls informati 2016 2:00 [#/volume on in PM ] in source Blood by data Automated count Eosinophi 0.1 - % Normal No Aug 13 ls/100 12.0 inform2016 2:00 leukocyte on in PM s in source Blood by data Automated count Granulocy 1.8 - 7.8 K/mm3 Normal No Aug 13 liam inform2016 2:00 [#/volume on in PM ] in source Blood by data Automated count Granulocy 37.0 - % Normal No Aug 13 liam/100 80.0 informati 2016 2:00 leukocyte on in PM s in source Blood by data Automated count Hematocri 37.0 - % Normal No Aug 13 t [Volume 47.0 informati 2016 2:00 on in PM Fraction] source of Blood data Hemoglobi 12.2 - g/dL Normal No Aug 13 n 16.2 inform2016 2:00 [Mass/vol on in PM ume] in source Blood data Lymphocyt 0.7 - 4.5 K/mm3 Normal No Aug 13 es inform2016 2:00 [#/volume on in PM ] in source Unspecifi data ed specimen by Automated count Lymphocyt 10 - 50.0 % Normal No Aug 13 es inform2016 2:00 [#/volume on in PM ] in source Unspecifi data ed specimen by Automated count Erythrocy 27 - 31.2 pg Normal No Aug 13 te mean informati 2016 2:00 corpuscul on in PM ar source hemoglobi data n [Entitic mass] Erythrocy 31.8 - g/dl Normal No Aug 13 te mean 35.4 informati 2016 2:00 corpuscul on in PM ar source hemoglobi data n concentra tion [Mass/vol ume] by Automated count Erythrocy 82.2 - fl Normal No Aug 13 te mean 97.8 informati 2016 2:00 corpuscul on in PM ar volume source [Entitic data volume] by Automated count Monocytes 0.1 - 1.0 K/mm3 Normal No Aug 13 informati 2016 2:00 [#/volume on in PM ] in source Blood by data Automated count Monocytes 1.7 - 9.3 % Normal No Aug 13 /100 informati 2016 2:00 leukocyte on in PM s in source Blood by data Automated count Platelet 7.4 - fl Low No Aug 13 mean 10.4 informati 2016 2:00 volume on in PM [Entitic source volume] data in Blood by Automated count Platelets 142 - 424 K/mm3 Normal No Aug 13 informati 2016 2:00 [#/volume on in PM ] in source Blood data Erythrocy 4.2 - 5.4 M/mm3 Normal No Aug 13 liam informati 2016 2:00 [#/volume on in PM ] in source Amniotic data fluid Erythrocy 11.5 - % Normal Aug 13 te 17.5 informati 2016 2:00 distribut on in PM ion width source [Entitic data volume] by Automated count Leukocyte 4.8 - K/MM3 Normal No Aug 13 s 10.8 informati 2016 2:00 [#/volume on in PM ] in source Blood data CHLAMYDIA AND GONORRHEA TESTING Observa Value Referen Units Interpr Notes Date tion ce etation Range COLLECT NATALIA No No No No Apr 28 OR informa informa informa informa 2011 tion in tion in tion in tion in 11:06 source source source source AM data data data data ETHNICI HISPANI No No No No Apr 28 TY C WHITE informa informa informa informa 2011 tion in tion in tion in tion in 11:06 source source source source AM data data data data KIT N/A No No No No Apr 28 EXPIRAT informa informa informa informa 2011 ION tion in tion in tion in tion in 11:06 DATE source source source source AM data data data data SYMPTOM NO No No No No Apr 28 S informa informa informa informa 2011 tion in tion in tion in tion in 11:06 source source source source AM data data data data REASON VOLUNTE No No No No Apr 28 FOR ER/MEDI informa informa informa informa 2012 REQUEST EDWIN tion in tion in tion in tion in 11:06 PROBLEM source source source source AM data data data data SPECIME URINE No No No No Apr 8 N informa informa informa informa 2012 SOURCE tion in tion in tion in tion in 11:06 source source source source AM data data data data PREGNAN NO No No No No Mar 8 T informa informa informa informa 2012 tion in tion in tion in tion in 11:06 source source source source AM data data data data CHART [id number] No No No No Mar 8 NUMBER informa informa informa informa 2012 tion in tion in tion in tion in 11:06 source source source source AM data data data data Chlamyd Pending No No No No Apr 8 ia informa informa informa informa 2012 trachom tion in tion in tion in tion in 11:06 atis source source source source AM rRNA data data data data [Presen ce] in Unspeci fied specime n by Probe & target amplifi cation method Neisser Pending No No No \.br\Apr 8 ia informa informa informa is 2012 gonorrh tion in tion in tion in report 11:06 oeae source source source contain AM rRNA data data data s [Presen patient ce] in Unspeci informa fied tion specime that n by must be Probe & target protect ed in amplifi accorda cation nce method with the [employer] lity and Account ability Act.
--- OUTSIDE RECORDS SUMMARY | 2016-12-09 12:33 | External Medical Summary Rpt ---
[...] source AM data data data data CHART [id number] No No No No Mar 8 NUMBER [...]
[2016-12-09 13:11] LABS: URINE BILIRUBIN - DIPSTICK NEGATIVE (NEG); URINE BLOOD NEGATIVE (NEG)
--- NOTE | 2016-12-09 13:18 | RADIOLOGY REPORT PS360 ---
CHEST-PORTABLE HISTORY: INTERMITTENT CP X2 DAYS ORDERING PHYSICIAN: Gem Hernandez MD PATIENT AGE: 41 years COMPARISON: 08/13/2016, 09/13/2016 FINDINGS: The heart size is unremarkable. There is no evidence of CHF. The right hilum is prominent more so than when compared to previous exams. Cannot see the possibility of a right hilar mass or dense perihilar consolidation. Suggest upright PA and lateral chest for further evaluation. There is coarsening of the bronchovascular markings consistent with peribronchial inflammatory changes. No lobar consolidation or collapse. IMPRESSION: 1. Prominent right hilum. Suggest upright PA and lateral chest for further evaluation if the patient can tolerate. 2. Peribronchial inflammatory changes
[2016-12-09] MEDS ORDERED: ZOFRAN ODT4 MG PO (13:29)
[2016-12-09] MEDS ORDERED: AVPAK AZITHROM250 MG PO (13:30)
[2016-12-09 13:48] VITALS: BP 145/91
== END 2016-12-09 13:49 | disposition home or self-care (01) ==
LOC: ER 11:49
PROVIDERS: Emergency Medicine
DX: R05 Cough (principal); F17.210 Nicotine dependence, cigarettes, uncomplicated; F41.9 Anxiety disorder, unspecified; F32.9 Major depressive disorder, single episode, unspecified